=== PATIENT | male | born 1950 | race Hispanic/Latino ===

== ENCOUNTER 2018-01-14 08:03 | Outpatient (RCR) | payer MEDICARE, BC ==
[~2018-01-14 08:03] MED LIST: LIDOCAINE VISC 2% SOLN 15 ML UDC ONE
[2018-01-14] MEDS ORDERED: COLLAGENASE OINTMENT 30 GM TUBE ONE (17:17)
== END 2018-02-05 ==
LOC: WCC 08:03
PROVIDERS: ATTEND Plastic Surgery
DX: E11.621 Type 2 diabetes mellitus with foot ulcer (principal); L97.422 Non-pressure chronic ulcer of left heel and midfoot with fat layer exposed; G81.90 Hemiplegia, unspecified affecting unspecified side; I73.89 Other specified peripheral vascular diseases; I10 Essential (primary) hypertension; N18.6 End stage renal disease
CPT/HCPCS: 36415; 82948

== ENCOUNTER → 2018-01-28 | Outpatient (CLI) | payer MEDICARE, BC ==
--- NOTE | 2018-01-31 08:24 | Diagnostic Imaging Report ---
TECHNIQUE: Magnetic resonance imaging of the LEFT foot (hindfoot) was performed WITHOUT injected contrast. HISTORY: Ulcer, heel, diabetes COMPARISON: None available. DISCUSSION: Bone: No focal or infiltrative bone marrow replacing abnormality. No acute fracture or osteonecrosis. Subchondral sclerotic and cystic changes at the medial aspect of the talar dome. Joints: No dislocation. No effusion. Minimal scattered degenerative changes. Soft Tissues: A small soft tissue defect at the medial aspect of the dorsal heel. Mild regional edema without a drainable fluid collection. IMPRESSION: 1. No osteomyelitis. 2. No soft tissue abscess. Signed by: Dr. Manolo Rose D.O., M.M.M. on 01/31/2018 8:20 AM
== END ==
LOC: MRI 08:08
PROVIDERS: ATTEND Plastic Surgery
DX: E11.621 Type 2 diabetes mellitus with foot ulcer (principal); L97.422 Non-pressure chronic ulcer of left heel and midfoot with fat layer exposed; Z01.810 Encounter for preprocedural cardiovascular examination
CPT/HCPCS: 93306

== ENCOUNTER 2018-03-04 14:05 | Outpatient (RCR) | payer MEDICARE, BC ==
[2018-04-18] MEDS ORDERED: MINOXIDIL2.5 MG PO (14:24)
[2018-04-18] MEDS ORDERED: RENVELA0.8 GM PO (14:24)
[2018-04-18] MEDS ORDERED: DIOVAN160 MG PO (14:24)
[2018-04-18] MEDS ORDERED: ASPIRIN81 MG PO (14:24)
[2018-04-18] MEDS ORDERED: CARVEDILOL12.5 MG PO (14:24)
== END 2018-03-07 ==
LOC: WCC 14:05
PROVIDERS: ATTEND Plastic Surgery
DX: E11.621 Type 2 diabetes mellitus with foot ulcer (principal); L97.422 Non-pressure chronic ulcer of left heel and midfoot with fat layer exposed; N18.6 End stage renal disease; I73.89 Other specified peripheral vascular diseases; I10 Essential (primary) hypertension; G81.90 Hemiplegia, unspecified affecting unspecified side; E78.00 Pure hypercholesterolemia, unspecified; Z01.810 Encounter for preprocedural cardiovascular examination

== ENCOUNTER → 2018-03-07 | Outpatient (RCR) | payer MEDICARE, BC | LOC: WCC 02-07 11:09 | PROVIDERS: ATTEND Plastic Surgery | DX: E11.621 Type 2 diabetes mellitus with foot ulcer (principal); L97.422 Non-pressure chronic ulcer of left heel and midfoot with fat layer exposed; N18.6 End stage renal disease; I73.89 Other specified peripheral vascular diseases; I10 Essential (primary) hypertension; G81.90 Hemiplegia, unspecified affecting unspecified side; E78.00 Pure hypercholesterolemia, unspecified; Z01.810 Encounter for preprocedural cardiovascular examination | CPT/HCPCS: 36415 ×11; 82948 ×11; 99211; 99212; G0277 ×13 ==

== ENCOUNTER → 2018-04-07 | Outpatient (RCR) | payer MEDICARE, BC ==
[~2018-04-07] MED LIST changes: +COLLAGENASE OINTMENT 30 GM TUBE ONE
== END ==
LOC: WCC 03-08 14:36
PROVIDERS: ATTEND Plastic Surgery
DX: E11.621 Type 2 diabetes mellitus with foot ulcer (principal); L97.422 Non-pressure chronic ulcer of left heel and midfoot with fat layer exposed; I73.89 Other specified peripheral vascular diseases; I10 Essential (primary) hypertension; N18.6 End stage renal disease; G81.90 Hemiplegia, unspecified affecting unspecified side; E78.00 Pure hypercholesterolemia, unspecified; Z01.810 Encounter for preprocedural cardiovascular examination
CPT/HCPCS: 36415 ×14; 82948 ×17; 97602 ×4; 99212; G0277 ×18

== ENCOUNTER → 2018-04-19 | Day surgery (SDC) | payer MEDICARE, BC ==
[2018-04-18 14:25] LABS: BASOPHILS # (AUTO) 0.1 (0.0-0.1); BASOPHILS % 0.8 % (0.0-1.0); EOSINOPHILS # (AUTO) 0.1 (0.0-0.4); EOSINOPHILS % 2.2 % (0.0-6.0); HEMATOCRIT 30.6 % (38.2-49.6); HEMOGLOBIN 10.1 g/dL (14.0-18.0); LYMPHOCYTES # (AUTO) 0.9 (1.0-3.2); LYMPHOCYTES % 13.4 % (18.0-39.1); MEAN CORPUSCULAR VOLUME 90.8 fL (81-99); MONOCYTES # (AUTO) 0.7 (0.2-0.8); MONOCYTES % 10.4 % (4.4-11.3); NEUTROPHILS # (AUTO) 4.6 (2.1-6.9); NEUTROPHILS % 72.9 % (38.7-80.0); PLATELET COUNT 222 x10e3/uL (140-360); RED BLOOD COUNT 3.37 x10e6/uL (4.3-5.7); RED CELL DISTRIBUTION WIDTH 13.6 % (11.7-14.4)
[2018-04-18 14:29] LABS: INR 1.15; PROTHROMBIN TIME 13.8 seconds (11.9-14.5)
[2018-04-18 14:44] LABS: ALBUMIN 3.3 g/dL (3.5-5.0); CALCIUM 9.1 mg/dL (8.4-10.2); CHOL/HDL RATIO 4.6 (3.9-4.7); CREATININE, SERUM 4.77 mg/dL (0.72-1.25)
[~2018-04-19] VITALS: Ht 172.7 cm; Wt 92.5 kg
[~2018-04-19] MED LIST changes: +ALPRAZOLAM 0.5 MG TAB ONE; +ASPIRIN81 MG PO; +CARVEDILOL12.5 MG PO; -COLLAGENASE OINTMENT 30 GM TUBE ONE; +DIOVAN160 MG PO; +DIPHENHYDRAMINE HCL 25 MG CAP ONE; +FENTANYL CITRATE/PF 100MCG/2 ML INJ ONE; +HEPARIN SOD/SOD CHLORIDE 2,000 ML ONE; +IOPAMIDOL 300MG/ML 100 ML INFUS..BTL IV ONE; +LIDOCAINE HCL 2% LOCAL 20 ML VIAL ONE; -LIDOCAINE VISC 2% SOLN 15 ML UDC ONE; +METHYLPREDNISOLONE SOD SUCC 125 MG/2ML VIAL ONE; +MIDAZOLAM HCL 2 MG/2 ML VIAL ONE; +MINOXIDIL2.5 MG PO; +NITROGLYCERIN/D5W 200 MCG/ML 250 ML ONE; +RENVELA0.8 GM PO; +SODIUM CHLORIDE 0.9% 1000ML 0 ML ONE; +SODIUM CHLORIDE 0.9% 1000ML 1,000 ML ONE; +VERAPAMIL HCL 2.5 MG/ML 2 ML VIAL ONE
--- OUTSIDE RECORDS SUMMARY | 2018-04-19 12:26 | XMS REPORT | Continuity of Care Document ---
Author Author [facility] Organization [facility] Address 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 No 01/07/18 10:45am If yes, is advance directive [facility]? No 01/07/18 10:45am If not on file with [facility] will patient provide a copy? No 01/07/18 10:45am Do you have a Directive to Physician? No 03/07/18 3:44pm Do you have a Medical Power of Health Care Facility Administrator? No 03/07/18 3:44pm Do you have an out of hospital Do Not Resuscitate Order? No 03/07/18 3:44pm Do you have any special needs we should be aware of? No 03/07/18 3:44pm Do you have a support person here with you today? No 03/07/18 3:44pm Did patient receive Notice of Privacy Practices? Yes 03/07/18 3:44pm Did patient receive patient rights and responsibilities? Yes 03/07/18 3:44pm Problems No problem information available. Medications No medication information available. Social History No social history information available. Hospital Discharge Instructions No hospital discharge instruction information available. Plan of Care Prescriptions See Medication Section Functional Status No functional status information available. Allergies, Adverse Reactions, Alerts No allergy information available. Immunizations No immunization information available. Vital Signs No vital sign information available. Results Laboratory Results Test Name Result Units Flags Reference Collection Date/Time Result Date/ Time Comments Bedside Glucose 106 mg/dL 70-120 04/07/2018 1:03pm 04/07/2018 1:50pm Meter ID: [id number] Procedures Procedure Status Date Provider(s) MRI non-joint region of extremity lower wo contrast Active 01/28/18 LIAT MEADE MD Encounters Encounter Location Arrival/Admit Date Discharge/Depart Date Attending Provider Discharged [facility] 04/07/18 10:50am 11:59pm LIAT MEADE MD Discharged [facility] 03/04/18 2:05pm 03/07/18 11:59pm LIAT MEADE MD Discharged [facility] 02/07/18 11:09am 11:59pm LIAT MEADE MD Registered Clinic [facility] 01/28/18 8:08am LIAT MEADE MD Discharged [facility] 01/10/18 8:17am 02/05/18 11:59pm LIAT MEADE MD
--- OUTSIDE RECORDS SUMMARY | 2018-04-19 12:26 | XMS REPORT ---
Author Author [facility] Address Unknown Phone Unavailable Care Team Providers Care Radio Frequency Engineer Name Role Phone LIAT MEADE Unavailable Unavailable Problems This patient has no known problems. Allergies, Adverse Reactions, Alerts This patient has no known allergies or adverse reactions. Medications This patient has no known medications. Results Test Description Test Time Test Comments Text Results Atomic Results Result Comments MRI FOOT LEFT WO [place] [address] Patient Name: STANLEY FOREMAN MR #: [id number] : 1950 Age/Sex: 67/M Req #: [id number] Adm Physician: Ordered by: LIAT MEADE MD Report #: [id number] Location: MRI Room/Bed: Procedure: [id number] MRI/MRI FOOT LEFT WO Exam Date: Exam Time: REPORT STATUS: Signed TECHNIQUE: Magnetic resonance imaging of the LEFT foot (hindfoot) was performed WITHOUT injected contrast. HISTORY: Ulcer , heel, diabetes COMPARISON: None available. DISCUSSION: Bone: No focal or infiltrative bone marrow replacing abnormality. No acute fracture or osteonecrosis. Subchondral sclerotic and cystic changes at the medial aspect of the talar dome. Joints: No dislocation. No effusion. Minimal scattered degenerative changes. Soft Tissues: A small soft tissue defect at the medial aspect of the dorsal heel. Mild regional edema without a drainable fluid collection. IMPRESSION: 1. No osteomyelitis. 2. No soft tissue abscess. Signed by: Dr. Hayley Saeed D.O., M.M.M. on 2017 8:20 AM Dictated By: HAYLEY SAEED DO 9 Transcribed By: GURMEET on 01/31/18819 COPY TO: LIAT MEADE MD
--- OUTSIDE RECORDS SUMMARY | 2018-04-19 12:26 | XMS REPORT | Clinical Summary ---
Author Author [facility] Address Unknown Phone Unavailable Care Team Providers Care Aquatic Scientist Name Role Phone Evie Serrano MD PCP Allergies Active Allergy Reactions Severity Noted Date Comments Iodine Hives High 07/01/2017 SOB Current Medications Prescription Sig. Disp. Refills Start End Date Status Date sevelamer (RENVELA) 800 Take 1 tablet(s) 3 times Active mg tablet a day by oral route. clindamycin (CLEOCIN) 300 TK 1 C PO Q 6 H FOR 10 0 06/29/20 Active MG capsule DAYS 17 carvedilol (COREG) 12.5 TK 1 T PO BID 2 05/16/20 Active MG tablet 17 atorvastatin (LIPITOR) 10 TK 1 T PO QD 6 05/13/20 Active MG tablet 17 omeprazole (PriLOSEC) 20 TK 1 C PO D 1 06/01/20 Active MG capsule 17 AURYXIA 210 mg iron TK 2 TS PO TID WC 5 05/06/20 Active tablet 17 lidocaine-prilocaine APPLY TO INFECTED AREA 7 06/25/20 Active (EMLA) 2.5-2.5 % cream 17 gabapentin (NEURONTIN) TK 1 C PO QHS 0 05/18/20 Active 300 mg capsule 17 terbinafine HCl (LamiSIL) TK 1 T PO HS FOR TOENAIL. 0 06/15/20 Active 250 mg tablet FOR 12 WEEKS 17 valsartan (DIOVAN) 160 MG TK 1 T PO QD 5 03/30/20 Active tablet 17 FOLIC ACID ORAL folic acid Active midodrine (PROAMATINE) 10 Take 10 mg by mouth 3 Active MG tablet (three) times a day. traMADol (ULTRAM) 50 mg Take 1 tablet (50 mg 40 tablet 0 07/13/20 tablet total) by mouth every 6 17 17 (six) hours as needed for moderate pain for up to 7 days. Active Problems Problem Noted Date Complications due to renal dialysis device, implant, and graft 07/01/2017 Overview: Added automatically from request for surgery [id number] Syncope 03/27/2016 Encounters Date Type Specialty Care Team Description 07/16/2017 Telephone Cardiovascular Mary Ordoñez RN 07/13/2017 Hospital Ophthalmology Mala Chapa MD Complications due to Encounter renal dialysis device, implant, and graft, initial encounter 07/13/2017 Hospital Radiology Mala Chapa MD ESRD (end stage renal Encounter disease) 07/13/2017 Anesthesia Ophthalmology Nicki Luna Event MD 07/13/2017 Ancillary Radiology Mala Chapa MD ESRD (end stage renal Orders disease) 07/13/2017 Procedure Pass Ophthalmology 07/13/2017 Surgery Ophthalmology Mala Chapa MD Left arm fistulogram, angioplasty, and stent placement 07/01/2017 Office Visit Cardiovascular Mala Chapa MD Complications due to renal dialysis device, implant, and graft, initial encounter (Primary Dx) 06/11/2017 Telephone Cardiovascular Dionne Preston MA Complications due to renal dialysis device, implant, and graft, initial encounter (Primary Dx); End stage renal disease after 04/18/2017 Immunizations Name Dates Previously Given Next Due Influenza, Quadrivalent 11/08/2013 Social History Tobacco Use Types Packs/Day Years Used Date Never Smoker Alcohol Use Drinks/Week oz/Week Comments No Sex Assigned at Date Recorded Not on file Last Filed Vital Signs Vital Sign Reading Time Taken Blood Pressure 179/77 07/13/2017 3:08 PM CDT Pulse 59 07/13/2017 3:08 PM CDT Temperature 35.7 C (96.3 F) 07/13/2017 3:08 PM CDT Respiratory Rate 16 07/13/2017 3:08 PM CDT Oxygen Saturation 100% 07/13/2017 3:08 PM CDT Inhaled Oxygen - - Concentration Weight 98 kg (216 lb 0.8 oz) 07/13/2017 10:23 AM CDT Height 172.7 cm (5' 8") 07/13/2017 10:23 AM CDT Body Mass Index 32.85 07/13/2017 10:23 AM CDT Plan of Treatment Health Maintenance Due Date Last Done Comments SHINGRIX VACCINE (#1) 2001 ZOSTER VACCINE 2011 PNEUMOCOCCAL 2016 POLYSACCHARIDE VACCINE AGE 65 AND OVER PNEUMOCOCCAL-13 2016 INFLUENZA VACCINE 06/08/2018 11/08/2013 COLON CANCER SCREENING 01/06/2026 01/07/2016, 01/06/2016, 01/05/2016 Implants Implanted Type 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 [employer] Device Expiration Model / Identifier Date Serial / Lot Stent Bili E-Luminexx [id number] W/ Peripheral Left: Arm, BARD PERIPHERAL 10/09/2019 [id number] / Cath 80cm - [id number] or Biliary Upper VASCULAR / Implanted: 07/13/2017 (Quantity not Stents [id number] on file) Catheter Wire Repairer 4x75cm 10mm Conquest - Surgical Left: Arm BARD PERIPHERAL [id number] / [id number] Implants; VASCULAR / Implanted: Qty: 1 on 07/13/2017 by [employer]; [id number] Mala Chapa MD Extenders; Surgical Wires Procedures Procedure Name Priority Date/Time Associated Diagnosis Comments ANESTHESIA PERIPHERAL Routine 07/13/2017 BLOCK 11:42 AM CDT Procedure Note - Donita Mike MD - 07/13/2017 11:20 AM CDT Peripheral Block Performed by: DONITA MIKE Authorized by: DONITA MIKE Patient Location: Pre-op Start Time: 07/13/2017 11:25 AM End Time: 07/13/2017 11:42 AM Reason for Block: at surgeon's request Staff: Anesthesio logist: DONITA MIKE Resident/C RNA: NICKI LUNA Performed by: Resident/C RNA Preprocedu re: patient identified , IV checked, site and side verified, risks and benefits discussed, procedure verified, surgical consent complete, patient position confirmed, monitors and equipment checked, pre-op evaluation complete and site marked Time Out Performed: 07/13/2017 11:22 AM Peripheral Nerve Block: Patient Position: Sitting Prep: ChloraPrep Monitoring : Blood pressure monitoring , continuous pulse oximetry and heart rate Block Type: Supraclavi cular Laterality : Left Injection Technique: Single injection Procedures : ultrasound guided and nerve stimulator Ultrasound documentat ion: Printed/pl aced in chart Local Infiltrati on (See MAR for details): Lidocaine Loss of Twitch: 0.5 mA Needle: Needle Type: Pajunk Needle Gauge: 22 G Needle Length: 8 cm Assessment : Injection Assessment : Visualized needle/loc al anesthetic surroundin g nerve, visualized pertinent vascular structures and nerves, needle tip visualized at all times during injection of medication , intermitte nt aspiration during local anesthetic administra tion and no symptoms of intraneura l/intraven ous injection Paresthesi a Pain: None Heart Rate Change: No Block outcome: No apparent complicati ons, patient comfortabl e and patient tolerated procedure well Notes: Supervised resident who performed regional block. Left arm fistulogram, 07/13/2017 Complications due to angioplasty, and stent 10:15 AM CDT renal dialysis device, placement implant, and graft, initial encounter after 04/18/2017 Results * POC glucose (07/13/2017 2:16 PM) Component Value Ref Range POC glucose 96 65 - 99 mg/dL Comment: No Action Needed [facility] Notified RN Meter ID: [id number] Shaft Mechanic: Richard Mayberry Specimen Performing Laboratory [facility] DEPARTMENT OF PATHOLOGY AND GENOMIC MEDICINE [address] [place] [address] * OR [place] < 1 Hour (07/13/2017 2:05 PM) Specimen Performing Laboratory [facility] [address] [place] [id number] Narrative EXAMINATION:OR [place] 1 HOUR C-arm fluoroscopy was requested in OR. LOCATION: [facility] 7 OR 1 PROCEDURE: LEFT UE VENOGRAM/ANGIOPLASTY/STENT PLACEMENT START: 1310 END: 1405 FLUORO TIME: 4:27 DOSE mGy: 21.12 TECH: GABINO GREGORY C-ARM: OEC 10 IMPRESSION: Separate operative report will be issued by the physician performing the procedure. [id number] Procedure Note Interface, Radiology Results Incoming - 07/13/2017 6:42 PM CDT EXAMINATION: OR [place] 1 HOUR C-arm fluoroscopy was requested in OR. LOCATION: [facility] 7 OR 1 PROCEDURE: LEFT UE VENOGRAM/ANGIOPLASTY/STENT PLACEMENT START: 1310 END: 1405 FLUORO TIME: 4:27 DOSE mGy: 21.12 TECH: GABINO GREGORY C-ARM: OEC 10 IMPRESSION: Separate operative report will be issued by the physician performing the procedure. [id number] * ECG 12 lead (07/13/2017 11:04 AM) Component Value Ref Range Ventricular rate 53 Atrial rate 53 IL interval 178 QRSD interval 80 QT interval 492 QTC interval 461 P axis 1 12 QRS axis 1 17 T wave axis 80 EKG impression Sinus bradycardia-Otherwise normal ECG-In automated comparison with ECG of 07-JAN-2016 14:58,-Non-specific change in ST segment in Inferior leads-T wave inversion no longer evident in Inferior leads- Specimen Performing Laboratory [facility] [address] [place] [id number] * POC panel 4 (07/13/2017 10:48 AM) Component Value Ref Range POC sodium 138Comment: Testing performed on the ISTAT 135 - 148 mEq/L instrument by RN [id number]. POC potassium 5.3 (H) 3.5 - 5.0 mEq/L POC hematocrit 34 (L) 41 - 51 % POC glucose 127 (H) 65 - 99 mg/dL Specimen Performing Laboratory [facility] DEPARTMENT OF PATHOLOGY AND GENOMIC MEDICINE [address] [place] [address] * XR Chest 1 Vw Portable (07/13/2017 10:40 AM) Specimen Performing Laboratory [facility] [address] [place] [address] Narrative EXAMINATION:XR CHEST 1 VW PORTABLE CLINICAL HISTORY: preop clearance COMPARISON:01/07/2016. FINDINGS: One view of the chest demonstratesnormal cardiomediastinal silhouette. Pulmonary vasculature is within normal limits. A left subclavian stent is again noted. Both lungs are clear. No pleural disease is identified. Regional osseous structures is unremarkable. IMPRESSION: No radiographic evidence of acute cardiopulmonary process or active disease of the chest. [id number] Procedure Note Interface, Radiology Results Incoming - 07/13/2017 10:51 AM CDT EXAMINATION: XR CHEST 1 VW PORTABLE CLINICAL HISTORY: preop clearance COMPARISON: 01/07/2016. FINDINGS: One view of the chest demonstrates normal cardiomediastinal silhouette. Pulmonary vasculature is within normal limits. A left subclavian stent is again noted. Both lungs are clear. No pleural disease is identified. Regional osseous structures is unremarkable. IMPRESSION: No radiographic evidence of acute cardiopulmonary process or active disease of the chest. [id number] * PV vein mapping upper extremity (06/24/2017 3:52 PM) Specimen Performing Laboratory [facility] [address] [place] [address] Narrative [facility] Upper Extremity Vein Mapping Duplex Report [address] [place], [place] Pat.Name:HERMAN FOREMAN Pat.ID:[id number] .Date: 06/24/2017 Refer.MD:MALA CHAPA MD Exam Time: 2:05:00 PMStudy Type:UE Vein Mapping DOBAge:1950,66Y Sex: MALE Sonogrphr: Anish Harrison, RDMS, RVT CPT - 4: [id number] Echo Event ID:[id number] Order ID:[id number] Reason for Study:Pre-op vein mapping for AV fistula.History of malfunctioning left arm AVF.Patient reports that he is still using it for dialysis but it is failing due to a blockage in a stent at his shoulder. Race:C SUMMARY: DUPLEX SCAN OBSERVATIONS Right Left SubclavianPatent Patent AxillaryPatent Patent BrachialPatent Patent Diameter 0.21 cm Cephalic, arm Patent Patent, chronic thrombosis and 2 stents Cephalic, forearm Not visualized Not visualized Basilic, armPatent Patent Basilic, forearm Not visualized Patent Brachial artery Pressure 144/69 mmHg AVF PSV cm/sec 915559 Radial artery PSV cm/sec 46944 Ulnar artery PSV cm/sec 7966 RIGHT:There is normal compressibility with no evidence of echogenic material noted within the lumen of the visualized veins.Colorflow and Doppler signals demonstrate patency.The scanlon of the radial and ulnar arteries are echogenic. LEFT:There is a patent brachiocephalic AVF noted in the upper arm with chronic appearing thrombus noted near the AC fossa.Colorflow and Doppler signals demonstrate patency.The scanlon of the radial and ulnar arteries are echogenic. PHYSICIAN INTERPRETATION 1.No evidence of acute deep venous thrombosis of the bilateral upper extremities. 2.Patent left brachiocephalic AVF is noted in the upper arm. 3.See diagram for vein measurements. MEASUREMENTS: UEVEINS Right Cephalic Upper Arm Prox Cephalic Upper 0.32 cm Right Cephalic Upper Arm Mid Cephalic Upper 0.33 cm Right Cephalic Upper Arm Dist Cephalic Upper0.3 cm Right Cephalic Antecubital Fossa Cephalic Antecu0.27 cm Right Basilic Upper Arm Prox Basilic Upper A 0.4 cm Left Basilic Upper Arm Prox Basilic Upper A0.51 cm Right Basilic Upper Arm Mid Basilic Upper A0.46 cm Left Basilic Upper Arm Mid Basilic Upper A0.49 cm Right Basilic Upper Arm Dist Basilic Upper A0.41 cm Left Basilic Upper Arm Dist Basilic Upper A0.32 cm Right Basilic Antecubital Fossa Basilic Antecub 0.4 cm Left Basilic Antecubital Fossa Basilic Antecub0.34 cm Left Basilic Forearm Prox Basilic Forearm0.33 cm Left Basilic Forearm Mid Basilic Forearm0.29 cm Left Basilic Wrist Basilic Wrist A0.27 cm Right Brachial Artery Brachial Artery0.48 cm Left Brachial Artery Brachial Artery0.51 cm Right Radial Artery Radial Artery A0.23 cm Left Radial Artery Radial Artery A0.22 cm Right Ulnar Artery Ulnar Artery AP0.21 cm Left Ulnar Artery Ulnar Artery AP0.17 cm Signed 06/28/2017 12:10 AM Jose Antonio Maciel MD, RPVI Procedure Note Interface, Radiology Results In - 06/28/2017 12:10 AM CDT [facility] Upper Extremity Vein Mapping Duplex Report [address] [place] [address] Pat.Name: HERMAN FOREMAN Pat.ID: [id number] St.Date: 06/24/2017 Refer.MD: MALA CHAPA MD Exam Time: 2:05:00 PM Study Type:UE Vein Mapping Age: 10 1950,66Y Sex: MALE Sonogrphr: Anish Harrison RDMS, RVT CPT - 4: [id number] Echo Event ID:[id number] Order ID: [id number] Reason for Study:Pre-op vein mapping for AV fistula. History of malfunctioning left arm AVF. Patient reports that he is still using it for dialysis but it is failing due to a blockage in a stent at his shoulder. Race: C SUMMARY: DUPLEX SCAN OBSERVATIONS Right Left Subclavian Patent Patent Axillary Patent Patent Brachial Patent Patent Diameter 0.21 cm Cephalic, arm Patent Patent, chronic thrombosis and 2 stents Cephalic, forearm Not visualized Not visualized Basilic, arm Patent Patent Basilic, forearm Not visualized Patent Brachial artery Pressure 144/69 mmHg AVF PSV cm/sec 101 186 Radial artery PSV cm/sec 78 107 Ulnar artery PSV cm/sec 79 66 RIGHT: There is normal compressibility with no evidence of echogenic material noted within the lumen of the visualized veins. Colorflow and Doppler signals demonstrate patency. The scanlon of the radial and ulnar arteries are echogenic. LEFT: There is a patent brachiocephalic AVF noted in the upper arm with chronic appearing thrombus noted near the AC fossa. Colorflow and Doppler signals demonstrate patency. The scanlon of the radial and ulnar arteries are echogenic. PHYSICIAN INTERPRETATION 1. No evidence of acute deep venous thrombosis of the bilateral upper extremities. 2. Patent left brachiocephalic AVF is noted in the upper arm. 3. See diagram for vein measurements. MEASUREMENTS: UEVEINS Right Cephalic Upper Arm Prox Cephalic Upper 0.32 cm Right Cephalic Upper Arm Mid Cephalic Upper 0.33 cm Right Cephalic Upper Arm Dist Cephalic Upper 0.3 cm Right Cephalic Antecubital Fossa Cephalic Antecu 0.27 cm Right Basilic Upper Arm Prox Basilic Upper A 0.4 cm Left Basilic Upper Arm Prox Basilic Upper A 0.51 cm Right Basilic Upper Arm Mid Basilic Upper A 0.46 cm Left Basilic Upper Arm Mid Basilic Upper A 0.49 cm Right Basilic Upper Arm Dist Basilic Upper A 0.41 cm Left Basilic Upper Arm Dist Basilic Upper A 0.32 cm Right Basilic Antecubital Fossa Basilic Antecub 0.4 cm Left Basilic Antecubital Fossa Basilic Antecub 0.34 cm Left Basilic Forearm Prox Basilic Forearm 0.33 cm Left Basilic Forearm Mid Basilic Forearm 0.29 cm Left Basilic Wrist Basilic Wrist A 0.27 cm Right Brachial Artery Brachial Artery 0.48 cm Left Brachial Artery Brachial Artery 0.51 cm Right Radial Artery Radial Artery A 0.23 cm Left Radial Artery Radial Artery A 0.22 cm Right Ulnar Artery Ulnar Artery AP 0.21 cm Left Ulnar Artery Ulnar Artery AP 0.17 cm Signed 06/28/2017 12:10 AM Jose Antonio Maciel MD, RPVI * PV duplex hemodialysis avg avf access (06/24/2017 3:38 PM) Specimen Performing Laboratory [facility] [address] [place] [address] [facility] PERIPHERAL VASCULAR LABORATORY AV Graft - Fistula Report [address] [place], [place] [facility].Name:HERMAN FOREMAN Pat.ID:[id number] .Date: 06/24/2017 Refer.MD:MALA CHAPA MD Exam Time: 1:49:00 PMStudy Type:AV Graft - Fistula DOBAge:1950,66Y Sex: MALE Sonogrphr: Anish Harrison RDMS, RVT CPT - 4: 00030 Echo Event ID:[id number] Order ID:[id number] Reason for Study:Patient presents with malfunctioning left arm AVF. Patient reports that he is still using it for dialysis but it is failing due to a blockage in a stent at his shoulder.No previous studies are availlable for comparison. Race:C SUMMARY: DUPLEX SCAN OBSERVATIONS: LEFT:The brachiocephalic AVF is well visualized.Disturbed, pulsatile colorflow and Doppler signals are noted in the feeding brachial artery, through the AVF anastomosis and into the draining cephalic vein.Increased colorflow disturbance and elevated velocities are noted through the anastomosis with plaque noted.A patent cephalic vein stent is noted in the mid upper arm with no elevated velocities.A second patent cephalic vein stent is noted at the cephalic arch with disturbed colorflow and elevated velocities. VOLUME FLOW:Left brachial artery 335 ml/min PHYSICIAN INTERPRETATION: 1.Volume flow left brachial artery is 335 ml/min. 2.>50% juxta-anastomotic stenosis, left brachiocephalic AVF (ratio 3.2). 3.>50% stenosis of the left distal end of the left cephalic vein stent at the cephalic arch (ratio 6.6). MEASUREMENTS: UEVEINS Right Cephalic Upper Arm Prox Cephalic Upper 0.32 cm Left Basilic Upper Arm Mid Basilic Upper A0.49 cm Right Basilic Upper Arm Mid Basilic Upper A0.46 cm Right Cephalic Upper Arm Dist Cephalic Upper0.3 cm Left Ulnar Artery Ulnar Artery AP0.17 cm Right Ulnar Artery Ulnar Artery AP0.21 cm Right Cephalic Upper Arm Mid Cephalic Upper 0.33 cm Left Basilic Forearm Prox Basilic Forearm0.33 cm Right Median Antecubital Median Antecubi0.21 cm Right Cephalic Antecubital Cephalic Antecu0.27 cm Left Basilic Wrist Basilic Wrist A0.27 cm Left Basilic Antecubital Basilic Antecub0.34 cm Right Basilic Antecubital Fossa Basilic Antecub 0.4 cm Left Radial Artery Radial Artery A0.22 cm Right Radial Artery Radial Artery A0.23 cm Left Basilic Upper Arm Dist Basilic Upper A0.32 cm Right Basilic Upper Arm Dist Basilic Upper A0.41 cm Left Brachial Artery Brachial Artery0.51 cm Left Basilic Forearm Mid Basilic Forearm0.29 cm Left Basilic Upper Arm Prox Basilic Upper A0.51 cm Right Basilic Upper Arm Prox Basilic Upper A 0.4 cm GRAFT Left Brachial A Dist Brachiocephalic:AV Fistula Brachial A Dist 211 cm/s Left Anastomosis Brachiocephalic:AV Fistula Anast DIS346 cm/s Left Cephalic Dist Up Arm Brachiocephalic:AV Fistula Cephalic Dist U 207 cm/s Left Cephalic Shoulder Brachiocephalic:AV Fistula Cephalic Omcvin89 cm/s Left 3 cm Central Brachiocephalic:AV Fistula 3 cm Central PS 678 cm/s Left 1 cm Central Brachiocephalic:AV Fistula 1 cm Central PS 472 cm/s Left Cephalic Mid Up Arm Brachiocephalic:AV Fistula Cephalic Mid Up 115 cm/s Left Brachial A Prox Brachiocephalic:AV Fistula Brachial A Prox 193 cm/s Left Brachial A Mid Brachiocephalic:AV Fistula Brachial A Gaj778 cm/s Left Cephalic Prox Up Arm Brachiocephalic:AV Fistula Cephalic Prox U77 cm/s Left Subclavian V Mid Brachiocephalic:AV Fistula Subclavian V Mi 116 cm/s Left Cephalic Arch 1 Brachiocephalic:AV Fistula Cephalic Arch 1 483 cm/s Left Cephalic Arch 2 Brachiocephalic:AV Fistula Cephalic Arch 2 144 cm/s Left Ceph/Axillary Confl. Brachiocephalic:AV Fistula Ceph/Axillary C 146 cm/s DOPPLER Brach A Diam AP Right Brach A D0.48 cm Ceph V Arch 2 Left Ceph V Arc 144 cm/s Ceph V Arch 1 Left Ceph V Arc 483 cm/s Signed 06/28/2017 12:09 AM Jose Antonio Maciel MD, RPVI Procedure Note Interface, Radiology Results In - 06/28/2017 12:09 AM CDT [facility] AV Graft - Fistula Report [address] [place] [id number] Pat.Name: HERMAN FOREMAN Pat.ID: [id number] St.Date: 06/24/2017 Refer.MD: MALA CHAPA MD Exam Time: 1:49:00 PM Study Type:AV Graft - Fistula Age: 10 1950,66Y Sex: MALE Sonogrphr: Anish Harrison RDMS, RVT CPT - 4: [id number] Echo Event ID:[id number] Order ID: [id number] Reason for Study:Patient presents with malfunctioning left arm AVF. Patient reports that he is still using it for dialysis but it is failing due to a blockage in a stent at his shoulder. No previous studies are availlable for comparison. Race: C SUMMARY: DUPLEX SCAN OBSERVATIONS: LEFT: The brachiocephalic AVF is well visualized. Disturbed, pulsatile colorflow and Doppler signals are noted in the feeding brachial artery, through the AVF anastomosis and into the draining cephalic vein. Increased colorflow disturbance and elevated velocities are noted through the anastomosis with plaque noted. A patent cephalic vein stent is noted in the mid upper arm with no elevated velocities. A second patent cephalic vein stent is noted at the cephalic arch with disturbed colorflow and elevated velocities. VOLUME FLOW: Left brachial artery 335 ml/min PHYSICIAN INTERPRETATION: 1. Volume flow left brachial artery is 335 ml/min. 2. 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 3. >50% stenosis of the left distal end of the left cephalic vein stent at the cephalic arch (ratio 6.6). MEASUREMENTS: UEVEINS Right Cephalic Upper Arm Prox Cephalic Upper 0.32 cm Left Basilic Upper Arm Mid Basilic Upper A 0.49 cm Right Basilic Upper Arm Mid Basilic Upper A 0.46 cm Right Cephalic Upper Arm Dist Cephalic Upper 0.3 cm Left Ulnar Artery Ulnar Artery AP 0.17 cm Right Ulnar Artery Ulnar Artery AP 0.21 cm Right Cephalic Upper Arm Mid Cephalic Upper 0.33 cm Left Basilic Forearm Prox Basilic Forearm 0.33 cm Right Median Antecubital Median Antecubi 0.21 cm Right Cephalic Antecubital Cephalic Antecu 0.27 cm Left Basilic Wrist Basilic Wrist A 0.27 cm Left Basilic Antecubital Basilic Antecub 0.34 cm Right Basilic Antecubital Fossa Basilic Antecub 0.4 cm Left Radial Artery Radial Artery A 0.22 cm Right Radial Artery Radial Artery A 0.23 cm Left Basilic Upper Arm Dist Basilic Upper A 0.32 cm Right Basilic Upper Arm Dist Basilic Upper A 0.41 cm Left Brachial Artery Brachial Artery 0.51 cm Left Basilic Forearm Mid Basilic Forearm 0.29 cm Left Basilic Upper Arm Prox Basilic Upper A 0.51 cm Right Basilic Upper Arm Prox Basilic Upper A 0.4 cm GRAFT Left Brachial A Dist Brachiocephalic:AV Fistula Brachial A Dist 211 cm/s Left Anastomosis Brachiocephalic:AV Fistula Anast PSV 272 cm/s Left Cephalic Dist Up Arm Brachiocephalic:AV Fistula Cephalic Dist U 207 cm/s Left Cephalic Shoulder Brachiocephalic:AV Fistula Cephalic Should 73 cm/s Left 3 cm Central Brachiocephalic:AV Fistula 3 cm Central PS 678 cm/s Left 1 cm Central Brachiocephalic:AV Fistula 1 cm Central PS 472 cm/s Left Cephalic Mid Up Arm Brachiocephalic:AV Fistula Cephalic Mid Up 115 cm/s Left Brachial A Prox Brachiocephalic:AV Fistula Brachial A Prox 193 cm/s Left Brachial A Mid Brachiocephalic:AV Fistula Brachial A Mid 183 cm/s Left Cephalic Prox Up Arm Brachiocephalic:AV Fistula Cephalic Prox U 77 cm/s Left Subclavian V Mid Brachiocephalic:AV Fistula Subclavian V Mi 116 cm/s Left Cephalic Arch 1 Brachiocephalic:AV Fistula Cephalic Arch 1 483 cm/s Left Cephalic Arch 2 Brachiocephalic:AV Fistula Cephalic Arch 2 144 cm/s Left Ceph/Axillary Confl. Brachiocephalic:AV Fistula Ceph/Axillary C 146 cm/s DOPPLER Brach A Diam AP Right Brach A D 0.48 cm Ceph V Arch 2 Left Ceph V Arc 144 cm/s Ceph V Arch 1 Left Ceph V Arc 483 cm/s Signed 06/28/2017 12:09 AM Jose Antonio Maciel MD, RPVI after 04/18/2017 Insurance Payer Benefit Subscriber ID Type Phone Address Plan / Group MEDICARE MEDICARE xxxxxxxxxx Medicare [place], [place] PART A AND B BCBS BCBS xxxxxxxxxxxx PPO [place] PPO/ESTHER PEÑA Home:
[2018-04-19 15:20] VITALS: BP 187/66
[2018-04-19 17:50] VITALS: BP 134/66
[2018-04-19 18:00] VITALS: BP 160/62
[2018-04-19 18:10] VITALS: BP 153/62
[2018-04-19 18:15] VITALS: BP 152/63
--- NOTE | 2018-04-20 11:03 | Operative Report ---
DATE OF PROCEDURE: April 19, 2018 INDICATIONS: Peripheral arterial disease, ulceration of the left heel. PROCEDURES PERFORMED: 1. Abdominal aortogram. 2. Left lower extremity angiogram with third-order catheter placement. COMPLICATIONS: None. RECOMMENDATIONS: Medical therapy. No intervention indicated. Access obtained in the right femoral artery. Abdominal aortogram demonstrated tortuous but widely patent abdominal aorta and iliacs bilaterally. Catheter was advanced in the right femoral artery to the left superficial femoral artery. Multiple stents extending from the proximal femoral artery to the distal popliteal artery were noted. These had 50% in-stent re-stenosis. Posterior tibial artery is completely occluded and was very diminutive without any reconstitution. Peroneal artery was occluded in its distal portion. Anterior tibial artery with dissolved. Runoff with less than 50% stenosis. Distally the anterior tibial artery at the level of the region of the left dorsalis pedis artery is occluded. The dorsalis pedis artery itself filled via collaterals. No intervention was possible. Right groin repaired using Minx closure device. The patient discharged home the same day. Job#: [id number]
== END | disposition home or self-care (01) ==
LOC: CATH LAB 12:24
PROVIDERS: ATTEND Internal Medicine Interventional Cardiology
DX: I70.244 Atherosclerosis of native arteries of left leg with ulceration of heel and midfoot (principal); L97.429 Non-pressure chronic ulcer of left heel and midfoot with unspecified severity; I70.92 Chronic total occlusion of artery of the extremities; Z95.820 Peripheral vascular angioplasty status with implants and grafts; I11.0 Hypertensive heart disease with heart failure; I50.9 Heart failure, unspecified; Z01.812 Encounter for preprocedural laboratory examination; Z79.82 Long term (current) use of aspirin; Z68.32 Body mass index [BMI] 32.0-32.9, adult; Z82.49 Family history of ischemic heart disease and other diseases of the circulatory system
CPT/HCPCS: 36247; 36415; 75630; 80053; 80061; 85025; 85610; C1769 ×3; J2001; J2250; J2930; J7030; Q9967; 36140; 75710; 77001

== ENCOUNTER 2018-05-06 14:55 | Outpatient (RCR) | payer MEDICARE, BC ==
[~2018-05-06 14:55] MED LIST changes: -ALPRAZOLAM 0.5 MG TAB ONE; +COLLAGENASE OINTMENT 30 GM TUBE ONE; -DIPHENHYDRAMINE HCL 25 MG CAP ONE; -FENTANYL CITRATE/PF 100MCG/2 ML INJ ONE; -HEPARIN SOD/SOD CHLORIDE 2,000 ML ONE; -IOPAMIDOL 300MG/ML 100 ML INFUS..BTL IV ONE; -LIDOCAINE HCL 2% LOCAL 20 ML VIAL ONE; +LIDOCAINE/PRILOCAINE 2.5-2.5% KIT ONE; -METHYLPREDNISOLONE SOD SUCC 125 MG/2ML VIAL ONE; -MIDAZOLAM HCL 2 MG/2 ML VIAL ONE; -NITROGLYCERIN/D5W 200 MCG/ML 250 ML ONE; -SODIUM CHLORIDE 0.9% 1000ML 0 ML ONE; -SODIUM CHLORIDE 0.9% 1000ML 1,000 ML ONE; -VERAPAMIL HCL 2.5 MG/ML 2 ML VIAL ONE
== END 2018-05-07 ==
LOC: WCC 14:55
PROVIDERS: ATTEND Plastic Surgery
DX: E11.621 Type 2 diabetes mellitus with foot ulcer (principal); L97.422 Non-pressure chronic ulcer of left heel and midfoot with fat layer exposed; I73.89 Other specified peripheral vascular diseases; N18.6 End stage renal disease; I10 Essential (primary) hypertension; G81.90 Hemiplegia, unspecified affecting unspecified side; E78.00 Pure hypercholesterolemia, unspecified; Z01.810 Encounter for preprocedural cardiovascular examination
CPT/HCPCS: 36415 ×12; 82948 ×12; 97602 ×3; 97605 ×3; G0277 ×14

== ENCOUNTER 2018-06-02 14:35 | Outpatient (RCR) | payer MEDICARE, BC ==
[~2018-06-02 14:35] MED LIST changes: +LIDOCAINE VISC 2% SOLN 15 ML UDC ONE; -LIDOCAINE/PRILOCAINE 2.5-2.5% KIT ONE; +MINERAL OIL/PETROLAT/GLYCERI 6OZ BTL ONE
[2018-06-02] MEDS ORDERED: MUPIROCIN 2% OINT 22 GM TUBE ONE (17:56)
[2018-06-02] MEDS ORDERED: LIDOCAINE VISC 2% SOLN 15 ML UDC ONE (17:56)
[2018-06-07] MEDS ORDERED: COLLAGENASE OINTMENT 30 GM TUBE ONE (11:08)
[2018-06-07] MEDS ORDERED: LIDOCAINE VISC 2% SOLN 15 ML UDC ONE (11:08)
== END 2018-06-07 ==
LOC: WCC 14:35
PROVIDERS: ATTEND Plastic Surgery
DX: E11.621 Type 2 diabetes mellitus with foot ulcer (principal); L97.422 Non-pressure chronic ulcer of left heel and midfoot with fat layer exposed; I73.89 Other specified peripheral vascular diseases; N18.6 End stage renal disease; I10 Essential (primary) hypertension; G81.90 Hemiplegia, unspecified affecting unspecified side; E78.00 Pure hypercholesterolemia, unspecified; Z01.810 Encounter for preprocedural cardiovascular examination
CPT/HCPCS: 36415 ×10; 82948 ×10; 97602 ×2; 97605 ×6; G0277 ×10

== ENCOUNTER 2019-04-14 12:09 | Emergency (ER) | payer MEDICARE, BC ==
[~2019-04-14] VITALS: Ht 172.7 cm; Wt 72.6 kg
[~2019-04-14 12:09] MED LIST changes: -COLLAGENASE OINTMENT 30 GM TUBE ONE; -LIDOCAINE VISC 2% SOLN 15 ML UDC ONE; -MINERAL OIL/PETROLAT/GLYCERI 6OZ BTL ONE
[2019-04-14] MEDS ORDERED: VANCOMYCIN 1GM/NS 250 ML 250 ML IV STA (12:53)
--- OUTSIDE RECORDS SUMMARY | 2019-04-14 13:23 | XMS REPORT | Clinical Summary ---
Author Author [facility] Organization [facility] Address Unknown Phone Unavailable Care Team Providers Care Log Loader Helper Name Role Phone Evie Serrano MD PCP Allergies Comments Active Allergy Reactions Severity Noted Date SOB Iodine Hives High 07/01/2017 Medications End Date Status Medication Sig Dispensed Refills Start Date Active sevelamer (RENVELA) 800 Take 1 0 mg tablet tablet(s) 3 times a day by oral route. Active clindamycin (CLEOCIN) 300 TK 1 C PO Q 6 0 MG capsule H FOR 10 DAYS 7 Active carvedilol (COREG) 12.5 TK 1 T PO 2 MG tablet BID 7 Active atorvastatin (LIPITOR) 10 TK 1 T PO QD 6 MG tablet 7 Active omeprazole (PriLOSEC) 20 TK 1 C PO D 1 MG capsule 7 Active AURYXIA 210 mg iron TK 2 TS PO 5 tablet TID WC 7 Active lidocaine-prilocaine APPLY TO 7 (EMLA) 2.5-2.5 % cream INFECTED AREA 7 Active gabapentin (NEURONTIN) TK 1 C PO QHS 0 300 mg capsule 7 Active terbinafine HCl (LamiSIL) TK 1 T PO HS 0 250 mg tablet FOR TOENAIL. 7 FOR 12 WEEKS Active valsartan (DIOVAN) 160 MG TK 1 T PO QD 5 tablet 7 Active FOLIC ACID ORAL folic acid 0 Active midodrine (PROAMATINE) 10 Take 10 mg by 0 MG tablet mouth 3 (three) times a day. Active Problems Problem Noted Date Complications due to renal dialysis device, implant, and graft 07/01/2017 Overview: Added automatically from request for surgery [id number] Syncope 03/27/2016 Encounters Care Team Description Date Type Specialty N/A 03/27/2019 Intake Access after 04/13/2018 Immunizations Name Dates Previously Given Next Due Influenza, Quadrivalent 11/08/2013 Social History Date Tobacco Use Types Packs/Day Years Used Never Smoker Alcohol Use Drinks/Week oz/Week Comments No Sex Assigned at Date Recorded Not on file Industry Job Start Date Occupation Not on file Not on file Not on file Travel End Travel History Travel Start No recent travel history available. Last Filed Vital Signs Not on file Plan of Treatment Health Maintenance Due Date Last Done Comments SHINGLES VACCINES (#1) 2001 65+ PNEUMOCOCCAL VACCINE 2016 (1 of 2 - PCV13) INFLUENZA VACCINE 06/08/2019 11/08/2013 COLON CANCER SCREENING 01/06/2026 01/07/2016, 01/06/2016, 01/05/2016 Implants Device Identifier Shelf Expiration Date Model / Serial / Lot Implanted Type Area Manufactur er 10/09/2019 [id number] / / [id number] Stent Bili E-Luminexx [id number] W/ Peripheral Left: Arm, BARD Cath 80cm - [id number] or Biliary Upper PERIPHERAL Implanted: 07/13/2017 (Quantity not Stents VASCULAR on file) [id number] / / [id number] Catheter Information Systems Security Developer 4x75cm 10mm Conquest - Surgical Left: Arm BARD [id number] Implants; PERIPHERAL Implanted: Qty: 1 on 07/13/2017 by [employer]; VASCULAR Mala Simons MD Extenders; Surgical Wires Results Not on fileafter 04/13/2018 Insurance Type Payer Benefit Subscriber ID Effective Phone Address Plan / Dates Group Medicare MEDICARE MEDICARE xxxxxxxxxx 2012-P [place], PART A AND resent [place] B PPO BCBS BCBS xxxxxxxxxxxx 2016-P CHOICE resent PPO/ESTHER GARCIA PPO Advance Directives Patient has advance care planning documents on file. For more information, maribell dickey contact: Dennys Donaldson [address] [place] [address]
[2019-04-14] MEDS ORDERED: CLOPIDOGREL75 MG PO (13:40)
[2019-04-14] MEDS ORDERED: GABAPENTIN300 MG PO (13:40)
[2019-04-14] MEDS ORDERED: ATORVASTATIN CA20 MG PO (13:40)
[2019-04-14] MEDS ORDERED: ISOSORBIDE MONO30 MG PO (13:42)
[2019-04-14] MEDS ORDERED: HYDRALAZINE HCL25 MG PO (13:42)
[2019-04-14] MEDS ORDERED: CEFEPIME HCL 1 GM VIAL IV SCH (14:00)
[2019-04-14] MEDS ORDERED: CEFEPIME 1GM/NS 0.9% 50 ML 50 ML IV SCH (14:00)
[2019-04-14 14:38] LABS: BASOPHILS % 0.7 % (0.0-1.0); EOSINOPHILS # (AUTO) 0.2 (0.0-0.4); EOSINOPHILS % 3.6 % (0.0-6.0); HEMOGLOBIN 10.3 g/dL (14.0-18.0); LYMPHOCYTES % 15.6 % (18.0-39.1); MEAN CORPUSCULAR HEMOGLOBIN 29.2 pg (28-32); MEAN CORPUSCULAR HGB CONC 33.2 g/dL (31-35); MEAN CORPUSCULAR VOLUME 87.8 fL (81-99); MONOCYTES # (AUTO) 0.4 (0.2-0.8); MONOCYTES % 5.9 % (4.4-11.3); NEUTROPHILS # (AUTO) 4.5 (2.1-6.9); NEUTROPHILS % 73.7 % (38.7-80.0); PLATELET COUNT 181 x10e3/uL (140-360); RED BLOOD COUNT 3.53 x10e6/uL (4.3-5.7); RED CELL DISTRIBUTION WIDTH 15.7 % (11.7-14.4)
--- NOTE | 2019-04-14 14:45 | Diagnostic Imaging Report ---
Exam: Right foot 3 views History: Pain Comparison: None. Findings: Bone demineralization. No displaced fracture. Overlying bandaging limits evaluation. No visualized radiographic osteomyelitis. Vascular calcifications. Impression: No acute osseous abnormality Signed by: Dr. Alan Arrington M.D. on 04/14/2019 2:42 PM
[2019-04-14 15:07] LABS: ALANINE AMINOTRANSFERASE 15 IU/L (0-55); ALBUMIN 2.4 g/dL (3.5-5.0); ALBUMIN/GLOBULIN RATIO 0.6 (0.8-2.0); ALKALINE PHOSPHATASE 102 IU/L (40-150); BLOOD UREA NITROGEN < 5 mg/dL (7-26); CALCIUM 9.1 mg/dL (8.4-10.2); CARBON DIOXIDE 31 mmol/L (22-29); CHLORIDE 96 mmol/L (98-107); CREATININE, SERUM 1.31 mg/dL (0.72-1.25); EST GLOMERULAR FILTRATION RATE 55 ML/MIN (60-); GLUCOSE 68 mg/dL (74-118); SODIUM 135 mmol/L (136-145)
[2019-04-14 15:09] LABS: BUN/CREATININE RATIO 4 (6-25)
[2019-04-14 15:29] LABS: ERYTHROCYTE SEDIMENTATION RATE 54 mm/hr (0-13)
[2019-04-14] MEDS ORDERED: HYDRALAZINE HCL 20 MG/ML VIAL IV ONE (16:15)
[2019-04-14 16:57] VITALS: BP 185/63
== END 2019-04-14 17:14 | disposition home or self-care (01) ==
LOC: ER 12:09
DX: E11.621 Type 2 diabetes mellitus with foot ulcer (principal); E11.40 Type 2 diabetes mellitus with diabetic neuropathy, unspecified; I10 Essential (primary) hypertension
CPT/HCPCS: 36415; 73630; 80053; 82948; 85025; 85651; 86140; 99284; J0360; J0692; J3370

== ENCOUNTER 2019-04-19 12:04 | Inpatient (IN) | payer MEDICARE, BC ==
[~2019-04-19] VITALS: Ht 170.2 cm; Wt 80.3 kg
[~2019-04-19 12:04] MED LIST changes: +ATORVASTATIN CA20 MG PO; +CLOPIDOGREL75 MG PO; +GABAPENTIN300 MG PO; +HYDRALAZINE HCL25 MG PO; +ISOSORBIDE MONO30 MG PO
--- OUTSIDE RECORDS SUMMARY | 2019-04-19 12:07 | XMS REPORT | Clinical Summary ---
Author Author [facility] Address Unknown Phone Unavailable Care Team Providers Care Displayer Name Role Phone Evie Serrano MD PCP [...] Overview: Added automatically from request for surgery [id number] Syncope 03/27/2016 Encounters Care Team Description Date Type Specialty N/A 03/27/2019 Intake Access after 04/18/2018 Immunizations Name Dates Previously Given Next Due [...] Health Maintenance Due Date Last Done Comments COLONOSCOPY SCREENING 2001 SHINGLES VACCINES (#1) 2001 65+ PNEUMOCOCCAL VACCINE 2016 (1 of 2 - PCV13) INFLUENZA VACCINE 06/08/2019 11/08/2013 Implants Device Identifier Shelf Expiration Date Model / Serial / Lot Implanted Type Area Manufactur er 10/09/2019 [id number] / / [id number] Stent Bili E-Luminexx [id number] W/ Peripheral Left: Arm, BARD Cath 80cm - [id number] or Biliary Upper PERIPHERAL Implanted: 07/13/2017 (Quantity not Stents VASCULAR on file) [id number] / / [id number] Catheter Field Evidence Technician 4x75cm 10mm Conquest - Surgical Left: Arm BARD [id number] Implants; PERIPHERAL Implanted: Qty: 1 on 07/13/2017 by [employer]; VASCULAR Mala Simons MD Extenders; Surgical Wires Results Not on fileafter 04/18/2018 Insurance Type Payer Benefit Subscriber ID Effective Phone Address Plan / Dates Group Medicare MEDICARE MEDICARE xxxxxxxxxx 2012-P [place], PART A AND resent [place] B PPO BCBS BCBS xxxxxxxxxxxx 2016-P CHOICE resent PPO/ESTHER GARCIA PPO Advance Directives Patient has advance care planning documents on file. For more information, maribell dickey contact: Dennys Donaldson [address] [place] [address]
[2019-04-19 12:48] LABS: BASOPHILS % 0.6 % (0.0-1.0); EOSINOPHILS # (AUTO) 0.3 (0.0-0.4); EOSINOPHILS % 6.7 % (0.0-6.0); HEMATOCRIT 28.5 % (38.2-49.6); HEMOGLOBIN 9.4 g/dL (14.0-18.0); LYMPHOCYTES # (AUTO) 0.7 (1.0-3.2); LYMPHOCYTES % 13.6 % (18.0-39.1); MEAN CORPUSCULAR HEMOGLOBIN 29.1 pg (28-32); MEAN CORPUSCULAR VOLUME 88.2 fL (81-99); MONOCYTES # (AUTO) 0.4 (0.2-0.8); MONOCYTES % 7.7 % (4.4-11.3); NEUTROPHILS # (AUTO) 3.6 (2.1-6.9); NEUTROPHILS % 71.2 % (38.7-80.0); PLATELET COUNT 187 x10e3/uL (140-360); RED BLOOD COUNT 3.23 x10e6/uL (4.3-5.7); RED CELL DISTRIBUTION WIDTH 15.8 % (11.7-14.4)
[2019-04-19 13:09] LABS: ALANINE AMINOTRANSFERASE 7 IU/L (0-55); ALBUMIN 2.2 g/dL (3.5-5.0); ALBUMIN/GLOBULIN RATIO 0.6 (0.8-2.0); ALKALINE PHOSPHATASE 83 IU/L (40-150); ANION GAP 9.6 mmol/L (8-16); BLOOD UREA NITROGEN < 5 mg/dL (7-26); CALCIUM 9.1 mg/dL (8.4-10.2); CARBON DIOXIDE 29 mmol/L (22-29); CHLORIDE 94 mmol/L (98-107); CREATININE, SERUM 1.48 mg/dL (0.72-1.25); EST GLOMERULAR FILTRATION RATE 47 ML/MIN (60-); GLUCOSE 80 mg/dL (74-118); SODIUM 130 mmol/L (136-145)
[2019-04-19 13:30] LABS: BUN/CREATININE RATIO 3 (6-25)
[2019-04-19 13:31] LABS: POTASSIUM 2.6 mmol/L (3.5-5.1)
[2019-04-19] MEDS ORDERED: POTASSIUM CHLORIDE 20 MEQ TAB CR PO ONE (13:32)
--- NOTE | 2019-04-19 13:50 | NUR ---
KALIN RUSSELL AT BEDSIDE TO EVALUATE DOPPPLER PULSES, AUDIBLE DORSALIS PEDIS AND POSTERIOR TIBIALIS IN B/L LE. INFORMED PRIMARY NURSE DIAN TELLO.
[2019-04-19] MEDS ORDERED: DEXTROSE 50% SYRINGE 50 ML IV PRN ×2 (15:00→18:45)
[2019-04-19] MEDS ORDERED: VANCOMYCIN 1GM/NS 250 ML 250 ML IV ONE (15:15)
--- OUTSIDE RECORDS SUMMARY | 2019-04-19 15:20 | XMS REPORT | Clinical Summary ---
Author Author [facility] Organization [facility] Address Unknown Phone Unavailable Care Team Providers Care Tools Programmer Name Role Phone Evie Serrano MD PCP [...] Overview: Added automatically from request for surgery [id number] Syncope 03/27/2016 Encounters Care Team Description Date [...] Lot Implanted Type Area Manufactur er 10/09/2019 [id number] / / [id number] Stent Bili E-Luminexx [id number] W/ Peripheral Left: Arm, BARD Cath 80cm - [id number] or Biliary Upper PERIPHERAL Implanted: 07/13/2017 (Quantity not Stents VASCULAR on file) [id number] / / [id number] Catheter Supervisory Civil Engineer 4x75cm 10mm Conquest - Surgical Left: Arm BARD [id number] Implants; PERIPHERAL Implanted: Qty: 1 on 07/13/2017 [...] more information, maribell dickey contact: Dennys Donaldson [address] [place] [address]
--- NOTE | 2019-04-19 15:54 | Diagnostic Imaging Report ---
Exam: Bilateral foot series; 3 views each History: Possible osteomyelitis Comparison: Right foot series dated 04/14/2019 Findings: Bones of both feet are demineralized. There is vascular calcification bilaterally. Degenerative changes are present. Bony spurring of the calcaneus is seen. No obvious findings of osteomyelitis. There is dorsal swelling of the left forefoot. Impression: No obvious findings of osteomyelitis. Signed by: Dr. Herb Whitten DO on 04/19/2019 3:50 PM
[2019-04-19] MEDS: INSULIN REGULAR, HUMAN 100 UNIT/1 ML 3ML VIAL SQ SCH ×2 (16:30→20:58)
--- NOTE | 2019-04-19 17:11 | NUR ---
Report attempted, floor nurse not ready.
[2019-04-19] MEDS ORDERED: ACETAMINOPHEN/CODEINE 300MG - 30MG TAB PO ONE (17:30)
[2019-04-19] MEDS: CEFEPIME 1GM/NS 0.9% 50 ML 50 ML IV SCH (17:41)
--- NOTE | 2019-04-19 17:49 | NUR ---
Report to DIAN Lehman
[2019-04-19 18:16] VITALS: BP 217/90
--- NOTE | 2019-04-19 18:16 | NUR ---
Received patient from the ER at this time. Cefepime is clamped and restarted via infusion pump. Given in report that Vancomycin was not administered in the ER. Patient's family at the bedside. Patient is A&Ox3. Patient states no pain at this time. Pajamas pants removed, diaper in place, patient cleaned and changed. Patient refusing gown at this time. Left upper arm fistula intact. Bruit and thrill present. Patient's own heel protectors in place. Air pump added to bed. Necrotic tissue noted to right forefoot included the toes. Left heel wound present. DTI with slough, bleeding, malodorous. Dressing removed. Awaiting Dr. Montes arrival. Patient oriented to room and call light. Bed is low and locked. All needs met at this time.
[2019-04-19] MEDS ORDERED: ACETAMINOPHEN 325 MG TAB PO PRN (18:30)
[2019-04-19] MEDS ORDERED: ONDANSETRON HCL INJ 2MG/ML 2ML 2 MG/ML VIAL IV PRN (18:45)
--- NOTE | 2019-04-19 19:27 | NUR ---
Bedside report and walking rounds complete. Pt resting in bed and in no apparent distress. Pt daughter at bedside. All safety measures ensured and pt call sheriff near. Pt encouraged to use call sheriff for assistance.
[2019-04-19 19:30] VITALS: BP 217/90
[2019-04-19 19:50] LABS: INR 0.95; PROTHROMBIN TIME 13.2 seconds (11.9-14.5)
[2019-04-19 20:00] VITALS: BP 197/82
[2019-04-19] MEDS ORDERED: HYDRALAZINE HCL 25 MG TAB PO SCH (21:00)
[2019-04-19] MEDS ORDERED: COLLAGENASE 5 GM TUBE TOP SCH (21:00)
[2019-04-19] MEDS: HYDRALAZINE HCL 25 MG TAB PO SCH (22:20)
[2019-04-19] MEDS: ATORVASTATIN 20 MG TAB PO SCH (22:20)
[2019-04-19] MEDS: HEPARIN SOD (PORCINE) 5,000 UNIT/ML VIAL SC SCH (22:20)
[2019-04-19] MEDS: COLLAGENASE OINTMENT 30 GM TUBE TP SCH (22:22)
--- NOTE | 2019-04-19 22:30 | NUR ---
Santyl applied to heel, new gauze placed with hell protectors in place. Pt tolerated well.
[2019-04-20] VITALS (7 sets, daily range): BP systolic 140–192; BP diastolic 53–79
[2019-04-20] MEDS: HYDRALAZINE HCL 20 MG/ML VIAL IV PRN (02:12)
--- NOTE | 2019-04-20 02:13 | NUR ---
Pt BP 192/79. Hydralazine 10mg IV given. Pt asymptomatic and no complaints. Will continue to monitor.
--- NOTE | 2019-04-20 02:53 | Consultation ---
DATE OF CONSULTATION: 04/19/2019 Dr. Lal/Dr. Vidal. REASON FOR CONSULTATION: Nonhealing ulceration to the left heel, grade 4, with a gangrenous forefoot, right lower extremity. HISTORY OF PRESENT ILLNESS: This is a pleasant 68-year-old male, who is well known to me from following up in the office more than 3-4 months ago where he had a nonhealing left heel ulceration, was granulating nicely, suffered a fall back in December and hurt his spine, has been bedbound ever since. His heel ulcer to the left started becoming worse three months ago with severe foul smell and developed a forefoot gangrene 3-4 months ago. He is currently denying any history of fever, chills, nausea, or vomiting. PAST MEDICAL HISTORY: Remarkable for jgz-aoshnxa-twhibyogq diabetes for 20+ years, end-stage renal disease x8, hypertension, and hypercholesteremia. PAST SURGICAL HISTORY: Remarkable for right kidney removal and leg stents to both lower extremities. ALLERGIES: TO INJECTABLE IODINE. CURRENT MEDICATIONS: Note listed in chart including IV cefepime and vancomycin. FAMILY HISTORY: Remarkable for diabetes on both sides. SOCIAL HISTORY: No smoking, drinking, or recreational drug use. Has four kids. Multiple kids were at the bedside with him including . REVIEW OF SYSTEMS: CARDIAC: He is denying any palpitations or arrhythmias. RESPIRATORY: Denies any shortness of breath or productive cough. GASTROINTESTINAL: Denies any diarrhea, constipation. PHYSICAL EXAMINATION: VITAL SIGNS: Afebrile, pulse rate 78, respirations 20, blood pressure 154/109, and O2 saturation 100%. PODIATRIC: Reveals the following vasculature, pedal pulses of both the dorsalis pedis and posterior tibial arteries are greatly diminished. Skin temperature warm and cool to touch. NEUROLOGICAL: Reveals decreased protective sensation when utilizing [place]ai 5% monofilament wire. MUSCULOSKELETAL: Muscle mass to be symmetrical and wasted. Muscle strength to be 3 to 4/5 to all muscle groups. DERMATOLOGICAL: Grade 4 ulcer plantar aspect left heel measuring more than 4-5 cm in diameter with some foul smell present, tracking down to bone as forefoot gangrene to all digits of the right lower extremity. LABORATORY DATA: Noted as a white blood cell count of 5.06, hemoglobin 9.4, hematocrit 28.5, with a platelet count of 187. Low potassium with a glucose of 133. IMAGING DATA: X-rays were taken revealing no gas in the tissue. ASSESSMENT: 1. Grade 4 ulcer of possible ostial left heel. 2. Forefoot gangrene, right foot. 3. Peripheral arterial disease with cellulitis. PLAN: We will continue IV antibiotics. We will start Santyl collagenase followed by diluted wet-to-dry Betadine to the left heel, diluted wet-to-dry Betadine b.i.d. to the right foot. Dr. Joaquim Flower will be consulted for vascular evaluation. Sharp debridement of the ulcer will be performed tomorrow at bedside to the left heel. We will await vascular evaluation before any surgery is attempted to the forefoot aspect of the right foot. Proposed surgery would be possible TMA with possible Achilles tendon lengthening. Both family members and the patient instructed that no guarantees can be given. The patient may end up with [id number] amputations to both lower extremities if not responsive. IFEOMA Zarate/KHANH /[id number]
--- NOTE | 2019-04-20 02:54 | History and Physical ---
CHIEF COMPLAINT: Right toes gangrene and left heel gangrene. HISTORY OF PRESENT ILLNESS: This is a 68-year-old male with known ESRD dialysis patient of Dr. Altamirano, here on [facility] [place], diabetic foot ulcers with underlying type 2 diabetes, uncontrolled, who was sent in by Podiatry for likely amputation of his right toes and debridement of the left heel. The patient was seen and evaluated at bedside with the family present, I had a long discussion with them. Apparently, he has had beneath toes gangrene and black for significant period of time. He also is a dialysis patient, who has been on dialysis for several years now. Currently, denies any pain. No fever at home. No chest pain or palpitations. The patient was seen and evaluated at bedside on the medical floor. He is currently doing well with no other issues at this time. REVIEW OF SYSTEMS: Pertinent positives: Right foot, toes gangrene, left heel wound infection. Pertinent negatives: Denies any chest pain, palpitation, nausea, vomiting, diarrhea, dysuria, hematuria, frequency, urgency, lightheadedness, dizziness, abdominal pain, headaches, shortness of breath, cough, congestion, fever, or any other complaints. The rest of the 14-point review of systems are reviewed with the patient and are negative. ALLERGIES: TO IODINE. HOME MEDICATIONS: Gabapentin 300 mg p.o. t.i.d., aspirin 81 mg daily, atorvastatin 20 mg daily, Plavix 75 mg daily, hydralazine 25 mg p.o. t.i.d., isosorbide mononitrate 60 mg daily, Renvela 2400 mg p.o. t.i.d. with meals. PAST MEDICAL HISTORY: ESRD on dialysis, hypertension, type 2 diabetes, hyperlipidemia, and severe PAD. PAST SURGICAL HISTORY: He has a left AV fistula for dialysis. FAMILY HISTORY: Hypertension and diabetes. SOCIAL HISTORY: No drugs. No alcohol. Does not smoke. Good social support. He is . He has children. PHYSICAL EXAMINATION: VITAL SIGNS: Temperature is 97.4, pulse 80, respiratory rate 16, blood pressure 192/84, and pulse ox 100% on room air. GENERAL: Not in acute distress. Alert and oriented x3. Cooperative on examination. HEENT: Head is normocephalic and atraumatic. Eyes; pupils are equal, round, and reactive to light bilaterally. Extraocular movements are intact bilaterally. NECK: Supple. Good range of motion throughout. No evidence of erythema or exudate in the posterior pharynx. Has poor dentition. PULMONARY: Clear to auscultation bilaterally. No wheezing, no rales, no rhonchi, and no crackles appreciated. CARDIOVASCULAR: Positive S1, S2. No murmurs, rubs, or gallops appreciated. ABDOMEN: Soft, nontender, nondistended on palpation. Bowel sounds present. MUSCULOSKELETAL: He has five toes on the right foot, all gangrene and his left heel shows evidence of wound infection. NEUROLOGICAL: Cranial nerves II through XII grossly intact. No evidence of any neurological deficits on exam. SKIN: Intact. Warm to touch. Good cap refill. PSYCHIATRIC: Normal affect and mood. EXTREMITIES: No edema. Good range of motion throughout. MICROBIOLOGY: None. IMAGING STUDIES: Foot x-ray shows no obvious findings of osteomyelitis. IMPRESSION: 1. Right foot toes dry gangrene, left heel wound infection. 2. End-stage renal disease, on dialysis. 3. Type 2 diabetes. 4. Secondary hyperparathyroidism. 5. Severe peripheral artery disease. PLAN: At this time, we will consult with Vascular Surgery for angiogram of the lower extremities to determine demarcation of likely needing amputation of the right toes. Podiatry has been consulted and I have discussed with them already. Continue with IV antibiotics with vancomycin and cefepime. ID was consulted as well. We are going to get an MRI of the bilateral feet to look for any obvious findings of osteomyelitis. Put on heparin for DVT prophylaxis. Renal diet. Put on hydralazine p.r.n. for elevated blood pressure and continue home medications. Dr. Vidal will be available tomorrow. We will also could consult with Nephrology to manage his dialysis and he is on Wednesday, Wednesday, and Wednesday dialysis treatment otherwise. He also received dialysis today. MD CITLALY Cervantes/KHANH /[id number]
--- NOTE | 2019-04-20 03:20 | NUR ---
Pt repeat BP 140/61. Pt has no complaints.
[2019-04-20 05:46] LABS: BASOPHILS % 0.7 % (0.0-1.0); EOSINOPHILS # (AUTO) 0.3 (0.0-0.4); EOSINOPHILS % 6.2 % (0.0-6.0); HEMATOCRIT 26.4 % (38.2-49.6); HEMOGLOBIN 8.8 g/dL (14.0-18.0); LYMPHOCYTES # (AUTO) 1.2 (1.0-3.2); LYMPHOCYTES % 21.8 % (18.0-39.1); MEAN CORPUSCULAR HEMOGLOBIN 29.3 pg (28-32); MEAN CORPUSCULAR HGB CONC 33.3 g/dL (31-35); MONOCYTES # (AUTO) 0.5 (0.2-0.8); MONOCYTES % 9.3 % (4.4-11.3); NEUTROPHILS # (AUTO) 3.4 (2.1-6.9); NEUTROPHILS % 61.6 % (38.7-80.0); PLATELET COUNT 186 x10e3/uL (140-360); RED CELL DISTRIBUTION WIDTH 15.8 % (11.7-14.4)
[2019-04-20 06:16] LABS: ANION GAP 9.3 mmol/L (8-16); CREATININE, SERUM 2.02 mg/dL (0.72-1.25); POTASSIUM 3.3 mmol/L (3.5-5.1)
[2019-04-20] MEDS: INSULIN REGULAR, HUMAN 100 UNIT/1 ML 3ML VIAL SQ SCH ×4 (07:30→21:45)
[2019-04-20] MEDS ORDERED: METHYLPREDNISOLONE SOD SUCC 125 MG/2ML VIAL IV ONE (08:00)
[2019-04-20] MEDS ORDERED: DIPHENHYDRAMINE HCL INJ 50 MG/ML VIAL IV ONE (08:00)
[2019-04-20] MEDS ORDERED: LIDOCAINE HCL 2% JELLY 5 ML TUBE TOP ONE (08:00)
--- NOTE | 2019-04-20 08:17 | NUR ---
Dr. Montes here at this time to perform bedside debridement of left heel wound. Lidocaine jelly applied previously to his arrival. Assisted Dr. Montes. Patient tolerated well. Wound cultures sent to lab.
[2019-04-20] MEDS: SEVELAMER CARBONATE 800 MG TAB PO SCH ×3 (08:31→17:00)
[2019-04-20] MEDS: COLLAGENASE OINTMENT 30 GM TUBE TP SCH ×2 (08:32→23:00)
[2019-04-20] MEDS: ISOSORBIDE MONONITRATE 30 MG TAB CR PO SCH (08:32)
[2019-04-20] MEDS: HYDRALAZINE HCL 25 MG TAB PO SCH ×3 (08:32→21:45)
[2019-04-20] MEDS: CLOPIDOGREL BISULFATE 75 MG TAB PO SCH (09:00)
[2019-04-20] MEDS: ASPIRIN 81 MG CHEW TAB PO SCH (09:00)
[2019-04-20] MEDS: HEPARIN SOD (PORCINE) 5,000 UNIT/ML VIAL SC SCH ×2 (09:00→21:45)
--- NOTE | 2019-04-20 14:21 | Progress Note ---
DATE: 04/20/2019 SUBJECTIVE: The patient seen at bedside, doing okay, no distress. Denies any history of fever, chills, nausea, or vomiting. Has some discomfort to both lower extremities. OBJECTIVE: VITALS: Afebrile, pulse rate 83, respirations 18, blood pressure 140/61, O2 saturation 99%. EXTREMITIES: Ulceration to the left heel is very malodorous, down to bone, is measuring 4 x 7 cm in diameter, necrosis noted down to bone with severe foul smell. Pedal pulses are diminished to both lower extremities. Has gangrenous changes to the forefoot aspect of right foot. LABORATORY DATA: Labs noted he has a white blood cell count of 5.06, hemoglobin 9.4, platelet count of 187. Blood glucose of 133. INR 0.95, PTT of 13.2. ASSESSMENT: Peripheral arterial disease, osteomyelitis, grade 4 ulcer of the left heel with dry gangrene of right foot. PLAN: After proper consent of the patient with the aid of the nurse, sharp excisional debridement of the ulcer was carried down to bone and including bone devitalized tissue sharply excised. The bone was rasped. Deep cultures were taken for aerobic and anaerobic growth. Some bleeding tissue was achieved. Sterile dressing was applied followed by Santyl followed by diluted wet-to-dry Betadine. We will continue offloading with offloading boots. Santyl and dilute Betadine will be applied b.i.d. Dr. Flower will be evaluating for possible angiogram and angioplasty. We will continue to treat the left foot conservatively. Await vascular intervention before any surgery is performed to the right foot. Once again, the patient given no guarantees as far as outcome. We will try to salvage both lower extremities, which include the leg, the forefoot aspect of the right foot will need to be amputated sometime next week. IFEOMA Zarate/KHANH /[id number]
[2019-04-20] MEDS ORDERED: FENTANYL CITRATE/PF 100MCG/2 ML INJ ONE (14:28)
[2019-04-20] MEDS ORDERED: LIDOCAINE HCL 2% LOCAL 20 ML VIAL ONE (14:28)
[2019-04-20] MEDS ORDERED: MIDAZOLAM HCL 2 MG/2 ML VIAL ONE (14:28)
[2019-04-20] MEDS ORDERED: SODIUM CHLORIDE 0.9% 1000ML 1,000 ML ONE (14:29)
[2019-04-20] MEDS ORDERED: HEPARIN SOD/SOD CHLORIDE 2,000 ML ONE (14:29)
[2019-04-20] MEDS ORDERED: IOPAMIDOL 300MG/ML 100 ML INFUS..BTL IV ONE (14:29)
[2019-04-20] MEDS ORDERED: HYDRALAZINE HCL 20 MG/ML VIAL ONE (15:46)
[2019-04-20] MEDS ORDERED: LABETALOL HCL 20 ML ONE (16:04)
[2019-04-20] MEDS ORDERED: SODIUM CHLORIDE 0.9% 250ML 250 ML ONE (17:24)
[2019-04-20] MEDS: CEFEPIME 1GM/NS 0.9% 50 ML 50 ML IV SCH (17:43)
--- NOTE | 2019-04-20 18:18 | Consultation ---
DATE OF CONSULTATION: 04/20/2019 Cardiology Consultation CONSULTING PHYSICIAN: Jamir Ramachandran MD, Interventional Cardiology. REASON FOR CONSULTATION: Peripheral arterial disease with gangrene to right lower extremity. HISTORY OF PRESENT ILLNESS: Mr. Lee is a 68-year-old man with history of ESRD, hypertension, dyslipidemia, severe peripheral vascular disease with multiple prior revascularizations including prior stent placements to bilateral femoral arteries, anemia, dementia, presents with chronic gangrenous changes to right forefoot and toes in addition to left heel wound. He has undergone outpatient therapy with no significant improvement. He denies any chest discomfort or shortness of breath. REVIEW OF SYSTEMS: A 12 system review negative except for as noted above. PAST MEDICAL HISTORY: Significant for PAD, hypertension, dyslipidemia, ESRD. ALLERGIES: IODINE ALLERGY, RASH. SOCIAL HISTORY: Denies current smoking, alcohol, or drugs. FAMILY HISTORY: Significant for hypertension. PHYSICAL EXAMINATION: VITAL SIGNS: Temperature 95.9, heart rate 73, blood pressure 166/53, respiratory rate 18, O2 saturation 99%. GENERAL: In no acute distress, alert. NECK: No JVD or carotid bruits. CHEST: Clear to auscultation bilaterally. CARDIOVASCULAR: Regular rate and rhythm. Normal S1 and S2. No S3 or S4. No murmurs or rubs. ABDOMEN: Soft, nontender, and nondistended. EXTREMITIES: No edema. Gangrenous changes to right forefoot and heel wound to left covered with dressings. Abnormal pedal and dorsalis pedis pulses bilaterally. CARDIOVASCULAR MEDICATIONS: Reviewed. Clopidogrel 75 mg daily, aspirin 325 mg daily, isosorbide mononitrate 60 mg daily, hydralazine 10 mg as needed every 4 hours, cefepime and vancomycin antibiotics, insulin sliding scale, atorvastatin 20 mg at bedtime, subcu heparin 5000 units every 12 hours. LABORATORY DATA: Studies reviewed. Sodium 129, potassium 3.3, chloride 94, bicarbonate 29, BUN 6, creatinine 2.02, glucose 81. White blood cells 5.5, hemoglobin 8.8, platelets 186. INR 0.95. AST 40, ALT 7, alkaline phosphatase 83, total bilirubin is 0.8. ASSESSMENT: 1. Severe peripheral vascular disease with gangrenous right forefoot and left heel wound, presenting with left leg cellulitis and gangrene. 2. History of multiple vascular interventions with prior stents. 3. History of iodine allergy. 4. Diabetes mellitus, hypertension, and dyslipidemia. 5. End-stage renal disease. 6. Anemia. 7. Hyponatremia. RECOMMENDATIONS: Pretreatment with steroids and Benadryl provided. Discussed indications, alternatives, risks, and benefits extensively with the patient and family members. Probably we will be proceeding with angiography for assessment of level of amputation of right lower extremity. Continue current cardiovascular medications. Overall guarded limb and overall prognosis. Jamir Ramachandran MD AFV/MODL /[id number]
[2019-04-20] MEDS: ATORVASTATIN 20 MG TAB PO SCH (21:45)
--- NOTE | 2019-04-20 21:59 | Consultation ---
DATE OF CONSULTATION: 04/20/2019 REASON FOR CONSULTATION: Gangrenous changes of his right foot. HISTORY OF PRESENT ILLNESS: This patient is a very pleasant 68-year-old male with a history of diabetes mellitus, history of chronic kidney disease, atherosclerotic disease, peripheral vascular disease. He has been having nonhealing ulcer of his left heel grade 4 as well as gangrenous changes of his right foot for several months, getting progressively worse. The patient had this for about 3-4 months. Also, he has been seeing Wound Care, Dr. Montes and taking several courses of oral antibiotic without any improvement. The patient is being admitted for further management and IV antibiotic. The patient, who is currently lying in bed comfortably, complaining of pain of both feet, but he said he had this for several times for several months now. There is no specific history of trauma. The patient's family is at the bedside. PAST MEDICAL HISTORY: End-stage renal disease, on hemodialysis, hypertension, diabetes mellitus, hyperlipidemia, severe peripheral vascular disease. PAST SURGICAL HISTORY: Right kidney removal, peripheral arterial disease, stent placement, several debridements of his feet, left AV fistula for dialysis. MEDICATIONS: He is on gabapentin 300 mg t.i.d., atorvastatin 20 daily, Plavix, isosorbide, and Renvela. His medication list was reviewed. He is on Santyl, Imdur, Apresoline, heparin, Lipitor, cefepime 1 g q.24 hours, Plavix, amlodipine, Tylenol. He received a dose of vancomycin. REVIEW OF SYSTEMS: HEENT: Negative. PULMONARY: Negative. CARDIAC: Negative. : Negative. SKIN: There is no rash except for the pain in the bilateral lower extremities. He denies any new symptoms at the present time. A 14-point system reviewed with the patient, all within normal limits. Family is at bedside to help with translation. PHYSICAL EXAMINATION: GENERAL: He is currently alert, oriented, does not seem to be in acute distress. VITAL SIGNS: Stable, currently afebrile. HEENT: Normocephalic. Does not appear icteric. NECK: Supple. No JVD. No lymphadenopathy. No thyromegaly. CHEST: Clear bilateral. HEART: S1 and S2. No S3, S4, or murmur. ABDOMEN: Soft. Bowel sounds present. No tenderness. No hepatosplenomegaly. EXTREMITIES: No edema. On the right foot, there are ischemic changes noted involving all the toes on the right side. There is an eschar and ulcer noted on the left heel. The pulses distally are extremely weak. There is some erythema noted affecting the right foot as well as the left foot. SKIN: There are no other rashes. LABORATORY DATA: Reviewed. White count 5.06, hemoglobin 9.4. Sodium 129, potassium 3.3, creatinine 2.2. IMPRESSION: Gangrenous changes of his right foot, ulcer of the left heel. The patient with severe peripheral vascular disease. We will put him on vancomycin and cefepime. The patient underwent debridement of his left foot. He may end up with amputation, concern for both his feet. We will follow. MD KEVIN Carlson/KHANH /[id number]
[2019-04-21] VITALS (9 sets, daily range): BP systolic 132–188; BP diastolic 44–77
--- NOTE | 2019-04-21 00:14 | Operative Report ---
DATE OF PROCEDURE: 04/20/2019 SURGEON: Jamir Ramachandran MD PERIPHERAL ANGIOGRAPHY PROCEDURE INDICATION: Severe peripheral arterial disease, escalation for level of amputation and limb salvage, critical limb ischemia, gangrene right forefoot and wound left heel. PROCEDURES PERFORMED: 1. Abdominal aortogram. 2. Selective lower extremity angiography, bilateral. 3. Third-order catheter placement from left femoral artery to right femoral artery. 4. Left common femoral artery 6-Vietnamese Angio-Seal closure. PROCEDURE COMPLICATIONS: None. ESTIMATED BLOOD LOSS: Less than 50 mL. PROCEDURE SUMMARY: After consent was obtained, the patient was prepped and draped in a sterile fashion. The left femoral site was locally infiltrated with 2% lidocaine and access was obtained with micropuncture kit. A short 6-Vietnamese sheath was placed. An Omni Flush catheter was positioned in the distal descending abdominal aorta. Angiography with digital subtraction revealed patent renal arteries and luminal irregularities with less than 30% stenosis across the infrarenal aorta and iliac vessels bilaterally as well as the common femoral arteries. Catheter position was then advanced to the right femoral artery for selective angiography of the right lower extremity with cineangiography as well as digital subtraction of the jjdht-xsf-roax vessels. Additional selective angiography was then performed from the left external iliac artery to the left lower extremity with digital subtraction angiography performed to the pmrdl-ihx-oegm vessels to better visualize. The following findings were noted, common femoral arteries bilaterally have luminal irregularities so does the tip of profunda femoris. There is heavy calcifications throughout. The right SFA has 30% proximal stenosis. There is 60% in-stent restenosis of the mid SFA stent. The right popliteal artery has 50% stenosis. The right TP trunk has 50% stenosis, which is diffuse. The AT's are 100% occluded and including the right dorsalis pedis. The peroneal artery is 100% occluded. There is a single patent posterior tibial artery to right foot, giving rise to diffusely diseased and small caliber right plantar arteries. The right popliteal artery is less than 30% stenosis. Overall poor outflow noted, particularly to the forefoot. The left femoral artery has a stent throughout its full extent with diffuse 50% to 60% stenosis. The popliteal artery is patent with less than 50% stenosis. There is a patent anterior tibial artery of the left that has 60% diffuse stenosis. The TP trunk and left peroneal artery has 50% stenosis and the left posterior tibial artery is 100% occluded. The left dorsalis pedis artery has 70% diffuse disease and is overall small in caliber with poor outflow. CONCLUSION: Single right posterior tibial artery, and left AT and left peroneal two-vessel runoff with an occluded right anterior tibial and an occluded left posterior tibial, which are angiosome distributions to affected foot territories. Overall guarded prognosis. Limb friedman, would favor right BKA as more likely to heal. A right TMA would be at an elevated risk of healing however, it can be contemplated based on patient's preference. MD REGINA Villanueva/EMERITAL /[id number] MTDD
[2019-04-21 05:00] LABS: HEMATOCRIT 27.7 % (38.2-49.6); HEMOGLOBIN 9.2 g/dL (14.0-18.0); LYMPHOCYTES # (AUTO) 0.4 (1.0-3.2); LYMPHOCYTES % 10.1 % (18.0-39.1); MEAN CORPUSCULAR HEMOGLOBIN 28.8 pg (28-32); MEAN CORPUSCULAR HGB CONC 33.2 g/dL (31-35); MEAN CORPUSCULAR VOLUME 86.6 fL (81-99); MONOCYTES # (AUTO) 0.1 (0.2-0.8); NEUTROPHILS % 87.6 % (38.7-80.0); PLATELET COUNT 222 x10e3/uL (140-360); RED CELL DISTRIBUTION WIDTH 15.6 % (11.7-14.4)
[2019-04-21 05:20] LABS: ANION GAP 12.8 mmol/L (8-16); CALCIUM 9.7 mg/dL (8.4-10.2); CREATININE, SERUM 2.9 mg/dL (0.72-1.25); POTASSIUM 3.8 mmol/L (3.5-5.1)
[2019-04-21] MEDS: HYDRALAZINE HCL 20 MG/ML VIAL IV PRN (06:32)
--- NOTE | 2019-04-21 07:05 | NUR ---
RCD PT AT BED PT IS CONFUSED AND RESTING ON BED NO SIGNS PF ANY DISTRESS NOTED IV PATENT BED LOW AND LOCKED CALL LIGHT IN REACH
[2019-04-21] MEDS: HYDROCODONE/APAP 5MG-325MG TAB PO PRN ×2 (07:21→22:19)
[2019-04-21] MEDS: INSULIN REGULAR, HUMAN 100 UNIT/1 ML 3ML VIAL SQ SCH ×4 (07:30→19:55)
--- NOTE | 2019-04-21 07:41 | Progress Note ---
DATE: 04/21/2019 SUBJECTIVE: The patient at bedside. Doing somewhat better. Relates decreased pain to both lower extremities. OBJECTIVE: VITAL SIGNS: Afebrile, pulse rate 69, respirations 17, blood pressure 188/76, and O2 saturation 100%. LABORATORY DATA: Noted white blood cell at 3.4, hemoglobin 9.2, and platelet count of 222. His skin temperature to the right lower extremity is warm up to you get to the mid foot aspect. Dressing dry and intact to the left lower extremity, but decreased foul smell since the debridement was done yesterday. ASSESSMENT: Peripheral arterial disease with gangrenous changes noted to the forefoot aspect, right foot with a grade 4 ulcer and possible osteo left. PLAN: We will continue local wound care to the left lower extremity. Continue to let the right foot demarcate. We will be talking to family members for possible options to the right lower extremity. We will continue to let the foot demarcate. If it stabilizes at that level, the patient may have a chance to heal from a transmetatarsal amputation secondary to skin temperature being warm to touch up to the midfoot. Continue to follow. Continue offloading. Continue local wound care. Continue IV antibiotics. IFEOMA Zarate/KHANH /[id number]
[2019-04-21] MEDS: SEVELAMER CARBONATE 800 MG TAB PO SCH ×3 (08:00→17:00)
[2019-04-21] MEDS: ISOSORBIDE MONONITRATE 30 MG TAB CR PO SCH (09:00)
[2019-04-21] MEDS: CLOPIDOGREL BISULFATE 75 MG TAB PO SCH (09:00)
[2019-04-21] MEDS: ASPIRIN 81 MG CHEW TAB PO SCH (09:00)
[2019-04-21] MEDS: HYDRALAZINE HCL 25 MG TAB PO SCH ×3 (09:00→21:00)
[2019-04-21] MEDS: HEPARIN SOD (PORCINE) 5,000 UNIT/ML VIAL SC SCH ×2 (09:00→21:30)
[2019-04-21] MEDS: COLLAGENASE OINTMENT 30 GM TUBE TP SCH ×2 (09:00→21:03)
--- NOTE | 2019-04-21 10:57 | NUR ---
CM TO BEDSIDE TO DISCUSS IMM - PATIENT WITH CHANGE IN MENTATION. CM SPOKE WITH DR DAS TO NOTIFY OF CHANGE IN PATIENT'S MENTATION. HE STATES PATIENT WILL REMAIN INPATIENT THROUGH THE WEEKEND. NO IMM GIVEN TO PATIENT.
[2019-04-21] MEDS: PIPERACILLIN/TAZO 2.25 GM 50 ML IV SCH ×2 (11:00→21:02)
--- NOTE | 2019-04-21 11:01 | NUR ---
PT WENT TO PROCEDURE IN SAFE CONDITION
--- NOTE | 2019-04-21 13:00 | NUR ---
A/C TO DR BATISTA PAGED TO [facility] AND TALKED GILL SHE SAID SOMEONE COMING TO DO DIALYSIS TODAY
--- NOTE | 2019-04-21 13:29 | Diagnostic Imaging Report ---
TECHNIQUE: Magnetic resonance imaging of the LEFT foot was performed WITHOUT injected contrast. HISTORY: Pain COMPARISON: None available. DISCUSSION: Limited MRI due to motion. Healed ulceration with bone marrow edema involving the plantar calcaneus with mild T1 replacement. Subcutaneous edema. No visualized abscess. Atrophy and edema within the musculature. IMPRESSION: Heel ulceration with osteomyelitis of the plantar calcaneus Signed by: Dr. Alan Arrington M.D. on 04/21/2019 1:26 PM
--- NOTE | 2019-04-21 13:33 | Diagnostic Imaging Report ---
TECHNIQUE: Magnetic resonance imaging of the RIGHT forefoot was performed WITHOUT injected contrast. HISTORY: Pain COMPARISON: None available. DISCUSSION: Limited MRI due to motion and incomplete fat suppression Bone marrow edema within the phalanges of the hallux into a lesser degree the phalanges of the remainder of the forefoot. Subcutaneous edema. No visualized abscess. Atrophy and edema within the musculature. IMPRESSION: Limited MRI Diffuse bone marrow edema of the phalanges of the forefoot most prominent involving the hallux which could reflect osteomyelitis versus ischemic change. Signed by: Dr. Alan Arrington M.D. on 04/21/2019 1:30 PM
[2019-04-21] MEDS ORDERED: VANCOMYCIN HCL 750 MG in SODIUM CHLORIDE 0.9% 100 ML 150 ML IV SCH ×2 (15:00→19:30)
[2019-04-21] MEDS ORDERED: SODIUM CHLORIDE 0.9% 1000ML 2,000 ML IV PRN (15:30)
[2019-04-21] MEDS ORDERED: SODIUM CHLORIDE 0.9% 250ML 500 ML IV PRN (15:30)
[2019-04-21] MEDS ORDERED: ONDANSETRON HCL 4 MG ORAL DISINTEGRATING TAB PO PRN (17:00)
--- NOTE | 2019-04-21 17:13 | NUR ---
WOUND CARE NURSE CONSULTATION. 68 YEAR OLD MALE ADMITTED TO [facility] WITH DX OF DIABETIC FOOT ULCERS WAGNERS 4 TO RIGHT FOREFOOT AND LEFT HEEL. HX OF UNCONTROLLED HTN, DIABETES MELLITUS TYPE II, ESRD ON HEMODIALYSIS, SEVERE PAD, AND HYPERLIPIDEMIA. LEFT HEEL MEASURES APPROXIMATELY 9X7X0.7CM. 100% NECROTIC. FOUL SMELL IS PRESENT. S/P BEDSIDE DEBRIDEMENT BY DR. UMAÑA. PER DR. UMAÑA THE PLAN FOR THE RIGHT FOREFOOT IS TO ALLOW TIME TO COMPLETELY DEMARCATE THEN HAVE A TMA. NO PALPABLE PULSES. PT IS S/P 1 DAY ABDOMINAL AORTOGRAM, BILATERAL LOWER EXTREMITY ANGIOGRAPHY, THIRD ORDER CATHETER PLACEMENT FROM LEFT FEMORAL ARTERY TO RIGHT FEMORAL ARTERY, LEFT COMMON FEMORAL ARTERY 6-ICELANDIC ANGIO-SEAL CLOSURE BY DR. WAGNER. PER DR. WAGNER RIGHT BKA IS MORE LIKELY TO HEEL HOWEVER RIGHT TMA CAN BE CONTEMPLATED. MRI TO RIGHT FOREFOOT AND LEFT HEEL + OSTEOMYELITIS. WBC: 3.43 GLUCOSE: 153 ALBUMIN: 2.2 LOCAL WOUND CARE ORDERS IN CHART FROM DR. UMAÑA. PT WILL BENEFIT OF HBOT. SPOKE WITH IN REGARDS THIS POSSIBILITY, STATES "WE HAVE TRIED THAT BEFORE AND IT REALLY DID NOT WORK". WILL CONTINUE TO FOLLOW UP WITH PT. THANKS FOR THIS CONSULTATION. Addendum: 04/21/19 at 1730 by Melania Shirley RN Amended: Links added.
--- NOTE | 2019-04-21 18:44 | Progress Note ---
DATE: 04/21/2019 Nephrology Progress Note SUBJECTIVE: The patient is scheduled for hemodialysis today. According to the nurse, . OBJECTIVE: VITAL SIGNS: Temperature 95.9, pulse , respiratory rate 18, blood pressure 132/70, pulse ox 98% on room air. GENERAL: Not in acute distress. Alert and oriented x3. Cooperative on examination. HEENT: Head is normocephalic, atraumatic. Eyes; pupils are equal, round, and reactive to light bilaterally. Extraocular movements are intact bilaterally. Throat, no evidence of erythema or exudates in the posterior pharynx. Has poor dentition. NECK: Supple. Good range of motion. PULMONARY: Clear to auscultation bilaterally. No wheezing, rales, or rhonchi. No crackles appreciated. CARDIOVASCULAR: Positive S1, S2. No murmurs, rubs, or gallops appreciated. ABDOMEN: Soft, nondistended, nontender to palpation. Bowel sounds present. MUSCULOSKELETAL: Strength is 5/5 throughout. No evidence any muscle deficits on examination. NEUROLOGIC: Cranial nerves II through XII grossly intact. No evidence of any neurological deficits on exam. SKIN: Intact. Warm to touch. Good cap refill. PSYCHIATRIC: Normal affect and mood. EXTREMITIES: No edema. Good range of motion throughout. LABORATORY DATA: Lab findings show white count 3.4, hemoglobin 9.2, hematocrit 27, platelets are 222. Chemistry; sodium , potassium 3.8, chloride 92, bicarb 26, anion gap of 4, BUN is 12, creatinine of 2.9, calcium 9.7. His urine culture shows gram-negative rods and Enterococcus. IMPRESSION: 1. End-stage renal disease, on hemodialysis. 2. Anemia of end-stage renal disease. 3. Secondary hyperparathyroidism. 4. Peripheral arterial disease with cellulitis to both toes, dry gangrene with left heel wound infection. PLAN: He is scheduled for HD later today. His electrolytes are stable, but this is his normal schedule. Continue with Nephro-Melina, vitamins. Hemoglobin is 9.2, we will start on erythropoietin. Continue with phosphorus binders and renal diet. MD CITLALY Cervantes/EMERITAL /[id number]
--- NOTE | 2019-04-21 19:10 | NUR ---
PT ON DIALYSIS BED SIDE REPORT GIVEN TO ONCOMING NURSE
[2019-04-21] MEDS: ATORVASTATIN 20 MG TAB PO SCH (21:03)
--- NOTE | 2019-04-21 21:55 | Consultation ---
DATE OF CONSULTATION: 04/21/2019 HISTORY OF PRESENT ILLNESS: The patient is a 68-year-old male, with a history of end-stage renal disease, hypertension, type 2 diabetes, hyperlipidemia, peripheral vascular disease. He has been in the hospital with gangrene of the toes on the right foot with an ulcer on the left heel. He has been ambulatory. He had an arteriogram done, which reveals multilevel stenoses in the right leg, but the vessels patent all the way to the foot. Left leg also reveals stenoses, but vessels patent to the foot. The patient has some complaints of pain mostly in the left heel. PAST MEDICAL HISTORY: Significant for diabetes, end-stage renal disease, hypertension, hypercholesterolemia. PAST SURGICAL HISTORY: He has had previous right nephrectomy, stents in both lower extremities. ALLERGIES: HE HAS AN ALLERGY TO IODINE. FAMILY HISTORY: Significant for diabetes. SOCIAL HISTORY: The patient does not smoke cigarettes or drink alcohol. REVIEW OF SYSTEMS: As stated above, he has not had any fever. PHYSICAL EXAMINATION: GENERAL: The patient is awake and alert. VITAL SIGNS: Normal. HEENT: There was no scleral icterus. NECK: No masses. LUNGS: Equal breath sounds are clear bilaterally. CARDIAC: Regular rate and rhythm with no murmur. ABDOMEN: Soft with no tenderness. No mass. No organomegaly. EXTREMITIES: Femoral pulses palpable bilaterally. Distal pulses not palpable. The right foot has gangrene of the toes, but is warm up to the mid foot. The left foot has an ulcer on the heel, but is warm. LABORATORY TESTS: White blood cell count is normal, hemoglobin 9.4, hematocrit 28. Chemistries, elevated BUN and creatinine. ASSESSMENT: This is a 68-year-old male, who has gangrene of the toes in the right foot. I think with findings that the patient has a pretty good chance to heal with transmetatarsal amputation. We will defer to Podiatry on this. I would try this first and if it does not heal, then below-knee amputation could be done, but he would be more functional with a transmetatarsal amputation. This was explained to the patient. Thank you for asking me to see Mr. Lee. MD ILANA Posey/KHANH /[id number]
--- NOTE | 2019-04-21 22:00 | NUR ---
Wound care performed to R foot and L heel. Patient tolerated well.
[2019-04-21] MEDS: TRAZODONE HCL 50 MG TAB PO PRN (23:59)
[2019-04-22] VITALS (8 sets, daily range): BP systolic 124–195; BP diastolic 58–98
[2019-04-22] MEDS: PIPERACILLIN/TAZO 2.25 GM 50 ML IV SCH ×4 (00:07→17:15)
--- NOTE | 2019-04-22 01:05 | Progress Note ---
DATE: 04/21/2019 SUBJECTIVE: The patient is comfortable. No new complaints. Currently receiving hemodialysis. OBJECTIVE: VITAL SIGNS: Temperature is 96.6, heart rate is 52, blood pressure is 157/63, and respirations 18. GENERAL: No acute distress. NECK: No JVD or bruits. CHEST: Clear to auscultation. CARDIOVASCULAR: Regular rate and rhythm. Normal S1 and S2. ABDOMEN: Soft, nontender, and obese. EXTREMITIES: No edema. Necrotic toes on left foot. Bandages are clean, dry, and intact on the right foot. RADIOLOGY: MRI shows heel ulceration with osteomyelitis of plantar calcaneus. MEDICATIONS: Please see chart. ASSESSMENT: A 68-year-old man with the followin. Right foot gangrene and left heel ulcer with cellulitis and gangrene. 2. Severe peripheral vascular disease and critical limb ischemia status post angiography at the left common femoral artery. 3. Diabetes. 4. Hypertension. 5. End-stage renal disease. 6. Anemia. 7. Hyponatremia. RECOMMENDATIONS: To continue supportive care. Blood pressure is improved with Imdur and hydralazine. If blood pressure remains elevated, we will initiate low dose metoprolol and monitor. Continue wound care and antibiotics per Podiatry and Primary. Monitor H and H and transfuse as needed. We will continue to follow the patient with you. Cross cover for Dr. Jamir Ramachandran. MD SHASHANK Zamora/KHANH /[id number] MISA
[2019-04-22] MEDS: INSULIN REGULAR, HUMAN 100 UNIT/1 ML 3ML VIAL SQ SCH ×4 (07:30→20:55)
[2019-04-22] MEDS ORDERED: SODIUM CHLORIDE 0.9% 250ML 250 ML ONE (07:59)
[2019-04-22] MEDS: SEVELAMER CARBONATE 800 MG TAB PO SCH ×3 (08:00→17:00)
[2019-04-22] MEDS: HYDRALAZINE HCL 25 MG TAB PO SCH ×3 (09:00→20:43)
[2019-04-22] MEDS: LINEZOLID 600 MG/D5W 300ML 300 ML IV SCH ×2 (09:00→20:43)
[2019-04-22] MEDS: ISOSORBIDE MONONITRATE 30 MG TAB CR PO SCH (09:00)
[2019-04-22] MEDS: HEPARIN SOD (PORCINE) 5,000 UNIT/ML VIAL SC SCH ×2 (09:00→21:15)
[2019-04-22] MEDS: COLLAGENASE OINTMENT 30 GM TUBE TP SCH ×2 (09:00→20:44)
--- NOTE | 2019-04-22 09:04 | NUR ---
Spoke with TRACIE Hernandez for Dr. Adam and informed of patient having VRE. New order to DC Vanco and change to Zyvox. Order noted
[2019-04-22] MEDS: HYDROCODONE/APAP 5MG-325MG TAB PO PRN ×3 (09:10→20:55)
--- NOTE | 2019-04-22 14:08 | NUR ---
DRESSING CHANGED ON RT TOES AND LEFT HEEL
--- NOTE | 2019-04-22 18:28 | Progress Note ---
DATE: 04/22/2019 Nephrology Progress Note SUBJECTIVE: The patient is receiving dialysis initially with no issues. No overnight events. PHYSICAL EXAMINATION: VITAL SIGNS: Temperature 96.1, pulse 74, respiratory rate 18, blood pressure is 154/60, pulse ox 100% on room air. GENERAL: Not in acute distress. Alert and oriented x3. Cooperative on examination. HEENT: Head is normocephalic, atraumatic. Eyes; pupils are equal, round, and reactive to light bilaterally. Extraocular movements are intact bilaterally. Throat, no evidence of erythema or exudates in the posterior pharynx. Has poor dentition. NECK: Supple. Good range of motion. PULMONARY: Clear to auscultation bilaterally. No wheezing, rales, or rhonchi. No crackles appreciated. CARDIOVASCULAR: Positive S1, S2. No murmurs, rubs, or gallops appreciated. ABDOMEN: Soft, nondistended, nontender to palpation. Bowel sounds present. MUSCULOSKELETAL: Strength is 5/5 throughout. No evidence any muscle deficits on examination. NEUROLOGIC: Cranial nerves II through XII grossly intact. No evidence of any neurological deficits on exam. SKIN: Intact. Warm to touch. Good cap refill. PSYCHIATRIC: Normal affect and mood. EXTREMITIES: No edema. Good range of motion throughout. LABORATORY DATA: Lab findings show white count 3.4, hemoglobin 9.2, hematocrit is 27, platelets of 222. Chemistry, stable. IMPRESSION: 1. End-stage renal disease, on hemodialysis. 2. Hyde of end-stage renal disease. 3. Secondary hyperparathyroidism. 4. Peripheral arterial disease with cellulitis to both toes, dry gangrene with left heel wound infection. PLAN: He had HD yesterday. He is on Wednesday, Wednesday,and Wednesday. Monitor chemistry and hemoglobin closely. He needs to follow with his Primary and Podiatry physician. MD CITLALY Cervantes/KHANH /[id number]
--- NOTE | 2019-04-22 19:00 | NUR ---
PT RESTING ON BED BED SIDE REPORT GIVEN TO ONCOMING NURSE
--- NOTE | 2019-04-22 19:18 | Progress Note ---
DATE: 04/22/2019 SUBJECTIVE: The patient is comfortable with no new complaints. Family members at bedside. OBJECTIVE: VITAL SIGNS: Temperature is 96.4, heart rate 74, respirations 18, and blood pressure is 159/60. GENERAL: No acute distress. NECK: No JVD or bruits. CHEST: Clear to auscultation. CARDIOVASCULAR: Regular rate and rhythm. Normal S1 and S2. ABDOMEN: Soft, nontender, and obese. EXTREMITIES: No edema. Necrotic toes on the left foot. Bandages are clean, dry, and intact on the right foot. MEDICATIONS: Please see chart. LABORATORY DATA: No new labs. RADIOLOGY: No new imaging obtained. ASSESSMENT: A 68-year-old man with the followin. Right foot gangrene and left heel ulcer with cellulitis and gangrene. 2. Severe peripheral vascular disease with critical limb ischemia, status post angiography at the left common femoral artery. 3. Diabetes. 4. Hypertension. 5. End-stage renal disease. 6. Anemia. 7. Hyponatremia. RECOMMENDATIONS: Continue supportive care and began metoprolol 25 mg every 8 hours due to elevation in blood pressure. Continue wound care and antibiotics per Podiatry and Primary. Monitor H and H and transfuse as needed. We will continue to follow the patient with you. Cross cover for Dr. Jamir Ramachandran. MD SHASHANK Zamora/KHANH /[id number]
[2019-04-22] MEDS: ATORVASTATIN 20 MG TAB PO SCH (20:44)
[2019-04-22] MEDS: TRAZODONE HCL 50 MG TAB PO PRN (20:55)
[2019-04-23] VITALS (8 sets, daily range): BP systolic 121–180; BP diastolic 49–75
[2019-04-23] MEDS: PIPERACILLIN/TAZO 2.25 GM 50 ML IV SCH ×3 (00:35→20:07)
--- NOTE | 2019-04-23 07:10 | NUR ---
RCD PT AT BED PT IS ALERT AND RESTING ON BED NO SIGNS PF ANY DISTRESS NOTED IV PATENT FAMILY AT BED SIDE BED LOW AND LOCKED CALL LIGHT IN REACH
[2019-04-23] MEDS: INSULIN REGULAR, HUMAN 100 UNIT/1 ML 3ML VIAL SQ SCH ×4 (07:30→20:12)
[2019-04-23] MEDS: SEVELAMER CARBONATE 800 MG TAB PO SCH ×3 (08:00→17:00)
[2019-04-23] MEDS: HEPARIN SOD (PORCINE) 5,000 UNIT/ML VIAL SC SCH ×2 (09:00→21:19)
[2019-04-23] MEDS: LINEZOLID 600 MG/D5W 300ML 300 ML IV SCH ×2 (09:00→21:01)
[2019-04-23] MEDS: HYDRALAZINE HCL 25 MG TAB PO SCH ×3 (09:00→21:02)
[2019-04-23] MEDS: ISOSORBIDE MONONITRATE 30 MG TAB CR PO SCH (09:00)
[2019-04-23] MEDS: COLLAGENASE OINTMENT 30 GM TUBE TP SCH ×2 (09:00→21:02)
--- NOTE | 2019-04-23 13:00 | NUR ---
BED SIDE DEBRIDEMENT DONE ON THE LEFT HEEL BY DR UMAÑA AND SPECIMEN SEND TO C/S
[2019-04-23] MEDS ORDERED: PIPERACILLIN/TAZO 2.25 GM 50 ML IV SCH (14:00)
--- NOTE | 2019-04-23 18:14 | Progress Note ---
DATE: 04/23/2019 Nephrology Progress Note SUBJECTIVE: The patient is doing well today with no other complaints. He is scheduled for hemodialysis tomorrow. LABORATORY DATA: Lab findings show CBC; white count 3.4, hemoglobin 9.2, hematocrit is 27, and platelets of . PHYSICAL EXAMINATION: VITAL SIGNS: Temperature 96.2, pulse 66, respirations 16, blood pressure 133/64, . GENERAL: No acute distress, alert and oriented x3. Cooperative on examination. HEENT: Head is normocephalic and atraumatic. Eyes, pupils are equal, round, and reactive to light bilaterally. Extraocular movements are intact bilaterally. NECK: Supple. Good range of motion. THROAT: No evidence of any erythema or exudate bilaterally in posterior pharynx. Has poor dentition. PULMONARY: Clear to auscultation bilaterally. No wheezing, rales, or rhonchi appreciated. CARDIOVASCULAR: Positive S1 and S2. No murmurs, rubs, or gallops appreciated. ABDOMEN: Soft, nontender, and nontender to palpation. Bowel sounds present. MUSCULOSKELETAL: Strength is 5/5 throughout. No evidence of any muscle deficits on examination. No weakness appreciated. NEUROLOGICAL: Cranial nerves II through XII grossly intact. LABORATORY DATA: . IMPRESSION: 1. End-stage renal disease, on dialysis in the ER. 2. End-stage renal disease secondary to hyperparathyroidism. 3. Severe peripheral vascular disease with cellulitis of both toes with dry gangrene with left heel wound infection. PLAN: Schedule for HD tomorrow. Continue with phosphorous binders and renal diet. Monitor the changes very closely. Get a.m. labs. Follow with the consultants. MD CITLALY Cervantes/EMERITAL /[id number]
--- NOTE | 2019-04-23 18:42 | NUR ---
PT RESTING ON BED BED SIDE REPORT GIVEN TO ONCOMING NURSE
[2019-04-23] MEDS: ATORVASTATIN 20 MG TAB PO SCH (21:02)
--- NOTE | 2019-04-23 22:14 | Progress Note ---
DATE: 04/23/2019 SUBJECTIVE: No acute events. is at bedside. OBJECTIVE: VITAL SIGNS: Temperature 97.3, heart rate 71, blood pressure 133/64, and respirations 16. GENERAL: No acute distress. The patient is weeping. NECK: No JVD or bruits. CHEST: Clear to auscultation. CARDIOVASCULAR: Regular rate and rhythm. Normal S1 and S2. ABDOMEN: Soft, nontender, and obese. EXTREMITIES: No edema. Necrotic toes on the left foot. Bandages are clean, dry, and intact on the right foot. MEDICATIONS: Please see chart. LABORATORY DATA: No new labs. RADIOLOGY: No new imaging obtained. ASSESSMENT: A 68-year-old man with the followin. Right foot gangrene and left heel ulcer with cellulitis and gangrene. 2. Severe peripheral vascular disease with critical limb ischemia, status post angiography at the left common femoral artery. 3. Diabetes. 4. Hypertension. 5. End-stage renal disease. 6. Anemia. 7. Hyponatremia. RECOMMENDATIONS: 1. Continue supportive care. Blood pressure stable with metoprolol. Continue remaining medications. 2. Continue wound care and antibiotics per Podiatry. Family is contemplating right lower extremity BKA and will further discuss with Podiatry tomorrow. 3. Monitor lytes and replete as needed. We will continue to follow the patient with you. Cross cover for Dr. Jamir Ramachandran. MD SHASHANK Zamora/KHANH /[id number]
[2019-04-23] MEDS: HYDRALAZINE HCL 20 MG/ML VIAL IV PRN (23:15)
[2019-04-24] VITALS (8 sets, daily range): BP systolic 132–210; BP diastolic 49–84
--- NOTE | 2019-04-24 03:06 | Progress Note ---
DATE: 04/22/2019 SUBJECTIVE: The patient at bedside, doing better. Still having some pain to both lower extremities with the left heel being a little bit more symptomatic. He is denying any history of fever, chills, nausea, or vomiting. OBJECTIVE: VITAL SIGNS: Afebrile, pulse rate 74, respirations 18, blood pressure 154/68, and O2 saturation 100%. LABORATORY DATA: Noted. White blood cell count of 3.4, hemoglobin 9.2, hematocrit 27.7, with a platelet count of 222. Blood glucose of 135. Ulceration to the left heel, improving slowly. There is decreased foul smell noted, some necrosis noted down the bone. Decreased cellulitis surrounding the ulceration site is approximately 7 x 4 cm in diameter. Has dry gangrenous changes to the forefoot aspect, right foot with skin temperature warm up to the midfoot aspect. ASSESSMENT: Peripheral arterial disease, bilateral with a grade 4 ulcer, left and dry gangrene, right. PLAN: We will continue to let the foot demarcate. The patient will be scheduled for surgical intervention on Wednesday. If the foot continues to look about the same, a transmetatarsal amputation. Achilles tendon lengthening will be tried to salvage leg. The patient understands that no warrantees or guarantees have been given. We will continue Santyl, followed by diluted wet-to-dry to the left heel and ulceration with possibly redebridement tomorrow. IFEOMA Zarate/KHANH /[id number]
--- NOTE | 2019-04-24 03:11 | Progress Note ---
DATE: 04/23/2019 SUBJECTIVE: The patient at bedside accompanied by [id number] and granddaughter, having some discomfort to both lower extremities with the left heel being a little bit more symptomatic. OBJECTIVE: VITAL SIGNS: Afebrile, pulse rate 66, respirations 16, blood pressure 133/64 and O2 saturation 94%. LABORATORY DATA: Labs showa white blood cell count of 3.4, hemoglobin 9.2, hematocrit 27.7 with a platelet count of 222, and blood glucose of 157. Ulceration to the left heel is down to bone, some bone exposed, but the smell is resolving with almost none. Pedal pulses are diminished to both lower extremities. Skin temperature is warm to the touch up to the toes on the left foot and up to the mid foot of the right lower extremity. Dry gangrenous changes noted from the metatarsophalangeal joints distally, has dry gangrenous changes noted to the right foot with a grade 4 ulcer to the left with peripheral arterial disease and diabetic neuropathy and possible osteomyelitis of left foot. ASSESSMENT: Peripheral arterial disease, diabetic neuropathy, dry gangrene of right foot with left grade 4 ulcer and osteomyelitis. PLAN: Sharp excisional debridement of the ulcer was carried down to bone, devitalized tissue was sharply excised and bone was scraped until good viable bleeding tissue was achieved. Deep cultures were taken for aerobic and anaerobic growth. The patient grew VRE and currently on IV Zosyn and will continue IV Zosyn, local wound care. Sterile dressing was applied following the sharp excisional debridement with Santyl collagenase followed by diluted wet-to-dry Betadine. We will continue IV Zosyn. The patient and patient's family members instructed that there is a chance of possibly saving the leg, but no guarantees can be given secondary to skin temperature, warm to touch and the gangrenous changes not crossing proximal to the metatarsophalangeal joint for several days now. The patient and the patient's family members will need to make a decision. We will decide if they would want to go through a BKA or possible transmetatarsal amputation to try to salvage the leg, which will be possibly done on Wednesday. IFEOMA Zarate/MODL /[id number]
[2019-04-24] MEDS: PIPERACILLIN/TAZO 2.25 GM 50 ML IV SCH ×3 (04:45→20:02)
[2019-04-24 05:49] LABS: BASOPHILS # (AUTO) 0.1 (0.0-0.1); BASOPHILS % 0.8 % (0.0-1.0); EOSINOPHILS # (AUTO) 0.3 (0.0-0.4); EOSINOPHILS % 4.8 % (0.0-6.0); HEMATOCRIT 25.5 % (38.2-49.6); LYMPHOCYTES # (AUTO) 1.1 (1.0-3.2); LYMPHOCYTES % 18.3 % (18.0-39.1); MEAN CORPUSCULAR HEMOGLOBIN 28.7 pg (28-32); MEAN CORPUSCULAR HGB CONC 31.4 g/dL (31-35); MEAN CORPUSCULAR VOLUME 91.4 fL (81-99); MONOCYTES # (AUTO) 0.4 (0.2-0.8); MONOCYTES % 6.6 % (4.4-11.3); NEUTROPHILS # (AUTO) 4.2 (2.1-6.9); NEUTROPHILS % 69.3 % (38.7-80.0); PLATELET COUNT 260 x10e3/uL (140-360); RED BLOOD COUNT 2.79 x10e6/uL (4.3-5.7); RED CELL DISTRIBUTION WIDTH 16.3 % (11.7-14.4)
[2019-04-24 05:53] LABS: INR 0.88; PROTHROMBIN TIME 12.4 seconds (11.9-14.5)
[2019-04-24 05:54] LABS: PARTIAL THROMBOPLASTIN TIME 29.8 seconds (23.8-35.5)
[2019-04-24 06:04] LABS: ANION GAP 12.5 mmol/L (8-16); CALCIUM 9.4 mg/dL (8.4-10.2); CREATININE, SERUM 4.28 mg/dL (0.72-1.25); POTASSIUM 3.5 mmol/L (3.5-5.1)
[2019-04-24] MEDS: INSULIN REGULAR, HUMAN 100 UNIT/1 ML 3ML VIAL SQ SCH ×4 (07:30→21:00)
[2019-04-24] MEDS: SEVELAMER CARBONATE 800 MG TAB PO SCH ×3 (08:00→17:33)
[2019-04-24] MEDS: LINEZOLID 600 MG/D5W 300ML 300 ML IV SCH ×3 (09:00→21:19)
[2019-04-24] MEDS: ISOSORBIDE MONONITRATE 30 MG TAB CR PO SCH (09:00)
[2019-04-24] MEDS: HYDRALAZINE HCL 25 MG TAB PO SCH ×3 (09:00→21:00)
[2019-04-24] MEDS: HEPARIN SOD (PORCINE) 5,000 UNIT/ML VIAL SC SCH ×2 (09:42→22:03)
[2019-04-24] MEDS: COLLAGENASE OINTMENT 30 GM TUBE TP SCH ×2 (09:43→21:21)
--- NOTE | 2019-04-24 12:00 | Progress Note ---
DATE: 04/24/2019 SUBJECTIVE: The patient seen at bedside, getting dialyzed, doing better. There is decreased pain to both lower extremities. OBJECTIVE: VITALS: Afebrile, pulse rate 73, respirations 16, blood pressure 152/56, O2 saturation 99%. EXTREMITIES: Skin temperature warm to touch to the forefoot aspect of right lower extremity, has gangrenous changes. Decreased foul smell noted to the ulceration of left foot, dressing dry and intact. Pedal pulses diminished to both lower extremities. LABORATORY DATA: Labs show white blood cell count of 6.05, hemoglobin 8.0, hematocrit 25.5 with a platelet count of 260 and a blood glucose of 87. INR 0.8. ASSESSMENT: Grade 4 ulcer with osteomyelitis of left heel, responding slowly to serial debridements and local wound care and offloading with dry gangrene stabilizing to the forefoot aspect of right foot. PLAN: We will continue to let foot demarcate. Surgical intervention will be attempted on Wednesday to try to salvage his leg. The patient is instructed no guarantees can be given. Surgery will consist of a TMA flap closure and Achilles tendon lengthening secondary to the equinus deformity noted with the knee extended knee flexed. Allow for weightbearing and possible avoid ulcerations. IFEOMA Zarate/KHANH /[id number]
[2019-04-24] MEDS: METOPROLOL TARTRATE 25 MG TAB PO SCH ×2 (14:12→23:02)
--- NOTE | 2019-04-24 14:31 | Progress Note ---
DATE: 04/24/2019 SUBJECTIVE: No new complaints. OBJECTIVE: VITAL SIGNS: Temperature 96.9, pulse 70, blood pressure 210/84, and respirations 16. GENERAL: No acute distress. NECK: No JVD or bruits. CHEST: Clear to auscultation. CARDIOVASCULAR: Regular rate and rhythm. Normal S1 and S2. ABDOMEN: Soft, nontender, and obese. EXTREMITIES: No edema. Necrotic toes on the left foot. Bandages are clean, dry, and intact on the right foot. MEDICATIONS: Please refer to chart. LABORATORY DATA: Hemoglobin is 8. Potassium is 3.3. Creatinine is 4.28. RADIOLOGY: No new imaging obtained. ASSESSMENT: A 68-year-old man with the followin. Right foot with necrotic toes and left foot with a heel ulcer and cellulitis. 2. Severe peripheral vascular disease with critical limb ischemia, status post angiography of the left common femoral artery. 3. Diabetes. 4. Hypertension. 5. End-stage renal disease. 6. Anemia. 7. Hyponatremia. RECOMMENDATIONS: 1. Blood pressure significantly elevated. We will up titrate metoprolol and began hydralazine 25 mg p.o. t.i.d. 2. Continue wound care and antibiotics per Podiatry. Family is contemplating lower extremity BKA versus TMA. 3. Monitor lytes and replete as needed. 4. We will continue to follow the patient with you. Cross cover for Dr. Jamir Ramachandran. MD SHASHANK Zamora/KHANH /[id number]
[2019-04-24] MEDS: EPOETIN ALFA 10000 UNIT/ML VIAL SC SCH (15:15)
--- NOTE | 2019-04-24 18:13 | Progress Note ---
DATE: 04/24/2019 Nephrology Progress Note SUBJECTIVE: The patient received hemodialysis today with no complaints. He had no overnight events. PHYSICAL EXAMINATION: VITAL SIGNS: Temperature is 95.8, pulse 91, respiratory rate is 18, blood pressure 169/53, pulse ox 96% on room air. GENERAL: Not in acute distress. Alert and oriented x3. Cooperative on examination. HEENT: Head is normocephalic, atraumatic. Eyes; pupils are equal, round, and reactive to light bilaterally. Extraocular movements are intact bilaterally. Throat, no evidence of erythema or exudates in the posterior pharynx. Has poor dentition. NECK: Supple. Good range of motion. PULMONARY: Clear to auscultation bilaterally. No wheezing, rales, or rhonchi. No crackles appreciated. CARDIOVASCULAR: Positive S1, S2. No murmurs, rubs, or gallops appreciated. ABDOMEN: Soft, nondistended, nontender to palpation. Bowel sounds present. MUSCULOSKELETAL: Strength is 5/5 throughout. No evidence any muscle deficits on examination. NEUROLOGIC: Cranial nerves II through XII grossly intact. No evidence of any neurological deficits on exam. SKIN: Intact. Warm to touch. Good cap refill. PSYCHIATRIC: Normal affect and mood. EXTREMITIES: No edema. Good range of motion throughout. LABORATORY DATA: Lab findings show white count of . Sodium 135, potassium 3.5, chloride 99, bicarb 27, anion gap of 10, BUN 17, creatinine 4.2, glucose 87, calcium 9.4. MICROBIOLOGY: Wound culture shows gram-negative rods and also VRE Enterococcus. IMPRESSION: 1. End-stage renal disease on hemodialysis . 2. Secondary hyperparathyroidism. 3. Anemia of end-stage renal disease. 4. Severe peripheral arterial disease with cellulitis to both lower extremities with dry gangrene of the left heel and toes. PLAN: HD performed today as per schedule. Phosphorous binders and renal diet may need blood transfusion on the next dialysis treatment. Hemoglobin is 8. We will go ahead and add units subcu three times per week. MD CITLALY Cervantes/EMERITAL /[id number]
[2019-04-24] MEDS ORDERED: GUAIFENESIN/CODEINE 10 ML CUP PO PRN (20:15)
[2019-04-24] MEDS ORDERED: BENZONATATE 100 MG CAP PO PRN (20:15)
--- NOTE | 2019-04-24 20:15 | NUR ---
patient in bed resting eye during walking rounds. patient complained of pain at this time. informed the patient and family member at bedside that I would check to see what he had and come to let them know what was available. patient repositioned at this time from the right side to back per request.
[2019-04-24] MEDS: ATORVASTATIN 20 MG TAB PO SCH (21:20)
--- NOTE | 2019-04-24 21:30 | NUR ---
dressing change to the wound on the left foot. removed the old dressing, cleaned with NS, santyl applied, Betadine diluted gauze placed over and wrapped with kerlix, Foam heel protector reapplied to the left foot. Patient tolerated
[2019-04-25] VITALS (9 sets, daily range): BP systolic 123–165; BP diastolic 46–66
--- NOTE | 2019-04-25 00:52 | NUR ---
patient asleep on back, lights out, family member on couch sleeping, bed in low and locked position. door closed
[2019-04-25] MEDS: PIPERACILLIN/TAZO 2.25 GM 50 ML IV SCH ×3 (03:46→20:43)
--- NOTE | 2019-04-25 03:57 | NUR ---
patient in semi-fowlers, IV antibiotics started at this time, pain medications declined, son sleeping on couch, patient aroused and went right back to sleep.
[2019-04-25 05:56] LABS: ANION GAP 12.6 mmol/L (8-16); CALCIUM 9.5 mg/dL (8.4-10.2); CREATININE, SERUM 3.14 mg/dL (0.72-1.25); POTASSIUM 3.6 mmol/L (3.5-5.1)
[2019-04-25] MEDS: METOPROLOL TARTRATE 25 MG TAB PO SCH ×3 (06:06→22:43)
--- NOTE | 2019-04-25 07:29 | Progress Note ---
DATE: 04/25/2019 SUBJECTIVE: The patient at bedside, in good spirits. Decreased pain to both lower extremities. Denies any history of fever, chills, nausea, or vomiting. OBJECTIVE: VITAL SIGNS: Afebrile, pulse rate 60, respirations 17, blood pressure 158/63, O2 saturation 100%. EXTREMITIES: Skin temperature warm to the touch to both lower extremities up to the mid foot on the right foot. Ulceration to the left heel looks a little bit better. There is a lot less foul smell. Some granulation tissue starting to appear. Ulcers down to bone. Still some necrosis noted, measuring more than 4 to 5 cm in diameter. LABORATORY DATA: Labs showing a white blood cell count 6.05, hemoglobin 8.0, hematocrit 25.5 with a platelet count of 260. Has a blood glucose of 99. ASSESSMENT: Peripheral arterial disease, grade 4 ulcer, osteomyelitis left heel with dry gangrene, and equinus deformity right lower extremity. PLAN: We will continue local wound care. Continue offloading. We will continue IV antibiotics such as Zosyn. We will continue to follow. The patient is scheduled for surgical intervention on Wednesday. IFEOMA Zarate/KHANH /[id number]
[2019-04-25] MEDS: INSULIN REGULAR, HUMAN 100 UNIT/1 ML 3ML VIAL SQ SCH ×4 (07:30→21:00)
[2019-04-25] MEDS: COLLAGENASE OINTMENT 30 GM TUBE TP SCH ×2 (07:30→21:02)
[2019-04-25] MEDS ORDERED: SODIUM CHLORIDE 0.9% 250ML 250 ML IV ONE (09:15)
[2019-04-25] MEDS: SEVELAMER CARBONATE 800 MG TAB PO SCH ×3 (09:59→16:40)
[2019-04-25] MEDS: HEPARIN SOD (PORCINE) 5,000 UNIT/ML VIAL SC SCH ×2 (09:59→21:04)
[2019-04-25] MEDS: ISOSORBIDE MONONITRATE 30 MG TAB CR PO SCH (09:59)
[2019-04-25] MEDS: HYDRALAZINE HCL 25 MG TAB PO SCH ×3 (09:59→20:57)
[2019-04-25] MEDS: LINEZOLID 600 MG/D5W 300ML 300 ML IV SCH (13:15)
--- NOTE | 2019-04-25 17:16 | NUR ---
Nutrition LOS Note RD Recommendation(s) for Physician / Nutrition Prescription: continue with diet as prescribed Plan of Care: Patient has been screened and assessed for nutrition risk. At this time, the patient does not pose any nutrition risk. No further nutrition intervention is warranted at this time. Will re-evaluate if consulted by medical staff. Nutrition reason for involvement: LOS Primary Dx: R foot gangrene PMH: ESRD on dialysis, hypertension, type 2 diabetes, hyperlipidemia, and severe PAD. RD Assessment: (04/25) 68yo M, who was admitted for R foot gangrene. Currently on IV abx. Last HD was on 04/24. Planned for TMA tomorrow. Visited pt in the room. Per RN, pt was eating well. Family was feeding pt during my visit. No complains of nausea or vomiting. LBM 04/25. Pt denied any chewing or swallowing difficulty. Weight has been stable. Current diet is appropriate and adequate. Malnutrition Evaluation (04/25/2019) The patient does not meet criteria for a specified degree of malnutrition at this time. Will re-evaluate at follow-up as appropriate. Nutrition Care Level: Low Signed by Jackeline Tian, MS, RD, LD
--- NOTE | 2019-04-25 18:13 | Progress Note ---
DATE: 04/25/2019 Cardiology Progress Note SUBJECTIVE: No new complaints. Denies chest pain or shortness of breath. Discussed at length with the patient and family members. Updated on plan of care and address all questions. OBJECTIVE: VITAL SIGNS: Temperature 97.1, heart rate 51, blood pressure 123/59, respiratory rate 18, O2 saturation 100%, BMI 27.7. GENERAL: In no acute distress, alert. NECK: No JVD. CHEST: Clear to auscultation. CARDIOVASCULAR: Regular rate and rhythm. Normal S1 and S2. No S3 or S4. ABDOMEN: Soft, nontender. EXTREMITIES: Trace edema. Right forefoot gangrene. Left heel wound. CARDIOVASCULAR MEDICATIONS: Reviewed. Atorvastatin 20 mg at bedtime, metoprolol tartrate 25 mg every 8 hours, isosorbide mononitrate 60 mg daily, heparin 5000 subcu q.12 hours. LABORATORY DATA: Studies reviewed. Sodium 136, potassium 3.6, chloride 99, bicarbonate 28, BUN 13, creatinine 3.1, glucose 99. White blood cell 6.05, hemoglobin 8, platelets 260. INR 0.8. AST 14, ALT 7, alkaline phosphatase 83, total bilirubin 0.8. ASSESSMENT: 1. A 68-year-old man with end-stage renal disease, hypertension, dyslipidemia, who presents with right forefoot gangrene in the setting of severe peripheral vascular disease with occluded right AT, occluded left PT aneurysm distributions for affected areas with no associated outflow for revascularization. 2. Anemia, stable. RECOMMENDATIONS: 1. Continue current cardiovascular medications including beta craig. 2. Plan for amputation to right lower extremity level which we deferred to patient and other treating providers likely this week. Has moderate risk for adverse cardiovascular outcomes. No unstable cardiac conditions currently identified. Perioperative beta blockers are advised. Jamir Ramachandran MD AFTanmay/MODL /[id number]
--- NOTE | 2019-04-25 19:48 | Progress Note ---
DATE: 04/25/2019 Nephrology Progress Note SUBJECTIVE: The patient is doing well today with no complaints. He is scheduled for dialysis on tomorrow. PHYSICAL EXAMINATION: VITAL SIGNS: Temperature 97.1, pulse 51, respiratory rate 18, blood pressure 133/59, and pulse ox 100% on room air. GENERAL: In no acute distress, alert and oriented x3, cooperative on examination. HEENT: Head is normocephalic and atraumatic. Eyes; pupils are equal, round, and reactive to light bilaterally. Extraocular movements are intact bilaterally. Throat, no evidence of any erythema or exudates in the posterior pharynx. Has poor dentition. NECK: Supple, good range of motion. PULMONARY: Clear to auscultation bilaterally. No wheezing, rales, or rhonchi. No crackles appreciated. CARDIOVASCULAR: Positive S1, S2. No murmurs, rubs, or gallops appreciated. ABDOMEN: Soft, nondistended, and nontender to palpation. Bowel sounds present. MUSCULOSKELETAL: Strength is 5/5 throughout. No evidence of any muscle deficits on examination. No weakness appreciated. NEUROLOGIC: Cranial nerves II through XII grossly intact. No evidence of any neurological deficits on exam. SKIN: Intact. Warm to touch. Good cap refill. PSYCHIATRIC: Normal affect and mood. EXTREMITIES: No edema. Good range of motion throughout. LAB FINDINGS: Show white count 6, hemoglobin 8, hematocrit 25, and platelets of 260. Coagulation normal. Chemistry, reviewed and stable. IMPRESSION: 1. End-stage renal disease, on dialysis. 2. Secondary hyperparathyroidism. 3. Anemia of end-stage renal disease. 4. Severe peripheral arterial disease with cellulitis to both bilateral lower extremities with dry gangrene and left heel wound. PLAN: At this time, schedule HD is for tomorrow on Wednesday. Continue with phosphorus binders, renal diet. We will give blood transfusion on the next HD treatment. Continue with erythropoietin to stimulate blood counts. MD CITLALY Cervantes/MODL /[id number]
[2019-04-25] MEDS: ATORVASTATIN 20 MG TAB PO SCH (20:57)
[2019-04-26] VITALS (9 sets, daily range): BP systolic 125–175; BP diastolic 44–67
[2019-04-26] MEDS: LINEZOLID 600 MG/D5W 300ML 300 ML IV SCH ×2 (00:37→13:00)
[2019-04-26] MEDS: HYDROCODONE/APAP 5MG-325MG TAB PO PRN ×3 (00:44→19:53)
[2019-04-26] MEDS: PIPERACILLIN/TAZO 2.25 GM 50 ML IV SCH ×4 (04:09→19:36)
--- NOTE | 2019-04-26 04:37 | NUR ---
patient in the semi fowlers position with the TV on. Eye closed, bed in low and locked position. IV intact
[2019-04-26] MEDS: METOPROLOL TARTRATE 25 MG TAB PO SCH ×3 (05:45→21:37)
[2019-04-26 05:51] LABS: BASOPHILS % 0.6 % (0.0-1.0); EOSINOPHILS # (AUTO) 0.4 (0.0-0.4); EOSINOPHILS % 5.8 % (0.0-6.0); HEMATOCRIT 25.3 % (38.2-49.6); HEMOGLOBIN 8.1 g/dL (14.0-18.0); LYMPHOCYTES # (AUTO) 1.6 (1.0-3.2); LYMPHOCYTES % 24.8 % (18.0-39.1); MEAN CORPUSCULAR HEMOGLOBIN 28.6 pg (28-32); MEAN CORPUSCULAR VOLUME 89.4 fL (81-99); MONOCYTES # (AUTO) 0.5 (0.2-0.8); MONOCYTES % 7.2 % (4.4-11.3); NEUTROPHILS # (AUTO) 3.9 (2.1-6.9); NEUTROPHILS % 61.3 % (38.7-80.0); PLATELET COUNT 229 x10e3/uL (140-360); RED BLOOD COUNT 2.83 x10e6/uL (4.3-5.7); RED CELL DISTRIBUTION WIDTH 15.9 % (11.7-14.4)
[2019-04-26 06:07] LABS: INR 0.9; PROTHROMBIN TIME 12.6 seconds (11.9-14.5)
--- NOTE | 2019-04-26 07:05 | NUR ---
RCD PT AT BED PT IS ALERT AND CONFUSED PT RESTING ON BED NO SIGNS OF ANY DISTRESS NOTED ONE TIME BM HE HAD IV PATENT AROUND THE AREA IS SWOLLEN BUT IV IS GOOD BY SALINE FLUSH VERIFIED WITH CHARGE NURSE BED LOW AND LOCKED CALL LIGHT IN REACH
[2019-04-26] MEDS: INSULIN REGULAR, HUMAN 100 UNIT/1 ML 3ML VIAL SQ SCH ×4 (07:30→21:32)
[2019-04-26] MEDS: SEVELAMER CARBONATE 800 MG TAB PO SCH ×3 (08:00→17:00)
--- NOTE | 2019-04-26 08:20 | NUR ---
NOTIFIED DR CARDENAS THE CRITICAL LAB VRE IN WOUND HE SAID HE WILL TAKE CARE THAT
[2019-04-26] MEDS: HYDRALAZINE HCL 25 MG TAB PO SCH ×3 (09:00→21:44)
[2019-04-26] MEDS: ISOSORBIDE MONONITRATE 30 MG TAB CR PO SCH (09:00)
[2019-04-26] MEDS: HEPARIN SOD (PORCINE) 5,000 UNIT/ML VIAL SC SCH (09:00)
[2019-04-26] MEDS: COLLAGENASE OINTMENT 30 GM TUBE TP SCH ×2 (09:00→21:36)
--- NOTE | 2019-04-26 11:21 | Progress Note ---
DATE: 04/26/2019 SUBJECTIVE: The patient seen at bedside, accompanied by spouse, doing somewhat better, in lot better of spirits. He is denying any history of fever, chills, nausea, or vomiting. OBJECTIVE: VITALS: Afebrile, pulse rate 54, respirations 18, blood pressure 146/60, and O2 saturation 100%. EXTREMITIES: Ulceration to the left heel still shows some necrosis and foul smell and some granulation tissue noted more than 4-5 cm diameter with bone exposed and has forefoot gangrene to the right lower extremity. Skin temperature warm to touch to the midfoot. LABORATORY DATA: Labs noted. He has an INR of 0.9, PT of 12.6. Hemoglobin of 8.1, hematocrit 25.3 with a platelet count of 229. White blood cell count of 6.3. ASSESSMENT: Peripheral arterial disease with dry gangrene, equinus deformity of right foot with a grade 4 ulcer. PLAN: Ulceration will be debrided tomorrow at bedside. We will continue local wound care, continue offloading. The patient will be scheduled for surgical intervention Wednesday morning for an I and D, transmetatarsal amputation with flap closure with Achilles tendon lengthening and spouse instructed that no guarantees can be given, it will be a salvage procedure to try to salvage his leg. IFEOMA Zarate/KHANH /[id number]
[2019-04-26] MEDS ORDERED: LORAZEPAM 0.5 MG TAB PO ONE (13:00)
--- NOTE | 2019-04-26 13:00 | NUR ---
DURING DIALYSIS PT STARTED TO CRY AND AGITATED NOTIFIED DR BATISTA HE SAID DC DIALYSIS TODAY TRANSFUSED ONE UNIT BLOOD
--- NOTE | 2019-04-26 14:00 | NUR ---
DRESSING CHANGED ON BOTH FOOT
[2019-04-26] MEDS: EPOETIN ALFA 10000 UNIT/ML VIAL SC SCH (15:00)
--- NOTE | 2019-04-26 15:06 | Progress Note ---
DATE: 04/26/2019 Nephrology Progress Note SUBJECTIVE: The patient seems to be very confused today on examination. Hemodialysis was for an hour and 20 minutes, now aborted due to his confusion and severe pain. PHYSICAL EXAMINATION: VITAL SIGNS: Temperature 97.5, pulse 96, respiratory rate is 22, blood pressure 160/54, pulse ox 98% on room air. GENERAL: In no acute distress, alert and oriented x2, cooperative on examination. HEENT: Head is normocephalic and atraumatic. Eyes; pupils are equal, round, and reactive to light bilaterally. Extraocular movements are intact bilaterally. Throat, no evidence of any erythema or exudates in the posterior pharynx. Has poor dentition. NECK: Supple, good range of motion. PULMONARY: Clear to auscultation bilaterally. No wheezing, rales, or rhonchi. No crackles appreciated. CARDIOVASCULAR: Positive S1, S2. No murmurs, rubs, or gallops appreciated. ABDOMEN: Soft, nondistended, and nontender to palpation. Bowel sounds present. MUSCULOSKELETAL: Strength is 5/5 throughout. No evidence any muscle deficits on examination. SKIN: Intact. Warm to touch. Good cap refill. PSYCHIATRIC: He is currently confused. EXTREMITIES: No edema. Good range of motion throughout. LABORATORY DATA: Lab findings show white count of 6.3, hemoglobin 8.1, hematocrit 25, platelets of 229. Chemistry reviewed and stable. IMPRESSION: 1. End-stage renal disease, on hemodialysis, Wednesday, Wednesday and Wednesday. 2. Secondary hyperparathyroidism. 3. Wright of end-stage renal disease. 4. Severe peripheral arterial disease with cellulitis in bilateral lower extremity with dry gangrene and left heel wound. PLAN: HD was scheduled today, but he only received half treatment as the patient refused to continue. We are going to revisit the labs tomorrow to determine if he needs HD again tomorrow. If not, we will try on Wednesday as per schedule. Continue with phosphorus binders, renal diet. Otherwise, monitor his hemoglobin closely. May need blood transfusion on next HD. MD CITLALY Cervantes/KHANH /[id number]
--- NOTE | 2019-04-26 19:14 | NUR ---
PT RESTING ON BED BED SIDE REPORT GIVEN TO ONCOMING NURSE
[2019-04-26] MEDS: ATORVASTATIN 20 MG TAB PO SCH (21:36)
[2019-04-26] MEDS: TRAZODONE HCL 50 MG TAB PO PRN (21:41)
--- NOTE | 2019-04-26 23:39 | Progress Note ---
DATE: 04/26/2019 Cardiology Progress Note SUBJECTIVE: No new complaints today. Denies chest pain or shortness of breath. OBJECTIVE: VITAL SIGNS: Temperature 96.3, heart rate 54, blood pressure 146/60, respiratory rate 18, O2 saturation 100%, BMI 27.7. GENERAL: In no acute distress. Alert. NECK: No JVD. CHEST: Clear to auscultation. CARDIOVASCULAR: Regular rate and rhythm. Normal S1, S2. No S3 or S4. ABDOMEN: Soft and nontender. EXTREMITIES: Abnormal pedal pulses. Right forefoot with gangrenous changes, particularly in its level, midfoot warm. Left heel wound covered with dressings. CARDIOVASCULAR MEDICATIONS: Reviewed. Atorvastatin 20 mg at bedtime, hydralazine 10 mg every 4 hours, metoprolol tartrate 25 mg every 8 hours, subcu heparin 5000 units every 12 hoursSQ. LABORATORY DATA: Sodium 136, potassium 3.6, chloride 99, bicarbonate 26, BUN 13, creatinine 3.1, and glucose 99. White blood cell 6.3, hemoglobin 8.1, and platelets 229. INR 0.9. AST 14, ALT 7, alkaline phosphatase 83. ASSESSMENT: 1. A 68-year-old man with peripheral vascular disease, occluded right AT - angiosome distribution affected by gangrenous forefoot changes with patent single vessel right posterior tibial artery, left heel wound with occluded left PT- angiosome distribution artery. 2. Anemia. 3. End-stage renal disease, on scheduled dialysis. 4. Hypertension. 5. Diabetes mellitus. 6. Dyslipidemia. RECOMMENDATIONS: 1. Continue perioperative beta-blockers. 2. Given clinical evaluation to lower extremity with warm midfoot, pending coordination with Podiatry. The patient and family seem agreeable to proceed with right TMA at this point. The patient will be closely monitored postoperatively for wound healing. Continue rest of cardiovascular medications. Please feel free to call with any questions or concerns. Jamir Ramachandran MD AFTanmay/MODL /[id number] MTDD
--- NOTE | 2019-04-26 23:41 | NUR ---
patient up in room watching TV, assisted with adjusting the bed to a comfortable position. bed in low and locked position
--- NOTE | 2019-04-26 23:47 | NUR ---
patient in semi fowlers position at this time. foam wedges and pillows for extremity elevation. Patient is watching TV, bed in low and locked position. Family member on couch sleeping at this time. Pain 3 out of 10
[2019-04-27] VITALS (8 sets, daily range): BP systolic 127–177; BP diastolic 56–65
[2019-04-27] MEDS: LINEZOLID 600 MG/D5W 300ML 300 ML IV SCH ×2 (01:03→13:00)
[2019-04-27] MEDS: PIPERACILLIN/TAZO 2.25 GM 50 ML IV SCH ×3 (04:00→20:00)
--- NOTE | 2019-04-27 04:13 | NUR ---
patient refused his IV antibiotic at this time. He is wanting to go home. He was informed that the physician will be here in the morning and he can discuss is concerns and let him know that he wants to go home. The patient's son left around 0230 to go to work. The patient has been up since this time and most of the night restless unable to sleep. He was given pain medications and a sleep aid. Patient is currently refusing the need for any pain medications at this time. I have informed the patient of his plan of care and need for further treatment.
--- NOTE | 2019-04-27 07:11 | NUR ---
PT SITTING AT BED SIDE RESP EVEN AND UNLABORED AT THIS TIME, NO DISTRESS NOTED, NO C/O PAIN WHEN ASKED, CALL LIGHT IN REACH.
--- NOTE | 2019-04-27 07:18 | NUR ---
report and walking rounds with Love BIGGS
[2019-04-27] MEDS: INSULIN REGULAR, HUMAN 100 UNIT/1 ML 3ML VIAL SQ SCH ×4 (07:30→20:38)
[2019-04-27] MEDS: SEVELAMER CARBONATE 800 MG TAB PO SCH ×3 (08:48→17:56)
[2019-04-27] MEDS: METOPROLOL TARTRATE 25 MG TAB PO SCH ×3 (08:48→22:00)
[2019-04-27] MEDS: HYDRALAZINE HCL 25 MG TAB PO SCH ×3 (09:00→21:00)
[2019-04-27] MEDS: ISOSORBIDE MONONITRATE 30 MG TAB CR PO SCH (10:20)
[2019-04-27] MEDS: COLLAGENASE OINTMENT 30 GM TUBE TP SCH ×2 (11:00→21:00)
--- NOTE | 2019-04-27 13:38 | Progress Note ---
DATE: 04/27/2019 SUBJECTIVE: The patient seen at bedside relating he is not having fever, chills, nausea, or vomiting. Has some discomfort to both lower extremities; left heel and forefoot aspect of the right foot. OBJECTIVE: VITAL SIGNS: Afebrile, pulse rate 50, respirations 17, blood pressure 177/63, O2 saturation 100%. LABORATORY DATA: Labs noted. CBC is not back yet. Has a grade 4 ulceration plantar posterior aspect left heel measuring 4 x 67 cm, now with some necrosis noted on the bone. The amount of foul smell is almost completely resolved. Necrotic tissue noted with some bone exposed, but the surrounding tissue is getting better with decreased cellulitis . Has dry gangrenous changes to the right foot. Skin temperature warm to touch up to the mid foot. Decreased dorsiflexion with the knee extended opposed to knee flexed. ASSESSMENT: Grade 4 ulcer, osteomyelitis, left foot with dry gangrene, equinus deformity, right. PLAN: The patient will be taken for surgical intervention tomorrow. We will wait and see how his hemoglobin and hematocrit are doing. The proposed surgery with its risks and complications were reviewed with the patient in great detail. Also family members aware that the patient will be taken for a transmetatarsal amputation, I and D, rotational flap closure with Achilles tendon lengthening, but no guarantees can be given. If not responsive, will end up needing [id number] amputation. At bedside, sharp excisional debridement of the ulcer was carried down to muscle and bone. Devitalized tissue sharply excised until good viable bleeding tissue was achieved. Sterile dressing was applied with Santyl followed by diluted wet-to-dry. We will continue local wound care and IV antibiotics. The patient will be kept n.p.o. after midnight tonight. IFEOMA Zarate/KHANH /[id number]
[2019-04-27] MEDS ORDERED: SODIUM CHLORIDE 0.9% 250ML 250 ML IV NR (14:30)
--- NOTE | 2019-04-27 17:00 | NUR ---
pt blood started , no SOB, no pain, pt tolerating well.
--- NOTE | 2019-04-27 19:19 | Progress Note ---
DATE: 04/27/2019 Cardiology Progress Note SUBJECTIVE: No new complaints. Denies chest pain or shortness of breath. Does have right upper extremity edema, now per nursing report since yesterday with right upper extremity IV seemed to be discontinued after recent right IJ IV obtained. OBJECTIVE: VITAL SIGNS: Temperature 97.5, heart rate 56, respiratory rate 20, blood pressure 128/57, and O2 saturation 100%. GENERAL: In no acute distress, alert. NECK: No JVD. CHEST: Clear to auscultation. CARDIOVASCULAR: Regular rate and rhythm. Normal S1, S2. No S3 or S4. ABDOMEN: Soft. EXTREMITIES: 1+ edema to right upper extremity. Has right toes with gangrene and left heel wound. CARDIOVASCULAR MEDICATIONS: Reviewed. Isosorbide mononitrate 60 mg daily, hydralazine 25 mg t.i.d., Zosyn, linezolid, antibiotics, atorvastatin 20 mg at bedtime, metoprolol tartrate 25 mg every 8 hours, and aspirin on hold. LABORATORY DATA: Studies reviewed. Sodium 136, potassium 3.6, chloride 99, bicarbonate 28, BUN 13, creatinine 3.1, glucose 99. White blood cell 6.3, hemoglobin 8.1, platelets 229. AST 14, ALT 7, alkaline phosphatase 83. ASSESSMENT: 1. A 68-year-old man with gangrene of right forefoot and wound to left heel in the setting of severe peripheral vascular disease with occluded right AT and left PT. 2. Diabetes mellitus. 3. Hypertension. 4. Right upper extremity edema. 5. Anemia. 6. End-stage renal disease with left upper extremity fistula. 7. Hypertension. 8. Preserved left ventricular systolic function on recent echocardiogram. RECOMMENDATIONS: Moderate risk for adverse cardiovascular outcomes with noncardiac surgery. Perioperative beta-blockers have been advised. No unstable cardiac conditions identified at this point. Ultrasound right upper extremity, venous to rule out DVT. DC right upper extremity IV, elevate upper extremity, and use warm compresses. Continue rest of cardiovascular medications. Jamir Ramachandran MD AFV/MODL /[id number]
--- NOTE | 2019-04-27 19:24 | Progress Note ---
DATE: 04/27/2019 Nephrology Progress Note SUBJECTIVE: The patient is scheduled for surgery tomorrow for TMA. He received dialysis yesterday, but did not receive full treatment due to being very combative and confused. He is given blood transfusion now. OBJECTIVE: VITAL SIGNS: Temperature is 97.7, pulse 82, respiratory rate is 20, blood pressure 127/52, pulse ox 90% on room air. GENERAL: Not in acute distress. Alert and oriented x3. Cooperative on examination. HEENT: Head is normocephalic and atraumatic. Eyes, pupils are equal, round, and reactive to light bilaterally. Extraocular movements are intact bilaterally. Throat, no evidence of erythema or exudates in the posterior pharynx. Has poor dentition. NECK: Supple. Good range of motion. PULMONARY: Clear to auscultation bilaterally. No wheezing, no rales, no rhonchi, no crackles appreciated. CARDIOVASCULAR: Positive S1 and S2. No murmurs, rubs, or gallops appreciated. ABDOMEN: Soft and nontender to palpation. Bowel sounds present. MUSCULOSKELETAL: Strength is 5/5 throughout. No evidence of any muscle deficits on examination. No weakness appreciated. NEUROLOGICAL: Cranial nerves II through XII are grossly intact. No evidence of any neurological deficits on exam. SKIN: Intact. Warm to touch. Good cap refill. PSYCHIATRIC: Normal affect and mood. EXTREMITIES: No edema. Good range of motion throughout. LABORATORY FINDINGS: Show white count 6.3, hemoglobin 8.1, hematocrit is 25, and platelets of 229. Coagulation; PT 12 and INR 1.9. Chemistry; sodium 136, potassium 3.6, chloride 99, bicarb 29, BUN 13, and creatinine 6.1. MICROBIOLOGY: Wound cultures noted Citrobacter and Enterococcus. IMPRESSION: 1. End-stage renal disease, on hemodialysis, Wednesday, Wednesday, and Wednesday. 2. Secondary hyperparathyroidism. 3. Anemia of end-stage renal disease. 4. Severe peripheral arterial disease with cellulitis in the bilateral lower extremity with dry gangrene of the left heel wound. He is scheduled for hemodialysis possibly tomorrow after surgery electrolytes are stable. He is receiving blood prior to surgery. He is going to have a TMA tomorrow scheduled by Podiatry. 5. Binders, renal diet, n.p.o. after midnight. MD CITLALY Cervantes/KHANH /[id number]
--- NOTE | 2019-04-27 19:32 | NUR ---
report given to oncoming nurse, pt stable at this time.
--- NOTE | 2019-04-27 19:45 | NUR ---
TRANSFUSION OF BLOOD HAS ENDED. PATIENT'S VITALS IN STABLE CONDITION, NO SIGNS OF DISTRESS NOTED. BED IS LOW AND LOCKED, CALL LIGHT WITHIN EASY REACH, FAMILY MEMBER AT THE BEDSIDE, WILL CONTINUE TO MONITOR.
[2019-04-27] MEDS: ATORVASTATIN 20 MG TAB PO SCH (21:00)
[2019-04-27] MEDS: TRAZODONE HCL 50 MG TAB PO PRN (22:40)
[2019-04-27 23:30] LABS: BASOPHILS % 0.5 % (0.0-1.0); EOSINOPHILS # (AUTO) 0.3 (0.0-0.4); HEMATOCRIT 33.9 % (38.2-49.6); HEMOGLOBIN 11.5 g/dL (14.0-18.0); LYMPHOCYTES # (AUTO) 1.3 (1.0-3.2); MEAN CORPUSCULAR HEMOGLOBIN 29.5 pg (28-32); MEAN CORPUSCULAR HGB CONC 33.9 g/dL (31-35); MEAN CORPUSCULAR VOLUME 86.9 fL (81-99); MONOCYTES # (AUTO) 0.5 (0.2-0.8); MONOCYTES % 6.7 % (4.4-11.3); NEUTROPHILS # (AUTO) 5.5 (2.1-6.9); NEUTROPHILS % 71.5 % (38.7-80.0); PLATELET COUNT 221 x10e3/uL (140-360); RED CELL DISTRIBUTION WIDTH 15.2 % (11.7-14.4)
[2019-04-28] VITALS (9 sets, daily range): BP systolic 102–179; BP diastolic 38–74
[2019-04-28] MEDS: LINEZOLID 600 MG/D5W 300ML 300 ML IV SCH ×2 (01:30→13:03)
[2019-04-28] MEDS: PIPERACILLIN/TAZO 2.25 GM 50 ML IV SCH ×3 (03:02→21:00)
--- NOTE | 2019-04-28 04:55 | NUR ---
HAVE NOT HEARD FROM DIALYSIS, SPOKE WITH OR REGARDING PATIENTS PROCEDURE, UNSURE IF IT CAN BE DONE UNTIL DIALYSIS FOR THE PATIENT IS DONE. CONTINUING TO MONITOR THE SITUATION.
--- NOTE | 2019-04-28 05:00 | NUR ---
SPOKE WITH CHARGE NURSE REGARDING THE PATIENT'S PROCEDURE AND DIALYSIS, CONTINUING TO MONITOR.
--- NOTE | 2019-04-28 05:15 | NUR ---
DIALYSIS HAS NOT ARRIVED FOR PATIENT YET, CALLED DR. UMAÑA REGARDING THE PATIENT'S PROCEDURE ON FOOT. WAITING FOR CALL BACK.
[2019-04-28 05:31] LABS: BASOPHILS % 0.6 % (0.0-1.0); EOSINOPHILS # (AUTO) 0.2 (0.0-0.4); EOSINOPHILS % 2.4 % (0.0-6.0); HEMATOCRIT 34.7 % (38.2-49.6); HEMOGLOBIN 11.8 g/dL (14.0-18.0); LYMPHOCYTES % 14.4 % (18.0-39.1); MEAN CORPUSCULAR HEMOGLOBIN 29.5 pg (28-32); MEAN CORPUSCULAR VOLUME 86.8 fL (81-99); MONOCYTES # (AUTO) 0.4 (0.2-0.8); MONOCYTES % 5.3 % (4.4-11.3); NEUTROPHILS # (AUTO) 5.1 (2.1-6.9); RED CELL DISTRIBUTION WIDTH 14.9 % (11.7-14.4)
[2019-04-28 05:32] LABS: PLATELET COUNT 172 x10e3/uL (140-360)
[2019-04-28] MEDS: METOPROLOL TARTRATE 25 MG TAB PO SCH ×3 (05:39→22:00)
[2019-04-28 05:45] LABS: ANION GAP 15.3 mmol/L (8-16); CALCIUM 9.4 mg/dL (8.4-10.2); CREATININE, SERUM 4.61 mg/dL (0.72-1.25); POTASSIUM 3.3 mmol/L (3.5-5.1)
--- NOTE | 2019-04-28 05:50 | NUR ---
SPOKE WITH [employer] OPERATOR REGARDING PATIENT'S PROCEDURE AND DIALYSIS.
--- NOTE | 2019-04-28 06:15 | NUR ---
SPOKE WITH DIALYSIS TO RESCHEDULE THE PATIENT.
[2019-04-28] MEDS ORDERED: LIDOCAINE HCL 1% LOCAL INJ 20 ML VIAL ONE ×2 (06:17→18:48)
[2019-04-28] MEDS ORDERED: BETAMETHASONE DISODIUM PHOS 6 MG/ML VIAL ONE ×2 (06:17→18:48)
[2019-04-28] MEDS ORDERED: BUPIVACAINE HCL 0.5% INJ 30 ML VIAL INJ ONE ×2 (06:17→18:48)
[2019-04-28] MEDS ORDERED: BACITRACIN 50,000 UNIT VIAL ONE ×2 (06:17→18:48)
--- NOTE | 2019-04-28 06:25 | NUR ---
SPOKE WITH DR. UMAÑA REGARDING THE PATIENT. INFORMED PATIENT AND FAMILY THAT THEY WILL BE HAVING DIALYSIS AT 07:30 AND THE PROCEDURE LATER THAT AFTERNOON.
[2019-04-28] MEDS: INSULIN REGULAR, HUMAN 100 UNIT/1 ML 3ML VIAL SQ SCH ×4 (07:30→20:56)
[2019-04-28] MEDS: SEVELAMER CARBONATE 800 MG TAB PO SCH ×3 (08:00→17:00)
[2019-04-28] MEDS: ISOSORBIDE MONONITRATE 30 MG TAB CR PO SCH (08:52)
[2019-04-28] MEDS: HYDRALAZINE HCL 25 MG TAB PO SCH ×3 (08:52→21:00)
[2019-04-28] MEDS: COLLAGENASE OINTMENT 30 GM TUBE TP SCH ×2 (12:17→21:00)
[2019-04-28] MEDS ORDERED: SODIUM CHLORIDE 0.9% 250ML 250 ML ONE (12:18)
[2019-04-28] MEDS: EPOETIN ALFA 10000 UNIT/ML VIAL SC SCH (15:00)
--- NOTE | 2019-04-28 15:59 | Progress Note ---
DATE: 04/28/2019 Nephrology Progress Note SUBJECTIVE: He is scheduled for amputation of his toes later today. He is receiving dialysis as per the schedule and also preoperatively. PHYSICAL EXAMINATION: VITAL SIGNS: He is afebrile. Normotensive. Respiratory rate is good. GENERAL: Not in acute distress. Alert and oriented x3. Cooperative on examination. HEENT: Head is normocephalic and atraumatic. Eyes; pupils are equal, round, and reactive to light bilaterally. Extraocular movements intact bilaterally. Throat; no evidence of erythema or exudates in the posterior pharynx. Has poor dentition. NECK: Supple. Good range of motion. PULMONARY: Clear to auscultation bilaterally. No wheezing, no rales, no rhonchi, no crackles appreciated. CARDIOVASCULAR: Positive S1 and S2. No murmurs, rubs, or gallops appreciated. ABDOMEN: Soft, nondistended, and nontender to palpation. Bowel sounds present. MUSCULOSKELETAL: Strength is 5/5 throughout. No evidence of any muscle deficits on examination. No weakness appreciated. NEUROLOGIC: Cranial nerves II through XII were grossly intact. No evidence of any neurological deficits on exam. SKIN: Intact. Warm to touch. Good cap refill. PSYCHIATRIC: Normal affect and mood. EXTREMITIES: No edema. Good range of motion throughout. LABORATORY FINDINGS: White count 6.6, hemoglobin 11.8, hematocrit is 35, platelets of 172. Chemistry shows sodium 129, potassium 3.3, chloride is 94, bicarb is 23, anion gap of 13, BUN 25, creatinine 4.6. IMPRESSION: 1. End-stage renal disease, on hemodialysis. 2. Secondary hyperparathyroidism. 3. Anemia of end-stage renal disease. 4. Severe peripheral arterial disease with cellulitis in bilateral lower extremity with dry gangrene of the right heel wound. PLAN: At this time, HD scheduled for today as per schedule. Electrolytes reviewed. Orders were given to the nursing staff. The patient was evaluated during HD today. He is scheduled for a TMA later today by Podiatry. Continue with phosphate binders and renal diet after surgery. Monitor hemoglobin closely. MD CITLALY Cervantes/MODRico /[id number]
[2019-04-28] MEDS ORDERED: DESFLURANE 240 ML BTL INH ONE (18:10)
[2019-04-28] MEDS ORDERED: LIDOCAINE HCL 2% LOCAL INJ 5 ML SDV VIAL INJ ONE (18:10)
[2019-04-28] MEDS ORDERED: ONDANSETRON HCL INJ 2MG/ML 2ML 2 MG/ML VIAL ONE (18:10)
[2019-04-28] MEDS ORDERED: ETOMIDATE 2 MG/ML 10 ML INJ IV ONE (18:10)
[2019-04-28] MEDS ORDERED: EPHEDRINE SULFATE INJ 50 MG/10 ML SYR ONE (18:10)
[2019-04-28] MEDS ORDERED: DEXAMETHASONE SOD PHOS INJ 4 MG/ML VIAL ONE (18:10)
[2019-04-28] MEDS ORDERED: FENTANYL CITRATE/PF 100MCG/2 ML INJ ONE (18:33)
[2019-04-28] MEDS ORDERED: MUPIROCIN 2% OINT 22 GM TUBE ONE (18:48)
[2019-04-28] MEDS ORDERED: MEPERIDINE HCL INJ 25 MG/ML VIAL ONE (20:16)
[2019-04-28] MEDS ORDERED: HYDROMORPHONE 2MG/ML 2 MG/ML ML ONE (20:24)
--- NOTE | 2019-04-28 20:30 | NUR ---
Received phone call report from PACU nurse (February, RN). I was informed pt is in stable condition and v/s stable. Awaiting on patient arrival to the unit.
--- NOTE | 2019-04-28 20:38 | NUR ---
Patient arrived to the unit in stable condition. Pt alert and oriented x3 but appear quite lethargic and easily fall asleep due to anesthesia. Dressing on left heel clean and dry with heel support. Surgical dressing (post transmetatarsal amputation and flap closure of right foot) clean and dry and being supported by soft cast and wrapped with bipin bandage. Left arm AV fistula intact. Pt appear comfortable at this time. Call sheriff within reach. Bed alarm active.
[2019-04-28] MEDS: ATORVASTATIN 20 MG TAB PO SCH (21:00)
--- NOTE | 2019-04-28 21:00 | NUR ---
Attempted to give night PO meds but patient too lethargic to take it. Pt appear to take pills but spits them out. PO meds not given were Metoprolol, Apresoline and Lipitor. Patient also refused dressing change (with Santyl application) on left heel wound. Pt just wants to rest at this time. Will pass on to dayshift RN.
--- NOTE | 2019-04-28 21:30 | Progress Note ---
DATE: 04/28/2019 Cardiology Progress Note. SUBJECTIVE: Denies any chest pain or shortness of breath. The right upper extremity edema slightly improved today. Blood pressure cuff being used to the upper extremity. Venous ultrasound right upper extremity negative for DVT. IV to the right upper extremity has been discontinued. Right IV in place. OBJECTIVE: VITAL SIGNS: Reviewed and stable. Temperature 97, heart rate 58, respiratory rate 20, blood pressure 130/50, O2 saturation 100%. GENERAL: In no acute distress. Alert. NECK: No JVD. CHEST: Clear to auscultation. CARDIOVASCULAR: Regular rate and rhythm. Normal S1, S2. No S3 or S4. Systolic ejection murmur 11/13. ABDOMEN: Soft, nontender. EXTREMITIES: 1+ edema right upper extremity. Right gangrenous toes, left heel wound. CARDIOVASCULAR MEDICATIONS: Reviewed. Isosorbide mononitrate 60 mg daily, hydralazine 25 mg t.i.d., atorvastatin 20 mg at bedtime, metoprolol tartrate 25 mg every 8 hours, aspirin on hold, Zosyn and linezolid antibiotics. STUDIES REVIEWED: White blood cells 6.6, hemoglobin 11.8, platelets 172. Sodium 129, potassium 3.3, chloride 94, bicarbonate 23, BUN 25, creatinine 4.6, glucose 119. ASSESSMENT: A 68-year-old man, who presents with right forefoot gangrene and left heel wound with underlying PAD. 1. Diabetes mellitus. 2. Hypertension. 3. Right upper extremity edema. 4. Anemia. 5. ESRD with left upper extremity fistula. 6. Preserved left ventricular systolic function. RECOMMENDATIONS: 1. Moderate risk for adverse cardiovascular outcomes with noncardiac surgery. 2. Perioperative beta-blockers advised. 3. No unstable cardiac conditions identified. 4. Right upper extremity ultrasound negative for DVT. Suspect edema related to blood pressure cuff being used predominantly to this extremity particularly given fistula to the left upper extremity. Limit use of blood pressure cuff to doing vitals signs per routine and avoid leaving it in place and elevate upper extremity. 5. Continue rest of cardiovascular medications. Once surgical procedure is completed, please consider resuming antiplatelets. Jamir Ramachandran MD AFV/MODL /[id number]
[2019-04-28] MEDS: HYDRALAZINE HCL 20 MG/ML VIAL IV PRN (21:51)
[2019-04-29] VITALS (8 sets, daily range): BP systolic 109–160; BP diastolic 46–67
[2019-04-29] MEDS: LINEZOLID 600 MG/D5W 300ML 300 ML IV SCH ×2 (01:27→14:16)
[2019-04-29] MEDS: METOPROLOL TARTRATE 25 MG TAB PO SCH ×3 (06:27→22:00)
[2019-04-29] MEDS: PIPERACILLIN/TAZO 2.25 GM 50 ML IV SCH ×3 (06:30→21:58)
[2019-04-29] MEDS: INSULIN REGULAR, HUMAN 100 UNIT/1 ML 3ML VIAL SQ SCH ×4 (07:30→21:00)
[2019-04-29] MEDS: COLLAGENASE OINTMENT 30 GM TUBE TP SCH ×2 (09:00→21:00)
[2019-04-29] MEDS: ISOSORBIDE MONONITRATE 30 MG TAB CR PO SCH (09:58)
[2019-04-29] MEDS: HYDRALAZINE HCL 25 MG TAB PO SCH ×3 (09:58→21:58)
[2019-04-29] MEDS: SEVELAMER CARBONATE 800 MG TAB PO SCH ×3 (09:58→17:00)
[2019-04-29] MEDS: HYDROCODONE/APAP 5MG-325MG TAB PO PRN (11:52)
--- NOTE | 2019-04-29 14:58 | Progress Note ---
DATE: 04/29/2019 Nephrology Progress Note SUBJECTIVE: The patient is doing well, complaining of pain in the right foot performed yesterday, 04/28/2019. Dialysis performed yesterday with no issues. OBJECTIVE: VITAL SIGNS: Temperature is 97.1, pulse , respiratory rate is 18, blood pressure 133/55. He is 100% on room air. GENERAL: Not in acute distress. Alert and oriented x3. Cooperative on examination. HEENT: Head is normocephalic and atraumatic. Eyes; pupils are equal, round, and reactive to light bilaterally. Extraocular movements intact bilaterally. NECK: Supple. Good range of motion throughout. No evidence of erythema or exudates in the posterior pharynx. Has poor dentition. PULMONARY: Clear to auscultation bilaterally. No wheezing, rales, or rhonchi. No crackles appreciated. CARDIOVASCULAR: Positive S1, S2. No murmurs, rubs, or gallops appreciated. ABDOMEN: Soft, nondistended, nontender to palpation. Bowel sounds present. MUSCULOSKELETAL: Strength is 5/5 throughout. No evidence of any muscle deficits on examination. No weakness appreciated. NEUROLOGIC: Cranial nerves II through XII were grossly intact. No evidence of any neurological deficits on exam. SKIN: Intact. Warm to touch. Good cap refill. PSYCHIATRIC: Normal affect and mood. EXTREMITIES: No edema. Good range of motion throughout. LABORATORY FINDINGS: Show white count 6.6, hemoglobin , hematocrit 24.7, platelets of 172. Chemistry reviewed and stable. IMPRESSION: 1. End-stage renal disease, . 2. Secondary hyperparathyroidism. 3. Anemia of end-stage renal disease. 4. with cellulitis with bilateral lower extremity dry gangrene with right foot heel wound, status post right TMA. PLAN: At this time, continue with postop care. He is currently in pain. I discussed with nurse to provide of some pain medication. His electrolytes are stable. His next dialysis on Wednesday. Continue with renal diet, phosphorus binders. Monitor his hemoglobin postoperatively. MD CITLALY Cervantes/KHANH /[id number]
--- NOTE | 2019-04-29 16:13 | Progress Note ---
DATE: 04/29/2019 SUBJECTIVE: Status post right TMA. Pain adequately controlled. Denies any chest pain or shortness of breath. Has no complaints. OBJECTIVE: VITAL SIGNS: Temperature 96.8, heart rate 58, blood pressure 114/48, respiratory rate 18, and O2 saturation 99%. GENERAL: In no acute distress. Alert. NECK: No JVD. CHEST: Clear to auscultation. CARDIOVASCULAR: Regular rate and rhythm. Normal S1, S2. No S3 or S4 systolic ejection murmur. ABDOMEN: Soft, nontender. EXTREMITIES: Trace edema, right TMA, left heel wound covered with dressings. CARDIOVASCULAR MEDICATIONS: Reviewed. Hydralazine 25 mg t.i.d., atorvastatin 20 mg at bedtime, metoprolol tartrate 25 mg every 8 hours, Zosyn, and linezolid. STUDIES REVIEWED: Sodium 129, potassium 3.1, chloride 94, bicarbonate 23, BUN 25, creatinine 4.6, glucose 106. White blood cell 6.6, hemoglobin 11.8, and platelets 172. INR 0.9. AST 14, ALT 7, alkaline phosphatase 83. ASSESSMENT: A 68-year-old man with diabetes mellitus, hypertension, dyslipidemia, end-stage renal disease, PD; anemia, status post right TMA, and with left heel wound, undergoing wound care on antibiotics. RECOMMENDATIONS: 1. Once hemostatic bandages discontinued, resume aspirin. 2. Continue rest of current cardiovascular medications. MD REGINA Villanueva/KHANH /[id number]
--- NOTE | 2019-04-29 19:32 | NUR ---
Patient received lying in bed. Family at bedside. AAO x 3. Patient had no complaints of pain. Respirations even and non-labored. Dressing to right foot and left heel clean, dry and intact. Bed locked and in lowest position. Call light within reach.
[2019-04-29] MEDS: ATORVASTATIN 20 MG TAB PO SCH (21:58)
[2019-04-30] VITALS (8 sets, daily range): BP systolic 114–216; BP diastolic 52–85
[2019-04-30] MEDS: LINEZOLID 600 MG/D5W 300ML 300 ML IV SCH ×2 (01:09→12:54)
[2019-04-30] MEDS: HYDROCODONE/APAP 5MG-325MG TAB PO PRN (01:14)
--- NOTE | 2019-04-30 02:00 | NUR ---
Wound dressing performed on left heel per MD's orders. Patient was repositioned. Patient tolerated well.
[2019-04-30] MEDS: PIPERACILLIN/TAZO 2.25 GM 50 ML IV SCH ×2 (04:15→21:00)
[2019-04-30] MEDS: METOPROLOL TARTRATE 25 MG TAB PO SCH ×2 (05:02→21:00)
--- NOTE | 2019-04-30 07:10 | NUR ---
Walking rounds done. Shift report given to oncoming nurse for continuity of care.
[2019-04-30] MEDS: INSULIN REGULAR, HUMAN 100 UNIT/1 ML 3ML VIAL SQ SCH ×4 (07:30→21:00)
[2019-04-30] MEDS: SEVELAMER CARBONATE 800 MG TAB PO SCH ×3 (09:20→17:56)
[2019-04-30] MEDS: HYDRALAZINE HCL 25 MG TAB PO SCH ×3 (09:21→21:00)
[2019-04-30] MEDS: ISOSORBIDE MONONITRATE 30 MG TAB CR PO SCH (09:22)
[2019-04-30] MEDS ORDERED: NIFEDIPINE CR 30 MG TAB PO ONE (11:00)
[2019-04-30] MEDS: COLLAGENASE OINTMENT 30 GM TUBE TP SCH ×2 (11:55→21:00)
[2019-04-30] MEDS: HYDRALAZINE HCL 20 MG/ML VIAL IV PRN (11:56)
[2019-04-30] MEDS: HYDROCODONE/APAP 10MG-325MG TAB PO PRN (11:56)
[2019-04-30] MEDS: LACTOBACILLUS ACIDOPHILUS CAPSULE PO SCH ×3 (11:58→21:00)
--- NOTE | 2019-04-30 15:02 | Progress Note ---
DATE: 04/30/2019 Nephrology Progress Note SUBJECTIVE: The patient is doing well today. His blood pressure is elevated, medication being adjusted by primary team and Cardiology. No overnight events. PHYSICAL EXAMINATION: VITAL SIGNS: Temperature is 96.5, pulse 62, respiratory rate is 18. His last blood pressure reading was 216/85, saturating 99% on room air. GENERAL: Not in acute distress. Alert and oriented x3. Cooperative on examination. HEENT: Head is normocephalic and atraumatic. Eyes; pupils are equal, round, and reactive to light bilaterally. Extraocular movements are intact bilaterally. Throat, no evidence of erythema or exudates in the posterior pharynx. Has poor dentition. NECK: Supple. Good range of motion. PULMONARY: Clear to auscultation bilaterally. No wheezing, no rales, no rhonchi, no crackles appreciated. CARDIOVASCULAR: Positive S1, S2. No murmurs, rubs, or gallops appreciated. ABDOMEN: Soft, nondistended, and nontender to palpation. Bowel sounds present. MUSCULOSKELETAL: Strength is 5/5 throughout. No evidence of any muscle deficits on examination. No weakness appreciated. NEUROLOGICAL: Cranial nerves 2 through 12 grossly intact. No evidence of any neurological deficits on exam. SKIN: Intact. Warm to touch. Good cap refill. PSYCHIATRIC: Normal affect and mood. EXTREMITIES: No edema. Good range of motion throughout. LABORATORY DATA: White count 6.6, hemoglobin 11.8, hematocrit is 35, platelets of 152. Chemistry, none. IMPRESSION: 1. End-stage renal disease, on hemodialysis. 2. Secondary hyperparathyroidism. 3. Anemia of end-stage renal disease. 4. Right foot cellulitis with dry gangrene status post right TMA. 5. Hypertension urgency. PLAN: His blood pressure medications are being adjusted by the primary attending. I have discussed this with the nursing staff already. He is scheduled for dialysis tomorrow. Continue with phosphorus binders, renal diet. Get repeat labs in the morning as well. His hemoglobin is stable. MD CITLALY Cervantes/KHANH /[id number]
--- NOTE | 2019-04-30 15:31 | Progress Note ---
DATE: 04/30/2019 SUBJECTIVE: The patient at this point in time currently denies any nausea, vomiting, fevers, chills, thigh pain, chest pain, calf pain, shortness of breath. He does complain of pain due to his movements with dressing changes to his right lower extremity. OBJECTIVE: The patient is alert, awake, and oriented x2, currently not in acute distress. Dermatologic exam on the right foot reveals skin margin well coapted at the transmetatarsal amputation site. There is no erythema, minimal edema is noted, appears to be in excellent condition. Skin sutures are well coapted. There is no active drainage, however, there is dry drainage within the dressing. In regard to the left heel, there is an ulceration along the posterior aspect of the left heel. I did speak with the nurse today. She states it is improving after Dr. Montes's debridement. ASSESSMENT: 1. Grade 2 ulceration, left heel. 2. Status post transmetatarsal amputation of right lower extremity. 3. Diabetes mellitus with peripheral neuropathy. RECOMMENDATIONS: At this point in time, the dressing was changed by myself as well as the nursing staff today. In regard to the right lower extremity, dry sterile dressing will be left intact. In regard to the left lower extremity, we will continue with the dressing changes as ordered per Dr. Montes on 04/28/2019, which he has ordered to the left heel, offloading as well as Betadine wet-to-day with Santyl. Further recommendations will be pending the patient's clinical progression. Fausto Rhoades DPM MM/KHANH /[id number]
--- NOTE | 2019-04-30 19:22 | NUR ---
Patient received lying in bed. AAO x 2. No acute distress noted. Right and left foot dressing intact. Call light within reach.
[2019-04-30] MEDS: ATORVASTATIN 20 MG TAB PO SCH (21:00)
--- NOTE | 2019-04-30 23:13 | Progress Note ---
DATE: 04/30/2019 Cardiology Progress Note SUBJECTIVE: No new complaints. OBJECTIVE: VITAL SIGNS: Temperature 96.6, heart rate 57, respiratory rate 16, blood pressure 166/67, and O2 saturation 99%. GENERAL: In no acute distress. Alert. NECK: No JVD. CHEST: Clear to auscultation. CARDIOVASCULAR: Regular rate and rhythm. Normal S1 and S2. ABDOMEN: Soft. EXTREMITIES: No edema with TMA wound covered with dressings. CARDIOVASCULAR MEDICATION: Reviewed. Linezolid, hydralazine 50 mg t.i.d., atorvastatin 20 mg at bedtime, nifedipine 30 mg daily extended release, metoprolol tartrate 25 mg every 12 hours, and Zosyn. STUDIES: White blood cells 6.6, hemoglobin 11.8, and platelets 172. Glucose 131. ASSESSMENT: 1. He is already on dialysis. 2. Secondary hyperparathyroidism. 3. Anemia. 4. End-stage renal disease. 5. Right foot cellulitis with dry gangrene, status post right TMA. 6. Hypertension. 7. Dyslipidemia. 8. Diabetes mellitus. RECOMMENDATIONS: Resume aspirin and continue rest of the cardiovascular medications. MD REGINA Villanueva/KHANH /[id number]
[2019-05-01] VITALS: BP 121/57
[2019-05-01] MEDS: LINEZOLID 600 MG/D5W 300ML 300 ML IV SCH ×2 (00:58→13:00)
[2019-05-01] MEDS: HYDROCODONE/APAP 10MG-325MG TAB PO PRN ×2 (01:18→05:19)
[2019-05-01 04:00] VITALS: BP 109/50
[2019-05-01] MEDS: NIFEDIPINE CR 30 MG TAB PO SCH ×2 (05:33→09:00)
--- NOTE | 2019-05-01 07:00 | NUR ---
Patient resting comfortably. Shift report given to oncoming nurse.
--- NOTE | 2019-05-01 07:00 | NUR ---
RCD PT AT BED PT IS ALERT AND ORIENTED PT RESTING ON BED NO SIGNS OF ANY DISTRESS NOTED IV PATENT FAMILY AT BED SIDE BED LOW AND LOCKED CALL LIGHT IN REACH
[2019-05-01] MEDS: INSULIN REGULAR, HUMAN 100 UNIT/1 ML 3ML VIAL SQ SCH ×3 (07:30→16:26)
[2019-05-01] MEDS: SEVELAMER CARBONATE 800 MG TAB PO SCH ×3 (08:00→16:26)
[2019-05-01 08:32] VITALS: BP 133/60
[2019-05-01 09:00] VITALS: BP 107/53
[2019-05-01] MEDS: METOPROLOL TARTRATE 25 MG TAB PO SCH (09:00)
[2019-05-01] MEDS: ISOSORBIDE MONONITRATE 30 MG TAB CR PO SCH (09:00)
[2019-05-01] MEDS: PIPERACILLIN/TAZO 2.25 GM 50 ML IV SCH (09:00)
[2019-05-01] MEDS: COLLAGENASE OINTMENT 30 GM TUBE TP SCH (09:00)
[2019-05-01] MEDS: LACTOBACILLUS ACIDOPHILUS CAPSULE PO SCH ×2 (09:00→15:00)
[2019-05-01] MEDS: HYDRALAZINE HCL 25 MG TAB PO SCH ×2 (09:00→15:00)
[2019-05-01] MEDS ORDERED: ASPIRIN 81 MG CHEW TAB PO SCH (09:00)
--- NOTE | 2019-05-01 10:07 | NUR ---
Received LTAC eval order. Spoke to pt's son Herman Lee at bedside. He states to send referral to facility that is in this area. Informed him of closest facility [facility]. He signed choice letter for [facility]. Signed letter placed in chart. Copy to pt's son. Notified Mercedes Fagan with [facility] of referral. She will be by shortly to pick and shovel worker clinicals.
[2019-05-01 12:15] VITALS: BP 170/70
--- NOTE | 2019-05-01 13:51 | Progress Note ---
DATE: 05/01/2019 Cardiology Progress Note SUBJECTIVE: No new complaints. OBJECTIVE: VITAL SIGNS: Temperature 97.2, heart rate 64, respiratory rate 20, blood pressure 107/53, O2 saturation 99% on room air. GENERAL: In no acute distress. Alert. NECK: No JVD. CHEST: Clear to auscultation. CARDIOVASCULAR: Regular rate and rhythm. Normal S1 and S2. ABDOMEN: Soft. EXTREMITIES: Trace edema in the right upper extremity, however, 1+ edema in the left upper extremity with fistula in place. Right lower extremity with TMA, covered with dressings and left heel wound. CARDIOVASCULAR MEDICATIONS: Reviewed. Aspirin 81 mg daily, metoprolol tartrate 25 mg every 12 hours, isosorbide mononitrate 60 mg daily, Zosyn and linezolid antibiotics, hydralazine 10 mg q.4 hours p.r.n., nifedipine 30 mg daily, hydralazine 50 mg t.i.d. STUDIES REVIEWED: For today, glucose 124. ASSESSMENT: 1. Peripheral arterial disease, status post right TMA and with left heel wound. 2. End-stage renal disease, on dialysis. 3. Secondary hyperparathyroidism. 4. Anemia, hypertension, diabetes mellitus, and dyslipidemia. RECOMMENDATIONS: 1. Continue current cardiovascular medications including aspirin and beta-craig. 2. Continue antibiotics. 3. Monitor wound healing. MD MarinelliV/EMERITAL /[id number]
--- NOTE | 2019-05-01 14:10 | NUR ---
DIALYSIS DONE AND REMOVED 2 LTRS DRESSING CHANGED ON THE LEFT HEEL
--- NOTE | 2019-05-01 14:11 | NUR ---
MOT initiated and placed with pt's packet at nurse's station. Pending authorization. [place] [id number] [facility] [place] [address]
--- NOTE | 2019-05-01 14:56 | Progress Note ---
DATE: 05/01/2019 Nephrology Progress Note SUBJECTIVE: The patient is doing well today with no complaints. I saw and evaluated him during hemodialysis. A 3 L ultrafiltration has been ordered. PHYSICAL EXAMINATION: VITAL SIGNS: Temperature is 97.3, pulse 64, respiratory rate is 18, blood pressure 107/52, and pulse ox 99% on room air. GENERAL: Not in acute distress. Alert and oriented x3. Cooperative on examination. HEENT: Head is normocephalic, atraumatic. Eyes, pupils are equal, round, and reactive to light bilaterally. Extraocular movements are intact bilaterally. Throat, no evidence of erythema or exudates in the posterior pharynx. Has poor dentition. NECK: Supple. Good range of motion. PULMONARY: Clear to auscultation bilaterally. No wheezing, no rales, no rhonchi, no crackles appreciated. CARDIOVASCULAR: Positive S1, S2. No murmurs, rubs, or gallops appreciated. ABDOMEN: Soft, nondistended, and nontender to palpation. Bowel sounds present. MUSCULOSKELETAL: Strength is 5/5 throughout. No evidence of any muscle deficits on examination. No weakness appreciated. NEUROLOGIC: Cranial nerves II through XII grossly intact. No evidence of any neurological deficits on exam. SKIN: Intact. Warm to touch. Good cap refill. PSYCHIATRIC: Normal affect and mood. EXTREMITIES: No edema. Good range of motion throughout. LABORATORY DATA: Lab findings showed white count 6.6, hemoglobin 11.8, hematocrit is 35, and platelets of 172. Chemistry, none today. IMPRESSION: 1. End-stage renal disease, on hemodialysis . 2. Secondary hyperparathyroidism. 3. Anemia of end-stage renal disease. 4. Right foot cellulitis with dry gangrene, status post right TMA. 5. Hypertensive urgency. PLAN: At this time, HD being performed today. A 3 L ultrafiltration has been ordered. He is doing well during hemodialysis. The patient was seen and evaluated and examined thoroughly on the day of HD. No issues at this time. He is on a renal diet, phosphorus binders. Monitor hemoglobin very closely. Apparently, the patient on the LTAC. MD CITLALY Cervantes/KHANH Benítez: 05/01/2019 12:54:14 /[id number]
--- NOTE | 2019-05-01 16:06 | NUR ---
Received MOT from Mercedes Gracia [place] [address] [place] [address] Vidal to attend Admin: Soham Cabral, [employer] MOT was completed and placed with pt's packet at nurse's station. DIAN Moran was notified.
[2019-05-01 16:26] VITALS: BP 117/51
--- NOTE | 2019-05-01 16:34 | NUR ---
PAGED AND TALKED DR NARVAEZ REGARDING DISCHARGE AND GOT THE DISCHARGE APPROVAL
--- NOTE | 2019-05-01 16:55 | NUR ---
PAGED DR DAS AND NOTIFY THE PT APPROVED BY [facility] GOT THE DISCHARGE ORDER AND CONTINUE THE PRESENT MEDICATIONS
--- NOTE | 2019-05-01 17:24 | NUR ---
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
--- NOTE | 2019-05-01 19:00 | NUR ---
PT DISCHARGED TO [facility] IN SAFE CONDITION
--- NOTE | 2019-05-02 05:30 | Operative Report ---
DATE OF PROCEDURE: 04/28/2019 SURGEON: Lalit Montes DPM PREOPERATIVE DIAGNOSES: 1. Abscess, right foot. 2. Gangrene, right foot. 3. Equinus deformity, right foot. POSTOPERATIVE DIAGNOSES: Confirmed. OPERATIVE PROCEDURE: 1. I and D of abscess down to bone. 2. Transmetatarsal amputation, right foot. 3. Achilles tendon lengthening, right foot. 4. Rotational flap closure, right foot. ANESTHESIA: General. HEMOSTASIS: None. PROCEDURE IN DETAIL: The patient was taken to the operative room, placed on the operative table in supine position. Following induction of general anesthesia by the anesthesiologist. The right lower extremity was then prepped and draped in the usual aseptic manner and the following procedures were then performed. Procedure #1: Achilles tendon lengthening, right foot. Attention was directed to the posterior aspect of the right foot were three stab incisions were performed to the posterior aspect of the ankle, 2 cm from the insertion of the Achilles tendon and 2 cm apart midline through the tendon. The most proximal and most distal stab incision were performed midline through the Achilles tendon and exited medially. The middle stab incision was entered midline to the tendon and exited laterally. At this point, the foot was then dorsiflexed a little bit past 90 degrees and the Achilles tendon was felt to lengthen in a V fashion type. Procedure #2: I and D of abscess to the forefoot aspect, right foot. Attention was then directed to the forefoot aspect of the right foot where an incision was performed down to bone to the dorsal aspect proximal to the metatarsophalangeal joint. Abscess was encountered and cultured for aerobic, anaerobic growth. Secondary to moderate to severe infection, a curvilinear incision was then performed proximal to that performed. Procedure #3: Transmetatarsal amputation. Transmetatarsal amputation was then performed utilizing a racquet shaped incision proximal to the incision where the abscess was I and D. Incision was deepened down to the metatarsal shaft utilizing a periosteal elevator. The periosteum was elevated from the metatarsals 1 through 5 and preserving the metatarsal parabola via use of an oscillating saw. The forefoot was then disarticulated and sent for pathological analysis. At this point, all necrotic tissue was excised via sharp dissection until good viable bleeding tissue was achieved. The incision was then irrigated copiously with sterile antibiotic solution with bacitracin 50,000 units. Procedure #4: The incision was then lengthened, both dorsal medially and plantar laterally to allow for a plantar flap to allow for proper closure with minimal skin tension. The plantar flap was then dorsally displaced and utilizing 2-0 Vicryl and 3-0 nylon, the flap was then reapproximated with minimal skin tension to give it a better chance to heal. Approximately 10 mL of 0.5% plain Marcaine was then used plus 10 mL of 1% xylocaine plain to achieve local anesthesia of the above-mentioned surgical areas. A properly placed posterior splint was then applied keeping the foot at 90 degrees with respect to the leg. The patient remained in the hospital getting IV antibiotics and local wound care for grade 4 ulceration. The patient and patient's family understand that if not responsive, will end up needing a more proximal amputation, which may even include a kihuz-[id number] amputation. The patient tolerated both the anesthesia and procedure well, left the OR to recovery with vital signs stable, neurovascular status intact. No intraoperative complications were encountered. Blood loss from the surgery was less than 20 mL. IFEOMA Zarate/KHANH /[id number]
[2019-05-12] MEDS ORDERED: LACTULOSE20 GM/30 M PO (12:49)
[2019-05-12] MEDS ORDERED: PHOSPHATE ORAL45 ML (12:49)
[2019-05-12] MEDS ORDERED: METOPROLOL TART25 MG PO (12:49)
[2019-05-12] MEDS ORDERED: HUMALOG100 UNIT/3 (12:49)
[2019-05-12] MEDS ORDERED: ACIDOPHILUS1 EAC1 (12:49)
[2019-05-12] MEDS ORDERED: COLLAGENASE1 EACH (12:49)
[2019-05-12] MEDS ORDERED: TRAZODONE HCL50 MG PO (12:49)
[2019-05-12] MEDS ORDERED: ARANESP40 MCG/0.4 (12:49)
[2019-05-12] MEDS ORDERED: NORCO 10-325 T1 EACH (12:49)
[2019-05-12] MEDS ORDERED: ONDANSETRON2 MG/1 ML IV (12:49)
[2019-05-12] MEDS ORDERED: MORPHINE SULFAT30 M2 PO (12:49)
[2019-05-12] MEDS ORDERED: NIFEDIPINE10 MG PO (12:49)
[2019-05-12] MEDS ORDERED: DOCUSATE SODIU100 MG PO (12:49)
[2019-05-12] MEDS ORDERED: MUPIROCIN22 GM TOP (12:49)
[2019-05-12] MEDS ORDERED: ACETAMINOPHEN650 MG PO (12:49)
[2019-05-12] MEDS ORDERED: BISACODYL5 MG PO (12:49)
[2019-05-12] MEDS ORDERED: MEROPENEM500 MG (12:49)
[2019-05-12] MEDS ORDERED: VANCOMYCIN HCL1 GM IV (12:49)
== END 2019-05-01 19:00 | DRG 239 ==
LOC: ER 12:04 → ERHOLD 14:56 → MED/SURG2 17:52
PROVIDERS: ADMIT Internal Medicine; ATTEND Internal Medicine
PROC: 30243N1 Transfusion of Nonautologous Red Blood Cells into Central Vein, Percutaneous Approach (ICD-10-PCS; 2019-04-19)
PROC: B41D1ZZ Fluoroscopy of Aorta and Bilateral Lower Extremity Arteries using Low Osmolar Contrast (ICD-10-PCS; 2019-04-21)
PROC: 5A1D70Z Performance of Urinary Filtration, Intermittent, Less than 6 Hours Per Day (ICD-10-PCS; 2019-04-21)
PROC: 5A1D70Z Performance of Urinary Filtration, Intermittent, Less than 6 Hours Per Day (ICD-10-PCS; 2019-04-24)
PROC: 5A1D70Z Performance of Urinary Filtration, Intermittent, Less than 6 Hours Per Day (ICD-10-PCS; 2019-04-26)
PROC: 0L8N0ZZ Division of Right Lower Leg Tendon, Open Approach (ICD-10-PCS; 2019-04-28)
PROC: 0JXQ0ZZ Transfer Right Foot Subcutaneous Tissue and Fascia, Open Approach (ICD-10-PCS; 2019-04-28)
PROC: 5A1D70Z Performance of Urinary Filtration, Intermittent, Less than 6 Hours Per Day (ICD-10-PCS; 2019-04-28)
PROC: 0Y6M0Z0 Detachment at Right Foot, Complete, Open Approach (ICD-10-PCS; principal; 2019-04-28 19:05)
DX: E11.52 Type 2 diabetes mellitus with diabetic peripheral angiopathy with gangrene (principal); N18.6 End stage renal disease; I96 Gangrene, not elsewhere classified; E87.1 Hypo-osmolality and hyponatremia; N25.81 Secondary hyperparathyroidism of renal origin; I12.0 Hypertensive chronic kidney disease with stage 5 chronic kidney disease or end stage renal disease; M86.8X7 Other osteomyelitis, ankle and foot; L97.513 Non-pressure chronic ulcer of other part of right foot with necrosis of muscle; L03.031 Cellulitis of right toe; E11.22 Type 2 diabetes mellitus with diabetic chronic kidney disease; Z99.2 Dependence on renal dialysis; E11.69 Type 2 diabetes mellitus with other specified complication; D63.1 Anemia in chronic kidney disease; I16.0 Hypertensive urgency; E11.65 Type 2 diabetes mellitus with hyperglycemia
CPT/HCPCS: 36415; 75625; 75716; 80048; 80053; 82948; 83605; 83735; 84132; 85014; 85018; 85025; 85610; 85730; 86704; 86706; 86850; 86900; 86920; 87071; 87075; 87186; 87205; 87340; 88304; 88307; 88311; 90962; 93005; 93306; 93925; 93971; 97139; 99284; C1760; C1769; J0360; J0692; J0720; J1100; J1200; J1644; J1817; J2001; J2020; J2175; J2250; J2405; J2543; J2930; J3010; J7030; J7050; P9016; Q4081; Q9967

== ENCOUNTER → 2019-05-15 | Day surgery (SDC) | payer OTHER, BC, MEDICARE ==
[~2019-05-15] MED LIST changes: +ACETAMINOPHEN650 MG PO; +ACIDOPHILUS1 EAC1; +ARANESP40 MCG/0.4; +BISACODYL5 MG PO; +CEFAZOLIN SOD 1 GM/NS 50ML 100 ML IV ONE; +COLLAGENASE1 EACH; +DOCUSATE SODIU100 MG PO; +FENTANYL CITRATE/PF 100MCG/2 ML INJ ONE; +HUMALOG100 UNIT/3; +HYDRALAZINE HCL 20 MG/ML VIAL ONE; +HYDROMORPHONE HC2 MG PO; +LACTULOSE20 GM/30 M PO; +MEROPENEM500 MG; +METOPROLOL TART25 MG PO; +MORPHINE SULFAT30 M2 PO; +MORPHINE SULFATE INJ 4 MG/ML INJ 1ML ONE; +MUPIROCIN22 GM TOP; +NIFEDIPINE10 MG PO; +NORCO 10-325 T1 EACH; +ONDANSETRON2 MG/1 ML IV; +PHOSPHATE ORAL45 ML; +QUETIAPINE FUMA25 MG PO; +SODIUM CHLORIDE 0.9% 500ML 500 ML ONE; +TRAZODONE HCL50 MG PO; +VANCOMYCIN HCL1 GM IV
--- NOTE | 2019-05-15 14:01 | Operative Report ---
DATE OF PROCEDURE: 05/15/2019 SURGEON: Faraz Saravia MD PREOPERATIVE DIAGNOSES: Gangrene of left foot, peripheral vascular disease. POSTOPERATIVE DIAGNOSES: Gangrene of left foot, peripheral vascular disease. PROCEDURE: Left below-knee amputation. COMMUNITY EDUCATION SPECIALIST: None. ANESTHESIA: General. INDICATIONS AND FINDINGS: The patient is a 68-year-old male with multiple medical problems of peripheral vascular disease, who developed a large gangrenous ulcer on his heel, such that the foot could not be salvaged. At surgery, the patient had viable tissues at the level of the amputation. TECHNIQUE: After adequate general anesthesia with the patient in supine position, left leg was prepped and draped in sterile fashion with ChloraPrep solution. Measuring 10 cm distal to the tibial tuberosity, incision was made on the anterior aspect of the leg and carried out posterior to create a posterior myocutaneous flap. Anterior compartment muscles were divided with electrocautery and anterior tibial neurovascular bundle was divided between clamps. Medially, muscles were divided with electrocautery. Tibia was stripped to its periosteum and then divided with a Gigli saw being beveled anteriorly. The fibula was exposed, stripped to its periosteum and divided as proximal as possible using Gigli saw. Posterior muscles were divided with electrocautery and the posterior tibial and peroneal neurovascular bundles were divided between clamps. Saphenous vein also had been divided between clamps, and the larger vessels divided between clamps. Remaining muscle was divided and the leg removed. Clamped vessels were suture ligated with 2-0 silk. Hemostasis was seen to be adequate. The wound was irrigated with saline, inspected for hemostasis which was seen to be adequate. The flap was then brought anteriorly and the wound closed suturing the flap over the exposed bone using interrupted sutures of 2-0 Vicryl. Skin was then closed with kwesi. Sterile dressing was applied. The leg was placed into a knee immobilizer. The patient tolerated the procedure well. Estimated blood loss was 100 mL. There were no complications. All counts were correct and the patient was taken to the recovery room in satisfactory condition. MD ILANA Posey/MODL /[id number] cc: MD Laci Parker MD
[2019-05-15 19:45] VITALS: BP 176/58
--- OUTSIDE RECORDS SUMMARY | 2019-05-16 13:33 | XMS REPORT | Clinical Summary ---
Author Author [facility] Organization [facility] Address Unknown Phone Unavailable Care Team Providers Care [employer] Name Role Phone Evie Serrano MD PCP [...] Overview: Added automatically from request for surgery [id number] Syncope 03/27/2016 Encounters Care Team Description Date Type Specialty N/A 03/27/2019 Intake Access after 05/15/2018 Immunizations Name Dates Previously Given Next Due [...] Lot Implanted Type Area Manufactur er 10/09/2019 [id number] / / [id number] Stent Bili E-Luminexx [id number] W/ Peripheral Left: Arm, BARD Cath 80cm - [id number] or Biliary Upper PERIPHERAL Implanted: 07/13/2017 (Quantity not Stents VASCULAR on file) [id number] / / [id number] Catheter Sheet Taker 4x75cm 10mm Conquest - Surgical Left: Arm BARD [id number] Implants; PERIPHERAL Implanted: Qty: 1 on 07/13/2017 by [employer]; VASCULAR Mala Simons MD Extenders; Surgical Wires Results Not on fileafter 05/15/2018 Insurance Type Payer Benefit Subscriber ID Effective Phone Address Plan / Dates Group Medicare MEDICARE MEDICARE xxxxxxxxxx 2012-P [place], PART A AND resent [place] B PPO BCBS BCBS xxxxxxxxxxxx 2016-P CHOICE resent PPO/ESTHER GARCIA PPO Advance Directives Patient has advance care planning documents on file. For more information, mariebll dickey contact: Dennys Donaldson [address] [place] [address]
== END | disposition home or self-care (01) ==
LOC: OR 09:25
PROVIDERS: ATTEND Surgery
DX: I96 Gangrene, not elsewhere classified (principal); E11.40 Type 2 diabetes mellitus with diabetic neuropathy, unspecified; E11.22 Type 2 diabetes mellitus with diabetic chronic kidney disease; I12.0 Hypertensive chronic kidney disease with stage 5 chronic kidney disease or end stage renal disease; N18.6 End stage renal disease; E78.5 Hyperlipidemia, unspecified; Z99.2 Dependence on renal dialysis; Z91.041 Radiographic dye allergy status; Z79.4 Long term (current) use of insulin; Z79.02 Long term (current) use of antithrombotics/antiplatelets; Z79.82 Long term (current) use of aspirin
CPT/HCPCS: 27880; 36415; 82948; 84132; 86850; 86900; 86920; 88307; J0360; J0690; J2270; J7040; P9016; 88311; J3010

== ENCOUNTER 2019-06-09 16:35 | Inpatient (IN) | payer MEDICARE, BC ==
[~2019-06-09] VITALS: Ht 170.2 cm; Wt 71.9 kg
[~2019-06-09 16:35] MED LIST changes: -CEFAZOLIN SOD 1 GM/NS 50ML 100 ML IV ONE; -FENTANYL CITRATE/PF 100MCG/2 ML INJ ONE; -HYDRALAZINE HCL 20 MG/ML VIAL ONE; -HYDROMORPHONE HC2 MG PO; -MORPHINE SULFATE INJ 4 MG/ML INJ 1ML ONE; -QUETIAPINE FUMA25 MG PO; -SODIUM CHLORIDE 0.9% 500ML 500 ML ONE
--- OUTSIDE RECORDS SUMMARY | 2019-06-09 16:38 | XMS REPORT | Clinical Summary ---
Author Author [facility] Organization [facility] Address Unknown Phone Unavailable Care Team Providers Care Marketing Outreach Coordinator Name Role Phone Evie Serrano MD PCP [...] Overview: Added automatically from request for surgery [id number] Syncope 03/27/2016 Encounters Care Team Description Date Type Specialty N/A 03/27/2019 Intake Access after 06/08/2018 Immunizations Name Dates Previously Given Next Due [...] Lot Implanted Type Area Manufactur er 10/09/2019 [id number] / / [id number] Stent Bili E-Luminexx [id number] W/ Peripheral Left: Arm, BARD Cath 80cm - [id number] or Biliary Upper PERIPHERAL Implanted: 07/13/2017 (Quantity not Stents VASCULAR on file) [id number] / / [id number] Catheter Channel Installer 4x75cm 10mm Conquest - Surgical Left: Arm BARD [id number] Implants; PERIPHERAL Implanted: Qty: 1 on 07/13/2017 by [employer]; VASCULAR Mala Simons MD Extenders; Surgical Wires Results Not on fileafter 06/08/2018 Insurance Type Payer Benefit Subscriber ID Effective Phone Address Plan / Dates Group Medicare MEDICARE MEDICARE xxxxxxxxxx 2012-P [place], PART [place] AND resent [place] B PPO BCBS BCBS xxxxxxxxxxxx 2016-P CHOICE resent PPO/ESTHER GARCIA PPO Advance Directives Patient has advance care planning documents on file. For more information, maribell dickey contact: Dennys Donaldson [address] [place] [address]
--- OUTSIDE RECORDS SUMMARY | 2019-06-09 16:38 | XMS REPORT | Clinical Summary ---
Author Author [facility] Organization [facility] Address Unknown Phone Unavailable Care Team Providers Care Waste Collector Name Role Phone PCP Unavailable Allergies Comments Active Allergy Reactions Severity Noted Date Iodine Breathing 01/02/2019 problems Medications End Date Status Medication Sig Dispensed Refills Start Date Active clopidogrel (PLAVIX) 75 Take 75 mg by 0 mg tablet mouth daily. Active atorvastatin (LIPITOR) 20 Take 20 mg by 0 mg tablet mouth at bedtime nightly. Active sevelamer carbonate Take 1 tablet 390 tablet 1 (RENVELA) 800 mg by mouth 3 9 tabletIndications: ESRD times daily needing dialysis with meals. Active aspirin (ASPIRIN) 81 mg Chew and 90 tablet 1 chewable swallow 1 9 tabletIndications: PAD tablet by (peripheral artery mouth daily. disease) Active ferrous sulfate 325 mg Take 1 tablet 90 tablet 1 (65 mg iron) by mouth 9 tabletIndications: ESRD daily (with needing dialysis breakfast). Active hydrALAZINE (APRESOLINE) Take 1 tablet 270 tablet 1 25 mg tabletIndications: by mouth 3 9 Hypertensive emergency times daily. Active NIFEdipine (PROCARDIA XL) Take 1 tablet 90 tablet 1 90 mg extended release by mouth 9 tabletIndications: daily. Hypertensive emergency Active omeprazole (PRILOSEC) 20 Take 1 90 capsule 1 mg delayed release capsule by 9 capsuleIndications: PAD mouth daily. (peripheral artery disease) 01/17/2019 Discontinued sevelamer carbonate Take 4,800 mg 0 (RENVELA) 800 mg tablet by mouth 3 times daily with meals. 01/17/2019 Discontinued minoxidil (LONITEN) 2.5 Take 2.5 mg 0 mg tablet by mouth 2 times daily. 01/17/2019 Discontinued ciprofloxacin HCl (CIPRO) Take 500 mg 0 500 mg tablet by mouth daily. 01/17/2019 Discontinued doxycycline (VIBRA-TABS) Take 100 mg 0 100 mg tablet by mouth daily. 01/17/2019 Discontinued carvedilol (COREG) 25 mg Take 25 mg by 0 tablet mouth 2 times daily (with meals). 01/17/2019 Discontinued naproxen sodium (ALEVE) Take 2 0 220 mg cap capsules by mouth as needed. 01/18/2019 levoFLOXacin (LEVAQUIN) Take 1 tablet 1 tablet 0 750 mg tabletIndications: by mouth 9 Pneumonia of both lungs daily for 1 due to infectious day For one organism, unspecified dose ONLY, part of lung 01/18/2019, then stop.. 02/18/2019 vancomycin (VANCOCIN HCL) Take 1 40 capsule 0 125 mg capsule by 9 capsuleIndications: mouth 4 times Diarrhea of presumed daily for 10 infectious origin days. Active Problems Problem Noted Date Weakness Cervical stenosis of spine ESRD needing dialysis Anemia due to chronic kidney disease, on chronic dialysis Impaired mobility and activities of daily living Central cord syndrome Dry gangrene Pneumonia of both lungs due to infectious organism Resolved Problems Problem Noted Date Resolved Date Altered mental status, unspecified 01/07/2019 01/17/2019 Hypertensive emergency 01/17/2019 Preop exam for internal medicine 01/17/2019 Leukocytosis 01/17/2019 Encounters Care Team Description Date Type Specialty Nash Buckley MD Encephalopathy acute (Primary Dx); Ulcer of foot with necrosis of muscle, unspecified laterality; Sepsis, due to unspecified organism; Osteomyelitis of right foot, unspecified type 03/27/2019 Emergency Emergency Medicine 03/27/2019 Travel Bernardino Starr MD Pandya, Michael, MD Dry gangrene (Primary Dx); Diarrhea of presumed infectious origin 02/07/2019 Emergency Emergency Medicine - 02/08/2019 02/07/2019 Travel Nash Buckley MD Bernstam, Elmer V, MD Miller, William R, Jg Malcolm, Cheryl Cedeño MD Gopinath, Shankar P, MD Scally, Katie I, MD Rao, Sishir, MD Hadley, Caroline, Triston Weakness (Primary Dx); Altered mental status, unspecified altered mental status type; Leukocytosis, unspecified type; PAD (peripheral artery disease); Pneumonia of both lungs due to infectious organism, unspecified part of lung; Cervical stenosis of spine; Hypertensive emergency; ESRD needing dialysis 01/02/2019 Hospital - Encounter 01/17/2019 01/02/2019 Travel after 06/08/2018 Immunizations Name Administration Dates Next Due Influenza, Live, 11/08/2013 Intranasal, Quadrivalent Social History Date Tobacco Use Types Packs/Day Years Used Former Smoker Smokeless Tobacco: Never Used Comments: quit 1983 Drinks/Week oz/Week Comments Alcohol Use quit 1982 Not Currently Alcohol Habits Answer Date Recorded How often do you have a drink containing alcohol? Never 01/02/2019 How many drinks containing alcohol do you have on Not asked a typical day when you are drinking? How often do you have six or more drinks on one Not asked occasion? Sex Assigned at Date Recorded Not on file Industry Job Start Date Occupation Not on file Not on file Not on file Travel End Travel History Travel Start No recent travel history available. Last Filed Vital Signs Reading Time Taken Comments Vital Sign 242/86 03/27/2019 9:00 PM CDT Blood Pressure 59 03/27/2019 9:00 PM CDT Pulse 36.1 C (97 F) 03/27/2019 3:21 PM CDT Temperature 11 03/27/2019 9:00 PM CDT Respiratory Rate 100% 03/27/2019 9:00 PM CDT Oxygen Saturation - - Inhaled Oxygen Concentration 90.3 kg (199 lb) 01/07/2019 5:00 AM [employer] Weight 170.2 cm (5' 7") 01/07/2019 2:15 AM [employer] Height 31.17 01/07/2019 2:15 AM [employer] Body Mass Index Plan of Treatment Health Maintenance Due Date Last Done Comments Colorectal Cancer Scrn 2001 Annual (FIT/FOBT) Age 50 to 75 IMM Pneumococcal Age 65 2016 and Up IMM Influenza Seasonal 08/08/2019 11/08/2013 Oct to January (>/=19 yrs) Procedures Comments Procedure Name Priority Date/Time Associated Diagnosis XRAY FOOT 3 VIEWS MIN STAT 03/27/2019 Ulcer of foot with 7:19 PM CDT necrosis of muscle, unspecified laterality XRAY FOOT 3 VIEWS MIN STAT 03/27/2019 Ulcer of foot with 7:19 PM CDT necrosis of muscle, unspecified laterality C-REACTIVE PROTEIN HIGH Routine 03/27/2019 SENSITIVITY (CRP-HS) 5:30 PM CDT SALICYLATE STAT 03/27/2019 5:30 PM CDT ACETAMINOPHEN STAT 03/27/2019 5:30 PM CDT ALCOHOL, MEDICAL USE ONLY STAT 03/27/2019 5:30 PM CDT AMMONIA STAT 03/27/2019 5:30 PM CDT THYROID STIMULATING STAT 03/27/2019 HORMONE (TSH) 5:30 PM CDT BEDSIDE ULTRASOUND Routine 03/27/2019 Encephalopathy acute 5:[address] HEAD W/O CONTRAST STAT 03/27/2019 Encephalopathy acute 4:53 PM CDT 12 LEAD EKG Routine 03/27/2019 4:31 PM CDT XRAY CHEST 1 VIEW STAT 03/27/2019 Encephalopathy acute 4:24 PM CDT 12 LEAD EKG Routine 03/27/2019 3:52 PM CDT VBG POC Routine 03/27/2019 3:43 PM CDT BMP POC Routine 03/27/2019 3:43 PM CDT TROPONIN I POC Routine 03/27/2019 3:42 PM CDT SED RATE Routine 03/27/2019 3:30 PM CDT BLOOD CULTURE STAT 03/27/2019 3:30 PM CDT CBC/DIFF STAT 03/27/2019 3:30 PM CDT CONSULT CLINICAL CASE STAT 02/08/2019 MANAGEMENT (RN/SW) 5:55 AM CDT BLOOD CULTURE STAT 02/07/2019 9:10 PM CDT BLOOD CULTURE STAT 02/07/2019 9:10 PM CDT XRAY FOOT 3 VIEWS MIN STAT 02/07/2019 Dry gangrene 8:52 PM CDT XRAY FOOT 3 VIEWS MIN STAT 02/07/2019 Dry gangrene 8:52 PM CDT VBG POC Routine 02/07/2019 8:00 PM CDT BMP POC Routine 02/07/2019 8:00 PM CDT PT/INR/PTT STAT 02/07/2019 7:48 PM CDT CBC/DIFF STAT 02/07/2019 7:48 PM CDT TYPE AND SCREEN STAT 02/07/2019 7:46 PM CDT POC GLUCOSE - IN LAB Routine 01/17/2019 (STAT) 11:54 AM CDT ENTERIC PATHOGENS NUCLEIC Routine 01/17/2019 ACID TEST 10:17 AM CDT POC GLUCOSE - IN LAB Routine 01/17/2019 (STAT) 7:52 AM CDT COMPREHENSIVE METABOLIC Routine 01/17/2019 PANEL 4:22 AM CDT VANCOMYCIN, RANDOM Routine 01/17/2019 4:22 AM CDT CBC (WITHOUT Routine 01/17/2019 DIFFERENTIAL) 4:22 AM CDT POC GLUCOSE - IN LAB Routine 01/16/2019 (STAT) 8:23 PM CDT POC GLUCOSE - IN LAB Routine 01/16/2019 (STAT) 5:13 PM CDT BLOOD CULTURE Routine 01/16/2019 4:10 PM CDT BLOOD CULTURE Routine 01/16/2019 4:00 PM CDT POC GLUCOSE - IN LAB Routine 01/16/2019 (STAT) 7:51 AM CDT VANCOMYCIN, RANDOM Routine 01/16/2019 3:10 AM CDT COMPREHENSIVE METABOLIC Routine 01/16/2019 PANEL 3:10 AM CDT CBC (WITHOUT Routine 01/16/2019 DIFFERENTIAL) 3:10 AM CDT POC GLUCOSE - IN LAB Routine 01/15/2019 (STAT) 8:38 PM CDT POC GLUCOSE - IN LAB Routine 01/15/2019 (STAT) 5:23 PM CDT POC GLUCOSE - IN LAB Routine 01/15/2019 (STAT) 12:12 PM CDT POC GLUCOSE - IN LAB Routine 01/15/2019 (STAT) 6:49 AM CDT VANCOMYCIN, RANDOM Routine 01/15/2019 5:41 AM CDT COMPREHENSIVE METABOLIC Routine 01/15/2019 PANEL 5:41 AM CDT CBC (WITHOUT Routine 01/15/2019 DIFFERENTIAL) 5:41 AM CDT POC GLUCOSE - IN LAB Routine 01/14/2019 (STAT) 8:54 PM [employer]ED [employer]WORKER POC GLUCOSE - IN LAB Routine 01/14/2019 (STAT) 4:53 PM [employer]ED [employer]WORKER POC GLUCOSE - IN LAB Routine 01/14/2019 (STAT) 1:23 PM [employer]ED IR[employer]WORKER POC GLUCOSE - IN LAB Routine 01/14/2019 (STAT) 8:02 AM [employer]IN[employer]CED IRONWORKER VANCOMYCIN, RANDOM Routine 01/14/2019 3:30 AM [employer]IN[employer]ED IRONWORKER COMPREHENSIVE METABOLIC Routine 01/14/2019 PANEL 3:30 AM REINFORCED IRONWORKER CBC (WITHOUT Routine 01/14/2019 DIFFERENTIAL) 3:30 AM REINFORCED IRONWORKER POC GLUCOSE - IN LAB Routine 01/13/2019 (STAT) 8:33 PM REINFORCED IRONWORKER POC GLUCOSE - IN LAB Routine 01/13/2019 (STAT) 5:28 PM [employer]IN[employer]CED IRONWORKER ENTERIC PATHOGENS NUCLEIC Routine 01/13/2019 ACID TEST 4:30 PM [employer]ED IRONWORKER POC GLUCOSE - IN LAB Routine 01/13/2019 (STAT) 2:19 PM REIN[employer]CED IRONWORKER POC GLUCOSE - IN LAB Routine 01/13/2019 (STAT) 8:07 AM REINFORCED IRONWORKER VANCOMYCIN, RANDOM Routine 01/13/2019 2:00 AM [employer]IN[employer]CED IRONWORKER COMPREHENSIVE METABOLIC Routine 01/13/2019 PANEL 2:00 AM REINFORCED IRONWORKER CBC (WITHOUT Routine 01/13/2019 DIFFERENTIAL) 2:00 AM REINFORCED IRONWORKER POC GLUCOSE - IN LAB Routine 01/12/2019 (STAT) 8:28 PM [employer]IN[employer]CED IRONWORKER MODERATE SEDATION, ADDL Routine 01/12/2019 4:33 PM [employer]IN[employer]CED IRONWORKER MODERATE SEDATION, ADDL Routine 01/12/2019 4:33 PM [employer]ED IRONWORKER MODERATE SEDATION, ADDL Routine 01/12/2019 4:[address] [employer]ONWORKER [address] CATH SUBSUBSELECT Routine 01/12/2019 ART,ABD/PEL 4:33 PM [employer]ED IRONWORKER MODERATE SEDATION, Routine 01/12/2019 INITIAL 4:33 PM REIN[employer]ED IRONWORKER IR ANGIOGRAM EXT. Routine 01/12/2019 UNILATERAL 4:33 PM [employer]ED IRONWORKER IR ABDOMINAL AORTOGRAM Routine 01/12/2019 4:33 PM [employer]ED IRONWORKER OCCLUSIVE DEVICE IN VEIN Routine 01/12/2019 ART 4:33 PM [employer]IN[employer]ED IRONWORKER IR U/S GUIDANCE FOR Routine 01/12/2019 VASCULAR ACCESS 4:33 PM [employer]IN[employer]ED IRONWORKER POC GLUCOSE - IN LAB Routine 01/12/2019 (STAT) 11:52 AM [employer]IN[employer]ED IRONWORKER POC GLUCOSE - IN LAB Routine 01/12/2019 (STAT) 7:51 AM [employer]ED IR[employer]WORKER VANCOMYCIN, RANDOM Routine 01/12/2019 2:00 AM REIN[employer]CED IRONWORKER COMPREHENSIVE METABOLIC Routine 01/12/2019 PANEL 2:00 AM REIN[employer]CED IRONWORKER CBC (WITHOUT Routine 01/12/2019 DIFFERENTIAL) 2:00 AM [employer]IN[employer]CED IRONWORKER POC GLUCOSE - IN LAB Routine 01/11/2019 (STAT) 8:51 PM [employer]ED IRONWORKER POC GLUCOSE - IN LAB Routine 01/11/2019 (STAT) 4:54 PM [employer]ED [employer]ONWORKER WOUND CARE - PT Routine 01/11/2019 2:57 PM [employer]IN[employer]ED IRONWORKER POC GLUCOSE - IN LAB Routine 01/11/2019 (STAT) 12:07 PM [employer]ED [employer]WORKER VANCOMYCIN, RANDOM Routine 01/11/2019 2:15 AM REINFORCED IRONWORKER COMPREHENSIVE METABOLIC Routine 01/11/2019 PANEL 2:15 AM REIN[employer]CED IRONWORKER CBC (WITHOUT Routine 01/11/2019 DIFFERENTIAL) 2:15 AM REINFORCED IRONWORKER POC GLUCOSE - IN LAB Routine 01/10/2019 (STAT) 8:31 PM REIN[employer]CED IRONWORKER POC GLUCOSE - IN LAB Routine 01/10/2019 (STAT) 5:34 PM [employer]ED IR[employer]WORKER POC GLUCOSE - IN LAB Routine 01/10/2019 (STAT) 12:39 PM [employer]IN[employer]ED IRONWORKER COMPUTED TOMOGRAPHY Routine 01/10/2019 Altered mental status, ABDOMEN AND PELVIS 10:09 AM [employer]ED [employer]WORKER unspecified altered WITHOUT CONTRAST mental status type Leukocytosis, unspecified type CT CHEST W/O CONTRAST Routine 01/10/2019 Altered mental status, 10:09 AM [employer] unspecified altered mental status type Leukocytosis, unspecified type POC GLUCOSE - IN LAB Routine 01/10/2019 (STAT) 8:24 AM [employer]ED IR[employer]WORKER POC GLUCOSE - IN LAB Routine 01/10/2019 (STAT) 2:37 AM [employer]CED IRONWORKER VANCOMYCIN, RANDOM Routine 01/10/2019 2:10 AM [employer]IN[employer]CED IRONWORKER COMPREHENSIVE METABOLIC Routine 01/10/2019 PANEL 2:10 AM REINFORCED IRONWORKER CBC (WITHOUT Routine 01/10/2019 DIFFERENTIAL) 2:10 AM REINFORCED IRONWORKER POC GLUCOSE - IN LAB Routine 01/09/2019 (STAT) 9:22 PM [employer]IN[employer]CED IRONWORKER VANCOMYCIN, RANDOM STAT 01/09/2019 3:44 PM REINFORCED IRONWORKER POC GLUCOSE - IN LAB Routine 01/09/2019 (STAT) 12:13 PM [employer]INFORCED IRONWORKER POC GLUCOSE - IN LAB Routine 01/09/2019 (STAT) 7:53 AM [employer]CED IRONWORKER BASIC METABOLIC PANEL Routine 01/09/2019 5:27 AM [employer]IN[employer]CED IRONWORKER PHOSPHORUS Routine 01/09/2019 5:27 AM REINFORCED IRONWORKER CBC (WITHOUT Routine 01/09/2019 DIFFERENTIAL) 5:27 AM [employer]ED [employer]WORKER JULIO Routine 01/09/2019 5:27 AM REINFORCED IRONWORKER CREATINE KINASE (CK) Routine 01/09/2019 5:27 AM [employer]INFORCED IRONWORKER ALDOLASE Routine 01/09/2019 5:27 AM REINFORCED IRONWORKER LACTATE DEHYDROGENASE Routine 01/09/2019 (LDH) 5:27 AM REINFORCED IRONWORKER POC GLUCOSE - IN LAB Routine 01/08/2019 (STAT) 9:04 PM REINFORCED IRONWORKER POC GLUCOSE - IN LAB Routine 01/08/2019 (STAT) 5:09 PM [employer]INFORCED IRONWORKER POC GLUCOSE - IN LAB Routine 01/08/2019 (STAT) 12:20 PM REIN[employer]CED IRONWORKER VERSACARE P500 NSC AIR Routine 01/08/2019 RENTAL FRAMES 11:37 AM REINFORCED IRONWORKER POC GLUCOSE - IN LAB Routine 01/08/2019 (STAT) 8:34 AM REINFORCED IRONWORKER TROPONIN I STAT 01/08/2019 4:00 AM REINFORCED IRONWORKER CBC (WITHOUT Routine 01/08/2019 DIFFERENTIAL) 4:00 AM REINFORCED IRONWORKER PHOSPHORUS Routine 01/08/2019 4:00 AM REINFORCED IRONWORKER MAGNESIUM Routine 01/08/2019 4:00 AM REIN[employer]CED IRONWORKER BASIC METABOLIC PANEL Routine 01/08/2019 4:00 AM [employer]IN[employer]CED IRONWORKER VITAMIN B12 Routine 01/08/2019 4:00 AM [employer]IN[employer]CED IRONWORKER VIT D, 25-HYDROXY Routine 01/08/2019 4:00 AM [employer]IN[employer]CED IRONWORKER FERRITIN Routine 01/08/2019 4:00 AM REIN[employer]CED IRONWORKER IRON PROFILE Routine 01/08/2019 4:00 AM [employer]CED IRONWORKER CALCIUM, IONIZED Routine 01/08/2019 4:00 AM [employer]ED IRONWORKER POC GLUCOSE - IN LAB Routine 01/07/2019 (STAT) 8:42 PM [employer]IN[employer]CED IRONWORKER POC GLUCOSE - IN LAB Routine 01/07/2019 (STAT) 4:45 PM [employer]IN[employer]CED IRONWORKER TROPONIN I STAT 01/07/2019 4:00 PM [employer]CED IRONWORKER POC GLUCOSE - IN LAB Routine 01/07/2019 (STAT) 12:15 PM [employer]ED IRONWORKER CKMB, REFLEX Routine 01/07/2019 9:00 AM [employer]IN[employer]CED IRONWORKER MYOGLOBIN, SER STAT 01/07/2019 9:00 AM [employer]IN[employer]CED IRONWORKER TROPONIN I STAT 01/07/2019 9:00 AM [employer]IN[employer]CED IRONWORKER CK, TOTAL STAT 01/07/2019 9:00 AM [employer]IN[employer]CED IRONWORKER POC GLUCOSE - IN LAB Routine 01/07/2019 (STAT) 7:37 AM [employer]ED [employer]WORKER INFUSION PUMP Routine 01/07/2019 4:25 AM REIN[employer]CED IRONWORKER SEQUENTIAL COMPRESSION Routine 01/07/2019 PUMP 4:25 AM [employer]IN[employer]CED IRONWORKER BLOOD CULTURE STAT 01/07/2019 3:35 AM RE[employer]CED IR[employer]WORKER BLOOD CULTURE STAT 01/07/2019 3:00 AM [employer]IN[employer]ED IRONWORKER XRAY CHEST 1 VIEW STAT 01/07/2019 Altered mental status, 2:32 AM [employer]ED [employer]WORKER unspecified altered mental status type LACTIC ACID Life 01/07/2019 Threatenin 2:18 AM [employer]IN[employer]CED IRONWORKER g AMMONIA Life 01/07/2019 Threatenin 2:16 AM REIN[employer]CED IRONWORKER g TROPONIN I Life 01/07/2019 Threatenin 2:14 AM REIN[employer]CED IRONWORKER g PT/INR/PTT Life 01/07/2019 Threatenin 2:14 AM [employer]IN[employer]CED IRONWORKER g COMPREHENSIVE METABOLIC Life 01/07/2019 PANEL Threatenin 2:14 AM REIN[employer]CED IRONWORKER g CBC/DIFF Life 01/07/2019 Threatenin 2:14 AM [employer]CED IRONWORKER g ABG POC Routine 01/07/2019 2:08 AM REIN[employer]CED IRONWORKER POC GLUCOSE - IN LAB Routine 01/07/2019 (STAT) 2:05 AM [employer]IN[employer]ED IRONWORKER 12 LEAD EKG Routine 01/07/2019 1:[address] [address] HEAD W/O CONTRAST STAT 01/07/2019 Altered mental status, 1:33 AM [employer]ED [employer]WORKER unspecified altered mental status type SYPHILIS SCREEN FOR STAT 01/07/2019 INFECTION 1:13 AM [employer]ED IRONWORKER PT/INR/PTT STAT 01/07/2019 1:13 AM [employer]ED IRONWORKER COMPREHENSIVE METABOLIC STAT 01/07/2019 PANEL 1:13 AM [employer]ED IRONWORKER CBC/DIFF STAT 01/07/2019 1:13 AM [employer]IN[employer]CED IRONWORKER POC GLUCOSE - IN LAB Routine 01/07/2019 (STAT) 12:50 AM [employer]ED IRONWORKER CONSULT CLINICAL CASE Routine 01/06/2019 MANAGEMENT (RN/SW) 11:08 PM [employer]ED IRONWORKER POC GLUCOSE - IN LAB Routine 01/06/2019 (STAT) 8:44 PM REINFORCED IRONWORKER POC GLUCOSE - IN LAB Routine 01/06/2019 (STAT) 5:33 PM REINFORCED IRONWORKER POC GLUCOSE - IN LAB Routine 01/06/2019 (STAT) 3:41 PM REIN[employer]CED IRONWORKER HEPATITIS PANEL Routine 01/06/2019 2:35 PM REINFORCED IRONWORKER POC GLUCOSE - IN LAB Routine 01/06/2019 (STAT) 12:25 PM REIN[employer]CED IRONWORKER POC GLUCOSE - IN LAB Routine 01/06/2019 (STAT) 8:26 AM [employer]IN[employer]CED IRONWORKER PHOSPHORUS Routine 01/06/2019 5:20 AM REINFORCED IRONWORKER MAGNESIUM Routine 01/06/2019 5:20 AM REINFORCED IRONWORKER CBC/DIFF Routine 01/06/2019 5:20 AM REINFORCED IRONWORKER BASIC METABOLIC PANEL Routine 01/06/2019 5:20 AM REINFORCED IRONWORKER CALCIUM, IONIZED Routine 01/06/2019 4:00 AM REINFORCED IRONWORKER POC GLUCOSE - IN LAB Routine 01/05/2019 (STAT) 8:54 PM REIN[employer]CED IRONWORKER POC GLUCOSE - IN LAB Routine 01/05/2019 (STAT) 5:42 PM REIN[employer]CED IRONWORKER COMPREHENSIVE METABOLIC Routine 01/05/2019 PANEL 1:26 PM REINFORCED IRONWORKER CBC/DIFF Routine 01/05/2019 1:26 PM REINFORCED IRONWORKER POC GLUCOSE - IN LAB Routine 01/05/2019 (STAT) 12:21 PM REINFORCED IRONWORKER POC GLUCOSE - IN LAB Routine 01/05/2019 (STAT) 8:50 AM REINFORCED IRONWORKER POC GLUCOSE - IN LAB Routine 01/04/2019 (STAT) 5:31 PM [employer]IN[employer]CED IRONWORKER DUPLEX DOPPLER LOWER STAT 01/04/2019 EXTREMITY ART BILATERAL 3:08 PM REINFORCED IRONWORKER DUPLEX DOPPLER LOWER STAT 01/04/2019 EXTREMITY VENOUS, 2:05 PM RE[employer]FORCED IRONWORKER BILATERAL POC GLUCOSE - IN LAB Routine 01/04/2019 (STAT) 12:07 PM [employer]IN[employer]CED IRONWORKER TRANSESOPHAGEAL ECHO 01/04/2019 (SARAH) 8:58 AM REINFORCED IRONWORKER CALCIUM, IONIZED Routine 01/04/2019 6:45 AM REINFORCED IRONWORKER PHOSPHORUS Routine 01/04/2019 6:45 AM REINFORCED IRONWORKER MAGNESIUM Routine 01/04/2019 6:45 AM REINFORCED IRONWORKER BASIC METABOLIC PANEL Routine 01/04/2019 6:45 AM REINFORCED IRONWORKER CBC/DIFF Routine 01/04/2019 6:45 AM REINFORCED IRONWORKER POC GLUCOSE - IN LAB Routine 01/04/2019 (STAT) 3:10 AM REINFORCED IRONWORKER POC GLUCOSE - IN LAB Routine 01/03/2019 (STAT) 10:35 PM RE[employer]CED IRONWORKER POC GLUCOSE - IN LAB Routine 01/03/2019 (STAT) 9:50 PM REIN[employer]CED IRONWORKER MRI THORACIC SPINE W/O STAT 01/03/2019 Weakness CONTRAST 9:23 PM [employer]CED IRONWORKER MRI LUMBAR SPINE W/O STAT 01/03/2019 Weakness CONTRAST 9:23 PM REINFORCED IRONWORKER MRI CERVICAL SPINE W/O STAT 01/03/2019 Weakness CONTRAST 9:23 PM REINFORCED IRONWORKER POC GLUCOSE - IN LAB Routine 01/03/2019 (STAT) 4:17 PM REINFORCED IRONWORKER POC GLUCOSE - IN LAB Routine 01/03/2019 (STAT) 12:40 PM REINFORCED IRONWORKER WOUND CARE - PT Routine 01/03/2019 7:40 AM REINFORCED IRONWORKER POC GLUCOSE - IN LAB Routine 01/03/2019 (STAT) 7:10 AM REINFORCED IRONWORKER TRANSTHORACIC ECHO (TTE) 01/03/2019 6:54 AM REINFORCED IRONWORKER THYROID STIMULATING Routine 01/03/2019 HORMONE (TSH) 4:00 AM REINFORCED IRONWORKER CALCIUM, IONIZED Routine 01/03/2019 4:00 AM REINFORCED IRONWORKER PHOSPHORUS Routine 01/03/2019 4:00 AM REINFORCED IRONWORKER MAGNESIUM Routine 01/03/2019 4:00 AM REINFORCED IRONWORKER BASIC METABOLIC PANEL Routine 01/03/2019 4:00 AM REINFORCED IRONWORKER CBC/DIFF Routine 01/03/2019 4:00 AM REINFORCED IRONWORKER HIV-1/HIV-2 ROUTINE Routine 01/02/2019 SCREENING 6:00 PM REINFORCED IRONWORKER FREE T4 Routine 01/02/2019 6:00 PM REIN[employer]CED IRONWORKER FREE T3 Routine 01/02/2019 6:00 PM REINFORCED IRONWORKER HEPATITS B CORE AB, TOTAL Routine 01/02/2019 6:00 PM REINFORCED IRONWORKER HEPATITIS PANEL Routine 01/02/2019 6:00 PM REINFORCED IRONWORKER HEPATITIS B SURFACE AB Routine 01/02/2019 6:00 PM REINFORCED IRONWORKER LIPID PROFILE Routine 01/02/2019 6:00 PM REINFORCED IRONWORKER HEMOGLOBIN A1C Routine 01/02/2019 6:00 PM REINFORCED IRONWORKER BASIC METABOLIC PANEL STAT 01/02/2019 9:11 AM REINFORCED IRONWORKER MRI BRAIN W/O CONTRAST STAT 01/02/2019 Weakness 8:48 AM REINFORCED IRONWORKER 12 LEAD EKG Routine 01/02/2019 5:42 AM REINFORCED IRONWORKER CTA HEAD W CONTRAST STAT 01/02/2019 Weakness 5:31 AM REINFORCED IRONWORKER CTA NECK W CONTRAST STAT 01/02/2019 Weakness 5:31 [address]ED [address] HEAD W/O CONTRAST STAT 01/02/2019 Weakness 5:14 AM REINFORCED IRONWORKER VBG POC Routine 01/02/2019 4:44 AM REINFORCED IRONWORKER BMP POC Routine 01/02/2019 4:44 AM REINFORCED IRONWORKER TROPONIN I POC Routine 01/02/2019 4:42 AM REINFORCED IRONWORKER PT/INR/PTT STAT 01/02/2019 4:42 AM REINFORCED IRONWORKER PHOSPHORUS STAT 01/02/2019 4:42 AM REINFORCED IRONWORKER MAGNESIUM STAT 01/02/2019 4:42 AM REINFORCED IRONWORKER CBC/DIFF STAT 01/02/2019 4:42 AM REINFORCED IRONWORKER after 06/08/2018 Results * XRAY FOOT 3 VIEWS MIN (03/27/2019 7:19 PM CDT) Only the most recent of 4 results within the time period is included. Specimen Impressions Performed At IMPRESSION:No evidence of acute osteomyelitis. SMS This [facility] radiology report is a preliminary resident dictation until finalized by an attending.Changes to this preliminary report may occur in an additional preliminary or finalized version. I have reviewed the study and agree with the findings in this report. Signed By: Charity Werner MD, 03/27/2019 8:26 PM Narrative Performed At EXAM: XR RIGHT FOOT 3 VIEWS [facility] DATE:03/27/2019 7:44 PM INDICATION: Concern for osteo, increased drainage. Ulcer of foot with necrosis of muscle, unspecified laterality COMPARISON: Right foot radiograph 02/07/2019 TECHNIQUE:AP, lateral and oblique foot radiographs DISCUSSION: No acute fracture or malalignment is identified. Generalized osteopenia again noted. Diffuse vascular calcifications. There is no periosteal reaction, focal erosion or cortical destruction to indicate the presence of acute osteomyelitis. No soft tissue abnormality is identified. Procedure Note Interface, Rad/Mammog In - 03/27/2019 8:31 PM CDT EXAM: XR RIGHT FOOT 3 VIEWS DATE: 03/27/2019 7:44 PM INDICATION: Concern for osteo, increased drainage. Ulcer of foot with necrosis of muscle, unspecified laterality COMPARISON: Right foot radiograph 02/07/2019 TECHNIQUE: AP, lateral and oblique foot radiographs DISCUSSION: No acute fracture or malalignment is identified. Generalized osteopenia again noted. Diffuse vascular calcifications. There is no periosteal reaction, focal erosion or cortical destruction to indicate the presence of acute osteomyelitis. No soft tissue abnormality is identified. IMPRESSION IMPRESSION: No evidence of acute osteomyelitis. This [facility] radiology report is a preliminary resident dictation until finalized by an attending. Changes to this preliminary report may occur in an additional preliminary or finalized version. I have reviewed the study and agree with the findings in this report. Signed By: Charity Werner MD, 03/27/2019 8:26 PM Performing Organization Address [facility] [place] Phone Number SMS * CRP, HIGH SENS (03/27/2019 5:30 PM CDT) CRP, high sens 16.199 (H) <1.0 mg/dL [facility] MAIN-STATION 1 Specimen Performing Organization Address [facility] [place] Phone Number [facility]IN-ST[facility] 1 * TSH (03/27/2019 5:30 PM CDT) Only the most recent of 2 results within the time period is included. TSH 1.92 0.57 - 3.74 uIU/mL [facility] 1 Specimen Blood Performing Organization Address [facility] [place] Phone Number [facility] 1 * SALICYLATE (03/27/2019 5:30 PM CDT) Salicylate <2.5 (L)Comment: Test 2.8 - 30 mg/dL [facility] performed on [id number] using EMIT MAIN-STATION 1 Immunoassay Specimen Blood Performing Organization Address [facility] [place] Phone Number [facility] MAIN-STATION 1 * AMMONIA (03/27/2019 5:30 PM CDT) Only the most recent of 2 results within the time period is included. Ammonia 29 16 - 53 umol/L [facility] MAIN-STATION 1 Specimen Blood Performing Organization Address [facility] [place] Phone Number MISYS [facility] MAIN-STATION 1 * ALCOHOL, MEDICAL USE ONLY (03/27/2019 5:30 PM CDT) Alcohol <0.010 <0.1 g/dL [facility] MAIN-STATION 1 Specimen Blood Performing Organization Address [facility] [place] Phone Number MISYS [facility] MAIN-STATION 1 * ACETAMINOPHEN (03/27/2019 5:30 PM CDT) Acetaminophen 1.36 (L)Comment: Test 10 - 30 ug/mL [facility] performed on [id number] using EMIT MAIN-STATION 1 Immunoassay Specimen Blood Performing Organization Address City/State/Zipcode Phone Number MISYS [facility] MAIN-STATION 1 * Bedside Ultrasound (03/27/2019 5:11 PM CDT) Narrative Performed At Khagn Adan ResidentMD 03/27/20199:30 PM Bedside Ultrasound Date/Time: 03/27/2019 9:29 PM Performed by: Khang Adan ResidentMD Authorized by: Nash Buckley MD Consent: Consent obtained:Verbal Consent given by:Guardian Alternatives discussed:No treatment Indications: Indications:Sepsis Comments: IVC visualized, slightly collapsible.SuX view obtained, no pericardial effusion, EF appears preserved. No RV enlargement * CT HEAD W/O CONTRAST (03/27/2019 4:53 PM CDT) Only the most recent of 3 results within the time period is included. Specimen Impressions Performed At IMPRESSION: SMS Minimal increase in the ventricular volume since last exam, otherwise unchanged study. No acute intracranial abnormality. Signed By: Charity Werner MD, 03/27/2019 5:14 PM Narrative Performed At EXAM:CT HEAD W/O CONTRAST SMS DATE:03/27/2019 4:53 PM INDICATION:Altered level of consciousness (LOC), unexplained COMPARISON :CT brain 01/07/2019 , MRI 01/02/2019 TECHNIQUE: Routine axial images of the head were obtained without contrast administration. Discussion: No acute intracranial hemorrhage, hydrocephalus or midline shift. Hypodensities in the supratentorial white matter consistent with small vessel disease. Mild interval increase in the ventricular volume without hydrocephalus. No acute bony lesions. Procedure Note Interface, Rad/Mammog In - 03/27/2019 5:19 PM CDT EXAM:CT HEAD W/O CONTRAST DATE:03/27/2019 4:53 PM INDICATION:Altered level of consciousness (LOC), unexplained COMPARISON : CT brain 01/07/2019 , MRI 01/02/2019 TECHNIQUE: Routine axial images of the head were obtained without contrast administration. Discussion: No acute intracranial hemorrhage, hydrocephalus or midline shift. Hypodensities in the supratentorial white matter consistent with small vessel disease. Mild interval increase in the ventricular volume without hydrocephalus. No acute bony lesions. IMPRESSION IMPRESSION: Minimal increase in the ventricular volume since last exam, otherwise unchanged study. No acute intracranial abnormality. 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: [id number] :1950-0 07-23 Requested By: NASH Minor Order Number: [id number] Reading MD: Linwood Ocampo Measurements Intervals Corrigan Rate: 52 P:55 FL: 190 QRS: 31 QRSD: 94 T:103 QT: 454 QTc:426 Interpretive Statements SINUS BRADYCARDIA ST DEVIATION AND MODERATE T-WAVE ABNORMALITY, CONSIDER INFERIOR AND LATERAL ISCHEMIA Anteroseptal Infarct Age Indeterminate Electronically Signed On 03-28-2019 17:02:48 CDT by Linwood Ocampo Specimen Performing Organization Address City/[facility] Phone Number SMS * XRAY CHEST 1 VIEW (03/27/2019 4:24 PM CDT) Only the most recent of 2 results within the time period is included. Specimen Impressions Performed At IMPRESSION: [facility] Low lung volumes without acute cardiopulmonary findings. This [facility] radiology report is a preliminary resident dictation until finalized by an attending.Changes to this preliminary report may occur in an additional preliminary or finalized version. Signed By: Timothy Vines MD, 03/27/2019 4:50 PM Narrative Performed At EXAM: XR CHEST 1 VIEW SMS DATE: 03/27/2019 4:25 PM INDICATION: AMS. Encephalopathy acute. COMPARISON: Chest radiograph 01/07/2019 TECHNIQUE: AP chest (semierect) FINDINGS: Lines, tubes and hardware: EKG leads overlie the chest. Vascular stents again noted over the left axillary region and left medial upper arm. Right upper quadrant surgical clips present. Lungs and pleura: Low lung volumes are present with bibasilar vascular crowding, without focal opacity. The costophrenic sulci are sharp, without pleural effusion. No pneumothorax is identified on this semiupright view. Heart and mediastinum: The heart size is normal for technique. The thoracic aorta is calcified and tortuous. Pulmonary vascularity is normal. Bones: No acute bony abnormality. Procedure Note Interface, Rad/Mammog In - 03/27/2019 4:55 PM CDT EXAM: XR CHEST 1 VIEW DATE: 03/27/2019 4:25 PM INDICATION: AMS. Encephalopathy acute. COMPARISON: Chest radiograph 01/07/2019 TECHNIQUE: AP chest (semierect) FINDINGS: Lines, tubes and hardware: EKG leads overlie the chest. Vascular stents again noted over the left axillary region and left medial upper arm. Right upper quadrant surgical clips present. Lungs and pleura: Low lung volumes are present with bibasilar vascular crowding, without focal opacity. The costophrenic sulci are sharp, without pleural effusion. No pneumothorax is identified on this semiupright view. Heart and mediastinum: The heart size is normal for technique. The thoracic aorta is calcified and tortuous. Pulmonary vascularity is normal. Bones: No acute bony abnormality. IMPRESSION IMPRESSION: Low lung volumes without acute cardiopulmonary findings. This [facility] radiology report is a preliminary resident dictation until finalized by an attending. Changes to this preliminary report may occur in an additional preliminary or finalized version. 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: [id number] :1950-0 9-15 Requested By: NASH Minor Order Number: [id number] Reading MD: Linwood Ocampo Measurements Intervals Corrigan Rate: 56 P:44 FL: 189 QRS: 38 QRSD: 97 T:1 QT: 444 QTc:429 Interpretive Statements SINUS BRADYCARDIA vs junctional rhythm ST DEVIATION AND MODERATE T-WAVE ABNORMALITY, CONSIDER LATERAL ISCHEMIA [-0.1+ mV T WAVE IN I/aVL/V5/V6] Anteroseptal Infarct Age Indeterminate Electronically Signed On 03-28-2019 17:02:43 CDT by Linwood Ocampo Specimen Performing Organization Address City/[facility] Phone Number SMS * VBG POC (03/27/2019 3:43 PM CDT) Only the most recent of 3 results within the time period is included. pH, Juan POC 7.41Comment: Physician 7.33 - 7.43 [facility] Notified MAIN-STATION 1 pCO2, Juan POC 47.6 38.0 - 50.0 mm Hg [facility] MAIN-STATION 1 pO2, Juan POC 30 (L) 50 - 75 mm Hg [facility] MAIN-STATION 1 Base Excess, 4 mmol/L [facility] POC MAIN-STATION 1 HCO3, Juan POC 29.9 (H) 22.0 - 26.0 mmol/L [facility] MAIN-STATION 1 % Sat, Juan POC 57 (L) 60 - 85 % [facility] MAIN-STATION 1 Lactic Acid, 0.67 0.4 - 2.0 mmol/L [facility] POC MAIN-STATION 1 Sample Type Juan [facility] MAIN-STATION 1 TCO2, JUAN POC 31 21 - 32 mmol/L [facility] MAIN-STATION 1 Specimen Performing Organization Address [facility] [place] Phone Number MISYS [facility] MAIN-STATION 1 * BMP POC (03/27/2019 3:43 PM CDT) Only the most recent of 3 results within the time period is included. CO2 POC 31Comment: Physician Notified 21 - 32 mmol/L [facility] MAIN-STATION 1 Chloride POC 92 (L) 98 - 107 mmol/L [facility] MAIN-STATION 1 Potassium POC 2.6 (L) 3.50 - 5.10 mmol/L [facility] MAIN-STATION 1 Sodium POC 134 (L) 136 - 145 mmol/L [facility] MAIN-STATION 1 Glucose POC 86 74 - 106 mg/dL [facility] MAIN-STATION 1 Urea Nitrogen 5 (L) 7 - 18 mg/dL [facility] POC MAIN-STATION 1 Creatinine POC 2.3 (H) 0.6 - 1.3 mg/dL [facility] MAIN-STATION 1 Calcium Ionized 1.36 (H) 1.15 - 1.29 mmol/L [facility] POC MAIN-STATION 1 Hemoglobin POC 12.9 (L) 14.0 - 18.0 g/dL [facility] MAIN-STATION 1 Hematocrit POC 38.0 (L) 40.0 - 54.0 % [facility] MAIN-STATION 1 GFR, Estimated 29 mL/min/1.73 m2 [facility] MAIN-STATION 1 GFR, Estim, 34 mL/min/1.73 m2 [facility] Afr-Am MAIN-STATION 1 Specimen Performing Organization Address [facility]/Zipcode Phone Number [facility] MAIN-STATION 1 * TROPONIN I POC (03/27/2019 3:42 PM CDT) Only the most recent of 2 results within the time period is included. Troponin POC 0.04Comment: Physician 0.00 - 0.08 ng/mL [facility] Notified MAIN-STATION 1 Specimen Performing Organization Address City/[facility] Phone Number [facility] MAIN-STATION 1 * SED RATE (03/27/2019 3:30 PM CDT) Sed Rate 49 (H) <20 mm/Hr [facility] BLOOD BANK Specimen Performing Organization Address City/[facility] Phone Number [facility] BLOOD BANK [address] [place] [phone] * CBC/DIFF (03/27/2019 3:30 PM CDT) Only the most recent of 9 results within the time period is included. WBC 6.8 4.5 - 12.0 K/uL LB MAIN-STATION 2 RBC 4.12 (L) 4.60 - 6.20 M/uL LB MAIN-STATION 2 Hemoglobin 12.1 (L) 14.0 - 18.0 g/dL LB MAIN-STATION 2 Hematocrit 36.9 (L) 40.0 - 54.0 % [facility] MAIN-STATION 2 MCV 90 82 - 92 fL [facility] MAIN-STATION 2 MCH 29.4 27.0 - 31.0 pg [facility] MAIN-STATION 2 MCHC 32.8 32.0 - 36.0 g/dL [facility] MAIN-STATION 2 RDW 50.1 (H) 35.1 - 43.9 fL [facility] MAIN-STATION 2 Platelets 227 150 - 400 K/uL LB MAIN-STATION 2 Mean Platelet 11.1 9.4 - 12.4 fL [facility] Volume MAIN-STATION 2 Percent NRBC 0.0 LB MAIN-STATION 2 Absolute NRBC 0.00 [facility] MAIN-STATION 2 Neutrophils 70.3 (H) 34.0 - 67.9 % [facility] MAIN-STATION 2 Lymphs 16.0 (L) 21.8 - 50.0 % [facility] MAIN-STATION 2 Monocytes 6.6 5.3 - 12.0 % [facility] MAIN-STATION 2 Eos 5.9 (H) 0.8 - 5.0 % [facility] MAIN-STATION 2 Basos 0.6 0.2 - 1.2 % [facility] MAIN-STATION 2 Immature 0.6 (H) 0.0 - 0.5 [facility] Granulocytes MAIN-STATION 2 Neutrophils 4.78 1.78 - 5.36 K/uL [facility] (Absolute) MAIN-STATION 2 Lymphs 1.09 (L) 1.32 - 3.57 K/uL [facility] (Absolute) MAIN-STATION 2 Monocytes(Absol 0.45 0.30 - 0.82 K/uL [facility] [place]) MAIN-STATION 2 Eos (Absolute) 0.40 0.04 - 0.54 K/uL [facility] MAIN-STATION 2 Baso (Absolute) 0.04 0.01 - 0.08 K/uL [facility] MAIN-STATION 2 Immature Grans 0.04 (H) 0.00 - 0.03 K/uL [facility] (Abs) MAIN-STATION 2 Specimen Blood Performing Organization Address [facility] [place] Phone Number [facility] MAIN-STATION 2 * BLOOD CULTURE (03/27/2019 3:30 PM CDT) Only the most recent of 7 results within the time period is included. [facility] Spec Blood LB OUTPATIENT Description DRAW 3 Order Comments None [facility] OUTPATIENT DRAW 3 Culture No growth 5 days [facility] MICROBIOLOGY Report Status Final 04/01/2019 [facility] MICROBIOLOGY Specimen Blood Products (Lab Use Only) - BLOOD Performing Organization Address [facility] [place] Phone Number [facility] OUTPATIENT DRAW 3 [facility] MICROBIOLOGY * PT/INR/PTT (02/07/2019 7:48 PM CDT) Only the most recent of 4 results within the time period is included. Pathologist [facility] PT 13.1 11.8 - 15.0 Seconds [facility] MAIN-STATION 2 INR 1.0 [facility] SUGGESTED THERAPEUTIC RANGES: MAIN-STATION 2 INR 2.0-3.0 for MODERATE INTENSITY ANTICOAGULATION INR 2.5-3.5 for HIGH INTENSITY ANTICOAGULATION PTT 41.7 (H) 23.6 - 36.4 Seconds [facility] MAIN-STATION 2 Specimen Blood Performing Organization Address [facility] [place] Phone Number [facility] MAIN-STATION 2 * GLUCOSE POC (01/17/2019 11:54 AM CDT) Only the most recent of 58 results within the time period is included. Glucose POC 143 (H) 74 - 106 mg/dL BT MAIN-STATION 1 Specimen Performing Organization Address City/State/Zipcode Phone Number MISYS BT MAIN-STATION 1 * ENTERIC PATHOGENS NUCLEIC ACID TEST (01/17/2019 10:17 AM CDT) Only the most recent of 2 results within the time period is included. Campylogbacter Not detected [facility] MOLECULAR PATHOLOGY Salmonella Not detected BT MOLECULAR PATHOLOGY Shigella Not detected BT MOLECULAR PATHOLOGY Vibrio Not detected BT MOLECULAR PATHOLOGY Yersinia entero Not detected BT MOLECULAR PATHOLOGY Shiga Toxin 1 Not detected BT MOLECULAR PATHOLOGY Shiga Toxin 2 Not detected BT MOLECULAR PATHOLOGY Norovirus Not detected BT MOLECULAR GI-GII PATHOLOGY Rotavirus A Not detected BT MOLECULAR This test utilizes FDA cleared PATHOLOGY Quick[employer]olar[employer] Enteric Pathogens Nucleic Acid Test(EP) from [employer] for qualitative nucleic acids multiplex detection and identification of common pathogenic enteric bacteria, viruses, and genetic virulence marker from stool of individuals with signs and symptoms of gastrointestinal infection. Specimen Performing Organization Address City/[facility] Phone Number MISYS BT MOLECULAR PATHOLOGY * COMPREHENSIVE METABOLIC PANEL(DBIL NOT INCLUDED) (01/17/2019 4:22 AM CDT) Only the most recent of 11 results within the time period is included. Albumin 2.8 (L) 4.2 - 5.5 g/dL BT MAIN-STATION 1 Calcium 8.6 8.6 - 10.3 mg/dL [facility] MAIN-STATION 1 CO2 24 21 - 31 mmol/L BT MAIN-STATION 1 Chloride 98 98 - 107 mmol/L BT MAIN-STATION 1 Creatinine 5.10 (H) 0.7 - 1.3 mg/dL [facility] MAIN-STATION 1 Glucose 95 70 - 110 mg/dL [facility] MAIN-STATION 1 Alkaline 97 34 - 104 U/L BT MAIN-STATION Phosphatase, S 1 Potassium 4.0 3.5 - 5.1 mmol/L BT MAIN-STATION 1 Sodium 135 (L) 136 - 145 mmol/L BT MAIN-STATION 1 ALT 24 7 - 52 U/L BT MAIN-STATION 1 AST (SGOT) 24 13 - 39 U/L BT MAIN-STATION 1 BUN 30 (H) 7 - 25 mg/dL [facility] MAIN-STATION 1 Bilirubin, 0.5 0.2 - 1.2 mg/dL BT MAIN-STATION Total 1 Protein, Total, 4.8 (L) 6.0 - 8.3 g/dL [facility] MAIN-STATION Serum 1 GFR, Estimated 11 mL/min/1.73 m2 BT MAIN-STATION 1 eGFR If Africn 14 mL/min/1.73 m2 BT MAIN-STATION Am 1 Anion Gap 13 BT MAIN-STATION 1 Specimen Blood Performing Organization Address [facility] Phone Number MISYS BT MAIN-STATION 1 * VANCOMYCIN, RANDOM (01/17/2019 4:22 AM CDT) Only the most recent of 9 results within the time period is included. Pathologist [facility] Vancomycin, 19.7Comment: Test performed on ug/mL [facility] MAIN-STATION Random [id number] using EMIT Immunoassay 1 Specimen Blood Performing Organization Address [facility] [place] Phone Number MISYS BT MAIN-STATION 1 * CBC (01/17/2019 4:22 AM CDT) Only the most recent of 10 results within the time period is included. Pathologist [facility] WBC 7.4 4.5 - 12.0 K/uL BT MAIN-STATION 2 RBC 3.04 (L) 4.60 - 6.20 M/uL BT MAIN-STATION 2 Hemoglobin 8.5 (L) 14.0 - 18.0 g/dL BT MAIN-STATION 2 Hematocrit 28.2 (L) 40.0 - 54.0 % BT MAIN-STATION 2 MCV 93 (H) 82 - 92 fL BT MAIN-STATION 2 MCH 28.0 27.0 - 31.0 pg BT MAIN-STATION 2 MCHC 30.1 (L) 32.0 - 36.0 g/dL BT MAIN-STATION 2 RDW 49.5 (H) 35.1 - 43.9 fL BT MAIN-STATION 2 Platelets 182 150 - 400 K/uL BT MAIN-STATION 2 Mean Platelet 11.7 9.4 - 12.4 fL BT MAIN-STATION Volume 2 Percent NRBC 0.0 BT MAIN-STATION 2 Absolute NRBC 0.00 BT MAIN-STATION 2 Specimen Blood Performing Organization Address [facility] Phone Number MISYS BT MAIN-STATION 2 * MODERATE SEDATION, ADDL (01/12/2019 4:33 PM REINFORCED IRONWORKER) Specimen Impressions Performed At IMPRESSION: SMS 1.Widely patent distal abdominal aorta and bilateral common iliac, internal, and external arteries. 2.Widely patent right common femoral artery. 3.Right superficial femoral artery stent with multifocal mild to moderate stenoses. 4.The popliteal artery is patent. 5.Single vessel runoff with a patent posterior tibial artery. 6.Occluded right anterior tibial artery in the mid and distal portions. Diminutive peroneal artery with multifocal moderate to severe stenoses and occlusion beyond the mid portion. Dictated By: Lidia Dash MD, 01/24/2019 12:06 PM I have reviewed the study and agree with the findings in this report. Signed By: Iraj Sanabria MD, 01/24/2019 12:15 PM Narrative Performed At Procedure: Right lower extremity angiogram SMS Date and Time: 01/12/2019 4:33 PM webfed offset press operator: Iraj Sanabria MD Assistants: Dr. Lidia Dash MD Staff: Iraj Sanabria MD Preoperative diagnosis: Peripheral arterial disease with right popliteal stenosis Post operative diagnosis: Peripheral arterial disease with right popliteal stenosis Conscious Sedation: 25 mcg Fentanyl and 0.5 mg Versed. Patient was continuously monitored by the dedicated IR nurse. Sedation time: 50 min Fluoro time: 5.6 min Dose-area Product: 63 mGycm^2 Frontal Air Kerma: 48334 mGy Contrast used: 100 mL Omnipaque-300 Estimated blood loss: less than 5 mL Specimens: N/A Implants/Grafts: None Blood Products Administered: None Complications: No Immediate. Condition at procedure completion: Stable Disposition: Floor CPT procedure code: 40970, 56972, 70772, 48402, 01294, G0269, 68918, 37992, 95793 DISCUSSION: Informed consent was obtained and the patient placed supine on the fluoroscopy table. A timeout was performed. The left groin was prepped and draped in standard sterile fashion. 1% lidocaine was infiltrated into the subcutaneous soft tissues for local anesthesia. Under ultrasound guidance, a 21-gauge micropuncture needle was advanced into the left common femoral artery. A specialty sales representative image was stored in the electronic medical record. A 0.018 inch guidewire was advanced into the left common femoral artery under fluoroscopic guidance. The microwire was removed and a 5 Romanian access sheath was advanced over the guidewire. The guidewire and inner stiffener were removed and a 0.035" J-wire was advanced to the infrarenal aorta. The access sheath was exchanged for a 5 Romanian procedural sheath, and a 5 Romanian Omni Flush catheter was advanced to the infrarenal aorta. The J-wire was removed, and digital subtraction angiography was performed (see findings below). The J-wire was replaced and the flush catheter was seated at the aortic bifurcation. The wire and catheter were advanced into the right common femoral artery. The wire was removed and digital subtraction angiography of the right lower extremity was performed at multiple stations. Sheath angiography of the left common femoral artery was performed demonstrating satisfactory access location. All hardware was removed. Hemostasis was then achieved by deployment of a Perclose vascular closure device in the standard fashion. Patient tolerated the procedure well. There were no immediate complications. Iraj Sanabria MD was present throughout the procedure. FINDINGS: 1.Widely patent bilateral common iliac arteries, external iliac arteries, and major branches. Mild multifocal bilateral internal iliac artery stenoses. 2.Widely patent right common femoral artery. 3.Mild diffuse multifocal stenosis of the mid and distal superficial femoral artery, most prominent within the stent. Multifocal mild stenosis of the profunda femoris. 4.Widely patent popliteal artery and trifurcation. 5.Widely patent posterior tibial artery. 6.The proximal anterior tibial artery is patent and is occluded beyond the proximal portion without reconstitution. 7.Multifocal moderate to severe stenoses of the proximal and mid peroneal artery which is occluded beyond the mid portion. 8.The lateral and medial plantar arteries are patent. Procedure Note Interface, Rad/Mammog In - 01/24/2019 12:20 PM CDT Procedure: Right lower extremity angiogram Date and Time: 01/12/2019 4:33 PM webfed offset press operator: Iraj Sanabria MD Assistants: Dr. Lidia Dash MD Staff: Iraj Sanabria MD Preoperative diagnosis: Peripheral arterial disease with right popliteal stenosis Post operative diagnosis: Peripheral arterial disease with right popliteal stenosis Conscious Sedation: 25 mcg Fentanyl and 0.5 mg Versed. Patient was continuously monitored by the dedicated IR nurse. Sedation time: 50 min Fluoro time: 5.6 min Dose-area Product: 63 mGycm^2 Frontal Air Kerma: 67467 mGy Contrast used: 100 mL Omnipaque-300 Estimated blood loss: less than 5 mL Specimens: N/A Implants/Grafts: None Blood Products Administered: None Complications: No Immediate. Condition at procedure completion: Stable Disposition: Floor CPT procedure code: 99302, 84864, 54666, 49710, 69016, G0269, 20127, 55335, 76942 DISCUSSION: Informed consent was obtained and the patient placed supine on the fluoroscopy table. A timeout was performed. The left groin was prepped and draped in standard sterile fashion. 1% lidocaine was infiltrated into the subcutaneous soft tissues for local anesthesia. Under ultrasound guidance, a 21-gauge micropuncture needle was advanced into the left common femoral artery. A specialty sales representative image was stored in the electronic medical record. A 0.018 inch guidewire was advanced into the left common femoral artery under fluoroscopic guidance. The microwire was removed and a 5 Romanian access sheath was advanced over the guidewire. The guidewire and inner stiffener were removed and a 0.035" J-wire was advanced to the infrarenal aorta. The access sheath was exchanged for a 5 Romanian procedural sheath, and a 5 Romanian Omni Flush catheter was advanced to the infrarenal aorta. The J-wire was removed, and digital subtraction angiography was performed (see findings below). The J-wire was replaced and the flush catheter was seated at the aortic bifurcation. The wire and catheter were advanced into the right common femoral artery. The wire was removed and digital subtraction angiography of the right lower extremity was performed at multiple stations. Sheath angiography of the left common femoral artery was performed demonstrating satisfactory access location. All hardware was removed. Hemostasis was then achieved by deployment of a Perclose vascular closure device in the standard fashion. Patient tolerated the procedure well. There were no immediate complications. Iraj Sanabria MD was present throughout the procedure. FINDINGS: 1. Widely patent bilateral common iliac arteries, external iliac arteries, and major branches. Mild multifocal bilateral internal iliac artery stenoses. 2. Widely patent right common femoral artery. 3. Mild diffuse multifocal stenosis of the mid and distal superficial femoral artery, most prominent within the stent. Multifocal mild stenosis of the profunda femoris. 4. Widely patent popliteal artery and trifurcation. 5. Widely patent posterior tibial artery. 6. The proximal anterior tibial artery is patent and is occluded beyond the proximal portion without reconstitution. 7. Multifocal moderate to severe stenoses of the proximal and mid peroneal artery which is occluded beyond the mid portion. 8. The lateral and medial plantar arteries are patent. IMPRESSION IMPRESSION: 1. Widely patent distal abdominal aorta and bilateral common iliac, internal, and external arteries. 2. Widely patent right common femoral artery. 3. Right superficial femoral artery stent with multifocal mild to moderate stenoses. 4. The popliteal artery is patent. 5. Single vessel runoff with a patent posterior tibial artery. 6. Occluded right anterior tibial artery in the mid and distal portions. Diminutive peroneal artery with multifocal moderate to severe stenoses and occlusion beyond the mid portion. Dictated By: Lidia Dash MD, 01/24/2019 12:06 PM I have reviewed the study and agree with the findings in this report. Signed By: Iraj Sanabria MD, 01/24/2019 12:15 PM Performing Organization Address City/State/Zipcode Phone Number SMS * MODERATE SEDATION, ADDL (01/12/2019 4:33 PM [employer]WORK[employer]) Specimen Impressions Performed At IMPRESSION: SMS 1.Widely patent distal abdominal aorta and bilateral common iliac, internal, and external arteries. 2.Widely patent right common femoral artery. 3.Right superficial femoral artery stent with multifocal mild to moderate stenoses. 4.The popliteal artery is patent. 5.Single vessel runoff with a patent posterior tibial artery. 6.Occluded right anterior tibial artery in the mid and distal portions. Diminutive peroneal artery with multifocal moderate to severe stenoses and occlusion beyond the mid portion. Dictated By: Lidia Dash MD, 01/24/2019 12:06 PM I have reviewed the study and agree with the findings in this report. Signed By: Iraj Sanabria MD, 01/24/2019 12:15 PM Narrative Performed At Procedure: Right lower extremity angiogram SMS Date and Time: 01/12/2019 4:33 PM webfed offset press operator: Iraj Sanabria MD Assistants: Dr. Lidia Dash MD Staff: Iraj Sanabria MD Preoperative diagnosis: Peripheral arterial disease with right popliteal stenosis Post operative diagnosis: Peripheral arterial disease with right popliteal stenosis Conscious Sedation: 25 mcg Fentanyl and 0.5 mg Versed. Patient was continuously monitored by the dedicated IR nurse. Sedation time: 50 min Fluoro time: 5.6 min Dose-area Product: 63 mGycm^2 Frontal Air Kerma: 60816 mGy Contrast used: 100 mL Omnipaque-300 Estimated blood loss: less than 5 mL Specimens: N/A Implants/Grafts: None Blood Products Administered: None Complications: No Immediate. Condition at procedure completion: Stable Disposition: Floor CPT procedure code: 24074, 71522, 38779, 87889, 62908, G0269, 54526, 31976, 52005 DISCUSSION: Informed consent was obtained and the patient placed supine on the fluoroscopy table. A timeout was performed. The left groin was prepped and draped in standard sterile fashion. 1% lidocaine was infiltrated into the subcutaneous soft tissues for local anesthesia. Under ultrasound guidance, a 21-gauge micropuncture needle was advanced into the left common femoral artery. A specialty sales representative image was stored in the electronic medical record. A 0.018 inch guidewire was advanced into the left common femoral artery under fluoroscopic guidance. The microwire was removed and a 5 Romanian access sheath was advanced over the guidewire. The guidewire and inner stiffener were removed and a 0.035" J-wire was advanced to the infrarenal aorta. The access sheath was exchanged for a 5 Romanian procedural sheath, and a 5 Romanian Omni Flush catheter was advanced to the infrarenal aorta. The J-wire was removed, and digital subtraction angiography was performed (see findings below). The J-wire was replaced and the flush catheter was seated at the aortic bifurcation. The wire and catheter were advanced into the right common femoral artery. The wire was removed and digital subtraction angiography of the right lower extremity was performed at multiple stations. Sheath angiography of the left common femoral artery was performed demonstrating satisfactory access location. All hardware was removed. Hemostasis was then achieved by deployment of a Perclose vascular closure device in the standard fashion. Patient tolerated the procedure well. There were no immediate complications. Iraj Sanabria MD was present throughout the procedure. FINDINGS: 1.Widely patent bilateral common iliac arteries, external iliac arteries, and major branches. Mild multifocal bilateral internal iliac artery stenoses. 2.Widely patent right common femoral artery. 3.Mild diffuse multifocal stenosis of the mid and distal superficial femoral artery, most prominent within the stent. Multifocal mild stenosis of the profunda femoris. 4.Widely patent popliteal artery and trifurcation. 5.Widely patent posterior tibial artery. 6.The proximal anterior tibial artery is patent and is occluded beyond the proximal portion without reconstitution. 7.Multifocal moderate to severe stenoses of the proximal and mid peroneal artery which is occluded beyond the mid portion. 8.The lateral and medial plantar arteries are patent. Procedure Note Interface, Rad/Mammog In - 01/24/2019 12:20 PM CDT Procedure: Right lower extremity angiogram Date and Time: 01/12/2019 4:33 PM webfed offset press operator: Iraj Sanabria MD Assistants: Dr. Lidia aDsh MD Staff: Iraj Sanabria MD Preoperative diagnosis: Peripheral arterial disease with right popliteal stenosis Post operative diagnosis: Peripheral arterial disease with right popliteal stenosis Conscious Sedation: 25 mcg Fentanyl and 0.5 mg Versed. Patient was continuously monitored by the dedicated IR nurse. Sedation time: 50 min Fluoro time: 5.6 min Dose-area Product: 63 mGycm^2 Frontal Air Kerma: 32806 mGy Contrast used: 100 mL Omnipaque-300 Estimated blood loss: less than 5 mL Specimens: N/A Implants/Grafts: None Blood Products Administered: None Complications: No Immediate. Condition at procedure completion: Stable Disposition: Floor CPT procedure code: 34554, 18744, 14492, 15872, 57759, G0269, 61804, 29391, 12989 DISCUSSION: Informed consent was obtained and the patient placed supine on the fluoroscopy table. A timeout was performed. The left groin was prepped and draped in standard sterile fashion. 1% lidocaine was infiltrated into the subcutaneous soft tissues for local anesthesia. Under ultrasound guidance, a 21-gauge micropuncture needle was advanced into the left common femoral artery. A specialty sales representative image was stored in the electronic medical record. A 0.018 inch guidewire was advanced into the left common femoral artery under fluoroscopic guidance. The microwire was removed and a 5 Romanian access sheath was advanced over the guidewire. The guidewire and inner stiffener were removed and a 0.035" J-wire was advanced to the infrarenal aorta. The access sheath was exchanged for a 5 Romanian procedural sheath, and a 5 Romanian Omni Flush catheter was advanced to the infrarenal aorta. The J-wire was removed, and digital subtraction angiography was performed (see findings below). The J-wire was replaced and the flush catheter was seated at the aortic bifurcation. The wire and catheter were advanced into the right common femoral artery. The wire was removed and digital subtraction angiography of the right lower extremity was performed at multiple stations. Sheath angiography of the left common femoral artery was performed demonstrating satisfactory access location. All hardware was removed. Hemostasis was then achieved by deployment of a Perclose vascular closure device in the standard fashion. Patient tolerated the procedure well. There were no immediate complications. Iraj Sanabria MD was present throughout the procedure. FINDINGS: 1. Widely patent bilateral common iliac arteries, external iliac arteries, and major branches. Mild multifocal bilateral internal iliac artery stenoses. 2. Widely patent right common femoral artery. 3. Mild diffuse multifocal stenosis of the mid and distal superficial femoral artery, most prominent within the stent. Multifocal mild stenosis of the profunda femoris. 4. Widely patent popliteal artery and trifurcation. 5. Widely patent posterior tibial artery. 6. The proximal anterior tibial artery is patent and is occluded beyond the proximal portion without reconstitution. 7. Multifocal moderate to severe stenoses of the proximal and mid peroneal artery which is occluded beyond the mid portion. 8. The lateral and medial plantar arteries are patent. IMPRESSION IMPRESSION: 1. Widely patent distal abdominal aorta and bilateral common iliac, internal, and external arteries. 2. Widely patent right common femoral artery. 3. Right superficial femoral artery stent with multifocal mild to moderate stenoses. 4. The popliteal artery is patent. 5. Single vessel runoff with a patent posterior tibial artery. 6. Occluded right anterior tibial artery in the mid and distal portions. Diminutive peroneal artery with multifocal moderate to severe stenoses and occlusion beyond the mid portion. Dictated By: Lidia Dash MD, 01/24/2019 12:06 PM I have reviewed the study and agree with the findings in this report. Signed By: Iraj Sanabria MD, 01/24/2019 12:15 PM Performing Organization Address City/State/Zipcode Phone Number SMS * MODERATE SEDATION, ADDL (01/12/2019 4:33 PM [employer]WORK[employer]) Specimen Impressions Performed At IMPRESSION: SMS 1.Widely patent distal abdominal aorta and bilateral common iliac, internal, and external arteries. 2.Widely patent right common femoral artery. 3.Right superficial femoral artery stent with multifocal mild to moderate stenoses. 4.The popliteal artery is patent. 5.Single vessel runoff with a patent posterior tibial artery. 6.Occluded right anterior tibial artery in the mid and distal portions. Diminutive peroneal artery with multifocal moderate to severe stenoses and occlusion beyond the mid portion. Dictated By: Lidia Dash MD, 01/24/2019 12:06 PM I have reviewed the study and agree with the findings in this report. Signed By: Iraj Sanabria MD, 01/24/2019 12:15 PM Narrative Performed At Procedure: Right lower extremity angiogram SMS Date and Time: 01/12/2019 4:33 PM webfed offset press operator: Iraj Sanabria MD Assistants: Dr. Lidia Dash MD Staff: Iraj Sanabria MD Preoperative diagnosis: Peripheral arterial disease with right popliteal stenosis Post operative diagnosis: Peripheral arterial disease with right popliteal stenosis Conscious Sedation: 25 mcg Fentanyl and 0.5 mg Versed. Patient was continuously monitored by the dedicated IR nurse. Sedation time: 50 min Fluoro time: 5.6 min Dose-area Product: 63 mGycm^2 Frontal Air Kerma: 03537 mGy Contrast used: 100 mL Omnipaque-300 Estimated blood loss: less than 5 mL Specimens: N/A Implants/Grafts: None Blood Products Administered: None Complications: No Immediate. Condition at procedure completion: Stable Disposition: Floor CPT procedure code: 53902, 66713, 56980, 17131, 47339, G0269, 72600, 82865, 86616 DISCUSSION: Informed consent was obtained and the patient placed supine on the fluoroscopy table. A timeout was performed. The left groin was prepped and draped in standard sterile fashion. 1% lidocaine was infiltrated into the subcutaneous soft tissues for local anesthesia. Under ultrasound guidance, a 21-gauge micropuncture needle was advanced into the left common femoral artery. A specialty sales representative image was stored in the electronic medical record. A 0.018 inch guidewire was advanced into the left common femoral artery under fluoroscopic guidance. The microwire was removed and a 5 Romanian access sheath was advanced over the guidewire. The guidewire and inner stiffener were removed and a 0.035" J-wire was advanced to the infrarenal aorta. The access sheath was exchanged for a 5 Romanian procedural sheath, and a 5 Romanian Omni Flush catheter was advanced to the infrarenal aorta. The J-wire was removed, and digital subtraction angiography was performed (see findings below). The J-wire was replaced and the flush catheter was seated at the aortic bifurcation. The wire and catheter were advanced into the right common femoral artery. The wire was removed and digital subtraction angiography of the right lower extremity was performed at multiple stations. Sheath angiography of the left common femoral artery was performed demonstrating satisfactory access location. All hardware was removed. Hemostasis was then achieved by deployment of a Perclose vascular closure device in the standard fashion. Patient tolerated the procedure well. There were no immediate complications. Iraj Sanabria MD was present throughout the procedure. FINDINGS: 1.Widely patent bilateral common iliac arteries, external iliac arteries, and major branches. Mild multifocal bilateral internal iliac artery stenoses. 2.Widely patent right common femoral artery. 3.Mild diffuse multifocal stenosis of the mid and distal superficial femoral artery, most prominent within the stent. Multifocal mild stenosis of the profunda femoris. 4.Widely patent popliteal artery and trifurcation. 5.Widely patent posterior tibial artery. 6.The proximal anterior tibial artery is patent and is occluded beyond the proximal portion without reconstitution. 7.Multifocal moderate to severe stenoses of the proximal and mid peroneal artery which is occluded beyond the mid portion. 8.The lateral and medial plantar arteries are patent. Procedure Note Interface, Rad/Mammog In - 01/24/2019 12:20 PM CDT Procedure: Right lower extremity angiogram Date and Time: 01/12/2019 4:33 PM webfed offset press operator: Iraj Sanabria MD Assistants: Dr. Lidia Dash MD Staff: Iraj Sanabria MD Preoperative diagnosis: Peripheral arterial disease with right popliteal stenosis Post operative diagnosis: Peripheral arterial disease with right popliteal stenosis Conscious Sedation: 25 mcg Fentanyl and 0.5 mg Versed. Patient was continuously monitored by the dedicated IR nurse. Sedation time: 50 min Fluoro time: 5.6 min Dose-area Product: 63 mGycm^2 Frontal Air Kerma: 13277 mGy Contrast used: 100 mL Omnipaque-300 Estimated blood loss: less than 5 mL Specimens: N/A Implants/Grafts: None Blood Products Administered: None Complications: No Immediate. Condition at procedure completion: Stable Disposition: Floor CPT procedure code: 00363, 67819, 35960, 83166, 53043, G0269, 79765, 20940, 12134 DISCUSSION: Informed consent was obtained and the patient placed supine on the fluoroscopy table. A timeout was performed. The left groin was prepped and draped in standard sterile fashion. 1% lidocaine was infiltrated into the subcutaneous soft tissues for local anesthesia. Under ultrasound guidance, a 21-gauge micropuncture needle was advanced into the left common femoral artery. A specialty sales representative image was stored in the electronic medical record. A 0.018 inch guidewire was advanced into the left common femoral artery under fluoroscopic guidance. The microwire was removed and a 5 Romanian access sheath was advanced over the guidewire. The guidewire and inner stiffener were removed and a 0.035" J-wire was advanced to the infrarenal aorta. The access sheath was exchanged for a 5 Romanian procedural sheath, and a 5 Romanian Omni Flush catheter was advanced to the infrarenal aorta. The J-wire was removed, and digital subtraction angiography was performed (see findings below). The J-wire was replaced and the flush catheter was seated at the aortic bifurcation. The wire and catheter were advanced into the right common femoral artery. The wire was removed and digital subtraction angiography of the right lower extremity was performed at multiple stations. Sheath angiography of the left common femoral artery was performed demonstrating satisfactory access location. All hardware was removed. Hemostasis was then achieved by deployment of a Perclose vascular closure device in the standard fashion. Patient tolerated the procedure well. There were no immediate complications. Iraj Sanabria MD was present throughout the procedure. FINDINGS: 1. Widely patent bilateral common iliac arteries, external iliac arteries, and major branches. Mild multifocal bilateral internal iliac artery stenoses. 2. Widely patent right common femoral artery. 3. Mild diffuse multifocal stenosis of the mid and distal superficial femoral artery, most prominent within the stent. Multifocal mild stenosis of the profunda femoris. 4. Widely patent popliteal artery and trifurcation. 5. Widely patent posterior tibial artery. 6. The proximal anterior tibial artery is patent and is occluded beyond the proximal portion without reconstitution. 7. Multifocal moderate to severe stenoses of the proximal and mid peroneal artery which is occluded beyond the mid portion. 8. The lateral and medial plantar arteries are patent. IMPRESSION IMPRESSION: 1. Widely patent distal abdominal aorta and bilateral common iliac, internal, and external arteries. 2. Widely patent right common femoral artery. 3. Right superficial femoral artery stent with multifocal mild to moderate stenoses. 4. The popliteal artery is patent. 5. Single vessel runoff with a patent posterior tibial artery. 6. Occluded right anterior tibial artery in the mid and distal portions. Diminutive peroneal artery with multifocal moderate to severe stenoses and occlusion beyond the mid portion. Dictated By: Lidia Dash MD, 01/24/2019 12:06 PM I have reviewed the study and agree with the findings in this report. Signed By: Iraj Sanabria MD, 01/24/2019 12:15 PM Performing Organization Address City/State/Zipcode Phone Number SMS * MODERATE SEDATION, INITIAL (01/12/2019 4:33 PM REINFOR[employer]ED IRONWORKER) Specimen Impressions Performed At IMPRESSION: SMS 1.Widely patent distal abdominal aorta and bilateral common iliac, internal, and external arteries. 2.Widely patent right common femoral artery. 3.Right superficial femoral artery stent with multifocal mild to moderate stenoses. 4.The popliteal artery is patent. 5.Single vessel runoff with a patent posterior tibial artery. 6.Occluded right anterior tibial artery in the mid and distal portions. Diminutive peroneal artery with multifocal moderate to severe stenoses and occlusion beyond the mid portion. Dictated By: Lidia Dash MD, 01/24/2019 12:06 PM I have reviewed the study and agree with the findings in this report. Signed By: Iraj Sanabria MD, 01/24/2019 12:15 PM Narrative Performed At Procedure: Right lower extremity angiogram SMS Date and Time: 01/12/2019 4:33 PM webfed offset press operator: Iraj Sanabria MD Assistants: Dr. Lidia Dash MD Staff: Iraj Sanabria MD Preoperative diagnosis: Peripheral arterial disease with right popliteal stenosis Post operative diagnosis: Peripheral arterial disease with right popliteal stenosis Conscious Sedation: 25 mcg Fentanyl and 0.5 mg Versed. Patient was continuously monitored by the dedicated IR nurse. Sedation time: 50 min Fluoro time: 5.6 min Dose-area Product: 63 mGycm^2 Frontal Air Kerma: 93497 mGy Contrast used: 100 mL Omnipaque-300 Estimated blood loss: less than 5 mL Specimens: N/A Implants/Grafts: None Blood Products Administered: None Complications: No Immediate. Condition at procedure completion: Stable Disposition: Floor CPT procedure code: 74373, 16168, 79976, 82386, 90404, G0269, 41645, 49179, 52658 DISCUSSION: Informed consent was obtained and the patient placed supine on the fluoroscopy table. A timeout was performed. The left groin was prepped and draped in standard sterile fashion. 1% lidocaine was infiltrated into the subcutaneous soft tissues for local anesthesia. Under ultrasound guidance, a 21-gauge micropuncture needle was advanced into the left common femoral artery. A specialty sales representative image was stored in the electronic medical record. A 0.018 inch guidewire was advanced into the left common femoral artery under fluoroscopic guidance. The microwire was removed and a 5 Romanian access sheath was advanced over the guidewire. The guidewire and inner stiffener were removed and a 0.035" J-wire was advanced to the infrarenal aorta. The access sheath was exchanged for a 5 Romanian procedural sheath, and a 5 Romanian Omni Flush catheter was advanced to the infrarenal aorta. The J-wire was removed, and digital subtraction angiography was performed (see findings below). The J-wire was replaced and the flush catheter was seated at the aortic bifurcation. The wire and catheter were advanced into the right common femoral artery. The wire was removed and digital subtraction angiography of the right lower extremity was performed at multiple stations. Sheath angiography of the left common femoral artery was performed demonstrating satisfactory access location. All hardware was removed. Hemostasis was then achieved by deployment of a Perclose vascular closure device in the standard fashion. Patient tolerated the procedure well. There were no immediate complications. Iraj Sanabria MD was present throughout the procedure. FINDINGS: 1.Widely patent bilateral common iliac arteries, external iliac arteries, and major branches. Mild multifocal bilateral internal iliac artery stenoses. 2.Widely patent right common femoral artery. 3.Mild diffuse multifocal stenosis of the mid and distal superficial femoral artery, most prominent within the stent. Multifocal mild stenosis of the profunda femoris. 4.Widely patent popliteal artery and trifurcation. 5.Widely patent posterior tibial artery. 6.The proximal anterior tibial artery is patent and is occluded beyond the proximal portion without reconstitution. 7.Multifocal moderate to severe stenoses of the proximal and mid peroneal artery which is occluded beyond the mid portion. 8.The lateral and medial plantar arteries are patent. Procedure Note Interface, Rad/Mammog In - 01/24/2019 12:20 PM CDT Procedure: Right lower extremity angiogram Date and Time: 01/12/2019 4:33 PM webfed offset press operator: Iraj Sanabria MD Assistants: Dr. Lidia Dash MD Staff: Iraj Sanabria MD Preoperative diagnosis: Peripheral arterial disease with right popliteal stenosis Post operative diagnosis: Peripheral arterial disease with right popliteal stenosis Conscious Sedation: 25 mcg Fentanyl and 0.5 mg Versed. Patient was continuously monitored by the dedicated IR nurse. Sedation time: 50 min Fluoro time: 5.6 min Dose-area Product: 63 mGycm^2 Frontal Air Kerma: 11963 mGy Contrast used: 100 mL Omnipaque-300 Estimated blood loss: less than 5 mL Specimens: N/A Implants/Grafts: None Blood Products Administered: None Complications: No Immediate. Condition at procedure completion: Stable Disposition: Floor [facility] procedure code: 16722, 05661, 69464, 11341, 60113, G0269, 57276, 09691, 01987 DISCUSSION: Informed consent was obtained and the patient placed supine on the fluoroscopy table. A timeout was performed. The left groin was prepped and draped in standard sterile fashion. 1% lidocaine was infiltrated into the subcutaneous soft tissues for local anesthesia. Under ultrasound guidance, a 21-gauge micropuncture needle was advanced into the left common femoral artery. A specialty sales representative image was stored in the electronic medical record. A 0.018 inch guidewire was advanced into the left common femoral artery under fluoroscopic guidance. The microwire was removed and a 5 Romanian access sheath was advanced over the guidewire. The guidewire and inner stiffener were removed and a 0.035" J-wire was advanced to the infrarenal aorta. The access sheath was exchanged for a 5 Romanian procedural sheath, and a 5 Romanian Omni Flush catheter was advanced to the infrarenal aorta. The J-wire was removed, and digital subtraction angiography was performed (see findings below). The J-wire was replaced and the flush catheter was seated at the aortic bifurcation. The wire and catheter were advanced into the right common femoral artery. The wire was removed and digital subtraction angiography of the right lower extremity was performed at multiple stations. Sheath angiography of the left common femoral artery was performed demonstrating satisfactory access location. All hardware was removed. Hemostasis was then achieved by deployment of a Perclose vascular closure device in the standard fashion. Patient tolerated the procedure well. There were no immediate complications. Iraj Sanabria MD was present throughout the procedure. FINDINGS: 1. Widely patent bilateral common iliac arteries, external iliac arteries, and major branches. Mild multifocal bilateral internal iliac artery stenoses. 2. Widely patent right common femoral artery. 3. Mild diffuse multifocal stenosis of the mid and distal superficial femoral artery, most prominent within the stent. Multifocal mild stenosis of the profunda femoris. 4. Widely patent popliteal artery and trifurcation. 5. Widely patent posterior tibial artery. 6. The proximal anterior tibial artery is patent and is occluded beyond the proximal portion without reconstitution. 7. Multifocal moderate to severe stenoses of the proximal and mid peroneal artery which is occluded beyond the mid portion. 8. The lateral and medial plantar arteries are patent. IMPRESSION IMPRESSION: 1. Widely patent distal abdominal aorta and bilateral common iliac, internal, and external arteries. 2. Widely patent right common femoral artery. 3. Right superficial femoral artery stent with multifocal mild to moderate stenoses. 4. The popliteal artery is patent. 5. Single vessel runoff with a patent posterior tibial artery. 6. Occluded right anterior tibial artery in the mid and distal portions. Diminutive peroneal artery with multifocal moderate to severe stenoses and occlusion beyond the mid portion. Dictated By: Lidia Dash MD, 01/24/2019 12:06 PM I have reviewed the study and agree with the findings in this report. Signed By: Iraj Sanabria MD, 01/24/2019 12:15 PM Performing Organization Address City/State/Zipcode Phone Number SMS * OCCLUSIVE DEVICE IN VEIN ART (01/12/2019 4:33 PM REINFORCED IRONWORKER) Specimen Impressions Performed At IMPRESSION: SMS 1.Widely patent distal abdominal aorta and bilateral common iliac, internal, and external arteries. 2.Widely patent right common femoral artery. 3.Right superficial femoral artery stent with multifocal mild to moderate stenoses. 4.The popliteal artery is patent. 5.Single vessel runoff with a patent posterior tibial artery. 6.Occluded right anterior tibial artery in the mid and distal portions. Diminutive peroneal artery with multifocal moderate to severe stenoses and occlusion beyond the mid portion. Dictated By: Lidia Dash MD, 01/24/2019 12:06 PM I have reviewed the study and agree with the findings in this report. Signed By: Iraj Sanabria MD, 01/24/2019 12:15 PM Narrative Performed At Procedure: Right lower extremity angiogram SMS Date and Time: 01/12/2019 4:33 PM webfed offset press operator: Iraj Sanabria MD Assistants: Dr. Lidia Dash MD Staff: Iraj Sanabria MD Preoperative diagnosis: Peripheral arterial disease with right popliteal stenosis Post operative diagnosis: Peripheral arterial disease with right popliteal stenosis Conscious Sedation: 25 mcg Fentanyl and 0.5 mg Versed. Patient was continuously monitored by the dedicated IR nurse. Sedation time: 50 min Fluoro time: 5.6 min Dose-area Product: 63 mGycm^2 Frontal Air Kerma: 70631 mGy Contrast used: 100 mL Omnipaque-300 Estimated blood loss: less than 5 mL Specimens: N/A Implants/Grafts: None Blood Products Administered: None Complications: No Immediate. Condition at procedure completion: Stable Disposition: Floor CPT procedure code: 33946, 05155, 99478, 68378, 18034, G0269, 74944, 66718, 85079 DISCUSSION: Informed consent was obtained and the patient placed supine on the fluoroscopy table. A timeout was performed. The left groin was prepped and draped in standard sterile fashion. 1% lidocaine was infiltrated into the subcutaneous soft tissues for local anesthesia. Under ultrasound guidance, a 21-gauge micropuncture needle was advanced into the left common femoral artery. A specialty sales representative image was stored in the electronic medical record. A 0.018 inch guidewire was advanced into the left common femoral artery under fluoroscopic guidance. The microwire was removed and a 5 Romanian access sheath was advanced over the guidewire. The guidewire and inner stiffener were removed and a 0.035" J-wire was advanced to the infrarenal aorta. The access sheath was exchanged for a 5 Romanian procedural sheath, and a 5 Romanian Omni Flush catheter was advanced to the infrarenal aorta. The J-wire was removed, and digital subtraction angiography was performed (see findings below). The J-wire was replaced and the flush catheter was seated at the aortic bifurcation. The wire and catheter were advanced into the right common femoral artery. The wire was removed and digital subtraction angiography of the right lower extremity was performed at multiple stations. Sheath angiography of the left common femoral artery was performed demonstrating satisfactory access location. All hardware was removed. Hemostasis was then achieved by deployment of a Perclose vascular closure device in the standard fashion. Patient tolerated the procedure well. There were no immediate complications. Iraj Sanabria MD was present throughout the procedure. FINDINGS: 1.Widely patent bilateral common iliac arteries, external iliac arteries, and major branches. Mild multifocal bilateral internal iliac artery stenoses. 2.Widely patent right common femoral artery. 3.Mild diffuse multifocal stenosis of the mid and distal superficial femoral artery, most prominent within the stent. Multifocal mild stenosis of the profunda femoris. 4.Widely patent popliteal artery and trifurcation. 5.Widely patent posterior tibial artery. 6.The proximal anterior tibial artery is patent and is occluded beyond the proximal portion without reconstitution. 7.Multifocal moderate to severe stenoses of the proximal and mid peroneal artery which is occluded beyond the mid portion. 8.The lateral and medial plantar arteries are patent. Procedure Note Interface, Rad/Mammog In - 01/24/2019 12:20 PM CDT Procedure: Right lower extremity angiogram Date and Time: 01/12/2019 4:33 PM webfed offset press operator: Iraj Sanabria MD Assistants: Dr. Lidia Dash MD Staff: Iraj Sanabria MD Preoperative diagnosis: Peripheral arterial disease with right popliteal stenosis Post operative diagnosis: Peripheral arterial disease with right popliteal stenosis Conscious Sedation: 25 mcg Fentanyl and 0.5 mg Versed. Patient was continuously monitored by the dedicated IR nurse. Sedation time: 50 min Fluoro time: 5.6 min Dose-area Product: 63 mGycm^2 Frontal Air Kerma: 32582 mGy Contrast used: 100 mL Omnipaque-300 Estimated blood loss: less than 5 mL Specimens: N/A Implants/Grafts: None Blood Products Administered: None Complications: No Immediate. Condition at procedure completion: Stable Disposition: Floor CPT procedure code: 48642, 96791, 75315, 51358, 17299, G0269, 62919, 61981, 59865 DISCUSSION: Informed consent was obtained and the patient placed supine on the fluoroscopy table. A timeout was performed. The left groin was prepped and draped in standard sterile fashion. 1% lidocaine was infiltrated into the subcutaneous soft tissues for local anesthesia. Under ultrasound guidance, a 21-gauge micropuncture needle was advanced into the left common femoral artery. A specialty sales representative image was stored in the electronic medical record. A 0.018 inch guidewire was advanced into the left common femoral artery under fluoroscopic guidance. The microwire was removed and a 5 Romanian access sheath was advanced over the guidewire. The guidewire and inner stiffener were removed and a 0.035" J-wire was advanced to the infrarenal aorta. The access sheath was exchanged for a 5 Romanian procedural sheath, and a 5 Romanian Omni Flush catheter was advanced to the infrarenal aorta. The J-wire was removed, and digital subtraction angiography was performed (see findings below). The J-wire was replaced and the flush catheter was seated at the aortic bifurcation. The wire and catheter were advanced into the right common femoral artery. The wire was removed and digital subtraction angiography of the right lower extremity was performed at multiple stations. Sheath angiography of the left common femoral artery was performed demonstrating satisfactory access location. All hardware was removed. Hemostasis was then achieved by deployment of a Perclose vascular closure device in the standard fashion. Patient tolerated the procedure well. There were no immediate complications. Iraj Sanabria MD was present throughout the procedure. FINDINGS: 1. Widely patent bilateral common iliac arteries, external iliac arteries, and major branches. Mild multifocal bilateral internal iliac artery stenoses. 2. Widely patent right common femoral artery. 3. Mild diffuse multifocal stenosis of the mid and distal superficial femoral artery, most prominent within the stent. Multifocal mild stenosis of the profunda femoris. 4. Widely patent popliteal artery and trifurcation. 5. Widely patent posterior tibial artery. 6. The proximal anterior tibial artery is patent and is occluded beyond the proximal portion without reconstitution. 7. Multifocal moderate to severe stenoses of the proximal and mid peroneal artery which is occluded beyond the mid portion. 8. The lateral and medial plantar arteries are patent. IMPRESSION IMPRESSION: 1. Widely patent distal abdominal aorta and bilateral common iliac, internal, and external arteries. 2. Widely patent right common femoral artery. 3. Right superficial femoral artery stent with multifocal mild to moderate stenoses. 4. The popliteal artery is patent. 5. Single vessel runoff with a patent posterior tibial artery. 6. Occluded right anterior tibial artery in the mid and distal portions. Diminutive peroneal artery with multifocal moderate to severe stenoses and occlusion beyond the mid portion. Dictated By: Lidia Dash MD, 01/24/2019 12:06 PM I have reviewed the study and agree with the findings in this report. Signed By: Iraj Sanabria MD, 01/24/2019 12:15 PM Performing Organization Address City/State/Zipcode Phone Number SMS * IR U/S GUIDANCE FOR VASCULAR ACCESS (01/12/2019 4:33 PM REINFORCED IRONWORKER) Specimen Impressions Performed At IMPRESSION: SMS 1.Widely patent distal abdominal aorta and bilateral common iliac, internal, and external arteries. 2.Widely patent right common femoral artery. 3.Right superficial femoral artery stent with multifocal mild to moderate stenoses. 4.The popliteal artery is patent. 5.Single vessel runoff with a patent posterior tibial artery. 6.Occluded right anterior tibial artery in the mid and distal portions. Diminutive peroneal artery with multifocal moderate to severe stenoses and occlusion beyond the mid portion. Dictated By: Lidia Dash MD, 01/24/2019 12:06 PM I have reviewed the study and agree with the findings in this report. Signed By: Iraj Sanabria MD, 01/24/2019 12:15 PM Narrative Performed At Procedure: Right lower extremity angiogram SMS Date and Time: 01/12/2019 4:33 PM webfed offset press operator: Iraj Sanabria MD Assistants: Dr. Lidia Dash MD Staff: Iraj Sanabria MD Preoperative diagnosis: Peripheral arterial disease with right popliteal stenosis Post operative diagnosis: Peripheral arterial disease with right popliteal stenosis Conscious Sedation: 25 mcg Fentanyl and 0.5 mg Versed. Patient was continuously monitored by the dedicated IR nurse. Sedation time: 50 min Fluoro time: 5.6 min Dose-area Product: 63 mGycm^2 Frontal Air Kerma: 88702 mGy Contrast used: 100 mL Omnipaque-300 Estimated blood loss: less than 5 mL Specimens: N/A Implants/Grafts: None Blood Products Administered: None Complications: No Immediate. Condition at procedure completion: Stable Disposition: Floor CPT procedure code: 10082, 54607, 65957, 66932, 04804, G0269, 59498, 38872, 64158 DISCUSSION: Informed consent was obtained and the patient placed supine on the fluoroscopy table. A timeout was performed. The left groin was prepped and draped in standard sterile fashion. 1% lidocaine was infiltrated into the subcutaneous soft tissues for local anesthesia. Under ultrasound guidance, a 21-gauge micropuncture needle was advanced into the left common femoral artery. A specialty sales representative image was stored in the electronic medical record. A 0.018 inch guidewire was advanced into the left common femoral artery under fluoroscopic guidance. The microwire was removed and a 5 Romanian access sheath was advanced over the guidewire. The guidewire and inner stiffener were removed and a 0.035" J-wire was advanced to the infrarenal aorta. The access sheath was exchanged for a 5 Romanian procedural sheath, and a 5 Romanian Omni Flush catheter was advanced to the infrarenal aorta. The J-wire was removed, and digital subtraction angiography was performed (see findings below). The J-wire was replaced and the flush catheter was seated at the aortic bifurcation. The wire and catheter were advanced into the right common femoral artery. The wire was removed and digital subtraction angiography of the right lower extremity was performed at multiple stations. Sheath angiography of the left common femoral artery was performed demonstrating satisfactory access location. All hardware was removed. Hemostasis was then achieved by deployment of a Perclose vascular closure device in the standard fashion. Patient tolerated the procedure well. There were no immediate complications. Iraj Sanabria MD was present throughout the procedure. FINDINGS: 1.Widely patent bilateral common iliac arteries, external iliac arteries, and major branches. Mild multifocal bilateral internal iliac artery stenoses. 2.Widely patent right common femoral artery. 3.Mild diffuse multifocal stenosis of the mid and distal superficial femoral artery, most prominent within the stent. Multifocal mild stenosis of the profunda femoris. 4.Widely patent popliteal artery and trifurcation. 5.Widely patent posterior tibial artery. 6.The proximal anterior tibial artery is patent and is occluded beyond the proximal portion without reconstitution. 7.Multifocal moderate to severe stenoses of the proximal and mid peroneal artery which is occluded beyond the mid portion. 8.The lateral and medial plantar arteries are patent. Procedure Note Interface, Rad/Mammog In - 01/24/2019 12:20 PM CDT Procedure: Right lower extremity angiogram Date and Time: 01/12/2019 4:33 PM webfed offset press operator: Iraj Sanabria MD Assistants: Dr. Lidai Dash MD Staff: Iraj Sanabria MD Preoperative diagnosis: Peripheral arterial disease with right popliteal stenosis Post operative diagnosis: Peripheral arterial disease with right popliteal stenosis Conscious Sedation: 25 mcg Fentanyl and 0.5 mg Versed. Patient was continuously monitored by the dedicated IR nurse. Sedation time: 50 min Fluoro time: 5.6 min Dose-area Product: 63 mGycm^2 Frontal Air Kerma: 83357 mGy Contrast used: 100 mL Omnipaque-300 Estimated blood loss: less than 5 mL Specimens: N/A Implants/Grafts: None Blood Products Administered: None Complications: No Immediate. Condition at procedure completion: Stable Disposition: Floor CPT procedure code: 99764, 84799, 25034, 26291, 72132, G0269, 69334, 22737, 64704 DISCUSSION: Informed consent was obtained and the patient placed supine on the fluoroscopy table. A timeout was performed. The left groin was prepped and draped in standard sterile fashion. 1% lidocaine was infiltrated into the subcutaneous soft tissues for local anesthesia. Under ultrasound guidance, a 21-gauge micropuncture needle was advanced into the left common femoral artery. A specialty sales representative image was stored in the electronic medical record. A 0.018 inch guidewire was advanced into the left common femoral artery under fluoroscopic guidance. The microwire was removed and a 5 Romanian access sheath was advanced over the guidewire. The guidewire and inner stiffener were removed and a 0.035" J-wire was advanced to the infrarenal aorta. The access sheath was exchanged for a 5 Romanian procedural sheath, and a 5 Romanian Omni Flush catheter was advanced to the infrarenal aorta. The J-wire was removed, and digital subtraction angiography was performed (see findings below). The J-wire was replaced and the flush catheter was seated at the aortic bifurcation. The wire and catheter were advanced into the right common femoral artery. The wire was removed and digital subtraction angiography of the right lower extremity was performed at multiple stations. Sheath angiography of the left common femoral artery was performed demonstrating satisfactory access location. All hardware was removed. Hemostasis was then achieved by deployment of a Perclose vascular closure device in the standard fashion. Patient tolerated the procedure well. There were no immediate complications. Iraj Sanabria MD was present throughout the procedure. FINDINGS: 1. Widely patent bilateral common iliac arteries, external iliac arteries, and major branches. Mild multifocal bilateral internal iliac artery stenoses. 2. Widely patent right common femoral artery. 3. Mild diffuse multifocal stenosis of the mid and distal superficial femoral artery, most prominent within the stent. Multifocal mild stenosis of the profunda femoris. 4. Widely patent popliteal artery and trifurcation. 5. Widely patent posterior tibial artery. 6. The proximal anterior tibial artery is patent and is occluded beyond the proximal portion without reconstitution. 7. Multifocal moderate to severe stenoses of the proximal and mid peroneal artery which is occluded beyond the mid portion. 8. The lateral and medial plantar arteries are patent. IMPRESSION IMPRESSION: 1. Widely patent distal abdominal aorta and bilateral common iliac, internal, and external arteries. 2. Widely patent right common femoral artery. 3. Right superficial femoral artery stent with multifocal mild to moderate stenoses. 4. The popliteal artery is patent. 5. Single vessel runoff with a patent posterior tibial artery. 6. Occluded right anterior tibial artery in the mid and distal portions. Diminutive peroneal artery with multifocal moderate to severe stenoses and occlusion beyond the mid portion. Dictated By: Lidia Dash MD, 01/24/2019 12:06 PM I have reviewed the study and agree with the findings in this report. Signed By: Iraj Sanabria MD, 01/24/2019 12:15 PM Performing Organization Address City/State/Zipcode Phone Number SMS * IR ANGIOGRAM EXT. UNILATERAL (01/12/2019 4:33 PM REINFORCED IRONWORKER) Specimen Impressions Performed At IMPRESSION: SMS 1.Widely patent distal abdominal aorta and bilateral common iliac, internal, and external arteries. 2.Widely patent right common femoral artery. 3.Right superficial femoral artery stent with multifocal mild to moderate stenoses. 4.The popliteal artery is patent. 5.Single vessel runoff with a patent posterior tibial artery. 6.Occluded right anterior tibial artery in the mid and distal portions. Diminutive peroneal artery with multifocal moderate to severe stenoses and occlusion beyond the mid portion. Dictated By: Lidia Dash MD, 01/24/2019 12:06 PM I have reviewed the study and agree with the findings in this report. Signed By: Iraj Sanabria MD, 01/24/2019 12:15 PM Narrative Performed At Procedure: Right lower extremity angiogram SMS Date and Time: 01/12/2019 4:33 PM webfed offset press operator: Iraj Sanabria MD Assistants: Dr. Lidia Dash MD Staff: Iraj Sanabria MD Preoperative diagnosis: Peripheral arterial disease with right popliteal stenosis Post operative diagnosis: Peripheral arterial disease with right popliteal stenosis Conscious Sedation: 25 mcg Fentanyl and 0.5 mg Versed. Patient was continuously monitored by the dedicated IR nurse. Sedation time: 50 min Fluoro time: 5.6 min Dose-area Product: 63 mGycm^2 Frontal Air Kerma: 17806 mGy Contrast used: 100 mL Omnipaque-300 Estimated blood loss: less than 5 mL Specimens: N/A Implants/Grafts: None Blood Products Administered: None Complications: No Immediate. Condition at procedure completion: Stable Disposition: Floor CPT procedure code: 24031, 52200, 26709, 37246, 61193, G0269, 64991, 88871, 15457 DISCUSSION: Informed consent was obtained and the patient placed supine on the fluoroscopy table. A timeout was performed. The left groin was prepped and draped in standard sterile fashion. 1% lidocaine was infiltrated into the subcutaneous soft tissues for local anesthesia. Under ultrasound guidance, a 21-gauge micropuncture needle was advanced into the left common femoral artery. A specialty sales representative image was stored in the electronic medical record. A 0.018 inch guidewire was advanced into the left common femoral artery under fluoroscopic guidance. The microwire was removed and a 5 Romanian access sheath was advanced over the guidewire. The guidewire and inner stiffener were removed and a 0.035" J-wire was advanced to the infrarenal aorta. The access sheath was exchanged for a 5 Romanian procedural sheath, and a 5 Romanian Omni Flush catheter was advanced to the infrarenal aorta. The J-wire was removed, and digital subtraction angiography was performed (see findings below). The J-wire was replaced and the flush catheter was seated at the aortic bifurcation. The wire and catheter were advanced into the right common femoral artery. The wire was removed and digital subtraction angiography of the right lower extremity was performed at multiple stations. Sheath angiography of the left common femoral artery was performed demonstrating satisfactory access location. All hardware was removed. Hemostasis was then achieved by deployment of a Perclose vascular closure device in the standard fashion. Patient tolerated the procedure well. There were no immediate complications. Iraj Sanabria MD was present throughout the procedure. FINDINGS: 1.Widely patent bilateral common iliac arteries, external iliac arteries, and major branches. Mild multifocal bilateral internal iliac artery stenoses. 2.Widely patent right common femoral artery. 3.Mild diffuse multifocal stenosis of the mid and distal superficial femoral artery, most prominent within the stent. Multifocal mild stenosis of the profunda femoris. 4.Widely patent popliteal artery and trifurcation. 5.Widely patent posterior tibial artery. 6.The proximal anterior tibial artery is patent and is occluded beyond the proximal portion without reconstitution. 7.Multifocal moderate to severe stenoses of the proximal and mid peroneal artery which is occluded beyond the mid portion. 8.The lateral and medial plantar arteries are patent. Procedure Note Interface, Rad/Mammog In - 01/24/2019 12:20 PM CDT Procedure: Right lower extremity angiogram Date and Time: 01/12/2019 4:33 PM webfed offset press operator: Iraj Sanabria MD Assistants: Dr. Lidia Dash MD Staff: Iraj Sanabria MD Preoperative diagnosis: Peripheral arterial disease with right popliteal stenosis Post operative diagnosis: Peripheral arterial disease with right popliteal stenosis Conscious Sedation: 25 mcg Fentanyl and 0.5 mg Versed. Patient was continuously monitored by the dedicated IR nurse. Sedation time: 50 min Fluoro time: 5.6 min Dose-area Product: 63 mGycm^2 Frontal Air Kerma: 28848 mGy Contrast used: 100 mL Omnipaque-300 Estimated blood loss: less than 5 mL Specimens: N/A Implants/Grafts: None Blood Products Administered: None Complications: No Immediate. Condition at procedure completion: Stable Disposition: Floor CPT procedure code: 45450, 95306, 38010, 84950, 13095, G0269, 75513, 52520, 16919 DISCUSSION: Informed consent was obtained and the patient placed supine on the fluoroscopy table. A timeout was performed. The left groin was prepped and draped in standard sterile fashion. 1% lidocaine was infiltrated into the subcutaneous soft tissues for local anesthesia. Under ultrasound guidance, a 21-gauge micropuncture needle was advanced into the left common femoral artery. A specialty sales representative image was stored in the electronic medical record. A 0.018 inch guidewire was advanced into the left common femoral artery under fluoroscopic guidance. The microwire was removed and a 5 Romanian access sheath was advanced over the guidewire. The guidewire and inner stiffener were removed and a 0.035" J-wire was advanced to the infrarenal aorta. The access sheath was exchanged for a 5 Romanian procedural sheath, and a 5 Romanian Omni Flush catheter was advanced to the infrarenal aorta. The J-wire was removed, and digital subtraction angiography was performed (see findings below). The J-wire was replaced and the flush catheter was seated at the aortic bifurcation. The wire and catheter were advanced into the right common femoral artery. The wire was removed and digital subtraction angiography of the right lower extremity was performed at multiple stations. Sheath angiography of the left common femoral artery was performed demonstrating satisfactory access location. All hardware was removed. Hemostasis was then achieved by deployment of a Perclose vascular closure device in the standard fashion. Patient tolerated the procedure well. There were no immediate complications. Iraj Sanabria MD was present throughout the procedure. FINDINGS: 1. Widely patent bilateral common iliac arteries, external iliac arteries, and major branches. Mild multifocal bilateral internal iliac artery stenoses. 2. Widely patent right common femoral artery. 3. Mild diffuse multifocal stenosis of the mid and distal superficial femoral artery, most prominent within the stent. Multifocal mild stenosis of the profunda femoris. 4. Widely patent popliteal artery and trifurcation. 5. Widely patent posterior tibial artery. 6. The proximal anterior tibial artery is patent and is occluded beyond the proximal portion without reconstitution. 7. Multifocal moderate to severe stenoses of the proximal and mid peroneal artery which is occluded beyond the mid portion. 8. The lateral and medial plantar arteries are patent. IMPRESSION IMPRESSION: 1. Widely patent distal abdominal aorta and bilateral common iliac, internal, and external arteries. 2. Widely patent right common femoral artery. 3. Right superficial femoral artery stent with multifocal mild to moderate stenoses. 4. The popliteal artery is patent. 5. Single vessel runoff with a patent posterior tibial artery. 6. Occluded right anterior tibial artery in the mid and distal portions. Diminutive peroneal artery with multifocal moderate to severe stenoses and occlusion beyond the mid portion. Dictated By: Lidia Dash MD, 01/24/2019 12:06 PM I have reviewed the study and agree with the findings in this report. Signed By: Iraj Sanabria MD, 01/24/2019 12:15 PM Performing Organization Address City/State/Zipcode Phone Number SMS * IR ABDOMINAL AORTOGRAM (01/12/2019 4:33 PM REINFORCED IRONWORKER) Specimen Impressions Performed At IMPRESSION: SMS 1.Widely patent distal abdominal aorta and bilateral common iliac, internal, and external arteries. 2.Widely patent right common femoral artery. 3.Right superficial femoral artery stent with multifocal mild to moderate stenoses. 4.The popliteal artery is patent. 5.Single vessel runoff with a patent posterior tibial artery. 6.Occluded right anterior tibial artery in the mid and distal portions. Diminutive peroneal artery with multifocal moderate to severe stenoses and occlusion beyond the mid portion. Dictated By: Lidia Dash MD, 01/24/2019 12:06 PM I have reviewed the study and agree with the findings in this report. Signed By: Iraj Sanabria MD, 01/24/2019 12:15 PM Narrative Performed At Procedure: Right lower extremity angiogram SMS Date and Time: 01/12/2019 4:33 PM webfed offset press operator: Iraj Sanabria MD Assistants: Dr. Lidia Dash MD Staff: Iraj Sanabria MD Preoperative diagnosis: Peripheral arterial disease with right popliteal stenosis Post operative diagnosis: Peripheral arterial disease with right popliteal stenosis Conscious Sedation: 25 mcg Fentanyl and 0.5 mg Versed. Patient was continuously monitored by the dedicated IR nurse. Sedation time: 50 min Fluoro time: 5.6 min Dose-area Product: 63 mGycm^2 Frontal Air Kerma: 77705 mGy Contrast used: 100 mL Omnipaque-300 Estimated blood loss: less than 5 mL Specimens: N/A Implants/Grafts: None Blood Products Administered: None Complications: No Immediate. Condition at procedure completion: Stable Disposition: Floor CPT procedure code: 60902, 99826, 97532, 38512, 86127, G0269, 79307, 31792, 14951 DISCUSSION: Informed consent was obtained and the patient placed supine on the fluoroscopy table. A timeout was performed. The left groin was prepped and draped in standard sterile fashion. 1% lidocaine was infiltrated into the subcutaneous soft tissues for local anesthesia. Under ultrasound guidance, a 21-gauge micropuncture needle was advanced into the left common femoral artery. A specialty sales representative image was stored in the electronic medical record. A 0.018 inch guidewire was advanced into the left common femoral artery under fluoroscopic guidance. The microwire was removed and a 5 Romanian access sheath was advanced over the guidewire. The guidewire and inner stiffener were removed and a 0.035" J-wire was advanced to the infrarenal aorta. The access sheath was exchanged for a 5 Romanian procedural sheath, and a 5 Romanian Omni Flush catheter was advanced to the infrarenal aorta. The J-wire was removed, and digital subtraction angiography was performed (see findings below). The J-wire was replaced and the flush catheter was seated at the aortic bifurcation. The wire and catheter were advanced into the right common femoral artery. The wire was removed and digital subtraction angiography of the right lower extremity was performed at multiple stations. Sheath angiography of the left common femoral artery was performed demonstrating satisfactory access location. All hardware was removed. Hemostasis was then achieved by deployment of a Perclose vascular closure device in the standard fashion. Patient tolerated the procedure well. There were no immediate complications. Iraj Sanabria MD was present throughout the procedure. FINDINGS: 1.Widely patent bilateral common iliac arteries, external iliac arteries, and major branches. Mild multifocal bilateral internal iliac artery stenoses. 2.Widely patent right common femoral artery. 3.Mild diffuse multifocal stenosis of the mid and distal superficial femoral artery, most prominent within the stent. Multifocal mild stenosis of the profunda femoris. 4.Widely patent popliteal artery and trifurcation. 5.Widely patent posterior tibial artery. 6.The proximal anterior tibial artery is patent and is occluded beyond the proximal portion without reconstitution. 7.Multifocal moderate to severe stenoses of the proximal and mid peroneal artery which is occluded beyond the mid portion. 8.The lateral and medial plantar arteries are patent. Procedure Note Interface, Rad/Mammog In - 01/24/2019 12:20 PM CDT Procedure: Right lower extremity angiogram Date and Time: 01/12/2019 4:33 PM webfed offset press operator: Iraj Sanabria MD Assistants: Dr. Lidia Dash MD Staff: Iraj Sanabria MD Preoperative diagnosis: Peripheral arterial disease with right popliteal stenosis Post operative diagnosis: Peripheral arterial disease with right popliteal stenosis Conscious Sedation: 25 mcg Fentanyl and 0.5 mg Versed. Patient was continuously monitored by the dedicated IR nurse. Sedation time: 50 min Fluoro time: 5.6 min Dose-area Product: 63 mGycm^2 Frontal Air Kerma: 49402 mGy Contrast used: 100 mL Omnipaque-300 Estimated blood loss: less than 5 mL Specimens: N/A Implants/Grafts: None Blood Products Administered: None Complications: No Immediate. Condition at procedure completion: Stable Disposition: Floor CPT procedure code: 18879, 92351, 57146, 07120, 17523, G0269, 83942, 25682, 49980 DISCUSSION: Informed consent was obtained and the patient placed supine on the fluoroscopy table. A timeout was performed. The left groin was prepped and draped in standard sterile fashion. 1% lidocaine was infiltrated into the subcutaneous soft tissues for local anesthesia. Under ultrasound guidance, a 21-gauge micropuncture needle was advanced into the left common femoral artery. A specialty sales representative image was stored in the electronic medical record. A 0.018 inch guidewire was advanced into the left common femoral artery under fluoroscopic guidance. The microwire was removed and a 5 Romanian access sheath was advanced over the guidewire. The guidewire and inner stiffener were removed and a 0.035" J-wire was advanced to the infrarenal aorta. The access sheath was exchanged for a 5 Romanian procedural sheath, and a 5 Romanian Omni Flush catheter was advanced to the infrarenal aorta. The J-wire was removed, and digital subtraction angiography was performed (see findings below). The J-wire was replaced and the flush catheter was seated at the aortic bifurcation. The wire and catheter were advanced into the right common femoral artery. The wire was removed and digital subtraction angiography of the right lower extremity was performed at multiple stations. Sheath angiography of the left common femoral artery was performed demonstrating satisfactory access location. All hardware was removed. Hemostasis was then achieved by deployment of a Perclose vascular closure device in the standard fashion. Patient tolerated the procedure well. There were no immediate complications. Iraj Sanabria MD was present throughout the procedure. FINDINGS: 1. Widely patent bilateral common iliac arteries, external iliac arteries, and major branches. Mild multifocal bilateral internal iliac artery stenoses. 2. Widely patent right common femoral artery. 3. Mild diffuse multifocal stenosis of the mid and distal superficial femoral artery, most prominent within the stent. Multifocal mild stenosis of the profunda femoris. 4. Widely patent popliteal artery and trifurcation. 5. Widely patent posterior tibial artery. 6. The proximal anterior tibial artery is patent and is occluded beyond the proximal portion without reconstitution. 7. Multifocal moderate to severe stenoses of the proximal and mid peroneal artery which is occluded beyond the mid portion. 8. The lateral and medial plantar arteries are patent. IMPRESSION IMPRESSION: 1. Widely patent distal abdominal aorta and bilateral common iliac, internal, and external arteries. 2. Widely patent right common femoral artery. 3. Right superficial femoral artery stent with multifocal mild to moderate stenoses. 4. The popliteal artery is patent. 5. Single vessel runoff with a patent posterior tibial artery. 6. Occluded right anterior tibial artery in the mid and distal portions. Diminutive peroneal artery with multifocal moderate to severe stenoses and occlusion beyond the mid portion. Dictated By: Lidia Dash MD, 01/24/2019 12:06 PM I have reviewed the study and agree with the findings in this report. Signed By: Iraj Sanabria MD, 01/24/2019 12:15 PM Performing Organization Address City/State/Zipcode Phone Number SMS * PLACE CATH SUBSUBSELECT ART,ABD/PEL (01/12/2019 4:33 PM [employer]INFORCED IRONWORKER) Specimen Impressions Performed At IMPRESSION: SMS 1.Widely patent distal abdominal aorta and bilateral common iliac, internal, and external arteries. 2.Widely patent right common femoral artery. 3.Right superficial femoral artery stent with multifocal mild to moderate stenoses. 4.The popliteal artery is patent. 5.Single vessel runoff with a patent posterior tibial artery. 6.Occluded right anterior tibial artery in the mid and distal portions. Diminutive peroneal artery with multifocal moderate to severe stenoses and occlusion beyond the mid portion. Dictated By: Lidia Dash MD, 01/24/2019 12:06 PM I have reviewed the study and agree with the findings in this report. Signed By: Iraj Sanabria MD, 01/24/2019 12:15 PM Narrative Performed At Procedure: Right lower extremity angiogram SMS Date and Time: 01/12/2019 4:33 PM webfed offset press operator: Iraj Sanabria MD Assistants: Dr. Lidia Dash MD Staff: Iraj Sanabria MD Preoperative diagnosis: Peripheral arterial disease with right popliteal stenosis Post operative diagnosis: Peripheral arterial disease with right popliteal stenosis Conscious Sedation: 25 mcg Fentanyl and 0.5 mg Versed. Patient was continuously monitored by the dedicated IR nurse. Sedation time: 50 min Fluoro time: 5.6 min Dose-area Product: 63 mGycm^2 Frontal Air Kerma: 46658 mGy Contrast used: 100 mL Omnipaque-300 Estimated blood loss: less than 5 mL Specimens: N/A Implants/Grafts: None Blood Products Administered: None Complications: No Immediate. Condition at procedure completion: Stable Disposition: Floor CPT procedure code: 26934, 44273, 64289, 90551, 02020, G0269, 91291, 11996, 15085 DISCUSSION: Informed consent was obtained and the patient placed supine on the fluoroscopy table. A timeout was performed. The left groin was prepped and draped in standard sterile fashion. 1% lidocaine was infiltrated into the subcutaneous soft tissues for local anesthesia. Under ultrasound guidance, a 21-gauge micropuncture needle was advanced into the left common femoral artery. A specialty sales representative image was stored in the electronic medical record. A 0.018 inch guidewire was advanced into the left common femoral artery under fluoroscopic guidance. The microwire was removed and a 5 Romanian access sheath was advanced over the guidewire. The guidewire and inner stiffener were removed and a 0.035" J-wire was advanced to the infrarenal aorta. The access sheath was exchanged for a 5 Romanian procedural sheath, and a 5 Romanian Omni Flush catheter was advanced to the infrarenal aorta. The J-wire was removed, and digital subtraction angiography was performed (see findings below). The J-wire was replaced and the flush catheter was seated at the aortic bifurcation. The wire and catheter were advanced into the right common femoral artery. The wire was removed and digital subtraction angiography of the right lower extremity was performed at multiple stations. Sheath angiography of the left common femoral artery was performed demonstrating satisfactory access location. All hardware was removed. Hemostasis was then achieved by deployment of a Perclose vascular closure device in the standard fashion. Patient tolerated the procedure well. There were no immediate complications. Iraj Sanabria MD was present throughout the procedure. FINDINGS: 1.Widely patent bilateral common iliac arteries, external iliac arteries, and major branches. Mild multifocal bilateral internal iliac artery stenoses. 2.Widely patent right common femoral artery. 3.Mild diffuse multifocal stenosis of the mid and distal superficial femoral artery, most prominent within the stent. Multifocal mild stenosis of the profunda femoris. 4.Widely patent popliteal artery and trifurcation. 5.Widely patent posterior tibial artery. 6.The proximal anterior tibial artery is patent and is occluded beyond the proximal portion without reconstitution. 7.Multifocal moderate to severe stenoses of the proximal and mid peroneal artery which is occluded beyond the mid portion. 8.The lateral and medial plantar arteries are patent. Procedure Note Interface, Rad/Mammog In - 01/24/2019 12:20 PM CDT Procedure: Right lower extremity angiogram Date and Time: 01/12/2019 4:33 PM webfed offset press operator: Iraj Sanabria MD Assistants: Dr. Lidia Dash MD Staff: Iraj Sanabria MD Preoperative diagnosis: Peripheral arterial disease with right popliteal stenosis Post operative diagnosis: Peripheral arterial disease with right popliteal stenosis Conscious Sedation: 25 mcg Fentanyl and 0.5 mg Versed. Patient was continuously monitored by the dedicated IR nurse. Sedation time: 50 min Fluoro time: 5.6 min Dose-area Product: 63 mGycm^2 Frontal Air Kerma: 01303 mGy Contrast used: 100 mL Omnipaque-300 Estimated blood loss: less than 5 mL Specimens: N/A Implants/Grafts: None Blood Products Administered: None Complications: No Immediate. Condition at procedure completion: Stable Disposition: Floor CPT procedure code: 87238, 01096, 98081, 81145, 16471, G0269, 29563, 70184, 61677 DISCUSSION: Informed consent was obtained and the patient placed supine on the fluoroscopy table. A timeout was performed. The left groin was prepped and draped in standard sterile fashion. 1% lidocaine was infiltrated into the subcutaneous soft tissues for local anesthesia. Under ultrasound guidance, a 21-gauge micropuncture needle was advanced into the left common femoral artery. A specialty sales representative image was stored in the electronic medical record. A 0.018 inch guidewire was advanced into the left common femoral artery under fluoroscopic guidance. The microwire was removed and a 5 Romanian access sheath was advanced over the guidewire. The guidewire and inner stiffener were removed and a 0.035" J-wire was advanced to the infrarenal aorta. The access sheath was exchanged for a 5 Romanian procedural sheath, and a 5 Romanian Omni Flush catheter was advanced to the infrarenal aorta. The J-wire was removed, and digital subtraction angiography was performed (see findings below). The J-wire was replaced and the flush catheter was seated at the aortic bifurcation. The wire and catheter were advanced into the right common femoral artery. The wire was removed and digital subtraction angiography of the right lower extremity was performed at multiple stations. Sheath angiography of the left common femoral artery was performed demonstrating satisfactory access location. All hardware was removed. Hemostasis was then achieved by deployment of a Perclose vascular closure device in the standard fashion. Patient tolerated the procedure well. There were no immediate complications. Iraj Sanabria MD was present throughout the procedure. FINDINGS: 1. Widely patent bilateral common iliac arteries, external iliac arteries, and major branches. Mild multifocal bilateral internal iliac artery stenoses. 2. Widely patent right common femoral artery. 3. Mild diffuse multifocal stenosis of the mid and distal superficial femoral artery, most prominent within the stent. Multifocal mild stenosis of the profunda femoris. 4. Widely patent popliteal artery and trifurcation. 5. Widely patent posterior tibial artery. 6. The proximal anterior tibial artery is patent and is occluded beyond the proximal portion without reconstitution. 7. Multifocal moderate to severe stenoses of the proximal and mid peroneal artery which is occluded beyond the mid portion. 8. The lateral and medial plantar arteries are patent. IMPRESSION IMPRESSION: 1. Widely patent distal abdominal aorta and bilateral common iliac, internal, and external arteries. 2. Widely patent right common femoral artery. 3. Right superficial femoral artery stent with multifocal mild to moderate stenoses. 4. The popliteal artery is patent. 5. Single vessel runoff with a patent posterior tibial artery. 6. Occluded right anterior tibial artery in the mid and distal portions. Diminutive peroneal artery with multifocal moderate to severe stenoses and occlusion beyond the mid portion. Dictated By: Lidia Dash MD, 01/24/2019 12:06 PM I have reviewed the study and agree with the findings in this report. Signed By: Iraj Sanabria MD, 01/24/2019 12:15 PM Performing Organization Address City/State/Zipcode Phone Number SMS * COMPUTED TOMOGRAPHY ABDOMEN AND PELVIS WITHOUT CONTRAST (01/10/2019 10:09 AM REINFORCED IRONWORKER) Specimen Impressions Performed At IMPRESSION: SMS 1.Bilateral lower lobe consolidations compatible with bronchopneumonia. Associated trace bilateral effusions. 2.Diffuse wall thickening of the ascending colon and cecum with surrounding mild fat stranding may represent colitis. 3.Given both above findings, this may represent sepsis. 4.A 1 cm in soft tissue nodule in the left upper chest is indeterminate and may represent an injection granuloma. 5.A 1.8 cm left adrenal nodule is indeterminate. Recommend nonemergent CT of the abdomen without and with contrast (adrenal protocol) for further evaluation. If the report is "FINALIZED" it indicates that the attending/staff radiologist has reviewed the images and agrees with the resident's interpretation. Dictated By: Dell Christianson MD, 01/10/2019 11:28 AM I have reviewed the study and agree with the findings in this report. 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 Absence of intravenous contrast decreases sensitivity for detection of focal lesions and vascular pathology. Coronal and sagittal reformations were obtained. Routine protocol was performed. IV CONTRAST: None ORAL CONTRAST: None COMPLICATIONS: None RADIATION DOSE: Total DLP: 1139 mGy*cm Estimated effective dose: (DLP x 0.015 x size factor) mSv CTDIvol has been reviewed. It is below the limits set by the Radiation Protocol Committee (RPC). FINDINGS: LINES and TUBES: None. LUNGS AND AIRWAYS:Bilateral lower lobe ground glass consolidations in peribronchial distribution.Airways are normal. PLEURA: Trace bilateral pleural effusions. HEART AND MEDIASTINUM: The thyroid gland is normal.No mediastinal, hilar or axillary lymphadenopathy within the limits of the study.The heart is normal in size.. There is no pericardial effusion.Scattered aortic arch calcifications and severe coronary artery calcifications. HEPATOBILIARY: No focal hepatic lesions. No biliary ductal dilation. GALLBLADDER: Surgically absent. SPLEEN: No splenomegaly. PANCREAS: No focal masses or ductal dilatation. ADRENALS: A 1.6 cm right adrenal nodule attenuates -1 Hounsfield units, compatible with benign adenoma (series 2 image 146). A 1.8 cm left adrenal nodule is indeterminate (series 2 image 145). KIDNEYS/URETERS: Post surgical changes of total right nephrectomy. Left kidney is small with lobulated contour secondary to multiple cysts and cortical thinning.No stones. GI TRACT: Diffuse wall thickening of the ascending colon and cecum with surrounding mild fat stranding. No bowel dilatation or obstruction. Large volume hyperdense stool predominantly in the rectum. Mild diffuse mesenteric stranding likely represents edema. Appendix is normal. PELVIC ORGANS/BLADDER: Hyperdense material within the bladder lumen may be related to prior contrast administration at outside facility. LYMPH NODES: No lymphadenopathy. VESSELS: There is severe atherosclerotic disease in the aorta and major arterial branches. PERITONEUM / RETROPERITONEUM: Trace free fluid. BONES: Mild multilevel degenerative disc changes. Partially visualized cartilaginous calcifications in the proximal right humerus may represent bone infarct or enchondroma. SOFT TISSUES: Bilateral gynecomastia. A 1 cm nodule in the left upper chest (series 2 image 71). Fat stranding in the right groin likely related to recent arterial catheterization. 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 Absence of intravenous contrast decreases sensitivity for detection of focal lesions and vascular pathology. Coronal and sagittal reformations were obtained. Routine protocol was performed. IV CONTRAST: None ORAL CONTRAST: None COMPLICATIONS: None RADIATION DOSE: Total DLP: 1139 mGy*cm Estimated effective dose: (DLP x 0.015 x size factor) mSv CTDIvol has been reviewed. It is below the limits set by the Radiation Protocol Committee (RPC). FINDINGS: LINES and TUBES: None. LUNGS AND AIRWAYS: Bilateral lower lobe ground glass consolidations in peribronchial distribution. Airways are normal. PLEURA: Trace bilateral pleural effusions. HEART AND MEDIASTINUM: The thyroid gland is normal. No mediastinal, hilar or axillary lymphadenopathy within the limits of the study. The heart is normal in size.. There is no pericardial effusion. Scattered aortic arch calcifications and severe coronary artery calcifications. HEPATOBILIARY: No focal hepatic lesions. No biliary ductal dilation. GALLBLADDER: Surgically absent. SPLEEN: No splenomegaly. PANCREAS: No focal masses or ductal dilatation. ADRENALS: A 1.6 cm right adrenal nodule attenuates -1 Hounsfield units, compatible with benign adenoma (series 2 image 146). A 1.8 cm left adrenal nodule is indeterminate (series 2 image 145). KIDNEYS/URETERS: Post surgical changes of total right nephrectomy. Left kidney is small with lobulated contour secondary to multiple cysts and cortical thinning. No stones. GI TRACT: Diffuse wall thickening of the ascending colon and cecum with surrounding mild fat stranding. No bowel dilatation or obstruction. Large volume hyperdense stool predominantly in the rectum. Mild diffuse mesenteric stranding likely represents edema. Appendix is normal. PELVIC ORGANS/BLADDER: Hyperdense material within the bladder lumen may be related to prior contrast administration at outside facility. LYMPH NODES: No lymphadenopathy. VESSELS: There is severe atherosclerotic disease in the aorta and major arterial branches. PERITONEUM / RETROPERITONEUM: Trace free fluid. BONES: Mild multilevel degenerative disc changes. Partially visualized cartilaginous calcifications in the proximal right humerus may represent bone infarct or enchondroma. SOFT TISSUES: Bilateral gynecomastia. A 1 cm nodule in the left upper chest (series 2 image 71). Fat stranding in the right groin likely related to recent arterial catheterization. IMPRESSION IMPRESSION: 1. Bilateral lower lobe consolidations compatible with bronchopneumonia. Associated trace bilateral effusions. 2. Diffuse wall thickening of the ascending colon and cecum with surrounding mild fat stranding may represent colitis. 3. Given both above findings, this may represent sepsis. 4. A 1 cm in soft tissue nodule in the left upper chest is indeterminate and may represent an injection granuloma. 5. A 1.8 cm left adrenal nodule is indeterminate. Recommend nonemergent CT of the abdomen without and with contrast (adrenal protocol) for further evaluation. If the report is "FINALIZED" it indicates that the attending/staff radiologist has reviewed the images and agrees with the resident's interpretation. Dictated By: Dell Christianson MD, 01/10/2019 11:28 AM I have reviewed the study and agree with the findings in this report. Signed By: Erin Crane MD, 01/10/2019 2:52 PM Performing Organization Address City/State/Zipcode Phone Number SMS * CT CHEST W/O CONTRAST (01/10/2019 10:09 AM REINFORCED IRONWORKER) Specimen Impressions Performed At IMPRESSION: SMS 1.Bilateral lower lobe consolidations compatible with bronchopneumonia. Associated trace bilateral effusions. 2.Diffuse wall thickening of the ascending colon and cecum with surrounding mild fat stranding may represent colitis. 3.Given both above findings, this may represent sepsis. 4.A 1 cm in soft tissue nodule in the left upper chest is indeterminate and may represent an injection granuloma. 5.A 1.8 cm left adrenal nodule is indeterminate. Recommend nonemergent CT of the abdomen without and with contrast (adrenal protocol) for further evaluation. If the report is "FINALIZED" it indicates that the attending/staff radiologist has reviewed the images and agrees with the resident's interpretation. Dictated By: Dell Christianson MD, 01/10/2019 11:28 AM I have reviewed the study and agree with the findings in this report. 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 Absence of intravenous contrast decreases sensitivity for detection of focal lesions and vascular pathology. Coronal and sagittal reformations were obtained. Routine protocol was performed. IV CONTRAST: None ORAL CONTRAST: None COMPLICATIONS: None RADIATION DOSE: Total DLP: 1139 mGy*cm Estimated effective dose: (DLP x 0.015 x size factor) mSv CTDIvol has been reviewed. It is below the limits set by the Radiation Protocol Committee (RPC). FINDINGS: LINES and TUBES: None. LUNGS AND AIRWAYS:Bilateral lower lobe ground glass consolidations in peribronchial distribution.Airways are normal. PLEURA: Trace bilateral pleural effusions. HEART AND MEDIASTINUM: The thyroid gland is normal.No mediastinal, hilar or axillary lymphadenopathy within the limits of the study.The heart is normal in size.. There is no pericardial effusion.Scattered aortic arch calcifications and severe coronary artery calcifications. HEPATOBILIARY: No focal hepatic lesions. No biliary ductal dilation. GALLBLADDER: Surgically absent. SPLEEN: No splenomegaly. PANCREAS: No focal masses or ductal dilatation. ADRENALS: A 1.6 cm right adrenal nodule attenuates -1 Hounsfield units, compatible with benign adenoma (series 2 image 146). A 1.8 cm left adrenal nodule is indeterminate (series 2 image 145). KIDNEYS/URETERS: Post surgical changes of total right nephrectomy. Left kidney is small with lobulated contour secondary to multiple cysts and cortical thinning.No stones. GI TRACT: Diffuse wall thickening of the ascending colon and cecum with surrounding mild fat stranding. No bowel dilatation or obstruction. Large volume hyperdense stool predominantly in the rectum. Mild diffuse mesenteric stranding likely represents edema. Appendix is normal. PELVIC ORGANS/BLADDER: Hyperdense material within the bladder lumen may be related to prior contrast administration at outside facility. LYMPH NODES: No lymphadenopathy. VESSELS: There is severe atherosclerotic disease in the aorta and major arterial branches. PERITONEUM / RETROPERITONEUM: Trace free fluid. BONES: Mild multilevel degenerative disc changes. Partially visualized cartilaginous calcifications in the proximal right humerus may represent bone infarct or enchondroma. SOFT TISSUES: Bilateral gynecomastia. A 1 cm nodule in the left upper chest (series 2 image 71). Fat stranding in the right groin likely related to recent arterial catheterization. 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 Absence of intravenous contrast decreases sensitivity for detection of focal lesions and vascular pathology. Coronal and sagittal reformations were obtained. Routine protocol was performed. IV CONTRAST: None ORAL CONTRAST: None COMPLICATIONS: None RADIATION DOSE: Total DLP: 1139 mGy*cm Estimated effective dose: (DLP x 0.015 x size factor) mSv CTDIvol has been reviewed. It is below the limits set by the Radiation Protocol Committee (RPC). FINDINGS: LINES and TUBES: None. LUNGS AND AIRWAYS: Bilateral lower lobe ground glass consolidations in peribronchial distribution. Airways are normal. PLEURA: Trace bilateral pleural effusions. HEART AND MEDIASTINUM: The thyroid gland is normal. No mediastinal, hilar or axillary lymphadenopathy within the limits of the study. The heart is normal in size.. There is no pericardial effusion. Scattered aortic arch calcifications and severe coronary artery calcifications. HEPATOBILIARY: No focal hepatic lesions. No biliary ductal dilation. GALLBLADDER: Surgically absent. SPLEEN: No splenomegaly. PANCREAS: No focal masses or ductal dilatation. ADRENALS: A 1.6 cm right adrenal nodule attenuates -1 Hounsfield units, compatible with benign adenoma (series 2 image 146). A 1.8 cm left adrenal nodule is indeterminate (series 2 image 145). KIDNEYS/URETERS: Post surgical changes of total right nephrectomy. Left kidney is small with lobulated contour secondary to multiple cysts and cortical thinning. No stones. GI TRACT: Diffuse wall thickening of the ascending colon and cecum with surrounding mild fat stranding. No bowel dilatation or obstruction. Large volume hyperdense stool predominantly in the rectum. Mild diffuse mesenteric stranding likely represents edema. Appendix is normal. PELVIC ORGANS/BLADDER: Hyperdense material within the bladder lumen may be related to prior contrast administration at outside facility. LYMPH NODES: No lymphadenopathy. VESSELS: There is severe atherosclerotic disease in the aorta and major arterial branches. PERITONEUM / RETROPERITONEUM: Trace free fluid. BONES: Mild multilevel degenerative disc changes. Partially visualized cartilaginous calcifications in the proximal right humerus may represent bone infarct or enchondroma. SOFT TISSUES: Bilateral gynecomastia. A 1 cm nodule in the left upper chest (series 2 image 71). Fat stranding in the right groin likely related to recent arterial catheterization. IMPRESSION IMPRESSION: 1. Bilateral lower lobe consolidations compatible with bronchopneumonia. Associated trace bilateral effusions. 2. Diffuse wall thickening of the ascending colon and cecum with surrounding mild fat stranding may represent colitis. 3. Given both above findings, this may represent sepsis. 4. A 1 cm in soft tissue nodule in the left upper chest is indeterminate and may represent an injection granuloma. 5. A 1.8 cm left adrenal nodule is indeterminate. Recommend nonemergent CT of the abdomen without and with contrast (adrenal protocol) for further evaluation. If the report is "FINALIZED" it indicates that the attending/staff radiologist has reviewed the images and agrees with the resident's interpretation. Dictated By: Dell Christianson MD, 01/10/2019 11:28 AM I have reviewed the study and agree with the findings in this report. Signed By: Erin Crane MD, 01/10/2019 2:52 PM Performing Organization Address City/State/Zipcode Phone Number SMS * ALDOLASE (01/09/2019 5:27 AM REINFORCED IRONWORKER) [facility]ol[facility] 7.3 LABORATORY Reference range: 3.3 to 10.3 CORPORATION OF Unit: U/L [place] Specimen Blood Performing Organization Address City/State/Zipcode Phone Number [facility] OF [address] [place] [address] [place] 145 * PHOSPHORUS (01/09/2019 5:27 AM REINFORCED IRONWORKER) Only the most recent of 6 results within the time period is included. Phosphorus 6.4 (H) 2.5 - 5.0 mg/dL BT MAIN-STATION 1 Specimen Blood Performing Organization Address [facility] Phone Number MISYS BT MAIN-STATION 1 * LDH (01/09/2019 5:27 AM REINFORCED IRONWORKER) LDH 195 140 - 271 U/L BT MAIN-STATION 1 Specimen Blood Performing Organization Address [facility] Phone Number MISYS BT MAIN-STATION 1 * CK (01/09/2019 5:27 AM REINFORCED IRONWORKER) CK 149 30 - 223 U/L BT MAIN-STATION 1 Specimen Blood Performing Organization Address [facility] Phone Number MISYS BT MAIN-STATION 1 * BASIC METABOLIC PANEL (01/09/2019 5:27 AM REINFORCED IRONWORKER) Only the most recent of 6 results within the time period is included. CO2 23 21 - 31 mmol/L BT MAIN-STATION 1 Chloride 95 (L) 98 - 107 mmol/L BT MAIN-STATION 1 Potassium 4.7 3.5 - 5.1 mmol/L BT MAIN-STATION 1 Sodium 132 (L) 136 - 145 mmol/L BT MAIN-STATION 1 Glucose 70 70 - 110 mg/dL BT MAIN-STATION 1 BUN 52 (H) 7 - 25 mg/dL BT MAIN-STATION 1 Creatinine 8.20 (H) 0.7 - 1.3 mg/dL BT MAIN-STATION 1 Anion Gap 14 BT MAIN-STATION 1 Calcium 8.5 (L) 8.6 - 10.3 mg/dL BT MAIN-STATION 1 GFR, Estimated 7 mL/min/1.73 m2 BT MAIN-STATION 1 eGFR If Africn 8 mL/min/1.73 m2 BT MAIN-STATION Am 1 Specimen Blood Performing Organization Address [facility] [place] Phone Number MISYS BT MAIN-STATION 1 * JULIO (01/09/2019 5:27 AM REINFORCED IRONWORKER) JULIO Screen Negative NEG BT DIAGNOSTIC IMMUNOLOGY Specimen Blood Performing Organization Address [facility] Phone Number MISYS BT DIAGNOSTIC IMMUNOLOGY * VIT D, 25-HYDROXY (01/08/2019 4:00 AM REINFORCED IRONWORKER) Vit D, 7.9 (L) 30 - 100 ng/mL BT DIAGNOSTIC 25-Hydroxy Comment: IMMUNOLOGY Vitamin D deficiency has been defined by the [place] of Medicine and Endocrine Society guideline as a level of serum 25-OH Vitamin D less than 20 ng/mL. The Endocrine Society further defines Vitamin D insufficiency as a level between 21 and 29 ng/mL and sufficiency as a level between 30 and 100 ng/mL. Specimen Performing Organization Address [facility] Phone Number MISYS BT DIAGNOSTIC IMMUNOLOGY * FERRITIN (01/08/2019 4:00 AM REINFORCED IRONWORKER) Ferritin 607.60 (H) 23.9 - 336.2 ng/mL BT MAIN-STATION 1 Specimen Blood Performing Organization Address [facility] Phone Number MISYS BT MAIN-STATION 1 * VITAMIN B12 (01/08/2019 4:00 AM REINFORCED IRONWORKER) Vitamin B12 861 211 - 911 pg/mL BT MAIN-STATION 1 Specimen Blood Performing Organization Address [facility] Phone Number MISYS BT MAIN-STATION 1 * TROPONIN I (01/08/2019 4:00 AM REINFORCED IRONWORKER) Only the most recent of 4 results within the time period is included. Troponin I 0.10 (H) <0.04 ng/mL BT MAIN-STATION 1 Specimen Performing Organization Address [facility] [place] Phone Number MISYS BT MAIN-STATION 1 * MAGNESIUM (01/08/2019 4:00 AM REINFORCED IRONWORKER) Only the most recent of 5 results within the time period is included. Magnesium 2.2 1.9 - 2.7 mg/dL BT MAIN-STATION 1 Specimen Blood Performing Organization Address [facility] [place] Phone Number MISYS BT MAIN-STATION 1 * IRON PROFILE (01/08/2019 4:00 AM REINFORCED IRONWORKER) Iron 46 (L) 50 - 212 ug/dL BT MAIN-STATION 1 TIBC 187 (L) 250 - 450 ug/dL BT MAIN-STATION 1 % Iron Sat 25 % BT MAIN-STATION 1 Specimen Blood Performing Organization Address [facility] Phone Number MISYS BT MAIN-STATION 1 * CALCIUM, IONIZED (01/08/2019 4:00 AM REINFORCED IRONWORKER) Only the most recent of 4 results within the time period is included. Calcium, 1.18 1.15 - 1.29 mmol/L BT 4TH FLOOR Ionized Specimen Blood Performing Organization Address [facility] Phone Number MISYS 4TH FLOOR * MYOGLOBIN, SER (01/07/2019 9:00 AM REINFORCED IRONWORKER) Myoglobin, Ser 1,566 (H) 17.4 - 105.7 ng/mL BT MAIN-STATION 1 Specimen Blood Performing Organization Address [facility] [place] Phone Number [facility] * CKMB, REFLEX (01/07/2019 9:00 AM REINFORCED IRONWORKER) CK-MB 3.1 0.6 - 6.3 ng/mL BT MAIN-STATION 1 CKMB Index 1.3 0 - 2.5 BT MAIN-STATION 1 Specimen Performing Organization Address [facility] [place] Phone Number [facility] * CK, TOTAL (01/07/2019 9:00 AM REINFORCED IRONWORKER) CK, Total 245 (H) 30 - 223 U/L BT MAIN-STATION 1 Specimen Blood Performing Organization Address [facility] [place] Phone Number [facility] 1 * LACTIC ACID (01/07/2019 2:18 AM REINFORCED IRONWORKER) Lactic Acid 1.1 0.5 - 2.2 mmol/L BT MAIN-STATION 1 Specimen Performing Organization Address [facility] [place] Phone Number MISYS BT MAIN-STATION 1 * ABG POC (01/07/2019 2:08 AM REINFORCED IRONWORKER) pH, Art POC 7.39 7.35 - 7.45 BT MAIN-STATION 1 pCO2,Art POC 46.7 (H) 32.0 - 45.0 mm Hg BT MAIN-STATION 1 pO2, Art POC 66 (L) 72 - 104 mm Hg BT MAIN-STATION 1 Base Excess, 3 mmol/L BT MAIN-STATION ART POC 1 HCO3, Art POC 28.3 (H) 22.0 - 26.0 mmol/L BT MAIN-STATION 1 % Sat, Art POC 92 (L) 95 - 99 % BT MAIN-STATION 1 Lactic Acid POC 1.04 0.4 - 2.0 mmol/L BT MAIN-STATION 1 [employer] Test N/A BT MAIN-STATION 1 Sample Type Art BT MAIN-STATION 1 Site L Radial BT MAIN-STATION 1 O2 Delivery Nasal [place] BT MAIN-STATION Device 1 TCO2, ART POC 30 21 - 32 mmol/L BT MAIN-STATION 1 Specimen Performing Organization Address [facility] [place] Phone Number MISYS BT MAIN-STATION 1 * 12 LEAD EKG (01/07/2019 1:57 AM REINFORCED IRONWORKER) 12 LEAD EKG FOR [facility] Test Date:2019-01-07 Pat Name: HERMAN FOREMAN Department: [facility] Room: 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 Measurements Intervals [place] Rate: 58 P:7 FL: 193 QRS: 5 QRSD: 94 T:115 QT: 441 QTc:434 Interpretive Statements SINUS BRADYCARDIA ST DEVIATION AND MODERATE T-WAVE ABNORMALITY, CONSIDER LATERAL ISCHEMIA [-0.1+ mV T WAVE IN I/aVL/V5/V6] Electronically Signed On 01-07-2019 4:40:21 REINFORCED IRONWORKER by Huong Macias M.D. Specimen Performing Organization Address [facility] [place] Phone Number [facility] * SYPHILIS SCREEN FOR INFECTION (01/07/2019 1:13 AM REINFORCED IRONWORKER) Treponemal Ab Negative BT DIAGNOSTIC IMMUNOLOGY Final Report Negative BT DIAGNOSTIC IMMUNOLOGY Specimen Performing Organization Address [facility] Phone Number MISYS BT DIAGNOSTIC IMMUNOLOGY * HEPATITIS PANEL (01/06/2019 2:35 PM REINFORCED IRONWORKER) Only the most recent of 2 results within the time period is included. HCV IgG Negative NEG BT MAIN-STATION 3 HBsAg Negative NEG BT MAIN-STATION 3 HAV, IgM Negative NEG BT MAIN-STATION 3 HBcAb, IgM Negative NEG BT MAIN-STATION 3 Specimen Blood Performing Organization Address [facility] Phone Number MISYS BT MAIN-STATION 3 * DUPLEX DOPPLER LOWER EXTREMITY ART BILATERAL (01/04/2019 3:08 PM REINFORCED IRONWORKER) Specimen Impressions Performed At IMPRESSION: [facility] 1.Extensive peripheral arterial disease involving bilateral lower extremities throughout. 2.Hemodynamically significant narrowing at the right distal popliteal artery, with findings suggestive of 50% decrease in caliber. 3.Minimal flow in the left posterior tibialis artery. Dictated By: Michele Tidwell MD, 01/04/2019 4:24 PM I have reviewed the study and agree with the findings in this report. Signed By: Heidi Brush MD, 01/04/2019 4:33 PM Narrative Performed At EXAM: US BILATERAL LOWER EXTREMITY ARTERIAL DOPPLER SMS DATE: 01/04/2019 3:09 PM INDICATION: eval PVD. ADDITIONAL INFORMATION: 68-year-old male with diabetic foot ulcers, with necrotic chronic ulcer of the right foot. Below knee amputation of the right leg is under consideration. COMPARISON: None. TECHNIQUE: Multiplanar grayscale, color Doppler and spectral Doppler ultrasound images of the bilateral lower extremity arteries. FINDINGS: Atherosclerotic plaque is seen throughout with focal areas of narrowing as described below. Right Extremity Waveforms: Common Femoral Artery: Peak systolic velocity of 183 cm/s. Monophasic, with parvus at tardus waveform. Profunda Femoral Artery: Peak systolic velocity of 125 cm/s. Biphasic, with parvus at tardus waveform. Superficial Femoral Artery: Peak systolic velocity of 97.5 cm/s proximally, 179 cm/s in the midportion, 99.3 cm/s distally. Biphasic, with parvus at tardus waveform. Popliteal Artery: Peak systolic velocity of 175 cm/s. Significant focal narrowing due to scattered plaque is seen in the distal portion of the popliteal artery, with peak systolic velocity as high as 278 cm/s just proximal to this narrowing. There is turbulent flow immediately distal to the narrowing with peak systolic velocity of 330 cm/s. Biphasic, with parvus at tardus waveform. Posterior Tibialis Artery: Peak systolic velocity of 105 cm/s. Monophasic, with parvus at tardus waveform. Anterior Tibialis Artery: Peak systolic velocity of 83.3 cm/s. Monophasic, low amplitude, with parvus at tardus waveform. Dorsalis Pedis Artery: Peak systolic velocity of 27.2 cm/s Monophasic, low amplitude, with parvus at tardus waveform. Left Extremity Waveforms: Common Femoral Artery: Peak systolic velocity of 201 cm/s Monophasic, with parvus at tardus waveform. Profunda Femoral Artery: Peak systolic velocity of 108 cm/s. Monophasic, with parvus at tardus waveform. Superficial Femoral Artery:Focal narrowing due to atherosclerotic plaque is seen at the proximal aspect. Peak systolic velocity immediately proximal to the narrowing is 115 cm/s. Monophasic, with parvus at tardus waveform. Popliteal Artery: Peak systolic velocity of 181 cm/s. Monophasic, with parvus at tardus waveform. Posterior Tibialis Artery: Minimal flow, with peak systolic views of 47 cm/s. Triphasic. Anterior Tibialis Artery: Peak systolic velocity is of 96 cm/s. Monophasic, low amplitude, with parvus at tardus waveform. Dorsalis Pedis Artery: Peak systolic velocity of 149 cm/s. Monophasic, with parvus at tardus waveform. Procedure Note Interface, Rad/Mammog In - 01/04/2019 4:38 PM REINFORCED IRONWORKER EXAM: US BILATERAL LOWER EXTREMITY ARTERIAL DOPPLER DATE: 01/04/2019 3:09 PM INDICATION: eval PVD. ADDITIONAL INFORMATION: 68-year-old male with diabetic foot ulcers, with necrotic chronic ulcer of the right foot. Below knee amputation of the right leg is under consideration. COMPARISON: None. TECHNIQUE: Multiplanar grayscale, color Doppler and spectral Doppler ultrasound images of the bilateral lower extremity arteries. FINDINGS: Atherosclerotic plaque is seen throughout with focal areas of narrowing as described below. Right Extremity Waveforms: Common Femoral Artery: Peak systolic velocity of 183 cm/s. Monophasic, with parvus at tardus waveform. Profunda Femoral Artery: Peak systolic velocity of 125 cm/s. Biphasic, with parvus at tardus waveform. Superficial Femoral Artery: Peak systolic velocity of 97.5 cm/s proximally, 179 cm/s in the midportion, 99.3 cm/s distally. Biphasic, with parvus at tardus waveform. Popliteal Artery: Peak systolic velocity of 175 cm/s. Significant focal narrowing due to scattered plaque is seen in the distal portion of the popliteal artery, with peak systolic velocity as high as 278 cm/s just proximal to this narrowing. There is turbulent flow immediately distal to the narrowing with peak systolic velocity of 330 cm/s. Biphasic, with parvus at tardus waveform. Posterior Tibialis Artery: Peak systolic velocity of 105 cm/s. Monophasic, with parvus at tardus waveform. Anterior Tibialis Artery: Peak systolic velocity of 83.3 cm/s. Monophasic, low amplitude, with parvus at tardus waveform. Dorsalis Pedis Artery: Peak systolic velocity of 27.2 cm/s Monophasic, low amplitude, with parvus at tardus waveform. Left Extremity Waveforms: Common Femoral Artery: Peak systolic velocity of 201 cm/s Monophasic, with parvus at tardus waveform. Profunda Femoral Artery: Peak systolic velocity of 108 cm/s. Monophasic, with parvus at tardus waveform. Superficial Femoral Artery: Focal narrowing due to atherosclerotic plaque is seen at the proximal aspect. Peak systolic velocity immediately proximal to the narrowing is 115 cm/s. Monophasic, with parvus at tardus waveform. Popliteal Artery: Peak systolic velocity of 181 cm/s. Monophasic, with parvus at tardus waveform. Posterior Tibialis Artery: Minimal flow, with peak systolic views of 47 cm/s. Triphasic. Anterior Tibialis Artery: Peak systolic velocity is of 96 cm/s. Monophasic, low amplitude, with parvus at tardus waveform. Dorsalis Pedis Artery: Peak systolic velocity of 149 cm/s. Monophasic, with parvus at tardus waveform. IMPRESSION IMPRESSION: 1. Extensive peripheral arterial disease involving bilateral lower extremities throughout. 2. Hemodynamically significant narrowing at the right distal popliteal artery, with findings suggestive of 50% decrease in caliber. 3. Minimal flow in the left posterior tibialis artery. Dictated By: Michele Tidwell MD, 01/04/2019 4:24 PM I have reviewed the study and agree with the findings in this report. Signed By: Heidi Brush MD, 01/04/2019 4:33 PM Performing Organization Address City/State/Zipcode Phone Number SMS * DUPLEX DOPPLER LOWER EXTREMITY VENOUS, BILATERAL (01/04/2019 2:05 PM REINFORCED IRONWORKER) Specimen Impressions Performed At IMPRESSION: [facility] NEGATIVE STUDY FOR ACUTE LOWER EXTREMITY DVT BILATERALLY. Signed By: Heidi Brush MD, 01/04/2019 2:10 PM Narrative Performed At BILATERAL LOWER EXTREMITY DEEP VENOUS DUPLEX DOPPLER ULTRASOUND [facility] DATE: 01/04/2019 7:18 AM . INDICATION: Eval DVT. COMPARISON: None. TECHNIQUE:Mcguire scale with compression maneuvers, Color Doppler and Spectral Doppler of the femoral, popliteal veins; augmentation in the femoral veins. RESULT: RIGHT LOWER EXTREMITY: Deep veins- Femoral vein: Patent and compressible, normal respiratory phasicity and response to augmentation. Popliteal vein: Patent and compressible, normal respiratory phasicity and response to augmentation. Superficial veins- Greater saphenous: Patent at insertion into common femoral vein; not otherwise assessed. LEFT LOWER EXTREMITY: Deep veins- Femoral vein: Patent and compressible, normal respiratory phasicity and response to augmentation. Popliteal vein: Patent and compressible, normal respiratory phasicity and response to augmentation. Superficial veins- Greater saphenous: Patent at insertion into common femoral vein; not otherwise assessed. Procedure Note Interface, Rad/Mammog In - 01/04/2019 3:08 PM REINFORCED IRONWORKER BILATERAL LOWER EXTREMITY DEEP VENOUS DUPLEX DOPPLER ULTRASOUND DATE: 01/04/2019 7:18 AM . INDICATION: Eval DVT. COMPARISON: None. TECHNIQUE: Mcguire scale with compression maneuvers, Color Doppler and Spectral Doppler of the femoral, popliteal veins; augmentation in the femoral veins. RESULT: RIGHT LOWER EXTREMITY: Deep veins- Femoral vein: Patent and compressible, normal respiratory phasicity and response to augmentation. Popliteal vein: Patent and compressible, normal respiratory phasicity and response to augmentation. Superficial veins- Greater saphenous: Patent at insertion into common femoral vein; not otherwise assessed. LEFT LOWER EXTREMITY: Deep veins- Femoral vein: Patent and compressible, normal respiratory phasicity and response to augmentation. Popliteal vein: Patent and compressible, normal respiratory phasicity and response to augmentation. Superficial veins- Greater saphenous: Patent at insertion into common femoral vein; not otherwise assessed. IMPRESSION IMPRESSION: NEGATIVE STUDY FOR ACUTE LOWER EXTREMITY DVT BILATERALLY. 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 Fellow Phys: Reason For Exam: Imaging Nurse:Radha Martínez Indications:, Abnormal findings on diagnostic imaging of heart and coronary circulation ICD-9 Codes: R93.1 Exam Type: Transesophageal Echo Procedure CPT:89230 Additional CPT: Ht (in): 71 BSA: 2.14 HR: 59 Wt (lb): 198BP: 125/ 50 Rhythm: Sinus rhythm Technical Quality:excellent History: left atrial mass MEASUREMENTS Normal ranges based on 95% confidence intervals for adults, some normal patients may fall outside of this range especially when indexing for BSA Medications Used fentanyl 25 mcg, midazolam 1 mg, lidocaine viscous Complications none Estimated Blood Loss: 0ml Specimen Removed: No Blood Transfusion: No Device Implanted: No Anesthesia/Sedation: Yes Post ASA Classification: 3 Probe Number: Proc. Components The procedure and risks were explained to the patient who consented to the study. After the procedure was explained and signed informed consent was obtained, topical and intravenous anesthesia was administered. The esophagus was intubated without difficulty and the probe was advanced to the mid- esophageal position, where standard 2D views and Doppler evaluation was performed. The probe was then advanced to the gastric fundus and all additional standard views were obtained. The patient tolerated the procedure well with no apparent complications. FINDINGS Left Ventricle The left ventricle is normal in size. LV systolic function is normal with an estimated LVEF 65-69%. Right Ventricle The right ventricle is normal in size and systolic function. Right Atrium The right atrium is normal in size.No right atrial thrombus or mass seen. Prominent Eustachian valve noted (normal finding). Left Atrium The left atrium is normal in size.No left atrial thrombus or mass seen. No spontaneous echo contrast. LA Appendage No left atrial appendage thrombus or mass seen. No spontaneous echo contrast. Normal left atrial appendage emptying velocity. 3 out of 4 pulmonic veins visualized. IA Septum The interatrial septum is normal.No evidence of interatrial shunt by Doppler evaluation or after agitated saline contrast administration. Mitral Valve Moderate mitral annular calcification. Structurally normal mitral valve without significant stenosis. There is minimal prolapse of secondary chordae of the anterior mitral leaflet into the left atrium. There is trace mitral regurgitation. No evidence of mitral valve vegetation. Aortic Valve The aortic valve is trileaflet and structurally normal. Calcification of the leaflet tips noted. There is no aortic stenosis. There is trace aortic regurgitation. No evidence of aortic valve vegetation. Tricuspid Valve Structurally normal tricuspid valve. There is trace tricuspid regurgitation. No evidence of tricuspid valve vegetation. Pulmonic Valve Structurally normal pulmonic valve. There is trace pulmonic regurgitation.No evidence of pulmonic valve vegetation. Pericardium No pericardial effusion. Aorta Normal aortic root for body surface area.Grade 3 atheroma in the visualized segments of the aorta. CONCLUSIONS 1. Normal LV size and systolic function with an estimated LVEF 64-69%. 2. Normal RV size and systolic function. 3. Normal biatrial size.No evidence of thrombus or mass in the atria or atrial appendages. 4. No evidence of interatrial shunt by color Doppler or after agitated saline contrast. 5. Moderate mitral annular calcification. Structurally normal mitral valve without significant stenosis. There is minimal prolapse of secondary chordae of the anterior mitral leaflet into the left atrium. There is trace mitral regurgitation. 6.Trace aortic , tricuspid and pulmonic regurgitation. 7. No evidence of valvular vegetation. 8. No pericardial effusion. 9. Grade 3 atheroma in the visualized segments of the aorta. Compared to prior TTE study from 01/03/19 there is now better visualization of the left atrium and mitral valve. The mobile structure noted in the left atrium on TTE is likely the minimal chord prolapse. No other mass lesion identified. No obvious vegetation visualized. Suggest clinical correlation. No prior study for comparison. Ana Rosa Galloway (Electronically Signed) Final Date:04 January 2019 12:26 Specimen Performing Organization Address City/State/Zipcode Phone Number SMS * MRI LUMBAR SPINE W/O CONTRAST (01/03/2019 9:23 PM REINFORCED IRONWORKER) Specimen Impressions Performed At IMPRESSION: [facility] 1.No acute fracture or epidural hematoma. No signs of cord contusion, given the limitation of the study 2.Cervical spinal stenosis, most pronounced at C3-C4 and C4-C5. As far as can be ascertained, there are no signs of compressive myelopathy. 3.Lumbar spondylosis most prominent at L2-L3 and L3-L4, with minimal crowding of the cauda equina this level This [facility] radiology report is a preliminary resident dictation until finalized by an attending.Changes to this preliminary report may occur in an additional preliminary or finalized version. Dictated By: Trayc Douglas MD, 01/04/2019 2:58 PM I have reviewed the study and agree with the findings in this report. Signed By: Trace Toure MD, 01/04/2019 3:33 PM Narrative Performed At EXAM: MRI CERVICAL SPINE WITHOUT CONTRAST [facility] EXAM: MRI THORACIC SPINE WITHOUT CONTRAST EXAM: MRI LUMBAR SPINE WITHOUT CONTRAST DATE: 01/03/2019 9:23 PM INDICATION: Weakness, fell. Weakness COMPARISON: None TECHNIQUE: Sagittal T1 and T2, axial T1 and [id number] are obtained through the entire spine. IV contrast: None. FINDINGS: There is normal bone marrow signal intensity. No cord compression or abnormal cord signal is identified. CERVICAL SPINE The craniovertebral junction has a normal appearance. The cerebellar tonsils are in normal position. The cervical vertebral alignment is normal. The cervical vertebral body heights are maintained. C2-C3: *Degenerative endplate sclerosis. *Mild circumferentialdisc bulge with minimal flattening of the ventral thecal sac. *No significant canal stenosis. *No definite myelopathic change is identified. *Moderate neuroforaminal narrowing on the left due to facet arthropathy. C3-C4: *Circumferential disc bulge with minimal flattening of the ventral thecal sac *Redundancy of the posterior longitudinal ligament. *Moderate canal stenosis. *No definite myelopathic change is identified *Moderate to severe bilateral neuroforaminal stenosis. C4-C5: *Posterior disc osteophyte complex is identified with flattening of the ventral thecal sac. *Redundancy of the posterior longitudinal ligament. *Severe canal stenosis is identified. *No definite myelopathic change is identified. *Severe bilateral neuroforaminal stenosis due to facet arthropathy. C5-C6: *Mild posterior disc bulge with flattening of the ventral thecal sac *No significant spinal canal stenosis. *Moderate to severe neuroforaminal stenosis on the right and severe neuroforaminal stenosis on the left. C6-C7: *Mild circumferential disc bulge *No significant spinal canal stenosis. *Moderate to severe neuroforaminal stenosis on the right and severe neuroforaminal stenosis on the left. C7-T1: *Small posterior central disc protrusion *No significant spinal canal or neural foraminal stenosis. ? THORACIC SPINE The vertebral alignment is normal. The vertebral heights are maintained. There is no significant spinal canal or neural foraminal stenosis. Multilevel degenerative Schmorl's nodes are noted, most prominent at T9-T12. 3 mm central disc protrusion at T4-T5 with minimal flattening of the ventral thecal sac. No spinal canal stenosis or myelopathic changes are identified. Benign hemangiomas at T6, T7 and T9. Otherwise the thoracic intervertebral discs demonstrate normal appearance. LUMBAR SPINE Mild crowding of the cauda equina at L2-L3 and L3-L4. Mild degenerative facet changes at L2-L3 and L3-L4. Mild to moderate neuroforaminal stenosis on the right at L4-L5 without impingement of the exiting nerves. Benign L3 hemangioma. Otherwise: The vertebral alignment is normal. The vertebral heights are maintained. Intervertebral disc heights and signal intensity are preserved. There is no significant spinal canal or neural foraminal stenosis. The?conus?terminates at?L1. It demonstrates normal signal intensity.?There is no abnormal thickening of the filum. OTHER: The visible paraspinous soft tissues appear unremarkable. There is no hydronephrosis bilaterally. Procedure Note Interface, Rad/Mammog In - 01/04/2019 3:39 PM REINFORCED IRONWORKER EXAM: MRI CERVICAL SPINE WITHOUT CONTRAST EXAM: MRI THORACIC SPINE WITHOUT CONTRAST EXAM: MRI LUMBAR SPINE WITHOUT CONTRAST DATE: 01/03/2019 9:23 PM INDICATION: Weakness, fell. Weakness COMPARISON: None TECHNIQUE: Sagittal T1 and T2, axial T1 and T2 images are obtained through the entire spine. IV contrast: None. FINDINGS: There is normal bone marrow signal intensity. No cord compression or abnormal cord signal is identified. CERVICAL SPINE The craniovertebral junction has a normal appearance. The cerebellar tonsils are in normal position. The cervical vertebral alignment is normal. The cervical vertebral body heights are maintained. C2-C3: * Degenerative endplate sclerosis. * Mild circumferential disc bulge with minimal flattening of the ventral thecal sac. * No significant canal stenosis. * No definite myelopathic change is identified. * Moderate neuroforaminal narrowing on the left due to facet arthropathy. C3-C4: * Circumferential disc bulge with minimal flattening of the ventral thecal sac * Redundancy of the posterior longitudinal ligament. * Moderate canal stenosis. * No definite myelopathic change is identified * Moderate to severe bilateral neuroforaminal stenosis. C4-C5: * Posterior disc osteophyte complex is identified with flattening of the ventral thecal sac. * Redundancy of the posterior longitudinal ligament. * Severe canal stenosis is identified. * No definite myelopathic change is identified. * Severe bilateral neuroforaminal stenosis due to facet arthropathy. C5-C6: * Mild posterior disc bulge with flattening of the ventral thecal sac * No significant spinal canal stenosis. * Moderate to severe neuroforaminal stenosis on the right and severe neuroforaminal stenosis on the left. C6-C7: * Mild circumferential disc bulge * No significant spinal canal stenosis. * Moderate to severe neuroforaminal stenosis on the right and severe neuroforaminal stenosis on the left. C7-T1: * Small posterior central disc protrusion * No significant spinal canal or neural foraminal stenosis. ? THORACIC SPINE The vertebral alignment is normal. The vertebral heights are maintained. There is no significant spinal canal or neural foraminal stenosis. Multilevel degenerative Schmorl's nodes are noted, most prominent at T9-T12. 3 mm central disc protrusion at T4-T5 with minimal flattening of the ventral thecal sac. No spinal canal stenosis or myelopathic changes are identified. Benign hemangiomas at T6, T7 and T9. Otherwise the thoracic intervertebral discs demonstrate normal appearance. LUMBAR SPINE Mild crowding of the cauda equina at L2-L3 and L3-L4. Mild degenerative facet changes at L2-L3 and L3-L4. Mild to moderate neuroforaminal stenosis on the right at L4-L5 without impingement of the exiting nerves. Benign L3 hemangioma. Otherwise: The vertebral alignment is normal. The vertebral heights are maintained. Intervertebral disc heights and signal intensity are preserved. There is no significant spinal canal or neural foraminal stenosis. The?conus?terminates at?L1. It demonstrates normal signal intensity.?There is no abnormal thickening of the filum. OTHER: The visible paraspinous soft tissues appear unremarkable. There is no hydronephrosis bilaterally. IMPRESSION IMPRESSION: 1. No acute fracture or epidural hematoma. No signs of cord contusion, given the limitation of the study 2. Cervical spinal stenosis, most pronounced at C3-C4 and C4-C5. As far as can be ascertained, there are no signs of compressive myelopathy. 3. Lumbar spondylosis most prominent at L2-L3 and L3-L4, with minimal crowding of the cauda equina this level This [facility] radiology report is a preliminary resident dictation until finalized by an attending. Changes to this preliminary report may occur in an additional preliminary or finalized version. Dictated By: Tracy Douglas MD, 01/04/2019 2:58 PM I have reviewed the study and agree with the findings in this report. Signed By: Trace Toure MD, 01/04/2019 3:33 PM Performing Organization Address City/State/Zipcode Phone Number SMS * MRI THORACIC SPINE W/O CONTRAST (01/03/2019 9:23 PM REINFORCED IRONWORKER) Specimen Impressions Performed At IMPRESSION: [facility] 1.No acute fracture or epidural hematoma. No signs of cord contusion, given the limitation of the study 2.Cervical spinal stenosis, most pronounced at C3-C4 and C4-C5. As far as can be ascertained, there are no signs of compressive myelopathy. 3.Lumbar spondylosis most prominent at L2-L3 and L3-L4, with minimal crowding of the cauda equina this level This [facility] radiology report is a preliminary resident dictation until finalized by an attending.Changes to this preliminary report may occur in an additional preliminary or finalized version. Dictated By: Tracy Douglas MD, 01/04/2019 2:58 PM I have reviewed the study and agree with the findings in this report. Signed By: Trace Toure MD, 01/04/2019 3:33 PM Narrative Performed At EXAM: MRI CERVICAL SPINE WITHOUT CONTRAST [facility] EXAM: MRI THORACIC SPINE WITHOUT CONTRAST EXAM: MRI LUMBAR SPINE WITHOUT CONTRAST DATE: 01/03/2019 9:23 PM INDICATION: Weakness, fell. Weakness COMPARISON: None TECHNIQUE: Sagittal T1 and T2, axial T1 and [id number] are obtained through the entire spine. IV contrast: None. FINDINGS: There is normal bone marrow signal intensity. No cord compression or abnormal cord signal is identified. CERVICAL SPINE The craniovertebral junction has a normal appearance. The cerebellar tonsils are in normal position. The cervical vertebral alignment is normal. The cervical vertebral body heights are maintained. C2-C3: *Degenerative endplate sclerosis. *Mild circumferentialdisc bulge with minimal flattening of the ventral thecal sac. *No significant canal stenosis. *No definite myelopathic change is identified. *Moderate neuroforaminal narrowing on the left due to facet arthropathy. C3-C4: *Circumferential disc bulge with minimal flattening of the ventral thecal sac *Redundancy of the posterior longitudinal ligament. *Moderate canal stenosis. *No definite myelopathic change is identified *Moderate to severe bilateral neuroforaminal stenosis. C4-C5: *Posterior disc osteophyte complex is identified with flattening of the ventral thecal sac. *Redundancy of the posterior longitudinal ligament. *Severe canal stenosis is identified. *No definite myelopathic change is identified. *Severe bilateral neuroforaminal stenosis due to facet arthropathy. C5-C6: *Mild posterior disc bulge with flattening of the ventral thecal sac *No significant spinal canal stenosis. *Moderate to severe neuroforaminal stenosis on the right and severe neuroforaminal stenosis on the left. C6-C7: *Mild circumferential disc bulge *No significant spinal canal stenosis. *Moderate to severe neuroforaminal stenosis on the right and severe neuroforaminal stenosis on the left. C7-T1: *Small posterior central disc protrusion *No significant spinal canal or neural foraminal stenosis. ? THORACIC SPINE The vertebral alignment is normal. The vertebral heights are maintained. There is no significant spinal canal or neural foraminal stenosis. Multilevel degenerative Schmorl's nodes are noted, most prominent at T9-T12. 3 mm central disc protrusion at T4-T5 with minimal flattening of the ventral thecal sac. No spinal canal stenosis or myelopathic changes are identified. Benign hemangiomas at T6, T7 and T9. Otherwise the thoracic intervertebral discs demonstrate normal appearance. LUMBAR SPINE Mild crowding of the cauda equina at L2-L3 and L3-L4. Mild degenerative facet changes at L2-L3 and L3-L4. Mild to moderate neuroforaminal stenosis on the right at L4-L5 without impingement of the exiting nerves. Benign L3 hemangioma. Otherwise: The vertebral alignment is normal. The vertebral heights are maintained. Intervertebral disc heights and signal intensity are preserved. There is no significant spinal canal or neural foraminal stenosis. The?conus?terminates at?L1. It demonstrates normal signal intensity.?There is no abnormal thickening of the filum. OTHER: The visible paraspinous soft tissues appear unremarkable. There is no hydronephrosis bilaterally. Procedure Note Interface, Rad/Mammog In - 01/04/2019 3:39 PM REINFORCED IRONWORKER EXAM: MRI CERVICAL SPINE WITHOUT CONTRAST EXAM: MRI THORACIC SPINE WITHOUT CONTRAST EXAM: MRI LUMBAR SPINE WITHOUT CONTRAST DATE: 01/03/2019 9:23 PM INDICATION: Weakness, fell. Weakness COMPARISON: None TECHNIQUE: Sagittal T1 and T2, axial T1 and T2 images are obtained through the entire spine. IV contrast: None. FINDINGS: There is normal bone marrow signal intensity. No cord compression or abnormal cord signal is identified. CERVICAL SPINE The craniovertebral junction has a normal appearance. The cerebellar tonsils are in normal position. The cervical vertebral alignment is normal. The cervical vertebral body heights are maintained. C2-C3: * Degenerative endplate sclerosis. * Mild circumferential disc bulge with minimal flattening of the ventral thecal sac. * No significant canal stenosis. * No definite myelopathic change is identified. * Moderate neuroforaminal narrowing on the left due to facet arthropathy. C3-C4: * Circumferential disc bulge with minimal flattening of the ventral thecal sac * Redundancy of the posterior longitudinal ligament. * Moderate canal stenosis. * No definite myelopathic change is identified * Moderate to severe bilateral neuroforaminal stenosis. C4-C5: * Posterior disc osteophyte complex is identified with flattening of the ventral thecal sac. * Redundancy of the posterior longitudinal ligament. * Severe canal stenosis is identified. * No definite myelopathic change is identified. * Severe bilateral neuroforaminal stenosis due to facet arthropathy. C5-C6: * Mild posterior disc bulge with flattening of the ventral thecal sac * No significant spinal canal stenosis. * Moderate to severe neuroforaminal stenosis on the right and severe neuroforaminal stenosis on the left. C6-C7: * Mild circumferential disc bulge * No significant spinal canal stenosis. * Moderate to severe neuroforaminal stenosis on the right and severe neuroforaminal stenosis on the left. C7-T1: * Small posterior central disc protrusion * No significant spinal canal or neural foraminal stenosis. ? THORACIC SPINE The vertebral alignment is normal. The vertebral heights are maintained. There is no significant spinal canal or neural foraminal stenosis. Multilevel degenerative Schmorl's nodes are noted, most prominent at T9-T12. 3 mm central disc protrusion at T4-T5 with minimal flattening of the ventral thecal sac. No spinal canal stenosis or myelopathic changes are identified. Benign hemangiomas at T6, T7 and T9. Otherwise the thoracic intervertebral discs demonstrate normal appearance. LUMBAR SPINE Mild crowding of the cauda equina at L2-L3 and L3-L4. Mild degenerative facet changes at L2-L3 and L3-L4. Mild to moderate neuroforaminal stenosis on the right at L4-L5 without impingement of the exiting nerves. Benign L3 hemangioma. Otherwise: The vertebral alignment is normal. The vertebral heights are maintained. Intervertebral disc heights and signal intensity are preserved. There is no significant spinal canal or neural foraminal stenosis. The?conus?terminates at?L1. It demonstrates normal signal intensity.?There is no abnormal thickening of the filum. OTHER: The visible paraspinous soft tissues appear unremarkable. There is no hydronephrosis bilaterally. IMPRESSION IMPRESSION: 1. No acute fracture or epidural hematoma. No signs of cord contusion, given the limitation of the study 2. Cervical spinal stenosis, most pronounced at C3-C4 and C4-C5. As far as can be ascertained, there are no signs of compressive myelopathy. 3. Lumbar spondylosis most prominent at L2-L3 and L3-L4, with minimal crowding of the cauda equina this level This [facility] radiology report is a preliminary resident dictation until finalized by an attending. Changes to this preliminary report may occur in an additional preliminary or finalized version. Dictated By: Tracy Douglas MD, 01/04/2019 2:58 PM I have reviewed the study and agree with the findings in this report. Signed By: Trace Toure MD, 01/04/2019 3:33 PM Performing Organization Address City/State/Zipcode Phone Number SMS * MRI CERVICAL SPINE W/O CONTRAST (01/03/2019 9:23 PM REINFORCED IRONWORKER) Specimen Impressions Performed At IMPRESSION: [facility] 1.No acute fracture or epidural hematoma. No signs of cord contusion, given the limitation of the study 2.Cervical spinal stenosis, most pronounced at C3-C4 and C4-C5. As far as can be ascertained, there are no signs of compressive myelopathy. 3.Lumbar spondylosis most prominent at L2-L3 and L3-L4, with minimal crowding of the cauda equina this level This [facility] radiology report is a preliminary resident dictation until finalized by an attending.Changes to this preliminary report may occur in an additional preliminary or finalized version. Dictated By: Tracy Douglas MD, 01/04/2019 2:58 PM I have reviewed the study and agree with the findings in this report. Signed By: Trace Toure MD, 01/04/2019 3:33 PM Narrative Performed At EXAM: MRI CERVICAL SPINE WITHOUT CONTRAST SMS EXAM: MRI THORACIC SPINE WITHOUT CONTRAST EXAM: MRI LUMBAR SPINE WITHOUT CONTRAST DATE: 01/03/2019 9:23 PM INDICATION: Weakness, fell. Weakness COMPARISON: None TECHNIQUE: Sagittal T1 and T2, axial T1 and [id number] are obtained through the entire spine. IV contrast: None. FINDINGS: There is normal bone marrow signal intensity. No cord compression or abnormal cord signal is identified. CERVICAL SPINE The craniovertebral junction has a normal appearance. The cerebellar tonsils are in normal position. The cervical vertebral alignment is normal. The cervical vertebral body heights are maintained. C2-C3: *Degenerative endplate sclerosis. *Mild circumferentialdisc bulge with minimal flattening of the ventral thecal sac. *No significant canal stenosis. *No definite myelopathic change is identified. *Moderate neuroforaminal narrowing on the left due to facet arthropathy. C3-C4: *Circumferential disc bulge with minimal flattening of the ventral thecal sac *Redundancy of the posterior longitudinal ligament. *Moderate canal stenosis. *No definite myelopathic change is identified *Moderate to severe bilateral neuroforaminal stenosis. C4-C5: *Posterior disc osteophyte complex is identified with flattening of the ventral thecal sac. *Redundancy of the posterior longitudinal ligament. *Severe canal stenosis is identified. *No definite myelopathic change is identified. *Severe bilateral neuroforaminal stenosis due to facet arthropathy. C5-C6: *Mild posterior disc bulge with flattening of the ventral thecal sac *No significant spinal canal stenosis. *Moderate to severe neuroforaminal stenosis on the right and severe neuroforaminal stenosis on the left. C6-C7: *Mild circumferential disc bulge *No significant spinal canal stenosis. *Moderate to severe neuroforaminal stenosis on the right and severe neuroforaminal stenosis on the left. C7-T1: *Small posterior central disc protrusion *No significant spinal canal or neural foraminal stenosis. ? THORACIC SPINE The vertebral alignment is normal. The vertebral heights are maintained. There is no significant spinal canal or neural foraminal stenosis. Multilevel degenerative Schmorl's nodes are noted, most prominent at T9-T12. 3 mm central disc protrusion at T4-T5 with minimal flattening of the ventral thecal sac. No spinal canal stenosis or myelopathic changes are identified. Benign hemangiomas at T6, T7 and T9. Otherwise the thoracic intervertebral discs demonstrate normal appearance. LUMBAR SPINE Mild crowding of the cauda equina at L2-L3 and L3-L4. Mild degenerative facet changes at L2-L3 and L3-L4. Mild to moderate neuroforaminal stenosis on the right at L4-L5 without impingement of the exiting nerves. Benign L3 hemangioma. Otherwise: The vertebral alignment is normal. The vertebral heights are maintained. Intervertebral disc heights and signal intensity are preserved. There is no significant spinal canal or neural foraminal stenosis. The?conus?terminates at?L1. It demonstrates normal signal intensity.?There is no abnormal thickening of the filum. OTHER: The visible paraspinous soft tissues appear unremarkable. There is no hydronephrosis bilaterally. Procedure Note Interface, Rad/Mammog In - 01/04/2019 3:39 PM REINFORCED IRONWORKER EXAM: MRI CERVICAL SPINE WITHOUT CONTRAST EXAM: MRI THORACIC SPINE WITHOUT CONTRAST EXAM: MRI LUMBAR SPINE WITHOUT CONTRAST DATE: 01/03/2019 9:23 PM INDICATION: Weakness, fell. Weakness COMPARISON: None TECHNIQUE: Sagittal T1 and T2, axial T1 and T2 images are obtained through the entire spine. IV contrast: None. FINDINGS: There is normal bone marrow signal intensity. No cord compression or abnormal cord signal is identified. CERVICAL SPINE The craniovertebral junction has a normal appearance. The cerebellar tonsils are in normal position. The cervical vertebral alignment is normal. The cervical vertebral body heights are maintained. C2-C3: * Degenerative endplate sclerosis. * Mild circumferential disc bulge with minimal flattening of the ventral thecal sac. * No significant canal stenosis. * No definite myelopathic change is identified. * Moderate neuroforaminal narrowing on the left due to facet arthropathy. C3-C4: * Circumferential disc bulge with minimal flattening of the ventral thecal sac * Redundancy of the posterior longitudinal ligament. * Moderate canal stenosis. * No definite myelopathic change is identified * Moderate to severe bilateral neuroforaminal stenosis. C4-C5: * Posterior disc osteophyte complex is identified with flattening of the ventral thecal sac. * Redundancy of the posterior longitudinal ligament. * Severe canal stenosis is identified. * No definite myelopathic change is identified. * Severe bilateral neuroforaminal stenosis due to facet arthropathy. C5-C6: * Mild posterior disc bulge with flattening of the ventral thecal sac * No significant spinal canal stenosis. * Moderate to severe neuroforaminal stenosis on the right and severe neuroforaminal stenosis on the left. C6-C7: * Mild circumferential disc bulge * No significant spinal canal stenosis. * Moderate to severe neuroforaminal stenosis on the right and severe neuroforaminal stenosis on the left. C7-T1: * Small posterior central disc protrusion * No significant spinal canal or neural foraminal stenosis. ? THORACIC SPINE The vertebral alignment is normal. The vertebral heights are maintained. There is no significant spinal canal or neural foraminal stenosis. Multilevel degenerative Schmorl's nodes are noted, most prominent at T9-T12. 3 mm central disc protrusion at T4-T5 with minimal flattening of the ventral thecal sac. No spinal canal stenosis or myelopathic changes are identified. Benign hemangiomas at T6, T7 and T9. Otherwise the thoracic intervertebral discs demonstrate normal appearance. LUMBAR SPINE Mild crowding of the cauda equina at L2-L3 and L3-L4. Mild degenerative facet changes at L2-L3 and L3-L4. Mild to moderate neuroforaminal stenosis on the right at L4-L5 without impingement of the exiting nerves. Benign L3 hemangioma. Otherwise: The vertebral alignment is normal. The vertebral heights are maintained. Intervertebral disc heights and signal intensity are preserved. There is no significant spinal canal or neural foraminal stenosis. The?conus?terminates at?L1. It demonstrates normal signal intensity.?There is no abnormal thickening of the filum. OTHER: The visible paraspinous soft tissues appear unremarkable. There is no hydronephrosis bilaterally. IMPRESSION IMPRESSION: 1. No acute fracture or epidural hematoma. No signs of cord contusion, given the limitation of the study 2. Cervical spinal stenosis, most pronounced at C3-C4 and C4-C5. As far as can be ascertained, there are no signs of compressive myelopathy. 3. Lumbar spondylosis most prominent at L2-L3 and L3-L4, with minimal crowding of the cauda equina this level This [facility] radiology report is a preliminary resident dictation until finalized by an attending. Changes to this preliminary report may occur in an additional preliminary or finalized version. Dictated By: Tracy Douglas MD, 01/04/2019 2:58 PM I have reviewed the study and agree with the findings in this report. Signed By: Trace Toure MD, 01/04/2019 3:33 PM Performing Organization Address City/State/Zipcode Phone Number SMS * TRANSTHORACIC ECHO (TTE) (01/03/2019 6:54 AM REINFORCED IRONWORKER) TRANSTHORACIC Transthoracic SMS ECHO (TTE) Echo Report HERMAN FOREMAN Age:68 Gender: M :1950 Exam Date: 01/03/2019 06:54 Exam Location: [facility] Echo Ordering Phys: ANDREY BUCHANAN V Referring Phys:[id number] Reading Phys:Ana Rosa Galloway Fellow Phys: Ashia Ruano M.D. Fellow Phys: Imaging Nurse: Donita Ruvalcaba Reason For Exam: Indications: Suspected CV Disease ICD-9 Codes: Z03.89 Exam Type: Transthoracic Echo Procedure CPT:24948 Addtional CPT: Ht (in): 67 BSA: 2.12HR: 76 Rhythm: Sinus rhythm Wt (lb): 203BP: 171/ 59 Technical Quality: Technically difficult study History: eval heart function MEASUREMENTS Normal ranges based on 95% confidence intervals for adults, some normal patients may fall outside of this range especially when indexing for BSA 2D ECHO LV Diastolic Diameter PLAX5 cm 4.2-5.8 (M) / 3.8-5.2 (F) LV Systolic Diameter PLAX 3.4 cm 2.5-4.0 (M) / 2.2-3.5 (F) LV Fractional Shortening PLAX 31.6 % IVS Diastolic Thickness 1.4 cm 0.6-1.0 (M) / 0.6-0.9 (F) IVS Systolic Thickness 1.8 cm LVPW Diastolic Thickness1 .4 cm 0.6-1.0 (M) / 0.6-0.9 (F) LVPW Systolic Thickness 1.8 cm LV Relative Wall Thickness0.55 <=0.42 LVOT Diameter 2.3 cm Aortic Root Diameter 3.5 cm LA Systolic Diameter LX 4.7 cm LA Ao Ratio 1.3 LV Diastolic Volume MOD BP118 cm 62-150 cm (M) / 46-106 cm (F) LV Systolic Volume MOD BP 37 cm 21-61 cm (M) / 14-42 cm (F) LV Ejection Fraction MOD BP 68.6 % 52-72 (M) / 54-74 (F) LV Stroke Volume MOD BP 80.6 cm LV Cardiac Output MOD [id number] cm/min LV Cardiac Index MOD BP 2895 cm/minm LA Volume 124 cm LA Volume Index 58.6 cm/m 16 - 34 cm/m LV Mass by linear [id number] g LV Mass by linear method [id number] g/m RA Volume 54.4 cm RA Volume Index 25.7 cm/m DOPPLER AV Peak Velocity 189 cm/s AV Peak Gradient 14.3 mmHg AV Mean Velocity 119 cm/s AV Mean Gradient 7 mmHg AV Velocity Time Integral 41.8 cm LVOT Peak Velocity 158 cm/s LVOT Peak Gradient 10 mmHg LVOT Mean Velocity 112 cm/s LVOT Mean Gradient 6 mmHg LVOT Velocity Time Integral 36.4 cm LVOT Stroke Volume 151 cm AV Area Cont Eq vti 3.6 cm AV Area Cont Eq pk 3.5 cm MV Peak Velocity 168 cm/s MV Peak Gradient 11.3 mmHg MV Mean Velocity 97.7 cm/s MV Mean Gradient 5 mmHg MV Velocity Time Integral 49 cm MV Area Cont Eq vti 3.1 cm Mitral E Point Velocity 155 cm/s Mitral A Point Velocity 134 cm/s Mitral E to A Ratio 1.2 MV Deceleration [place] 772 cm/s MV Pressure Half Time 59 ms MV Area PHT 3.7 cm MV Deceleration Time 201 ms PV Peak Velocity 151 cm/s PV Peak Gradient 9.1 mmHg RVOT Peak Velocity 116 cm/s RVOT Peak Gradient 5.4 mmHg LV E' Lateral Velocity 8.3 cm/s Mitral E to LV E' Lateral Ratio 18.7 LV E' Septal Velocity 5.3 cm/s Mitral E to LV E' Septal Ratio29.1 RV S' Velocity 12.4 cm/s >9.5 cm/s FINDINGS Left Ventricle Ultrasound contrast was used for LV opacification. The left ventricle is normal in size. Increased LV wall thickness with moderate concentric hypertrophy. LV systolic function is normal with an estimated LVEF 65 - 69%.Basal inferoseptum and basal inferolateral scanlon are hypokinetic.Unable to assess LV diastology in the setting of significant mitral annular calcification. Right Ventricle The right ventricle is at the upper limit of normal in size and its systolic function is normal. Right Atrium The right atrium is normal in size. Left Atrium The left atrium is severely dilated in size. There is a linear, mobile, echodense lesion( measuring 1.9x0.2 cm) noted in the left atrium, appears to be attached to theinter-atrial septum. vaguely prolapsing up to the mitral valve. This is only visible in the subcostal views ( View 66# 80). The full extension and origin of the lesion is notoptimally visualized. Differential diagnosis could include mass lesion ( more likely) , vs thrombus, vs calcification vs vegetation ( less likely). IAS Mitral Valve Mitral valve annular calcification. Posterior mitral leaflet is calcified, tethered and has restricted mobility. There is mild mitral stenosis with a mean gradient of 5 mmHg at a HR 75 bpm. There is no evidence of prolapse. There is trace mitral regurgitation. Aortic Valve The aortic valve is trileaflet. There is focal calcification in the non- coronary and right coronary cusps. There is no significant aortic stenosis. There is no aortic regurgitation. Tricuspid Valve Structurally normal tricuspid valve without significant stenosis. There is trace tricuspid regurgitation. Insufficient TR jet to estimate pulmonary artery systolic pressure. Pulmonic Valve Structurally normal pulmonic valve without significant stenosis. There is trace pulmonic regurgitation. Pericardium No pericardial effusion. Aorta Normal aortic root for body surface area. IVC The inferior vena cava is normal in size with less than than 50% respiratory change in dimension, consistent with RA pressure 5-10 mmHg. CONCLUSIONS Ultrasound-enhancing agent was used for LV opacification. 1. The left ventricle is normal in size. Increased LV wall thickness with moderate concentric hypertrophy. LV systolic function is normal with an estimated LVEF 65 - 69%.Basal inferoseptum and basal inferolateral scanlon are hypokinetic.Unable to assess LV diastology in the setting of significant mitral annular calcification. 2. The right ventricle is at the upper limit of normal in size and its systolic function is normal. 3. Severely dilated left atrial size. Normal right atrial size. 4. There is a linear, mobile, echodense lesion( measuring 1.9x0.2 cm) noted in the left atrium, appears to be attached to theinter-atrial septum. vaguely prolapsing up to the mitral valve. This is only visible in the subcostal views ( View 66# 80). The full extension and origin of the lesion is notoptimally visualized. Differential diagnosis could include mass lesion ( more likely) , vs thrombus, vs calcification vs vegetation ( less likely). 5.Mitral valve annular calcification. There is mild mitral stenosis with a mean gradient of 5 mmHg at a HR 75 bpm. Trace mitral regurgitation. 6. Focal aortic calcifications without significant stenosis so regurgitation. 7.Unable to estimate RVSP due to incomplete TR jet. 8.No pericardial effusion. No prior study for comparison. Suggestclinical correlation and trans esophageal echocardiography ( EE) for further evaluation of the left atrial lesion noted above. Ana Rosa Galloway (Electronically Signed) Final Date:03 January 2019 09:28 Amended: 04 January 2019 09:04 2D ECHO LV Diastolic Diameter PLAX5 cm 4.2-5.8 (M) / 3.8-5.2 (F) LV Systolic Diameter PLAX 3.4 cm 2.5-4.0 (M) / 2.2-3.5 (F) LV Fractional Shortening PLAX 31.6 % IVS Diastolic Thickness 1.4 cm 0.6-1.0 (M) / 0.6-0.9 (F) IVS Systolic Thickness 1.8 cm LVPW Diastolic Thickness1 .4 cm 0.6-1.0 (M) / 0.6-0.9 (F) LVPW Systolic Thickness 1.8 cm LV Relative Wall Thickness0.55 <=0.42 LVOT Diameter 2.3 cm Aortic Root Diameter 3.5 cm LA Systolic Diameter LX 4.7 cm LA Ao Ratio 1.3 LV Diastolic Volume MOD BP118 cm 62-150 cm (M) / 46-106 cm (F) LV Systolic Volume MOD BP 37 cm 21-61 cm (M) / 14-42 cm (F) LV Ejection Fraction MOD BP 68.6 % 52-72 (M) / 54-74 (F) LV Stroke Volume MOD BP 80.6 cm LV Cardiac Output MOD [id number] cm/min LV Cardiac Index MOD BP 2895 cm/minm LA Volume 124 cm LA Volume Index 58.6 cm/m 16 - 34 cm/m LV Mass by linear [id number] g LV Mass by linear method Frhrp249 g/m RA Volume 54.4 cm RA Volume Index 25.7 cm/m DOPPLER AV Peak Velocity 189 cm/s AV Peak Gradient 14.3 mmHg AV Mean Velocity 119 cm/s AV Mean Gradient 7 mmHg AV Velocity Time Integral 41.8 cm LVOT Peak Velocity 158 cm/s LVOT Peak Gradient 10 mmHg LVOT Mean Velocity 112 cm/s LVOT Mean Gradient 6 mmHg LVOT Velocity Time Integral 36.4 cm LVOT Stroke Volume 151 cm AV Area Cont Eq vti 3.6 cm AV Area Cont Eq pk 3.5 cm MV Peak Velocity 168 cm/s MV Peak Gradient 11.3 mmHg MV Mean Velocity 97.7 cm/s MV Mean Gradient 5 mmHg MV Velocity Time Integral 49 cm MV Area Cont Eq vti 3.1 cm Mitral E Point Velocity 155 cm/s Mitral A Point Velocity 134 cm/s Mitral E to A Ratio 1.2 MV Deceleration [place] 772 cm/s MV Pressure Half Time 59 ms MV Area PHT 3.7 cm MV Deceleration Time 201 ms PV Peak Velocity 151 cm/s PV Peak Gradient 9.1 mmHg RVOT Peak Velocity 116 cm/s RVOT Peak Gradient 5.4 mmHg LV E' Lateral Velocity 8.3 cm/s Mitral E to LV E' Lateral Ratio 18.7 LV E' Septal Velocity 5.3 cm/s Mitral E to LV E' Septal Ratio29.1 RV S' Velocity 12.4 cm/s >9.5 cm/s Specimen Performing Organization Address City/[facility] Phone Number SMS * HEPATITIS B SURFACE AB (01/02/2019 6:00 PM REINFORCED IRONWORKER) HBsAb Positive (A) NEG BT MAIN-STATION 4 HBsAb 125.53 BT MAIN-STATION Concentration Negative: <8.00 mIU/mL 4 Grayzone: > or=8.00 mIU/mL to <12.00 mIU/mL Positive: > or=12.00 mIU/mL Specimen Blood Performing Organization Address [facility] Phone Number NADIYAYS MAIN-STATION 4 * HIV-1/HIV-2 ROUTINE SCREENING (01/02/2019 6:00 PM REINFORCED IRONWORKER) Pathologist [facility] HIV-1/HIV-2 Negative NEG [facility] BLOOD BANK Specimen Performing Organization Address [facility] Phone Number [facility] B[facility]OD BANK [address] [place] [phone] * HEMOGLOBIN A1C (01/02/2019 6:00 PM REINFORCED IRONWORKER) Pathologist [facility] Hemoglobin A1c 5.5 4.3 - 6.1 % [facility] MAIN-STATION 1 Est Average 111.2 mg/dL [facility] MAIN-STATION 1 Specimen Blood Performing Organization Address [facility] Phone Number NADIYAYS [facility] MAIN-STATION 1 * HEP B COR AB TOT (01/02/2019 6:00 PM REINFORCED IRONWORKER) Hep B Cor Ab Negative NEG BT MAIN-STATION Tot 4 Specimen Blood Performing Organization Address [facility] Phone Number NADIYAYS MAIN-STATION 4 * FREE T4 (01/02/2019 6:00 PM REINFORCED IRONWORKER) Free T4 1.04 0.61 - 1.18 ng/dl [facility] MAIN-STATION 1 Specimen Performing Organization Address [facility] Phone Number NADIYAYS [facility] MAIN-STATION 1 * FREE T3 (01/02/2019 6:00 PM REINFORCED IRONWORKER) Free T3 1.54 (L) 2.5 - 3.9 pg/mL MAIN-STATION 1 Specimen Performing Organization Address [facility] Phone Number MISYS BT MAIN-STATION 1 * LIPID PROFILE (01/02/2019 6:00 PM REINFORCED IRONWORKER) Cholesterol 110 mg/dL [facility] Comment: MAIN-STATION 1 REFERENCE RANGE: Desirable: <200 mg/dL Borderline: 200-240 mg/dL High Risk: >240 mg/dL Triglyceride 101 <150 mg/dL [facility] Comment: MAIN-STATION 1 REFERENCE RANGE: Normal: <150 mg/dL Borderline High: 150-199 mg/dL High: 200-499 mg/dL Very High: >bj=162 mg/dL HDL 30 mg/dL [facility] Comment: MAIN-STATION 1 Increased CHD risk: <40 mg/dL Decreased CHD risk: >60 mg/dL LDL 60 mg/dL [facility] Comment: MAIN-STATION 1 REFERENCE RANGE: Optimal: <100 mg/dL Near Optimal: 100-129 mg/dL Borderline High: 130-159 mg/dL High: 160-189 mg/dL Very High: >br=511 mg/dL Specimen Blood Performing Organization Address [facility] Phone Number MISYS LB MAIN-STATION 1 * MRI BRAIN W/O CONTRAST (01/02/2019 8:48 AM REINFORCED IRONWORKER) Specimen Impressions Performed At IMPRESSION: SMS 1.No evidence of acute ischemic change. 2.Scattered chronic microangiopathic ischemic changes. This [facility] radiology report is a preliminary resident dictation until finalized by an attending.Changes to this preliminary report may occur in an additional preliminary or finalized version. Dictated By: Tracy Douglas MD, 01/02/2019 8:59 AM I have reviewed the study and agree with the findings in this report. Signed By: Mir Chatterjee MD, 01/02/2019 9:38 AM Narrative Performed At EXAM: MRI BRAIN WITHOUT CONTRAST SMS DATE: 01/02/2019 8:48 AM INDICATION: numbness/decreased motor diffusely resolving. Weakness COMPARISON: CT head without contrast and CTA head and neck with contrast 01/02/2019. TECHNIQUE: Multiplanar, multisequence MRI of the brain without contrast. IV contrast: None. FINDINGS: Diffusion-weighted images fail to demonstrate any recent ischemic change. No hemorrhage. Scattered chronic microangiopathic changes. No mass effect, midline shift, or extra-axial collection. Mild prominence of ventricles due to volume loss. No hydrocephalus. The larger intracranial vascular flow voids are preserved. Paranasal sinuses and mastoid air cells are mostly clear. Unremarkable marrow signal. Procedure Note Interface, Rad/Mammog In - 01/02/2019 9:43 AM REINFORCED IRONWORKER EXAM: MRI BRAIN WITHOUT CONTRAST DATE: 01/02/2019 8:48 AM INDICATION: numbness/decreased motor diffusely resolving. Weakness COMPARISON: CT head without contrast and CTA head and neck with contrast 01/02/2019. TECHNIQUE: Multiplanar, multisequence MRI of the brain without contrast. IV contrast: None. FINDINGS: Diffusion-weighted images fail to demonstrate any recent ischemic change. No hemorrhage. Scattered chronic microangiopathic changes. No mass effect, midline shift, or extra-axial collection. Mild prominence of ventricles due to volume loss. No hydrocephalus. The larger intracranial vascular flow voids are preserved. Paranasal sinuses and mastoid air cells are mostly clear. Unremarkable marrow signal. IMPRESSION IMPRESSION: 1. No evidence of acute ischemic change. 2. Scattered chronic microangiopathic ischemic changes. This [facility] radiology report is a preliminary resident dictation until finalized by an attending. Changes to this preliminary report may occur in an additional preliminary or finalized version. Dictated By: Tracy Douglas MD, 01/02/2019 8:59 AM I have reviewed the study and agree with the findings in this report. 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: :[id number] [id number] Requested By: NASH Minor Order Number: [id number] Lamont MD: Linwood Ocampo Measurements Intervals Corrigan Rate: 84 P:80 FL: 180 QRS: 37 QRSD: 84 T:162 QT: 368 QTc:436 Interpretive Statements SINUS RHYTHM NONSPECIFIC ST & T-WAVE ABNORMALITY Electronically Signed On 01-02-2019 13:56:44 REINFORCED IRONWORKER by Linwood Ocampo Specimen Performing Organization Address City/[facility] Mobile Phone Number SMS * CTA NECK W CONTRAST (01/02/2019 5:31 AM REINFORCED IRONWORKER) Specimen Impressions Performed At IMPRESSION: SMS 1.No large vessel occlusion seen within the head or neck. 2.Atherosclerotic disease causing multilevel high-grade stenosis of the right vertebral artery, specifically, at C4 and in the intradural segment. 3.Left greater than right calcific atherosclerotic disease of the carotid bifurcations, though without hemodynamically significant stenosis of the cervical per NASCET criteria. 4.Circumferential atherosclerotic calcifications at the supraclinoid ICAs without significant luminal narrowing. Findings discussed with Dr. Buckley at 01/02/2019 5:54 AM. (All qualitative and quantitative assessments of carotid bifurcation and proximal internal carotid artery stenosis are made referencing the distal internal carotid artery {NASCET criteria}.) This EPIC radiology report is a preliminary resident dictation until finalized by an attending.Changes to this preliminary report may occur in an additional preliminary or finalized version. Dictated By: Anthony Moffett MD, 01/02/2019 6:39 AM I have reviewed the study and agree with the findings in this report. Signed By: Mu Washington MD, 01/02/2019 7:03 AM Narrative Performed At EXAM: CTA BRAIN SMS EXAM: CTA NECK DATE: 01/02/2019 5:32 AM INDICATION: weakness, decreased sensation in all extremities. Weakness COMPARISON: None. TECHNIQUE: Volumetric CT images of the brain and neck are obtained between the aortic arch and the cranial vertex during intravenous infusion of iodinated contrast for the purposes of CT angiography. 3-D CT angiographic images are created using MIP technique at the acquisition workstation. The source images are also presented for interpretation. IV contrast: 100 cc Omnipaque 350 DLP: 2370 mGy-cm FINDINGS: NECK CTA: Aortic arch: The great vessels originate from the aortic arch in the standard configuration. No origin stenosis is identified. The vertebral artery origins are patent bilaterally. Carotid arteries: *The cervical common carotid arteries and demonstrate some nonflow limiting calcification. *There are areas of calcification at the carotid bifurcations, greater on the left with approximately 25% narrowing of the lumen. No hemodynamically significant stenosis of the carotid bifurcations or internal carotid arteries is present by NASCET criteria. *There is no evidence of vascular injury. Vertebral arteries: Atherosclerotic calcification causes high-grade stenosis of the right cervical vertebral artery at the level of C4. The soft tissues of the neck and other incidental structures are normal. BRAIN CTA: Atherosclerotic calcification causing high-grade stenoses of the intradural V4 segment of the vertebral artery. Circumferential atherosclerotic calcifications at the supraclinoid ICAs without significant luminal narrowing. No branch occlusion, vascular injury, arteritis, vascular malformation or aneurysm of the anterior or posterior circulations identified. The deep cerebral veins and major venous sinuses are normal. The brain parenchyma and other incidental structures are unremarkable. Procedure Note Interface, Rad/Mammog In - 01/02/2019 7:08 AM REINFORCED IRONWORKER EXAM: CTA BRAIN EXAM: CTA NECK DATE: 01/02/2019 5:32 AM INDICATION: weakness, decreased sensation in all extremities. Weakness COMPARISON: None. TECHNIQUE: Volumetric CT images of the brain and neck are obtained between the aortic arch and the cranial vertex during intravenous infusion of iodinated contrast for the purposes of CT angiography. 3-D CT angiographic images are created using MIP technique at the acquisition workstation. The source images are also presented for interpretation. IV contrast: 100 cc Omnipaque 350 DLP: 2370 mGy-cm FINDINGS: NECK CTA: Aortic arch: The great vessels originate from the aortic arch in the standard configuration. No origin stenosis is identified. The vertebral artery origins are patent bilaterally. Carotid arteries: * The cervical common carotid arteries and demonstrate some nonflow limiting calcification. * There are areas of calcification at the carotid bifurcations, greater on the left with approximately 25% narrowing of the lumen. No hemodynamically significant stenosis of the carotid bifurcations or internal carotid arteries is present by NASCET criteria. * There is no evidence of vascular injury. Vertebral arteries: Atherosclerotic calcification causes high-grade stenosis of the right cervical vertebral artery at the level of C4. The soft tissues of the neck and other incidental structures are normal. BRAIN CTA: Atherosclerotic calcification causing high-grade stenoses of the intradural V4 segment of the vertebral artery. Circumferential atherosclerotic calcifications at the supraclinoid ICAs without significant luminal narrowing. No branch occlusion, vascular injury, arteritis, vascular malformation or aneurysm of the anterior or posterior circulations identified. The deep cerebral veins and major venous sinuses are normal. The brain parenchyma and other incidental structures are unremarkable. IMPRESSION IMPRESSION: 1. No large vessel occlusion seen within the head or neck. 2. Atherosclerotic disease causing multilevel high-grade stenosis of the right vertebral artery, specifically, at C4 and in the intradural segment. 3. Left greater than right calcific atherosclerotic disease of the carotid bifurcations, though without hemodynamically significant stenosis of the cervical per NASCET criteria. 4. Circumferential atherosclerotic calcifications at the supraclinoid ICAs without significant luminal narrowing. Findings discussed with Dr. Buckley at 01/02/2019 5:54 AM. (All qualitative and quantitative assessments of carotid bifurcation and proximal internal carotid artery stenosis are made referencing the distal internal carotid artery {NASCET criteria}.) This [facility] radiology report is a preliminary resident dictation until finalized by an attending. Changes to this preliminary report may occur in an additional preliminary or finalized version. Dictated By: Anthony Moffett MD, 01/02/2019 6:39 AM I have reviewed the study and agree with the findings in this report. Signed By: Mu Washington MD, 01/02/2019 7:03 AM Performing Organization Address City/State/Zipcode Phone Number SMS * CTA HEAD W CONTRAST (01/02/2019 5:31 AM REINFORCED IRONWORKER) Specimen Impressions Performed At IMPRESSION: SMS 1.No large vessel occlusion seen within the head or neck. 2.Atherosclerotic disease causing multilevel high-grade stenosis of the right vertebral artery, specifically, at C4 and in the intradural segment. 3.Left greater than right calcific atherosclerotic disease of the carotid bifurcations, though without hemodynamically significant stenosis of the cervical per NASCET criteria. 4.Circumferential atherosclerotic calcifications at the supraclinoid ICAs without significant luminal narrowing. Findings discussed with Dr. Buckley at 01/02/2019 5:54 AM. (All qualitative and quantitative assessments of carotid bifurcation and proximal internal carotid artery stenosis are made referencing the distal internal carotid artery {NASCET criteria}.) This [facility] radiology report is a preliminary resident dictation until finalized by an attending.Changes to this preliminary report may occur in an additional preliminary or finalized version. Dictated By: Anthony Moffett MD, 01/02/2019 6:39 AM I have reviewed the study and agree with the findings in this report. Signed By: Mu Washington MD, 01/02/2019 7:03 AM Narrative Performed At EXAM: CTA BRAIN SMS EXAM: CTA NECK DATE: 01/02/2019 5:32 AM INDICATION: weakness, decreased sensation in all extremities. Weakness COMPARISON: None. TECHNIQUE: Volumetric CT images of the brain and neck are obtained between the aortic arch and the cranial vertex during intravenous infusion of iodinated contrast for the purposes of CT angiography. 3-D CT angiographic images are created using MIP technique at the acquisition workstation. The source images are also presented for interpretation. IV contrast: 100 cc Omnipaque 350 DLP: 2370 mGy-cm FINDINGS: NECK CTA: Aortic arch: The great vessels originate from the aortic arch in the standard configuration. No origin stenosis is identified. The vertebral artery origins are patent bilaterally. Carotid arteries: *The cervical common carotid arteries and demonstrate some nonflow limiting calcification. *There are areas of calcification at the carotid bifurcations, greater on the left with approximately 25% narrowing of the lumen. No hemodynamically significant stenosis of the carotid bifurcations or internal carotid arteries is present by NASCET criteria. *There is no evidence of vascular injury. Vertebral arteries: Atherosclerotic calcification causes high-grade stenosis of the right cervical vertebral artery at the level of C4. The soft tissues of the neck and other incidental structures are normal. BRAIN CTA: Atherosclerotic calcification causing high-grade stenoses of the intradural V4 segment of the vertebral artery. Circumferential atherosclerotic calcifications at the supraclinoid ICAs without significant luminal narrowing. No branch occlusion, vascular injury, arteritis, vascular malformation or aneurysm of the anterior or posterior circulations identified. The deep cerebral veins and major venous sinuses are normal. The brain parenchyma and other incidental structures are unremarkable. Procedure Note Interface, Rad/Mammog In - 01/02/2019 7:08 AM REINFORCED IRONWORKER EXAM: CTA BRAIN EXAM: CTA NECK DATE: 01/02/2019 5:32 AM INDICATION: weakness, decreased sensation in all extremities. Weakness COMPARISON: None. TECHNIQUE: Volumetric CT images of the brain and neck are obtained between the aortic arch and the cranial vertex during intravenous infusion of iodinated contrast for the purposes of CT angiography. 3-D CT angiographic images are created using MIP technique at the acquisition workstation. The source images are also presented for interpretation. IV contrast: 100 cc Omnipaque 350 DLP: 2370 mGy-cm FINDINGS: NECK CTA: Aortic arch: The great vessels originate from the aortic arch in the standard configuration. No origin stenosis is identified. The vertebral artery origins are patent bilaterally. Carotid arteries: * The cervical common carotid arteries and demonstrate some nonflow limiting calcification. * There are areas of calcification at the carotid bifurcations, greater on the left with approximately 25% narrowing of the lumen. No hemodynamically significant stenosis of the carotid bifurcations or internal carotid arteries is present by NASCET criteria. * There is no evidence of vascular injury. Vertebral arteries: Atherosclerotic calcification causes high-grade stenosis of the right cervical vertebral artery at the level of C4. The soft tissues of the neck and other incidental structures are normal. BRAIN CTA: Atherosclerotic calcification causing high-grade stenoses of the intradural V4 segment of the vertebral artery. Circumferential atherosclerotic calcifications at the supraclinoid ICAs without significant luminal narrowing. No branch occlusion, vascular injury, arteritis, vascular malformation or aneurysm of the anterior or posterior circulations identified. The deep cerebral veins and major venous sinuses are normal. The brain parenchyma and other incidental structures are unremarkable. IMPRESSION IMPRESSION: 1. No large vessel occlusion seen within the head or neck. 2. Atherosclerotic disease causing multilevel high-grade stenosis of the right vertebral artery, specifically, at C4 and in the intradural segment. 3. Left greater than right calcific atherosclerotic disease of the carotid bifurcations, though without hemodynamically significant stenosis of the cervical per NASCET criteria. 4. Circumferential atherosclerotic calcifications at the supraclinoid ICAs without significant luminal narrowing. Findings discussed with Dr. Buckley at 01/02/2019 5:54 AM. (All qualitative and quantitative assessments of carotid bifurcation and proximal internal carotid artery stenosis are made referencing the distal internal carotid artery {NASCET criteria}.) This EPIC radiology report is a preliminary resident dictation until finalized by an attending. Changes to this preliminary report may occur in an additional preliminary or finalized version. Dictated By: Anthony Moffett MD, 01/02/2019 6:39 AM I have reviewed the study and agree with the findings in this report. Signed By: Mu Washington MD, 01/02/2019 7:03 AM Performing Organization Address City/State/Zipcode Phone Number [facility] after 06/08/2018 Insurance Type Payer Benefit Subscriber ID Effective Phone Address Plan / Dates Group MEDICARE MEDICARE xxxxxxxxxxx 2012-P [phone] [id number] [place] [address] BC/BS BC/BS PPO xxxxxxxxxxxx 2016-P [phone] [place] [id number] Advance Directives Date Inactivated Comments Code Status Date Activated 01/17/2019 6:20 PM Full Code 01/02/2019 3:08 PM
[2019-06-09 17:47] LABS: BASOPHILS # (AUTO) 0.1 (0.0-0.1); BASOPHILS % 0.6 % (0.0-1.0); EOSINOPHILS # (AUTO) 0.5 (0.0-0.4); EOSINOPHILS % 5.9 % (0.0-6.0); LYMPHOCYTES # (AUTO) 0.9 (1.0-3.2); LYMPHOCYTES % 11.4 % (18.0-39.1); MEAN CORPUSCULAR HEMOGLOBIN 29.5 pg (28-32); MEAN CORPUSCULAR HGB CONC 32.9 g/dL (31-35); MEAN CORPUSCULAR VOLUME 89.7 fL (81-99); MONOCYTES # (AUTO) 0.5 (0.2-0.8); MONOCYTES % 6.4 % (4.4-11.3); NEUTROPHILS # (AUTO) 6.2 (2.1-6.9); NEUTROPHILS % 75.2 % (38.7-80.0); PLATELET COUNT 314 x10e3/uL (140-360); RED BLOOD COUNT 2.34 x10e6/uL (4.3-5.7); RED CELL DISTRIBUTION WIDTH 14.9 % (11.7-14.4)
[2019-06-09 17:50] LABS: HEMOGLOBIN 6.9 g/dL (14.0-18.0)
--- NOTE | 2019-06-09 17:52 | NUR ---
DR. LI INFORMED OF LOW HGB 6.9, AND HX OF PREVIOUS SEVERLY LOW HGB, RECENT BLOOD TRANSFUSION RECEIVED ORDER FOR TYPE AND SCREEN, NO FURTHER ORDERS AT THIS TIME
[2019-06-09] MEDS ORDERED: VANCOMYCIN 1GM/NS 250 ML 250 ML IV ONE (18:00)
[2019-06-09 18:07] LABS: ALBUMIN 2.1 g/dL (3.5-5.0); ALBUMIN/GLOBULIN RATIO 0.6 (0.8-2.0); ANION GAP 15.2 mmol/L (8-16); CALCIUM 9.4 mg/dL (8.4-10.2); CREATININE, SERUM 3.36 mg/dL (0.72-1.25); POTASSIUM 3.2 mmol/L (3.5-5.1)
[2019-06-09] MEDS: CEFEPIME 1GM/NS 0.9% 50 ML 50 ML IV SCH (18:52)
[2019-06-09] MEDS ORDERED: SODIUM CHLORIDE 0.9% 1000ML 1,000 ML IV SCH (19:32)
[2019-06-09] MEDS ORDERED: DEXTROSE 50% SYRINGE 50 ML IV PRN (19:45)
[2019-06-09] MEDS ORDERED: MORPHINE SULFATE 2 MG/ML SYR 1ML IV PRN (19:45)
--- OUTSIDE RECORDS SUMMARY | 2019-06-09 19:46 | XMS REPORT | Clinical Summary ---
Author Author [facility] Address Unknown Phone Unavailable Care Team Providers Care Chemical Compounder Helper Name Role Phone Evie Serrano MD [...] Overview: Added automatically from request for surgery [id number] Syncope 03/27/2016 Encounters Care Team Description Date [...] Lot Implanted Type Area Manufactur er 10/09/2019 [id number] / / [id number] Stent Bili E-Luminexx [id number] W/ Peripheral Left: Arm, BARD Cath 80cm - [id number] or Biliary Upper PERIPHERAL Implanted: 07/13/2017 (Quantity not Stents VASCULAR on file) [id number] / / [id number] Catheter 2Nd Grade Teacher 4x75cm 10mm Conquest - Surgical Left: Arm BARD [id number] Implants; PERIPHERAL Implanted: Qty: 1 on 07/13/2017 [...] more information, maribell dickey contact: Dennys Donaldson [address] [place] [address]
[2019-06-09] MEDS ORDERED: MORPHINE SULFATE INJ 4 MG/ML INJ 1ML IV PRN (20:00)
[2019-06-09] MEDS: INSULIN REGULAR, HUMAN 100 UNIT/1 ML 3ML VIAL SQ SCH (21:50)
[2019-06-10] VITALS (10 sets, daily range): BP systolic 124–210; BP diastolic 61–87
--- NOTE | 2019-06-10 00:36 | NUR ---
GLUCOSE 82 AT BEDSIDE, JUICE PROVIDED AND SNACK. PATIENT ALERT AND ORIENTATED
--- NOTE | 2019-06-10 00:48 | NUR ---
THIS WEBSPHERE CONSULTANT HAD DISCUSSION WITH JESSICA VINES NP REGARDING THIS ENDORSED PATIENT FROM PREVIOUS SHIFT. 1) HAD DISCUSSION WITH INTERPRETER REGARDING HGB OF 6.9-READ BACK RESULTS AND INFORMED INTERPRETER THERE WAS NO ORDERS FOR BLOOD TRANSFUSION, ALSO INFORMED INTERPRETER THAT THERE IS A 5AM BLOOD DRAW, INTERPRETER STATED WE WILL WAIT FOR 5AM BLOOD DRAW TO DECIDE FURTHER COURSE OF ACTION SINCE PATIENT IS ASYMPTOMATIC.2) PATIENT IS CURRENTLY GETTING 125CC NS DESPITE THE FACT HE DOES NOT URINATE AND HAS A GFR OF 18, this radio news writer expressed concern and recieved orders to d/c fluid. In addition, read to mechanical specialist current bp readings which are sbp 190-205 range. Discontinue fluids and monitor cbc at 0500 for further course of treatment. all phone orders read back Addendum: 06/10/19 at 0056 by ACANO late entry:during discussion mechanical specialist was notified patient is a dyalysis patient, he is unable to tell me at this moment who his english tutor is.
--- NOTE | 2019-06-10 02:55 | NUR ---
patient has several wounds on skin: sacral is unstageble, left and right lower thigh is skin tear, knee is deep tissue injury and also diabetic foot ulcer bilateral( covered from ER). Wound care consulted
--- NOTE | 2019-06-10 03:00 | NUR ---
hgb of 6.9 reported to Maury Nieves, ordered to repeat am and report back to team the results
[2019-06-10] MEDS: HYDRALAZINE HCL 20 MG/ML VIAL IV PRN ×2 (04:25→16:00)
--- NOTE | 2019-06-10 04:52 | NUR ---
Patient is not able to provide any information about his care, son at bed side, he also does not know patient's kidney doctor, he gave me Carlos's number, a staff at [facility]: [phone], called no response, called [facility] office also no response, will try again in the morning, to obtain orders from patient kidney doctor.
--- NOTE | 2019-06-10 06:27 | NUR ---
Patient hgb 6.9, blood drawn and waiting for the results.
--- NOTE | 2019-06-10 06:27 | NUR ---
Maury Nieves np aware and we are waiting for results.
[2019-06-10] MEDS ORDERED: SODIUM CHLORIDE 0.9% 250ML 250 ML ONE ×3 (06:41→21:04)
[2019-06-10] MEDS: CEFEPIME 1GM/NS 0.9% 50 ML 50 ML IV SCH ×2 (06:55→18:00)
[2019-06-10 07:17] LABS: ALBUMIN 2.1 g/dL (3.5-5.0); ALBUMIN/GLOBULIN RATIO 0.6 (0.8-2.0); CALCIUM 9.1 mg/dL (8.4-10.2); CREATININE, SERUM 3.97 mg/dL (0.72-1.25)
[2019-06-10 07:25] LABS: BASOPHILS # (AUTO) 0.1 (0.0-0.1); BASOPHILS % 0.6 % (0.0-1.0); EOSINOPHILS # (AUTO) 0.7 (0.0-0.4); EOSINOPHILS % 7.1 % (0.0-6.0); LYMPHOCYTES % 10.4 % (18.0-39.1); MEAN CORPUSCULAR HEMOGLOBIN 28.6 pg (28-32); MEAN CORPUSCULAR VOLUME 89.4 fL (81-99); MONOCYTES # (AUTO) 0.5 (0.2-0.8); MONOCYTES % 5.2 % (4.4-11.3); NEUTROPHILS # (AUTO) 7.2 (2.1-6.9); NEUTROPHILS % 75.8 % (38.7-80.0); PLATELET COUNT 339 x10e3/uL (140-360); RED BLOOD COUNT 2.45 x10e6/uL (4.3-5.7); RED CELL DISTRIBUTION WIDTH 14.8 % (11.7-14.4)
[2019-06-10] MEDS: INSULIN REGULAR, HUMAN 100 UNIT/1 ML 3ML VIAL SQ SCH ×4 (07:30→20:22)
[2019-06-10 07:33] LABS: HEMATOCRIT 21.9 % (38.2-49.6)
--- NOTE | 2019-06-10 07:33 | NUR ---
Patient endorsed to next shift for continuity of care.
--- NOTE | 2019-06-10 08:03 | Consultation ---
DATE OF CONSULTATION: 06/10/2019 HISTORY OF PRESENT ILLNESS: The patient is a 68-year-old male, well known to me. He has a history of end-stage renal disease, peripheral vascular disease, hypercholesterolemia, type 2 diabetes, who had amputation ryqbm-[id number]-fjem on the left leg almost one month ago. He had been at a long-term care facility, but apparently would not use the left leg at all and maintained it in a flexed position and now he was admitted with gangrene of the stump. PAST MEDICAL HISTORY: Significant for peripheral vascular disease, end-stage renal disease, type 2 diabetes, hyperlipidemia. PAST SURGICAL HISTORY: Previous surgery includes right transmetatarsal amputation, left below-knee amputation, dialysis access procedures. MEDICATIONS: At home are gabapentin, aspirin, atorvastatin, Plavix, hydralazine, isosorbide, Renvela. ALLERGIES: HE HAS ALLERGY TO IODINE. FAMILY HISTORY: Significant for diabetes and hypertension. SOCIAL HISTORY: The patient does not smoke cigarettes or drink alcohol. He is . REVIEW OF SYSTEMS: As stated above. He has not had any fever. PHYSICAL EXAMINATION: GENERAL: The patient is awake and alert. VITAL SIGNS: Labile hypertension and low-grade fever. Temperature 99.4. HEENT: There was no scleral icterus. NECK: Has no masses. LUNGS: Equal breath sounds are clear bilaterally. CARDIAC: Regular rate and rhythm with no murmur. ABDOMEN: Soft. There is no tenderness. No mass. EXTREMITIES: There is dialysis access to left arm. The right foot has a transmetatarsal amputation, which appears to be healing adequately. There is small amount of devitalized skin at the wound in the left leg. There is a contracture of the left knee. There is breakdown of the left below-knee amputation stump with gangrene. ASSESSMENT: A 68-year-old male with multiple medical problems, has gangrene of the left below-knee amputation stump, likely secondary to pressure from the stump going into the bed or to the right leg with a contracture such that the below-knee amputation stump is not salvageable. He will need above-knee amputation once he is medically stable. This was explained to the patient and his family. PLAN: To schedule for next week. Thank you for asking me to see Mr. Lee. MD ILANA Posey/KHANH /[phone]
[2019-06-10] MEDS ORDERED: LACTULOSE SYRUP 20 GM/30 ML UDC PO PRN (08:30)
[2019-06-10] MEDS: LACTOBACILLUS ACIDOPHILUS CAPSULE PO SCH ×2 (09:00→15:27)
[2019-06-10] MEDS ORDERED: METOPROLOL TARTRATE 25 MG TAB PO SCH (09:00)
[2019-06-10] MEDS: GABAPENTIN 300 MG CAP PO SCH ×3 (09:00→21:11)
[2019-06-10] MEDS ORDERED: NIFEDIPINE 10 MG CAP PO SCH (09:00)
[2019-06-10] MEDS: HYDRALAZINE HCL 25 MG TAB PO SCH ×3 (09:00→21:11)
[2019-06-10] MEDS ORDERED: TRAZODONE HCL 50 MG TAB PO SCH (09:00)
[2019-06-10] MEDS ORDERED: BISACODYL 5 MG TAB EC PO SCH (09:00)
--- NOTE | 2019-06-10 09:28 | NUR ---
Notified Lindsay that Dr Lal ordered HD for patient today and that patient needs to receive blood with dialysis
[2019-06-10] MEDS: PIPERACILLIN/TAZO 2.25 GM 50 ML IV SCH ×3 (09:30→21:30)
[2019-06-10] MEDS ORDERED: SODIUM CHLORIDE 0.9% 250ML 250 ML IV ONE (09:30)
[2019-06-10] MEDS ORDERED: HYDROMORPHONE HC2 MG PO (09:51)
[2019-06-10] MEDS ORDERED: QUETIAPINE FUMA25 MG PO (09:52)
[2019-06-10] MEDS ORDERED: DIOVAN160 MG PO (09:53)
[2019-06-10] MEDS ORDERED: DOCUSATE SODIUM 100 MG CAP PO PRN (10:00)
[2019-06-10] MEDS ORDERED: SODIUM CHLORIDE 0.9% 1000ML 2,000 ML ONE (10:39)
--- NOTE | 2019-06-10 11:34 | NUR ---
Dialysis nurse is giving first unit of blood with dialysis
[2019-06-10] MEDS ORDERED: HYDROCODONE/APAP 10MG-325MG TAB PO SCH (12:00)
[2019-06-10] MEDS: SEVELAMER CARBONATE 800 MG TAB PO SCH ×2 (12:00→16:53)
--- NOTE | 2019-06-10 13:16 | NUR ---
2nd unit of blood verified and dialysis nurse to infuse.
[2019-06-10] MEDS: ISOSORBIDE MONONITRATE 30 MG TAB CR PO SCH (15:11)
--- NOTE | 2019-06-10 16:09 | NUR ---
Dr. Lal is here making rounds. Notified of elevated BP during dialysis and most recent 200/83. New orders received.
[2019-06-10] MEDS ORDERED: HYDRALAZINE HCL 25 MG TAB PO ONE (16:30)
[2019-06-10] MEDS ORDERED: VALSARTAN 160 MG TAB PO SCH (17:00)
--- NOTE | 2019-06-10 19:00 | NUR ---
Pt visited in room during nursing rounds. Patient alert and oriented x2-3. Pt son and [id number] at bedside. Pt is bedbound and being turned Q2hr. Pt with unstageable wound to sacrum and covered with Allevyn dressing (C/D/I). Left BKA with stump covered with gauze and bipin bandage. Right TMA noted and on soft heel boot. Pt has hemodialysis MWF and access is at the left upper arm AV fistula. Call sheriff within reach. Will monitor pt closely.
[2019-06-10] MEDS: QUETIAPINE FUMARATE 25 MG TAB PO SCH (21:11)
[2019-06-10] MEDS: VALSARTAN 160 MG TAB PO SCH (21:11)
[2019-06-10] MEDS: HYDROCODONE/APAP 10MG-325MG TAB PO PRN (21:11)
[2019-06-10] MEDS: ATORVASTATIN 20 MG TAB PO SCH (21:11)
--- NOTE | 2019-06-11 00:21 | Consultation ---
DATE OF CONSULTATION: 06/10/2019 Nephrology Consultation Note REASON FOR CONSULTATION: Hemodialysis management. HISTORY OF PRESENT ILLNESS: A 68-year-old male with past medical history of ESRD on dialysis, severe PAD, hypercholesterolemia, type 2 diabetes who had a left vxkhy-tdv-lgju amputation about a month ago, was sent to [facility], did well and from there, discharged home, now presents back with worsening gangrene of the left stump. Nephrology was consulted for dialysis management. He was found to be anemic as well. The patient underwent hemodialysis as per schedule. He is on Wednesday, Wednesday, and Wednesday schedule. He missed dialysis yesterday. The patient had hemodialysis today and blood transfusion was given. The patient is seen and evaluated at bedside on the medical floor. He is currently doing well with no other complaints at this time. REVIEW OF SYSTEMS: Pertinent positives: Left stump gangrene. Pertinent negatives: Denies any chest pain, palpitation, nausea, vomiting, diarrhea, dysuria, hematuria, frequency, urgency, lightheadedness, dizziness, abdominal pain, headaches, shortness of breath, cough, congestion, fever, or any other complaints. The rest of 14-point review of systems has been reviewed with the patient and are negative. ALLERGIES: IODINE. HOME MEDICATIONS: Lipitor 20 mg daily, docusate 100 mg p.o. daily, gabapentin 300 mg p.o. t.i.d., which was changed, hydralazine 25 mg p.o. t.i.d., [place] 10 mg one tab isosorbide mononitrate ER 60 mg daily, Seroquel 75 mg at bedtime, Renvela 4800 mg p.o. t.i.d. with meals, valsartan 60 mg p.o. b.i.d., Plavix 75 mg daily, Aranesp, and oral hydromorphone 4 mg every 4 hours as needed for pain. PAST MEDICAL HISTORY: ESRD on dialysis, hypertension, severe PAD, hyperlipidemia, diabetes, and secondary hyperparathyroidism. PAST SURGICAL HISTORY: . PHYSICAL EXAMINATION: VITAL SIGNS: Temperature is 97.6 . GENERAL: Not in acute distress. Alert and oriented x3. Cooperative on examination. HEENT: Head is normocephalic and atraumatic. Eyes, pupils are equal, round, and reactive to light bilaterally. Extraocular movements are intact bilaterally. Throat, no evidence of erythema or exudates in the posterior pharynx. Has poor dentition. NECK: Supple. Good range of motion. PULMONARY: Clear to auscultation bilaterally. No wheezing, no rales, no rhonchi, no crackles appreciated. CARDIOVASCULAR: Positive S1 and S2. No murmurs, rubs, or gallops appreciated. ABDOMEN: Soft, nondistended, and nontender to palpation. Bowel sounds present. MUSCULOSKELETAL: Strength is 5/5 throughout. No evidence of any muscle deficits on examination. NEUROLOGIC: Cranial nerve II through XII grossly intact. No evidence of any neurological deficits on exam. SKIN: Intact. Warm to touch. Good cap refill. PSYCHIATRIC: Normal affect and mood. EXTREMITIES: No edema. Good range of motion throughout. LABORATORY DATA: platelets of 339. Chemistry; sodium 136, potassium 4, chloride . LFTs within normal range. Albumin 6.1. Blood cultures are pending. IMAGING STUDIES: None. IMPRESSION: 1. End-stage renal disease, on HD and then UF. 2. Secondary hyperparathyroidism. 3. Anemia of end-stage renal disease. 4. Left stump gangrene. 5. Hypertension. PLAN: At this time, he received hemodialysis today as per schedule ultrafiltration 3 L duration 3 hours. Type and screen and transfuse 2 units packed RBCs with dialysis. I adjusted antihypertensive medications of hydralazine to 100 mg p.o. t.i.d. I have given additional dose of hydralazine p.o. 100 mg x1 now. We will monitor his hemoglobin closely. He is on phosphorus binders and continue with renal diet. MD CITLALY Cervantes/MODL /[id number]
[2019-06-11] MEDS: PIPERACILLIN/TAZO 2.25 GM 50 ML IV SCH ×4 (03:37→21:30)
[2019-06-11 04:00] VITALS: BP 181/72
[2019-06-11] MEDS: HYDRALAZINE HCL 20 MG/ML VIAL IV PRN (05:04)
[2019-06-11] MEDS: CEFEPIME 1GM/NS 0.9% 50 ML 50 ML IV SCH ×2 (06:28→17:02)
[2019-06-11] MEDS: INSULIN REGULAR, HUMAN 100 UNIT/1 ML 3ML VIAL SQ SCH ×4 (07:30→20:02)
[2019-06-11 08:10] VITALS: BP 161/60
[2019-06-11] MEDS: SEVELAMER CARBONATE 800 MG TAB PO SCH ×4 (09:11→17:02)
[2019-06-11] MEDS: VALSARTAN 160 MG TAB PO SCH ×2 (09:12→20:49)
[2019-06-11] MEDS: HYDROCODONE/APAP 10MG-325MG TAB PO PRN (09:12)
[2019-06-11] MEDS: HYDRALAZINE HCL 25 MG TAB PO SCH ×3 (09:12→20:49)
[2019-06-11] MEDS: LACTOBACILLUS ACIDOPHILUS CAPSULE PO SCH ×2 (09:12→17:02)
[2019-06-11] MEDS: ISOSORBIDE MONONITRATE 30 MG TAB CR PO SCH (09:12)
[2019-06-11 09:15] VITALS: BP 161/60
[2019-06-11 09:52] LABS: BASOPHILS # (AUTO) 0.1 (0.0-0.1); BASOPHILS % 0.7 % (0.0-1.0); EOSINOPHILS # (AUTO) 0.5 (0.0-0.4); EOSINOPHILS % 6.2 % (0.0-6.0); HEMATOCRIT 27.5 % (38.2-49.6); HEMOGLOBIN 9.4 g/dL (14.0-18.0); LYMPHOCYTES # (AUTO) 0.8 (1.0-3.2); LYMPHOCYTES % 9.4 % (18.0-39.1); MEAN CORPUSCULAR HEMOGLOBIN 30.2 pg (28-32); MEAN CORPUSCULAR HGB CONC 34.2 g/dL (31-35); MEAN CORPUSCULAR VOLUME 88.4 fL (81-99); MONOCYTES # (AUTO) 0.6 (0.2-0.8); MONOCYTES % 7.3 % (4.4-11.3); NEUTROPHILS # (AUTO) 6.5 (2.1-6.9); NEUTROPHILS % 76.2 % (38.7-80.0); PLATELET COUNT 295 x10e3/uL (140-360); RED BLOOD COUNT 3.11 x10e6/uL (4.3-5.7); RED CELL DISTRIBUTION WIDTH 15.1 % (11.7-14.4)
[2019-06-11] MEDS: ACETAMINOPHEN 325 MG TAB PO PRN (12:03)
[2019-06-11 12:10] VITALS: BP 133/69
[2019-06-11 17:00] VITALS: BP 133/59
--- NOTE | 2019-06-11 19:00 | NUR ---
patient received awake, lying quietly in bed. bp 207/84 hr 84 rr 17 temp 99.8. no c/o pain noted at this time. pm assessment complete. family noted at the bedside. patient/family instructed to call for assistance when needed.
[2019-06-11] MEDS: MORPHINE SULFATE INJ 4 MG/ML INJ 1ML IV PRN (19:40)
[2019-06-11] MEDS: ONDANSETRON HCL INJ 2MG/ML 2ML 2 MG/ML VIAL IV PRN (19:40)
--- NOTE | 2019-06-11 19:40 | NUR ---
patient medicated with morphine 4mg and zofran 4mg ivp for c/o left leg pain 10/10 at this time.
[2019-06-11 20:00] VITALS: BP 207/84
[2019-06-11] MEDS: ATORVASTATIN 20 MG TAB PO SCH (20:49)
[2019-06-11] MEDS: GABAPENTIN 300 MG CAP PO SCH (20:49)
[2019-06-11] MEDS: QUETIAPINE FUMARATE 25 MG TAB PO SCH (20:49)
--- NOTE | 2019-06-11 21:45 | Progress Note ---
DATE: 06/11/2019 Nephrology Progress Note SUBJECTIVE: The patient is doing well today with no complaints. He is doing fine. He will get dialysis tomorrow. PHYSICAL EXAMINATION: VITAL SIGNS: Temperature is 100.5 recorded, pulse 81, respiratory rate is 16, blood pressure 132/59, pulse ox 98% on room air. GENERAL: Not in acute distress. Alert and oriented x3. Cooperative on examination. HEENT: Head; normocephalic and atraumatic. Eyes; pupils are equal, round, and reactive to light bilaterally. Extraocular movements intact bilaterally. Throat; no evidence of erythema or exudate in posterior pharynx. Has poor dentition. NECK: Supple. Good range of motion. PULMONARY: Clear to auscultation bilaterally. No wheezing, rales, or rhonchi. No crackles appreciated. CARDIOVASCULAR: Positive S1, S2. No murmurs, rubs, or gallops appreciated. ABDOMEN: Soft, nontender, and nontender to palpation. Bowel sounds present. MUSCULOSKELETAL: Strength is 5/5 throughout. No edema of any muscle deficits on examination. No weakness appreciated. NEUROLOGIC: Cranial nerve II through XII grossly intact. No evidence of any neurological deficits on exam. SKIN: Intact. Warm to touch. Good cap refill. PSYCHIATRIC: Normal affect and mood. EXTREMITIES: No edema. Good range of motion throughout. LABORATORY DATA: Lab findings show white count of 8.5, hemoglobin 9.4, hematocrit 27.5, and platelets 295. Chemistry, none. IMPRESSION: 1. End-stage renal disease, on dialysis, MWF. 2. Secondary hyperparathyroidism. 3. Anemia of end-stage renal disease. 4. Left stump gangrene. 5. Hypertension. PLAN: At this time, hemoglobin is stable. He is scheduled for dialysis tomorrow. He will likely need some surgical debridement on the left stump sometime this week. Blood pressure is better controlled with new regimen I started yesterday. We will continue to follow him very closely. We will continue with same antihypertensive medications as well. I told we will have the nurse call the dialysis nurse in the morning to begin dialysis tomorrow. Continue phosphate binders and renal diet. MD CITLALY Cervantes/MODL /[id number]
[2019-06-12] VITALS (8 sets, daily range): BP systolic 154–197; BP diastolic 53–86
[2019-06-12] MEDS: MORPHINE SULFATE INJ 4 MG/ML INJ 1ML IV PRN (01:05)
[2019-06-12] MEDS: HYDRALAZINE HCL 20 MG/ML VIAL IV PRN (01:05)
[2019-06-12] MEDS: ONDANSETRON HCL INJ 2MG/ML 2ML 2 MG/ML VIAL IV PRN (01:05)
--- NOTE | 2019-06-12 01:05 | NUR ---
patient medicated with morphine 4mg and zofran 4mg ivp for c/o left leg pain 06/17. bp 172/72 patient medicated with hydralazine 5mg ivp at this time. patient repositioned for comfort.
[2019-06-12] MEDS: PIPERACILLIN/TAZO 2.25 GM 50 ML IV SCH ×4 (02:48→22:51)
--- NOTE | 2019-06-12 05:00 | NUR ---
bp 197/81 hr 87 call placed to at this time re: elevated bp. awaiting return call.
[2019-06-12] MEDS: CEFEPIME 1GM/NS 0.9% 50 ML 50 ML IV SCH ×3 (05:30→23:50)
--- NOTE | 2019-06-12 05:40 | NUR ---
no return call received from re: patients elevated bp. another call made and message left at this time.
[2019-06-12] MEDS: INSULIN REGULAR, HUMAN 100 UNIT/1 ML 3ML VIAL SQ SCH ×4 (07:30→21:00)
[2019-06-12] MEDS: HYDRALAZINE HCL 25 MG TAB PO SCH ×3 (09:00→22:50)
[2019-06-12] MEDS: ISOSORBIDE MONONITRATE 30 MG TAB CR PO SCH (09:00)
[2019-06-12] MEDS: VALSARTAN 160 MG TAB PO SCH ×2 (09:00→22:50)
[2019-06-12] MEDS: LACTOBACILLUS ACIDOPHILUS CAPSULE PO SCH ×2 (09:23→17:00)
[2019-06-12] MEDS: SEVELAMER CARBONATE 800 MG TAB PO SCH ×3 (09:23→17:00)
--- NOTE | 2019-06-12 11:04 | NUR ---
IMM letter delivered and explained to pt's Patricia Lee at bedside. She verbalized understanding. Signed copy placed in chart. Copy to .
--- NOTE | 2019-06-12 16:15 | NUR ---
WOUND CARE NURSE INITIAL CONSULTATION. 68 YEAR OLD MALE ADMITTED TO [facility] CELLULITIS AND ABSCESS. HEAD TO TOE SKIN ASSESSMENT PERFORMED TODAY. WOUNDS AND DESCRIPTIONS ARE FOLLOWS: 1- SACRUM, UNSTAGEABLE. 100% SLOUGH 5.5X6X0.1CM 2-LEFT MEDIAL KNEE UNSTAGEABLE. 100% ESCHAR. 2X2X0.1CM 3-LEFT LATERAL KNEE UNSTAGEABLE. 100% ESCHAR. 2.8X1.8X0.1CM 4-RIGHT TMA, 100% ESCHAR, 0.8X7X0.1CM 5-RIGHT HEEL, UNSTAGEABLE. 100% ESCHAR, 4X4.5X0.1CM 6-RIGHT LATERAL ANKLE, UNSTAGEABLE. 100% ESCHAR, 1.5X1X0.5CM. 7-LEFT BKA 4.7W30D6CL. NECROTIC, DEHISCED ANNA. BONE EXPOSED. LABS: WBC: 8.59 GLUCOSE: 110 ALB: 2.1 BLOOD CX RESULTS ARE PENDING AT THIS TIME. PT IS NPO, SCHEDULED LEFT AKA WITH DR. FLORES TOMORROW. RECOMMENDATIONS: CLEAN SACRUM WITH NS, APPLY MESALT AND COVER WITH 4X4 GAUZE AND TAPE. CHANGE DRESSING DAILY. APPLY BETADINE WET TO DRY TO LEFT MEDIAL AND LATERAL KNEE; RIGHT TMA; RIGHT HEEL; RIGHT LATERAL ANKLE AND RIGHT BKA. CHANGE DRESSINGS DAILY. CONTINUE WITH ALTERNATING LOW AIR LOSS MATTRESS APPLY HEEL PROTECTOR AND PILLOW SUSPENSION TO RIGHT FOOT. TURN PT EVERY TWO HOURS AND PRN. THANKS FOR THIS CONSULTATION. Addendum: 06/12/19 at 1634 by Melania Shirley RN Amended: Links added.
[2019-06-12] MEDS ORDERED: SODIUM CHLORIDE 0.9% 1000ML 2,000 ML ONE (16:56)
--- NOTE | 2019-06-12 19:39 | NUR ---
patient continues on hemodialysis. family at bedside
--- NOTE | 2019-06-12 20:36 | Progress Note ---
DATE: 06/12/2019 Nephrology Progress Note SUBJECTIVE: The patient is doing well today with no complaints. He is scheduled for possibly debridement of his left stump tomorrow. I am managing his dialysis. Dialysis was scheduled today in which I evaluated during dialysis. He had no issues during hemodialysis today. PHYSICAL EXAMINATION: VITAL SIGNS: Temperature is 99, pulse 74, respiratory rate is 20, blood pressure 150/57, pulse ox 98% on room air. GENERAL: Not in acute distress. Alert and oriented x3. Cooperative on examination. HEENT: Head; normocephalic and atraumatic. Eyes; pupils are equal, round, and reactive to light bilaterally. Extraocular movements are intact bilaterally. Throat; no evidence of erythema or exudate in posterior pharynx. Has poor dentition. NECK: Supple. Good range of motion. PULMONARY: Clear to auscultation bilaterally. No wheezing, rales, or rhonchi. No crackles appreciated. CARDIOVASCULAR: Positive S1, S2. No murmurs, rubs, or gallops appreciated. ABDOMEN: Soft, nondistended and nontender to palpation. Bowel sounds present. MUSCULOSKELETAL: Strength is 5/5 throughout. No evidence of any muscle deficits on examination. No weakness appreciated. NEUROLOGIC: Cranial nerve II through XII grossly intact. No evidence of any neurological deficits on exam. SKIN: Intact. Warm to touch. Good cap refill. PSYCHIATRIC: Normal affect and mood. EXTREMITIES: No edema. Good range of motion throughout. LABORATORY DATA: CBC noted. Chemistry noted. IMPRESSION: 1. End-stage renal disease, on hemodialysis Wednesday, Wednesday and Wednesday. 2. Secondary hyperparathyroidism. 3. Anemia of end-stage renal disease. 4. Left stump gangrene. 5. Hypertension. PLAN: HD scheduled for today, which I evaluated during HD. flow rate 350, dialysis flow rate 700. Ultrafiltration 3 L, duration 3 hours. Continue with phosphorus binders, renal diet. Hemoglobin is stable. We will continue to monitor very closely. I will go ahead and add him on Epogen 10,000 units subcu three times per week. Otherwise, we will continue with same plan of care. MD CITLALY Cervantes/MODRico /[id number]
--- NOTE | 2019-06-12 21:45 | NUR ---
Patient tolerated dialysis. Pulled 3L of fluid for 3 hrs by dialysis nurse.
--- NOTE | 2019-06-12 22:34 | NUR ---
BP 147/68MMHG PR86B/MIN
[2019-06-12] MEDS: EPOETIN ALFA 10000 UNIT/ML VIAL SC SCH (22:50)
[2019-06-12] MEDS: QUETIAPINE FUMARATE 25 MG TAB PO SCH (22:51)
[2019-06-12] MEDS: ATORVASTATIN 20 MG TAB PO SCH (22:51)
[2019-06-12] MEDS: GABAPENTIN 300 MG CAP PO SCH (22:51)
[2019-06-12] MEDS: ACETAMINOPHEN 325 MG TAB PO PRN (23:45)
[2019-06-13] VITALS (7 sets, daily range): BP systolic 129–189; BP diastolic 50–78
[2019-06-13] MEDS: PIPERACILLIN/TAZO 2.25 GM 50 ML IV SCH ×4 (03:55→22:30)
--- NOTE | 2019-06-13 06:10 | NUR ---
temp rechecked and revealed 98.[address] Saravia to do stat Potassium before going to the OR. Lab notified.
--- NOTE | 2019-06-13 06:18 | NUR ---
Lab came for blood sample. OR staff notified that patient is ready.
--- NOTE | 2019-06-13 06:29 | NUR ---
Patient is off the Unit for Procedure.
--- NOTE | 2019-06-13 07:05 | NUR ---
pt off unit at this time.
[2019-06-13] MEDS: INSULIN REGULAR, HUMAN 100 UNIT/1 ML 3ML VIAL SQ SCH ×4 (07:30→20:54)
[2019-06-13] MEDS: SEVELAMER CARBONATE 800 MG TAB PO SCH ×3 (08:00→17:00)
[2019-06-13] MEDS: VALSARTAN 160 MG TAB PO SCH ×2 (09:00→21:34)
[2019-06-13] MEDS: LACTOBACILLUS ACIDOPHILUS CAPSULE PO SCH ×2 (09:00→17:00)
[2019-06-13] MEDS: ISOSORBIDE MONONITRATE 30 MG TAB CR PO SCH (09:00)
[2019-06-13] MEDS: HYDRALAZINE HCL 25 MG TAB PO SCH ×3 (09:00→21:00)
--- NOTE | 2019-06-13 11:00 | NUR ---
pt arrived to unit resp even and unlabored at this time no distress noted. family members at bedside.
--- NOTE | 2019-06-13 11:04 | Operative Report ---
DATE OF PROCEDURE: 06/13/2019 SURGEON: Faraz Saravia MD PREOPERATIVE DIAGNOSES: Gangrene and contracture, left below-knee amputation stump. POSTOPERATIVE DIAGNOSES: Gangrene and contracture, left below-knee amputation stump. PROCEDURE: Left above knee amputation. 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 ANESTHESIA: General. INDICATIONS AND FINDINGS: The patient is a 68-year-old male, who had a left below-knee amputation done recently, who developed breakdown of the stump with gangrene and contracture of the knee. Surgery, the tissues were all viable level amputation with adequate arterial inflow. TECHNIQUE: After adequate general anesthesia, the patient in supine position, the left leg was prepped and draped in a sterile fashion with ChloraPrep solution. A fishmouth incision made above the knee, carried down through subcutaneous tissue and muscles anteriorly and medially. Incision carried deeper, muscles were divided. The femoral neurovascular bundle was dissected free and divided between clamps. There was a stent in the femoral artery laterally. The muscles also divided. The femur was exposed, stripped of periosteum and divided as proximally as possible with a Gigli saw. The sciatic nerve was divided between clamps and the posterior muscles were divided and leg was removed. The clamped vessels were suture ligated with 2-0 silk with femoral neurovascular bundle doubly suture ligated with 2-0 silk. Smaller vessels were controlled with electrocautery. The wound was irrigated with saline, inspected for hemostasis which was seen to be adequate. The wound was then closed with superficial fascia, closed with interrupted sutures of 2-0 Vicryl. Skin was closed with kwesi. Sterile dressing was applied. The patient tolerated the procedure well. Estimated blood loss was 100 mL. There were no complications. All counts were correct. The patient was taken to the recovery room in satisfactory condition. Faraz Saravia MD DWG/MODL /[id number] cc: Oscar Soto
[2019-06-13] MEDS: CEFEPIME 1GM/NS 0.9% 50 ML 50 ML IV SCH ×2 (12:00→23:59)
[2019-06-13] MEDS: HYDROCODONE/APAP 10MG-325MG TAB PO PRN (12:43)
--- NOTE | 2019-06-13 13:30 | Progress Note ---
DATE: 06/13/2019 Nephrology Progress Note SUBJECTIVE: The patient is doing much better today. He did undergo a left AKA. He has minimal pain during my evaluation. He is scheduled for dialysis tomorrow. PHYSICAL EXAMINATION: VITAL SIGNS: Temperature is 97.7, pulse 67, respiratory rate 20, blood pressure 139/54, pulse ox 99% on room air. GENERAL: Not in acute distress. Alert and oriented x3. Cooperative on examination. HEENT: Head; normocephalic and atraumatic. Eyes; pupils are equal, round, and reactive to light bilaterally. Extraocular movements are intact bilaterally. Throat; no evidence of erythema or exudate in posterior pharynx. Has poor dentition. NECK: Supple. Good range of motion. PULMONARY: Clear to auscultation bilaterally. No wheezing, rales, or rhonchi. No crackles appreciated. CARDIOVASCULAR: Positive S1, S2. No murmurs, rubs, or gallops appreciated. ABDOMEN: Soft, nondistended and nontender to palpation. Bowel sounds present. MUSCULOSKELETAL: Strength is 5/5 throughout. No evidence of any muscle deficits on examination. No weakness appreciated. NEUROLOGIC: Cranial nerve II through XII grossly intact. No evidence of any neurological deficits on exam. SKIN: Intact. Warm to touch. Good cap refill. PSYCHIATRIC: Normal affect and mood. EXTREMITIES: No edema. Good range of motion throughout. LABORATORY DATA: Lab findings none today. We will get labs in the morning. IMPRESSION: 1. End-stage renal disease, on dialysis Wednesday, Wednesday, Wednesday. 2. Secondary hyperparathyroidism. 3. Anemia of end-stage renal disease. 4. Left stump gangrene, status post awgjj-pzb-mbar amputation performed on 06/13/2019. 5. Hypertension. PLAN: At this time HD scheduled for tomorrow. We will get a.m. labs. Continue with erythropoietin 10,000 units subcu three times per week, phosphorus binders, and renal diet. Monitor hemoglobin level as well. We will continue with same plan of care and monitor closely. MD CITLALY Cervantes/KHANH /[id number]
[2019-06-13] MEDS ORDERED: PROPOFOL IV EMULSION 10 MG/ML 20 ML VIAL ONE (14:57)
[2019-06-13] MEDS ORDERED: PHENYLEPHRINE HCL 1% 10 MG/ML VIAL ONE (14:57)
[2019-06-13] MEDS ORDERED: DEXAMETHASONE SOD PHOS INJ 4 MG/ML VIAL ONE (14:57)
[2019-06-13] MEDS ORDERED: ONDANSETRON HCL INJ 2MG/ML 2ML 2 MG/ML VIAL ONE (14:57)
[2019-06-13] MEDS ORDERED: LIDOCAINE HCL 2% LOCAL INJ 5 ML SDV VIAL INJ ONE (14:57)
[2019-06-13] MEDS ORDERED: SEVOFLURANE INHAL SOLN 250 ML PEN BTL ONE (14:57)
[2019-06-13] MEDS ORDERED: FENTANYL CITRATE/PF 100MCG/2 ML INJ ONE (15:17)
--- NOTE | 2019-06-13 15:31 | NUR ---
Nutrition Intervention Note RD Recommendation(s) for Physician: -Continue diet as ordered -Rec Nepro BID to promote wound healing -Rec MVi w/minerals and vitamin C to support wound healing Plan of Care: RD following, monitoring for tolerance and adequacy, ONS rec Nutrition reason for involvement: wound RD Assessment 06/13 68yo M, who was s/p jstvw-ucc-zsfj amputation performed on 06/13/2019. Visited pt in the room. Pt was sleeping. Per family, pt was eating well prior to hospital admission. Weight has been stable. No complains of nausea or vomiting noted. Pt was able to chew and swallow without any difficulty. Pt has been seeing a dietitian at [facility] for the last [address] Nepro to increase protein calorie intake as pt had new L AKA and sacral wound; family was agreeable. Will continue to monitor and follow. Principal Problems/Diagnoses: Left stump gangrene, status post xhhjx-ugx-pcbm amputation PMH: peripheral vascular disease, end-stage renal disease, type 2 diabetes, hyperlipidemia GI: abdomen soft, non-tender, round, flatus present Skin: unstageable sacral wound, L AKA Labs: (06/13) K 3.3 L Meds: (06/13) reviewed Ht: 67in Wt: 166.56lb BMI: n/a IBW: 124lbs (with L AKA) Malnutrition Evaluation (06/13/2019) The patient does not meet criteria for a specified degree of malnutrition at this time. Will re-evaluate at follow-up as appropriate. Nutrition Prescription (Diet Order): renal diet Estimated Nutritional Needs: Calories: 1680 1960kcal(30-35kcal/kg/d) Weight used: IBW Protein:84 112g (1.5-2g/kg/d) Weight used: IBW Diet Adequacy: Not meeting calorie needs, Not meeting protein needs Diet Education Needs Assessment: Diet education indicated, but patient not appropriate for education at this time. Nutrition Care Level: low Nutrition Diagnosis: Increased protein needs related to altered skin integrity as evidenced by unstageable sacral wound and new L AKA. Goal: Patient will meet 75-100% of estimated needs by follow up Progress: Progressing Interventions: Modified diet, Commercial beverage, Multivitamin/mineral supplement therapy Monitoring/Evaluation: Total energy intake, Total protein intake, Modified diet, Liquid supplement, Weight change Signed: Jackeline Tian MS, RD, LD
[2019-06-13] MEDS: ONDANSETRON HCL INJ 2MG/ML 2ML 2 MG/ML VIAL IV PRN (18:36)
[2019-06-13] MEDS: MORPHINE SULFATE INJ 4 MG/ML INJ 1ML IV PRN ×2 (18:36→22:45)
--- NOTE | 2019-06-13 19:42 | NUR ---
report given to oncoming nurse, pt stable.
[2019-06-13] MEDS: QUETIAPINE FUMARATE 25 MG TAB PO SCH (21:00)
[2019-06-13] MEDS: GABAPENTIN 300 MG CAP PO SCH (21:00)
[2019-06-13] MEDS: ATORVASTATIN 20 MG TAB PO SCH (21:00)
[2019-06-14] VITALS (8 sets, daily range): BP systolic 120–181; BP diastolic 51–79
[2019-06-14] MEDS: PIPERACILLIN/TAZO 2.25 GM 50 ML IV SCH ×4 (03:53→20:13)
[2019-06-14 05:04] LABS: BASOPHILS % 0.3 % (0.0-1.0); EOSINOPHILS % 0.1 % (0.0-6.0); HEMATOCRIT 27.6 % (38.2-49.6); HEMOGLOBIN 8.8 g/dL (14.0-18.0); LYMPHOCYTES # (AUTO) 0.8 (1.0-3.2); LYMPHOCYTES % 9.1 % (18.0-39.1); MEAN CORPUSCULAR HGB CONC 31.9 g/dL (31-35); MEAN CORPUSCULAR VOLUME 91.1 fL (81-99); MONOCYTES # (AUTO) 0.7 (0.2-0.8); MONOCYTES % 7.8 % (4.4-11.3); NEUTROPHILS # (AUTO) 7.3 (2.1-6.9); NEUTROPHILS % 82.1 % (38.7-80.0); PLATELET COUNT 293 x10e3/uL (140-360); RED BLOOD COUNT 3.03 x10e6/uL (4.3-5.7); RED CELL DISTRIBUTION WIDTH 14.8 % (11.7-14.4)
[2019-06-14 05:31] LABS: ANION GAP 17.4 mmol/L (8-16); CALCIUM 9.7 mg/dL (8.4-10.2); CREATININE, SERUM 3.56 mg/dL (0.72-1.25); POTASSIUM 3.4 mmol/L (3.5-5.1)
--- NOTE | 2019-06-14 06:29 | NUR ---
Patient's family refused wound dressing.
[2019-06-14] MEDS: INSULIN REGULAR, HUMAN 100 UNIT/1 ML 3ML VIAL SQ SCH ×4 (07:30→20:13)
[2019-06-14] MEDS: SEVELAMER CARBONATE 800 MG TAB PO SCH ×3 (08:00→17:00)
[2019-06-14] MEDS: HYDRALAZINE HCL 25 MG TAB PO SCH ×3 (09:00→20:13)
[2019-06-14] MEDS: LACTOBACILLUS ACIDOPHILUS CAPSULE PO SCH ×2 (09:00→17:00)
[2019-06-14] MEDS: ISOSORBIDE MONONITRATE 30 MG TAB CR PO SCH (09:00)
[2019-06-14] MEDS: VALSARTAN 160 MG TAB PO SCH ×2 (09:00→20:13)
[2019-06-14] MEDS: MORPHINE SULFATE INJ 4 MG/ML INJ 1ML IV PRN ×2 (09:50→13:07)
[2019-06-14] MEDS ORDERED: SODIUM CHLORIDE 0.9% 1000ML 1,000 ML ONE (10:24)
[2019-06-14] MEDS: CEFEPIME 1GM/NS 0.9% 50 ML 50 ML IV SCH (15:10)
--- NOTE | 2019-06-14 15:25 | Progress Note ---
DATE: 06/14/2019 Nephrology Progress Note SUBJECTIVE: The patient is doing well today with no complaints. Dialysis has been ordered. He was already evaluated during dialysis. PHYSICAL EXAMINATION: VITAL SIGNS: Temperature is 98, pulse 72, respiratory rate is 16, blood pressure 146/60, pulse ox 95% on room air. GENERAL: Not in acute distress. Alert and oriented x3. Cooperative on examination. HEENT: Head is normocephalic and atraumatic. Eyes; pupils are equal, round, and reactive to light bilaterally. Extraocular movements are intact bilaterally. Throat; no evidence of erythema or exudate in posterior pharynx. Has poor dentition. NECK: Supple. Good range of motion. PULMONARY: Clear to auscultation bilaterally. No wheezing, rales, or rhonchi. No crackles appreciated. CARDIOVASCULAR: Positive S1 and S2. No murmurs, rubs, or gallops appreciated. ABDOMEN: Soft, nondistended and nontender to palpation. Bowel sounds present. MUSCULOSKELETAL: Strength is 5/5 throughout. No evidence of any muscle deficits on examination. No weakness appreciated. NEUROLOGIC: Cranial nerve II through XII grossly intact. No evidence of any neurological deficits on exam. SKIN: Intact. Warm to touch. Good cap refill. PSYCHIATRIC: Normal affect and mood. EXTREMITIES: No edema. Good range of motion throughout. LABORATORY DATA: CBC reviewed and stable. Chemistry, reviewed. IMPRESSION: 1. End-stage renal disease, on hemodialysis Wednesday, Wednesday and Wednesday. 2. Secondary hyperparathyroidism. 3. Anemia of end-stage renal disease. 4. Left stump gangrene, status post ppfpd-hcl-wtsl amputation of the left stump. 5. Hypertension. PLAN: At this time HD today as per schedule. Ultrafiltration 3 L, duration 3 hours. We will continue with phosphorus binders, renal diet. He is tolerating treatment well. I evaluated him during dialysis. Continue with Epogen. Follow with the primary team . MD CITLALY Cervantes/KHANH /[id number]
--- NOTE | 2019-06-14 18:00 | Diagnostic Imaging Report ---
Examination: CT head without contrast Clinical Indication: Change in mental status. Technique: Transaxial noncontrast images from the skull base through the vertex were obtained. Sagittal and coronal reformatted images were done. Dose modulation, iterative reconstruction, and/or weight based adjustment of the mA/kV was utilized to reduce the radiation dose to as low as reasonably achievable. Comparison: None. Findings: Scalp: No abnormalities. Bones: Intact. No fractures. No blastic or lytic lesions. Brain sulci: Mild volume or patient's age. Ventricles: No hydrocephalus. Extra-axial space: No abnormalities. Parenchyma: There are patchy areas of low-attenuation within subcortical and periventricular white matter, nonspecific, but could represent microvascular ischemic disease. No masses, hemorrhage, or acute or chronic cortical based vascular insults. Suprasellar region: No abnormalities. Craniocervical junction: The foramen magnum is patent. No Chiari one malformation. Incidental findings: Atherosclerotic calcification of the cavernous and supraclinoid internal carotid and V4 segments of the bilateral vertebral arteries. Impression: 1. No acute intracranial finding. 2. Mild chronic microvascular ischemic change and volume loss. Signed by: Dr. Suzy Bonds M.D. on 06/14/2019 5:56 PM
--- NOTE | 2019-06-14 19:00 | NUR ---
Received patient from day nurse, patient is stable, assessed, safety and fall precautions maintained as per hospital protocol: bed in lowest position and locked, needed items beside bed and patient educated about the use of the call light. son at bed side, patient is not fully awake. vitals are with base line, hydralazine was administered for elevated bp.
[2019-06-14] MEDS: ATORVASTATIN 20 MG TAB PO SCH (20:13)
[2019-06-14] MEDS: EPOETIN ALFA 10000 UNIT/ML VIAL SC SCH (20:13)
[2019-06-14] MEDS: HYDRALAZINE HCL 20 MG/ML VIAL IV PRN (20:31)
--- NOTE | 2019-06-14 20:31 | NUR ---
patient sbp above 160, patient unable to swallow meds, patient lethargic, iv hydralazine was administered.
[2019-06-15] VITALS (7 sets, daily range): BP systolic 154–194; BP diastolic 68–93
[2019-06-15] MEDS: CEFEPIME 1GM/NS 0.9% 50 ML 50 ML IV SCH ×2 (02:24→12:30)
[2019-06-15] MEDS: PIPERACILLIN/TAZO 2.25 GM 50 ML IV SCH ×4 (03:50→21:30)
--- NOTE | 2019-06-15 07:14 | NUR ---
Endorsed to next shift for continuity of care.
[2019-06-15] MEDS: INSULIN REGULAR, HUMAN 100 UNIT/1 ML 3ML VIAL SQ SCH ×4 (07:30→22:18)
[2019-06-15] MEDS: SEVELAMER CARBONATE 800 MG TAB PO SCH ×4 (08:00→18:03)
[2019-06-15] MEDS: LACTOBACILLUS ACIDOPHILUS CAPSULE PO SCH ×2 (09:00→18:03)
[2019-06-15] MEDS: ISOSORBIDE MONONITRATE 30 MG TAB CR PO SCH (09:40)
[2019-06-15] MEDS: VALSARTAN 160 MG TAB PO SCH ×2 (09:40→21:00)
[2019-06-15] MEDS: HYDRALAZINE HCL 25 MG TAB PO SCH ×3 (09:40→21:00)
--- NOTE | 2019-06-15 10:20 | NUR ---
Spoke to Dr. Vidal regarding discharge plan. He states pt is POD2 and a little more arousable today. States to give him another day to see how pt does. Pt may be able to go home. If condition does not improve, will consider LTAC tomorrow. CM will follow up with MD tomorrow.
--- NOTE | 2019-06-15 13:55 | Progress Note ---
DATE: 06/15/2019 Nephrology Progress Note SUBJECTIVE: The patient is doing well. He is still very lethargic and confused, but he is eating at bedside. He is scheduled for dialysis tomorrow. PHYSICAL EXAMINATION: VITAL SIGNS: Temperature is 99.4, pulse 74, respiratory rate is 18, blood pressure 160/69, and pulse ox 98% on room air. GENERAL: Not in acute distress. He is alert, but he is not oriented. HEENT: Head; normocephalic, atraumatic. Eyes; pupils are equal, round, and reactive to light bilaterally. Extraocular movements intact bilaterally. Throat; no evidence of erythema or exudates in the posterior pharynx. Has poor dentition. NECK: Supple. Good range of motion. PULMONARY: Clear to auscultation bilaterally. No wheezing, no rales, no rhonchi, no crackles appreciated. CARDIOVASCULAR: Positive S1 and S2. No murmurs, rubs, or gallops appreciated. ABDOMEN: Soft, nondistended, and nontender to palpation. Bowel sounds present. MUSCULOSKELETAL: Unable to assess. NEUROLOGIC: Unable to assess due to lethargy and confusion. SKIN: Intact. Warm to touch. Good cap refill. PSYCHIATRIC: Refused. EXTREMITIES: No edema. Good range of motion throughout. He has a left AKA. LABORATORY FINDINGS: Show CBC none. Chemistry none. MICROBIOLOGY: Blood cultures were negative. IMPRESSION: 1. End-stage renal disease, on dialysis, Wednesday, Wednesday, and Wednesday. 2. Secondary hyperparathyroidism. 3. Anemia of end-stage renal disease. 4. Left stump gangrene, status post ijtqb-rmc-vboy amputation of the left stump. 5. Hypertension. PLAN: At this time, HD scheduled for tomorrow. Continue with phosphorus binders and renal diet. He is also on erythropoietin as well. We will continue to follow with the primary team. Get a.m. labs. MD CITLALY Cervantes/KHANH /[id number]
--- NOTE | 2019-06-15 19:00 | NUR ---
Pt visited in room during nursing rounds. Patient alert and oriented x1. Patient appear lethargic but able to open eyes on voice or touch stimuli. Son (Herman) at bedside. S/P left AKA and surgical site on stump covered with gauze, kerlix and bipin wrap (C/D/I). Pt being turned Q2hrs. Unstageable ulcer wound on sacrum and covered with dressing (C/D/I). Call sheriff within reach. Bed alarm active.
[2019-06-15] MEDS: ATORVASTATIN 20 MG TAB PO SCH (21:00)
--- NOTE | 2019-06-15 21:00 | NUR ---
Attempted to wake up patient to take crushed PM meds. Pt was still too lethargic to take even a spoonfull of apple sauce. Son aware and requested to hold off meds through mouth. Will medicate pt with IV Hydralazine 5mg since BP elevated (188/69) at this time.
[2019-06-15] MEDS ORDERED: SODIUM CHLORIDE 0.9% 250ML 250 ML ONE (21:01)
[2019-06-15] MEDS: HYDRALAZINE HCL 20 MG/ML VIAL IV PRN (21:19)
[2019-06-16] VITALS (11 sets, daily range): BP systolic 107–190; BP diastolic 51–92
[2019-06-16] MEDS: CEFEPIME 1GM/NS 0.9% 50 ML 50 ML IV SCH ×3 (00:08→23:16)
[2019-06-16] MEDS: MORPHINE SULFATE INJ 4 MG/ML INJ 1ML IV PRN ×2 (00:20→22:40)
[2019-06-16] MEDS: PIPERACILLIN/TAZO 2.25 GM 50 ML IV SCH ×4 (02:35→20:24)
[2019-06-16] MEDS: HYDRALAZINE HCL 20 MG/ML VIAL IV PRN (04:34)
[2019-06-16 05:02] LABS: BASOPHILS # (AUTO) 0.1 (0.0-0.1); BASOPHILS % 0.4 % (0.0-1.0); EOSINOPHILS # (AUTO) 0.5 (0.0-0.4); EOSINOPHILS % 2.3 % (0.0-6.0); LYMPHOCYTES # (AUTO) 1.3 (1.0-3.2); LYMPHOCYTES % 6.6 % (18.0-39.1); MEAN CORPUSCULAR HEMOGLOBIN 28.8 pg (28-32); MEAN CORPUSCULAR VOLUME 92.7 fL (81-99); MONOCYTES # (AUTO) 0.9 (0.2-0.8); MONOCYTES % 4.4 % (4.4-11.3); NEUTROPHILS # (AUTO) 17.3 (2.1-6.9); NEUTROPHILS % 85.5 % (38.7-80.0); PLATELET COUNT 361 x10e3/uL (140-360); RED BLOOD COUNT 3.13 x10e6/uL (4.3-5.7); RED CELL DISTRIBUTION WIDTH 15.1 % (11.7-14.4)
[2019-06-16 05:26] LABS: ANION GAP 16.5 mmol/L (8-16); CALCIUM 9.9 mg/dL (8.4-10.2); CREATININE, SERUM 3.51 mg/dL (0.72-1.25); POTASSIUM 3.5 mmol/L (3.5-5.1)
--- NOTE | 2019-06-16 07:00 | NUR ---
RCD PT AT BED PT IS ALERT AND ORIENTED PT RESTING ON BED FAMILY AT BED SIDE BED LOW AND LOCKED CALL LIGHT IN REACH
[2019-06-16] MEDS: INSULIN REGULAR, HUMAN 100 UNIT/1 ML 3ML VIAL SQ SCH ×4 (07:30→19:52)
[2019-06-16] MEDS: SEVELAMER CARBONATE 800 MG TAB PO SCH ×3 (08:00→17:00)
[2019-06-16] MEDS: HYDROCODONE/APAP 10MG-325MG TAB PO PRN (08:15)
[2019-06-16] MEDS: VALSARTAN 160 MG TAB PO SCH ×2 (09:00→20:24)
[2019-06-16] MEDS: HYDRALAZINE HCL 25 MG TAB PO SCH ×3 (09:00→20:24)
[2019-06-16] MEDS: ISOSORBIDE MONONITRATE 30 MG TAB CR PO SCH (09:00)
[2019-06-16] MEDS: LACTOBACILLUS ACIDOPHILUS CAPSULE PO SCH ×2 (09:00→17:00)
[2019-06-16] MEDS ORDERED: SODIUM CHLORIDE 0.9% 1000ML 2,000 ML ONE (09:16)
[2019-06-16] MEDS ORDERED: SODIUM CHLORIDE 0.9% 250ML 500 ML IV PRN (09:45)
[2019-06-16] MEDS ORDERED: SODIUM CHLORIDE 0.9% 1000ML 2,000 ML IV PRN (09:45)
--- NOTE | 2019-06-16 11:54 | NUR ---
CM left message for Dr. Vidal for discharge plan. Awaiting call back.
--- NOTE | 2019-06-16 13:00 | NUR ---
DIALYSIS DONE AND REMOVED 1.5 LTRS
--- NOTE | 2019-06-16 14:07 | NUR ---
Per nursing, Dr. Vidal states plan is to discharge pt home with hospice on Wednesday.
--- NOTE | 2019-06-16 15:02 | Progress Note ---
DATE: 06/16/2019 Nephrology Progress Note SUBJECTIVE: The patient is currently receiving dialysis. The patient was seen and evaluated during hemodialysis. He was a little bit hypotensive with a low 100 systolic to 107 during my evaluation. Ultrafiltration was stopped at that time. The patient looks clinically dry, which we will go ahead and just do 1.5 L of ultrafiltration. PHYSICAL EXAMINATION: VITAL SIGNS: He is afebrile, pulse 79, respiratory rate is 18. During my evaluation, systolic blood pressure was 107, his pulse ox 99% on room air. GENERAL: Not in acute distress. Alert and oriented x3. Cooperative on examination. HEENT: Head is atraumatic, atraumatic. Eyes, pupils are equal, round, and reactive to light bilaterally. Extraocular movements intact bilaterally. Throat, no evidence of erythema or exudates in the posterior pharynx. Has poor dentition. NECK: Supple. Good range of motion. PULMONARY: Clear to auscultation bilaterally. No wheezing, no rales, no rhonchi, no crackles appreciated. CARDIOVASCULAR: Positive S1 and S2. No murmurs, rubs, or gallops appreciated. ABDOMEN: Soft, nondistended, and nontender to palpation. Bowel sounds present. MUSCULOSKELETAL: Strength is 5/5 throughout. No evidence of any muscle deficits on examination. No weakness appreciated. NEUROLOGIC: Cranial nerves II through XII grossly intact. No evidence of any neurological deficits on exam. SKIN: Intact. Warm to touch. Good cap refill. PSYCHIATRIC: Normal affect and mood. EXTREMITIES: No edema. Good range of motion throughout. LABORATORY DATA: Labs show a white count of 20, hemoglobin of 9, hematocrit is 29, platelets of 361. Chemistry; sodium 142, potassium 3.5, chloride 102, bicarb 27, anion gap of 16, BUN 25, creatinine 3.5, glucose is 88. IMPRESSION: 1. End-stage renal disease, on hemodialysis, Wednesday, Wednesday, and Wednesday. 2. Secondary hyperparathyroidism. 3. Anemia of end-stage renal disease. 4. Left stump gangrene, status post emzbm-gyg-klph amputation. 5. Hypertension. 6. Leukocytosis. PLAN: At this time, HD scheduled for today, which I evaluated on dialysis. We did drop ultrafiltration to 1.5 L. He is on 3K bath 2.5 calcium, duration 3 hours. Continue with phosphorus binders and renal diet. He does have a leukocytosis now. As he is afebrile, we will defer this to ID and the primary team. MD CITLALY Cervantes/KHANH /[id number]
--- NOTE | 2019-06-16 18:51 | NUR ---
PT RESTING ON BED BED SIDE REPORT GIVEN TO ONCOMING NURSE
[2019-06-16] MEDS: EPOETIN ALFA 10000 UNIT/ML VIAL SC SCH (19:58)
[2019-06-16] MEDS: ATORVASTATIN 20 MG TAB PO SCH (20:24)
[2019-06-17] VITALS (8 sets, daily range): BP systolic 101–230; BP diastolic 56–95
[2019-06-17] MEDS: MORPHINE SULFATE INJ 4 MG/ML INJ 1ML IV PRN ×2 (00:48→04:43)
[2019-06-17] MEDS: PIPERACILLIN/TAZO 2.25 GM 50 ML IV SCH ×4 (03:58→21:26)
[2019-06-17] MEDS: HYDRALAZINE HCL 20 MG/ML VIAL IV PRN (04:43)
--- NOTE | 2019-06-17 07:00 | NUR ---
BEDSIDE SHIFT CHANGE REPORT FROM JIMMY BIGGS. PT DENIES NEEDS AT THIS TIME.
[2019-06-17] MEDS: INSULIN REGULAR, HUMAN 100 UNIT/1 ML 3ML VIAL SQ SCH ×4 (07:30→21:00)
[2019-06-17] MEDS: VALSARTAN 160 MG TAB PO SCH ×2 (09:33→21:26)
[2019-06-17] MEDS: HYDRALAZINE HCL 25 MG TAB PO SCH ×3 (09:33→21:26)
[2019-06-17] MEDS: ISOSORBIDE MONONITRATE 30 MG TAB CR PO SCH (09:33)
[2019-06-17] MEDS: SEVELAMER CARBONATE 800 MG TAB PO SCH ×3 (09:33→17:52)
[2019-06-17] MEDS: LACTOBACILLUS ACIDOPHILUS CAPSULE PO SCH ×2 (09:33→17:52)
[2019-06-17] MEDS: HYDROCODONE/APAP 10MG-325MG TAB PO PRN (10:20)
[2019-06-17] MEDS: CEFEPIME 1GM/NS 0.9% 50 ML 50 ML IV SCH (11:58)
[2019-06-17] MEDS ORDERED: HYDROMORPHONE HCL 2 MG TAB PO PRN (14:30)
[2019-06-17] MEDS: SENNOSIDES 8.6 MG TAB PO SCH ×2 (14:57→17:52)
[2019-06-17] MEDS: HYDROCODONE/APAP 5MG-325MG TAB PO SCH ×2 (14:57→17:52)
--- NOTE | 2019-06-17 15:48 | Progress Note ---
DATE: 06/17/2019 Nephrology Progress Note SUBJECTIVE: The patient is doing well today with no complaints. He received hemodialysis yesterday. . PHYSICAL EXAMINATION: VITAL SIGNS: Temperature is 99.4, pulse 82, respirations 18, blood pressure 185/81, and pulse ox 99% on room air. GENERAL: In no acute distress. Alert and oriented x3. Cooperative on examination. HEENT: Head is normocephalic and atraumatic. Eyes; pupils are reactive to light bilaterally. Extraocular muscles intact bilaterally. NECK: Supple. Good range of motion. Throat; no evidence of erythema or exudates in the posterior pharynx. Has poor dentition. PULMONARY: Clear to auscultation bilaterally. No wheezing, no rales, no rhonchi, no crackles appreciated. CARDIOVASCULAR: Positive S1 and S2. No murmurs, rubs, or gallops appreciated. ABDOMEN: Soft, nondistended, and nontender to palpation. Bowel sounds present. MUSCULOSKELETAL: Strength is 5/5 throughout. No evidence of any muscle deficits on examination. No weakness appreciated. NEUROLOGIC: Cranial nerves 2 through 12 are grossly intact. No evidence of any neurological deficit on exam. SKIN: Intact. Warm and touch. Good cap refill. PSYCHIATRIC: Normal affect and mood. EXTREMITIES: No edema. Good range of motion throughout. LABORATORY DATA: CBC none today. Chemistry none today. IMPRESSION: 1. End-stage renal disease, on hemodialysis, Wednesday, Wednesday, and Wednesday. 2. Secondary hyperparathyroidism. 3. Anemia of end-stage renal disease. 4. Left stump gangrene, status post htnfh-img-[id number] amputation. 5. Hypertension. 6. Leukocytosis. PLAN: He had HD on yesterday. Schedule for HD on Wednesday. Monitor very closely. Pain control accordingly. Renal diet, phosphorus binders. Hemoglobin is stable. We will monitor closely. MD CITLALY Cervantes/MODL /[id number]
[2019-06-17] MEDS: POLYETHYLENE GLYCOL 3350 17 GM PACK PO SCH (17:52)
[2019-06-17] MEDS ORDERED: SODIUM CHLORIDE 0.9% 250ML 250 ML ONE (21:22)
[2019-06-17] MEDS: ATORVASTATIN 20 MG TAB PO SCH (21:26)
[2019-06-18] VITALS (8 sets, daily range): BP systolic 122–213; BP diastolic 57–92
[2019-06-18] MEDS: PIPERACILLIN/TAZO 2.25 GM 50 ML IV SCH ×4 (03:24→21:25)
[2019-06-18] MEDS: HYDRALAZINE HCL 20 MG/ML VIAL IV PRN (03:24)
[2019-06-18] MEDS: HYDROCODONE/APAP 5MG-325MG TAB PO SCH ×4 (05:59→17:53)
--- NOTE | 2019-06-18 07:00 | NUR ---
RCD PT AT BED PT IS ALERT AND LETHARGIC RESTING ON BED NO SIGNS OF ANY DISTRESS NOTED IV PATENT BY SALINE FLUSH BED LOW AND LOCKED CALL LIGHT IN REACH
[2019-06-18] MEDS: INSULIN REGULAR, HUMAN 100 UNIT/1 ML 3ML VIAL SQ SCH ×4 (07:30→19:49)
[2019-06-18] MEDS: SEVELAMER CARBONATE 800 MG TAB PO SCH ×3 (08:00→17:00)
[2019-06-18] MEDS: HYDRALAZINE HCL 25 MG TAB PO SCH ×3 (09:00→21:25)
[2019-06-18] MEDS: CLOPIDOGREL BISULFATE 75 MG TAB PO SCH (09:00)
[2019-06-18] MEDS: VALSARTAN 160 MG TAB PO SCH ×2 (09:00→21:25)
[2019-06-18] MEDS: LACTOBACILLUS ACIDOPHILUS CAPSULE PO SCH ×2 (09:00→17:00)
[2019-06-18] MEDS: POLYETHYLENE GLYCOL 3350 17 GM PACK PO SCH ×2 (09:00→17:00)
[2019-06-18] MEDS: SENNOSIDES 8.6 MG TAB PO SCH ×2 (09:00→17:00)
[2019-06-18] MEDS: ISOSORBIDE MONONITRATE 30 MG TAB CR PO SCH (09:00)
--- NOTE | 2019-06-18 14:00 | NUR ---
DRESSING CHANGED ON THE LOWER SACRUM BED SORE WITH MESALT LEFT AKA IS OPENED NO DRESSING OVER THERE
--- NOTE | 2019-06-18 15:28 | Progress Note ---
DATE: 06/18/2019 Medicine Progress Note SUBJECTIVE: The patient is doing well today with no complaints. PHYSICAL EXAMINATION: VITAL SIGNS: Temperature is 97.7, pulse is 172/80, but he had received his medications and there is no subsequent blood pressure reading at this time. GENERAL: Not in acute distress. Alert and oriented x3. Cooperative on examination. HEENT: Head; normocephalic, atraumatic. Eyes, pupils are equal, round, and reactive to light bilaterally. Extraocular movements are intact bilaterally. Throat, no evidence of erythema or exudates in the posterior pharynx. Has poor dentition. NECK: Supple. Good range of motion. PULMONARY: Clear to auscultation bilaterally. No wheezing, no rales, no rhonchi, no crackles appreciated. CARDIOVASCULAR: Positive S1 and S2. No murmurs, rubs, or gallops appreciated. ABDOMEN: Soft, nondistended, and nontender to palpation. Bowel sounds present. MUSCULOSKELETAL: Strength is 5/5 throughout. No evidence of any muscle deficits on examination. No weakness appreciated. NEUROLOGIC: Cranial nerves II through XII grossly intact. No evidence of any neurological deficits on exam. SKIN: Intact. Warm to touch. Good cap refill. PSYCHIATRIC: Normal affect and mood. EXTREMITIES: No edema. Good range of motion throughout. LABORATORY DATA: There are no current labs. IMPRESSION: 1. End-stage renal disease, on dialysis Wednesday, Wednesday and Wednesday. 2. Secondary hyperparathyroidism. 3. Anemia of end-stage renal disease. 4. Left stump gangrene, status post hkovq-qhq-cxxr amputation. 5. Hypertension. 6. Leukocytosis. PLAN: HD scheduled for tomorrow. MWF schedule. Monitor closely. Get a.m. labs. Renal diet, phosphorus binders. Continue to follow. MD CITLALY Cervantes/EMERITAL /[id number]
--- NOTE | 2019-06-18 19:03 | NUR ---
PT RESTING ON BED BED SIDE REPORT GIVEN TO ONCOMING NURSE
[2019-06-18] MEDS: ATORVASTATIN 20 MG TAB PO SCH (21:25)
[2019-06-19] VITALS (7 sets, daily range): BP systolic 163–223; BP diastolic 64–99
[2019-06-19] MEDS: HYDRALAZINE HCL 20 MG/ML VIAL IV PRN ×3 (00:30→22:32)
[2019-06-19] MEDS: PIPERACILLIN/TAZO 2.25 GM 50 ML IV SCH ×4 (03:11→22:32)
[2019-06-19 05:30] LABS: BASOPHILS # (AUTO) 0.1 (0.0-0.1); BASOPHILS % 0.8 % (0.0-1.0); EOSINOPHILS # (AUTO) 0.6 (0.0-0.4); EOSINOPHILS % 5.1 % (0.0-6.0); HEMATOCRIT 27.2 % (38.2-49.6); HEMOGLOBIN 8.9 g/dL (14.0-18.0); LYMPHOCYTES % 8.1 % (18.0-39.1); MEAN CORPUSCULAR HEMOGLOBIN 29.5 pg (28-32); MEAN CORPUSCULAR HGB CONC 32.7 g/dL (31-35); MEAN CORPUSCULAR VOLUME 90.1 fL (81-99); MONOCYTES # (AUTO) 0.8 (0.2-0.8); MONOCYTES % 7.2 % (4.4-11.3); NEUTROPHILS # (AUTO) 9.1 (2.1-6.9); NEUTROPHILS % 77.8 % (38.7-80.0); PLATELET COUNT 337 x10e3/uL (140-360); RED BLOOD COUNT 3.02 x10e6/uL (4.3-5.7); RED CELL DISTRIBUTION WIDTH 14.8 % (11.7-14.4)
[2019-06-19] MEDS: HYDROCODONE/APAP 5MG-325MG TAB PO SCH ×5 (06:00→23:02)
[2019-06-19 06:11] LABS: ANION GAP 17.5 mmol/L (8-16); CALCIUM 9.8 mg/dL (8.4-10.2); CREATININE, SERUM 4.13 mg/dL (0.72-1.25); POTASSIUM 3.5 mmol/L (3.5-5.1)
[2019-06-19] MEDS: INSULIN REGULAR, HUMAN 100 UNIT/1 ML 3ML VIAL SQ SCH ×4 (07:30→21:00)
[2019-06-19] MEDS: SEVELAMER CARBONATE 800 MG TAB PO SCH ×3 (07:53→16:02)
[2019-06-19] MEDS: VALSARTAN 160 MG TAB PO SCH ×2 (08:11→21:00)
[2019-06-19] MEDS: ISOSORBIDE MONONITRATE 30 MG TAB CR PO SCH (08:11)
[2019-06-19] MEDS: HYDRALAZINE HCL 25 MG TAB PO SCH ×3 (08:11→21:00)
[2019-06-19] MEDS: CLOPIDOGREL BISULFATE 75 MG TAB PO SCH (08:12)
[2019-06-19] MEDS: LACTOBACILLUS ACIDOPHILUS CAPSULE PO SCH ×2 (08:12→16:02)
[2019-06-19] MEDS: SENNOSIDES 8.6 MG TAB PO SCH ×2 (08:12→16:10)
--- NOTE | 2019-06-19 09:25 | NUR ---
patient resting bed, on IV antibiotics now, not in any distress, awake and tolerated with morning medications and his nephro supplement. Dialysis nurse sat bed side, family at bed side,his son stated "patient looks little more active and alert today".
[2019-06-19] MEDS: POLYETHYLENE GLYCOL 3350 17 GM PACK PO SCH ×2 (09:32→16:05)
--- NOTE | 2019-06-19 12:14 | NUR ---
EDUCATED ABOUT IMM, SIGNED, FILED IN CHART, WITH COPY LEFT WITH FAMILY AT BEDSIDE.
--- NOTE | 2019-06-19 14:38 | Progress Note ---
DATE: 06/19/2019 Renal progress Note SUBJECTIVE: The patient is doing well today with no complaints. He received hemodialysis today. PHYSICAL EXAMINATION: VITAL SIGNS: afebrile, pulse 86, respirations 18, blood pressure GENERAL: Not in acute distress. Alert and oriented x3 . HEENT: Head; normocephalic, atraumatic. Eyes, pupils are equal, round, and reactive to light bilaterally. Extraocular movements are intact bilaterally PULMONARY: Clear to auscultation bilaterally. No wheezing, no rales, no rhonchi, no crackles appreciated. CARDIOVASCULAR: Positive S1 and S2. No murmurs, rubs, or gallops appreciated. ABDOMEN: Soft, nondistended, and nontender to palpation. Bowel sounds present. MUSCULOSKELETAL: Strength is 5/5 throughout. No evidence of any muscle deficits on examination. LABORATORY DATA: Labs show a white count of glucose is 103, calcium is 9.8. MICROBIOLOGY: MPRESSION: 1. End-stage renal disease, on dialysis Wednesday, Wednesday and Wednesday. 2. Secondary hyperparathyroidism. 3. Anemia of end-stage renal disease. 4. Left stump gangrene, status post brsml-blf-nurh amputation. 5. Hypertension. 6. Leukocytosis. PLAN: HD scheduled for tomorrow. MWF schedule. Monitor closely. Get a.m. labs. Renal diet, phosphorus binders. Continue to follow. MD CITLALY Cervantes/EMERITAL /[id number] MTDJeyson
--- NOTE | 2019-06-19 15:49 | NUR ---
CALLED AND SPOKE WITH DAUGHTER JULIO [phone] WHOM STATES HER CHOICE FOR HOSPICE IS ESSENTIAL FILED CHOICE IN CHART, FAXED CLINICALS TO [phone] AND CALLED AND CONFIRMED RECEIPT WITH CHRISTINE [phone]. PT FAMILY WILL SET UP FOR TRANSPORTATION REVERSE UNIT OPERATOR IN MORNING TO RETURN HOME WITH HOSPICE SERVICES, WILL CALL [facility] AND LET KNOW WHAT TIME REVERSE UNIT OPERATOR WILL BE.
--- NOTE | 2019-06-19 19:00 | NUR ---
RECEIVED REPORT FROM DAY NURSE. PATIENT IS RESTING COMFORTABLY IN BED. BED IS IN THE LOWEST POSITION AND CALL REARDON IS WITHIN REACH. WILL CONTINUE TO MONITOR PATIENT.
--- NOTE | 2019-06-19 19:01 | NUR ---
patient resting in bed, alert with no distress, iv is intact
[2019-06-19] MEDS: ATORVASTATIN 20 MG TAB PO SCH (21:00)
[2019-06-20] VITALS: BP 186/76
[2019-06-20] MEDS ORDERED: SODIUM CHLORIDE 0.9% 250ML 250 ML ONE (03:38)
[2019-06-20] MEDS: PIPERACILLIN/TAZO 2.25 GM 50 ML IV SCH ×2 (03:41→08:44)
[2019-06-20 04:00] VITALS: BP 201/84
[2019-06-20] MEDS: HYDRALAZINE HCL 20 MG/ML VIAL IV PRN (04:30)
[2019-06-20] MEDS: HYDROCODONE/APAP 5MG-325MG TAB PO SCH (04:31)
--- NOTE | 2019-06-20 06:40 | NUR ---
report given to day nurse. patient is resting comfortably in bed. bed is in lowest position and call sheriff is within reach.
[2019-06-20 07:40] VITALS: BP 178/74
[2019-06-20] MEDS: SEVELAMER CARBONATE 800 MG TAB PO SCH (08:15)
[2019-06-20] MEDS: HYDRALAZINE HCL 25 MG TAB PO SCH (08:15)
[2019-06-20] MEDS: ISOSORBIDE MONONITRATE 30 MG TAB CR PO SCH (08:15)
[2019-06-20] MEDS: VALSARTAN 160 MG TAB PO SCH (08:15)
[2019-06-20] MEDS: LACTOBACILLUS ACIDOPHILUS CAPSULE PO SCH (08:26)
[2019-06-20] MEDS: POLYETHYLENE GLYCOL 3350 17 GM PACK PO SCH (08:26)
[2019-06-20] MEDS: CLOPIDOGREL BISULFATE 75 MG TAB PO SCH (08:26)
[2019-06-20] MEDS: SENNOSIDES 8.6 MG TAB PO SCH (08:26)
--- NOTE | 2019-06-20 09:45 | NUR ---
patient discharged to Hospice, IV canula removed with tip intact, no ss of infiltration,not in any distress, EMS here to pick the patient, son at bed side , Discharge instruction given, all belongings with son
--- NOTE | 2019-06-20 15:06 | Discharge Summary ---
FINAL DIAGNOSES: 1. Status post left above-knee amputation on June 13, 2019. 2. Nonhealing left below-knee amputation previously associated with infection. 3. Anemia, status post blood transfusion. 4. End-stage renal disease, on dialysis. 5. Prior to left above-knee amputation, infected diabetic left below-knee amputation with wound adhesion with nonhealing wound secondary to severe peripheral vascular disease. SUMMARY: A 68-year-old male with extensive chronic medical problem, had a left BKA, did not heal. Matter of fact, it became necrotic and infected with wound adhesion. The patient came back to the hospital for the left AKA, subsequently that was done. The patient did receive antibiotics. After his surgery, the patient was very encephalopathic due to multiple factors including metabolic acidosis and also from most likely anesthetic and medication overall. The patient is doing much better now. He is almost back to his usual baseline. The patient did receive dialysis and did receive packed red blood cell transfusion. Hemoglobin is 8.9 and hematocrit is 27.2. The patient is stable, discharged back home. He will go back home and resume his hospice care for his atherosclerotic vascular disease, end-stage along with multiple other comorbidities. The patient will continue with his dialysis. MD SESAR Parker/KHANH /[id number]
== END 2019-06-20 09:37 | disposition hospice, home (50) | DRG 239 ==
LOC: ER 16:35 → ERHOLD 19:43 → MED/SURG2 06-10 02:10
PROVIDERS: ADMIT Internal Medicine; ATTEND Internal Medicine
PROC: 5A1D70Z Performance of Urinary Filtration, Intermittent, Less than 6 Hours Per Day (ICD-10-PCS; 2019-06-10)
PROC: 30243N1 Transfusion of Nonautologous Red Blood Cells into Central Vein, Percutaneous Approach (ICD-10-PCS; 2019-06-10)
PROC: 5A1D70Z Performance of Urinary Filtration, Intermittent, Less than 6 Hours Per Day (ICD-10-PCS; 2019-06-12)
PROC: 0Y6D0Z1 Detachment at Left Upper Leg, High, Open Approach (ICD-10-PCS; principal; 2019-06-13 07:03)
PROC: 5A1D70Z Performance of Urinary Filtration, Intermittent, Less than 6 Hours Per Day (ICD-10-PCS; 2019-06-14)
PROC: 5A1D70Z Performance of Urinary Filtration, Intermittent, Less than 6 Hours Per Day (ICD-10-PCS; 2019-06-16)
PROC: 5A1D70Z Performance of Urinary Filtration, Intermittent, Less than 6 Hours Per Day (ICD-10-PCS; 2019-06-19)
DX: E11.52 Type 2 diabetes mellitus with diabetic peripheral angiopathy with gangrene (principal); N18.6 End stage renal disease; T87.44 Infection of amputation stump, left lower extremity; L03.115 Cellulitis of right lower limb; I96 Gangrene, not elsewhere classified; N39.0 Urinary tract infection, site not specified; B37.81 Candidal esophagitis; I12.0 Hypertensive chronic kidney disease with stage 5 chronic kidney disease or end stage renal disease; E21.3 Hyperparathyroidism, unspecified; I10 Essential (primary) hypertension; K25.9 Gastric ulcer, unspecified as acute or chronic, without hemorrhage or perforation; E11.22 Type 2 diabetes mellitus with diabetic chronic kidney disease; Z99.2 Dependence on renal dialysis; Z79.4 Long term (current) use of insulin; T87.81 Dehiscence of amputation stump; E78.00 Pure hypercholesterolemia, unspecified; D63.1 Anemia in chronic kidney disease; I95.3 Hypotension of hemodialysis; F41.9 Anxiety disorder, unspecified
CPT/HCPCS: 36415; 70450; 80048; 80053; 82948; 83605; 84132; 85025; 86706; 86803; 86850; 86900; 86920; 87040; 87340; 88307; 90962; 99284; J0360; J0692; J1100; J1817; J2001; J2270; J2370; J2405; J2543; J3010; J3370; J7030; J7050; P9016; Q4081

== ENCOUNTER 2019-09-26 13:29 | Inpatient (IN) | payer MEDICARE, BC ==
[~2019-09-26] VITALS: Ht 170.2 cm; Wt 65.8 kg
[~2019-09-26 13:29] MED LIST changes: +HYDROMORPHONE HC2 MG PO; +QUETIAPINE FUMA25 MG PO
[2019-09-26] MEDS ORDERED: VANCOMYCIN 1GM/NS 250 ML 250 ML IV STA (14:36)
[2019-09-26] MEDS ORDERED: SODIUM CHLORIDE 0.9% 1000ML 1,000 ML IV STA ×2 (14:36)
[2019-09-26] MEDS ORDERED: SODIUM CHLORIDE 0.9% 1000ML 1,000 ML IV SCH (14:42)
[2019-09-26] MEDS ORDERED: ONDANSETRON HCL INJ 2MG/ML 2ML 2 MG/ML VIAL IV PRN (14:45)
[2019-09-26] MEDS ORDERED: ACETAMINOPHEN 325 MG TAB PO NR (14:45)
[2019-09-26] MEDS ORDERED: DEXTROSE 50% SYRINGE 50 ML IV PRN (14:45)
[2019-09-26] MEDS ORDERED: ONDANSETRON HCL INJ 2MG/ML 2ML 2 MG/ML VIAL IV NR (14:45)
[2019-09-26] MEDS ORDERED: PIPER-TAZ 3.375 GM 50 ML IV NR (14:45)
[2019-09-26] MEDS ORDERED: FAMOTIDINE 20 MG/2 ML VIAL IV NR (14:45)
[2019-09-26 14:47] LABS: BASOPHILS # (AUTO) 0.1 (0.0-0.1); BASOPHILS % 0.6 % (0.0-1.0); EOSINOPHILS # (AUTO) 0.1 (0.0-0.4); EOSINOPHILS % 0.9 % (0.0-6.0); HEMATOCRIT 37.5 % (38.2-49.6); HEMOGLOBIN 11.6 g/dL (14.0-18.0); LYMPHOCYTES # (AUTO) 0.9 (1.0-3.2); LYMPHOCYTES % 9.3 % (18.0-39.1); MEAN CORPUSCULAR HEMOGLOBIN 28.6 pg (28-32); MEAN CORPUSCULAR HGB CONC 30.9 g/dL (31-35); MEAN CORPUSCULAR VOLUME 92.4 fL (81-99); MONOCYTES # (AUTO) 0.9 (0.2-0.8); MONOCYTES % 9.5 % (4.4-11.3); NEUTROPHILS # (AUTO) 7.7 (2.1-6.9); NEUTROPHILS % 79.3 % (38.7-80.0); PLATELET COUNT 428 x10e3/uL (140-360); RED BLOOD COUNT 4.06 x10e6/uL (4.3-5.7); RED CELL DISTRIBUTION WIDTH 14.7 % (11.7-14.4)
[2019-09-26] MEDS ORDERED: MORPHINE SULFATE 2 MG/ML SYR 1ML IV PRN (14:50)
[2019-09-26 14:57] LABS: INR 1.07; PROTHROMBIN TIME 14.4 seconds (11.9-14.5)
[2019-09-26] MEDS ORDERED: MORPHINE SULFATE INJ 4 MG/ML INJ 1ML IV NR (15:00)
[2019-09-26 15:04] LABS: ALBUMIN 2.4 g/dL (3.5-5.0); ALBUMIN/GLOBULIN RATIO 0.5 (0.8-2.0); CALCIUM 10.1 mg/dL (8.4-10.2); CREATININE, SERUM 3.56 mg/dL (0.72-1.25)
[2019-09-26 15:24] LABS: MAGNESIUM 2.1 MG/DL (1.3-2.1)
--- NOTE | 2019-09-26 15:33 | Diagnostic Imaging Report ---
Chest, portable AP view History: Infection, weakness Comparison: No comparisons available for review IMPRESSION: The heart is within normal limits of size. The mediastinal and hilar contours are unremarkable. There is no focal consolidation, sizable pleural effusion, or pneumothorax. There is approximately 1.7 x 4.3 cm calcified lesion in the proximal right humerus without suspicious features. Signed by: Kang Carnes MD on 09/26/2019 3:30 PM
--- NOTE | 2019-09-26 15:37 | Diagnostic Imaging Report ---
Right ankle, 3 views Clinical indication: Infection Comparison: MRI of the right foot dated 04/21/2019, radiograph of the right foot dated 04/14/2019 Impression: 3 views of the right ankle were obtained. There is diffuse osteopenia. Soft tissue ulceration is noted at the lateral malleolus. The distal fibula demonstrates osseous erosion and bony resorption compatible with osteomyelitis. No acute fracture or dislocation is identified. Patient is status post right forefoot amputation. Excessive vascular calcifications are present. Signed by: Kang Carnes MD on 09/26/2019 3:33 PM
--- NOTE | 2019-09-26 16:48 | NUR ---
Received patient via stretcher from ER. Accompanied by son and daughter. AAOX1 to person. Respirations even and unlabored. Dressing to right ankle.Moderate drainage, foul smell noted. Dressing changed. Oriented patient and family to room. Instructed to use call light for assistance. Voiced understanding. Side rails upx2.
[2019-09-26 17:00] VITALS: BP 186/79
[2019-09-26] MEDS ORDERED: NORCO 5-325 TA1 EACH PO (17:22)
[2019-09-26] MEDS ORDERED: PNEUMOCOCCAL VACCINE POLYVALENT 23 MCG/0.5 ML VIAL IM SCH (17:24)
[2019-09-26 17:32] VITALS: BP 186/79
--- NOTE | 2019-09-26 17:55 | NUR ---
aware of T100.1 and BP 186/79. See orders
[2019-09-26] MEDS: INSULIN REGULAR, HUMAN 100 UNIT/1 ML 3ML VIAL SQ SCH ×2 (18:00→21:23)
[2019-09-26] MEDS ORDERED: ACETAMINOPHEN 650 MG SUPP PR PRN (18:00)
[2019-09-26] MEDS: VALSARTAN 160 MG TAB PO SCH (18:25)
[2019-09-26] MEDS: HYDROCODONE/APAP 5MG-325MG TAB PO PRN (18:25)
--- NOTE | 2019-09-26 18:37 | NUR ---
Spoke to Chinyere with [facility] HD center and notified of new HD patient.
--- NOTE | 2019-09-26 19:00 | NUR ---
received report from day nurse. patient is resting comfortably in bed. bed is in lowest position and call sheriff is within reach. will continue to monitor patient.
--- NOTE | 2019-09-26 19:10 | NUR ---
Report given to oncoming nurse of patient's status. Resting in bed, side rails upx2, call light within reach, son at bedside. No s/s of acute distress noted.
[2019-09-26 20:00] VITALS: BP 113/53
[2019-09-26 20:34] VITALS: BP 113/53
[2019-09-26] MEDS: HYDRALAZINE HCL 25 MG TAB PO SCH (21:21)
[2019-09-26] MEDS: PIPERACILLIN/TAZO 2.25 GM 50 ML IV SCH (21:21)
[2019-09-26] MEDS: QUETIAPINE FUMARATE 25 MG TAB PO SCH (21:21)
[2019-09-26] MEDS: GABAPENTIN 300 MG CAP PO SCH (21:21)
[2019-09-27] VITALS (8 sets, daily range): BP systolic 141–197; BP diastolic 67–80
[2019-09-27 05:12] LABS: BASOPHILS # (AUTO) 0.1 (0.0-0.1); BASOPHILS % 0.7 % (0.0-1.0); EOSINOPHILS # (AUTO) 0.2 (0.0-0.4); EOSINOPHILS % 3.2 % (0.0-6.0); HEMATOCRIT 28.1 % (38.2-49.6); HEMOGLOBIN 8.3 g/dL (14.0-18.0); LYMPHOCYTES % 13.6 % (18.0-39.1); MEAN CORPUSCULAR HEMOGLOBIN 28.8 pg (28-32); MEAN CORPUSCULAR HGB CONC 29.5 g/dL (31-35); MEAN CORPUSCULAR VOLUME 97.6 fL (81-99); MONOCYTES # (AUTO) 0.7 (0.2-0.8); MONOCYTES % 9.4 % (4.4-11.3); NEUTROPHILS # (AUTO) 5.3 (2.1-6.9); NEUTROPHILS % 72.7 % (38.7-80.0); PLATELET COUNT 253 x10e3/uL (140-360); RED BLOOD COUNT 2.88 x10e6/uL (4.3-5.7); RED CELL DISTRIBUTION WIDTH 14.8 % (11.7-14.4)
[2019-09-27 05:36] LABS: ALBUMIN 1.3 g/dL (3.5-5.0); ALBUMIN/GLOBULIN RATIO 0.5 (0.8-2.0); ALKALINE PHOSPHATASE 78 IU/L (40-150); BLOOD UREA NITROGEN 37 mg/dL (7-26); BUN/CREATININE RATIO 15 (6-25); CARBON DIOXIDE 17 mmol/L (22-29); CHLORIDE 112 mmol/L (98-107); EST GLOMERULAR FILTRATION RATE 26 ML/MIN (60-); GLUCOSE 69 mg/dL (74-118); MAGNESIUM 1.4 MG/DL (1.3-2.1); PHOSPHORUS 2.6 MG/DL (2.3-4.7); SODIUM 137 mmol/L (136-145)
[2019-09-27 05:37] LABS: ALANINE AMINOTRANSFERASE < 6 IU/L (0-55); CALCIUM 6.4 mg/dL (8.4-10.2)
[2019-09-27 06:06] LABS: CREATINE KINASE MB 0.5 ng/mL (0-5.0)
--- NOTE | 2019-09-27 06:11 | NUR ---
laboratory called with a critical calcium level. patient's calcium is 6.4. On-call MD notified. No new orders received. it trainee physician states MD will be in facility to assess patient later today.
[2019-09-27] MEDS: VALSARTAN 160 MG TAB PO SCH ×2 (06:29→17:05)
[2019-09-27] MEDS: HYDRALAZINE HCL 25 MG TAB PO SCH ×3 (06:29→20:43)
[2019-09-27] MEDS: PIPERACILLIN/TAZO 2.25 GM 50 ML IV SCH ×3 (06:29→22:10)
--- NOTE | 2019-09-27 07:10 | NUR ---
RCD PT AT BED PT IS ALERT AND ORIENTED PT RESTING ON BED NO SIGNS OF ANY DISTRESS NOTED IV PATENT BY SALINE FLUSH FAMILY AT BED SIDE BED LOW AND LOCKED CALL LIGHT IN REACH
--- NOTE | 2019-09-27 07:23 | NUR ---
report given to day nurse. patient is resting comfortably in bed. bed is in lowest position and call light is within reach.
[2019-09-27] MEDS: INSULIN REGULAR, HUMAN 100 UNIT/1 ML 3ML VIAL SQ SCH ×4 (07:30→20:37)
[2019-09-27] MEDS ORDERED: CLOPIDOGREL BISULFATE 75 MG TAB PO SCH (09:00)
[2019-09-27] MEDS: HYDROCODONE/APAP 5MG-325MG TAB PO PRN ×3 (09:11→20:44)
[2019-09-27] MEDS: DOCUSATE SODIUM 100 MG CAP PO SCH (09:45)
[2019-09-27] MEDS: SEVELAMER CARBONATE 800 MG TAB PO SCH ×3 (09:48→17:00)
[2019-09-27] MEDS: ISOSORBIDE MONONITRATE 30 MG TAB CR PO SCH (09:49)
[2019-09-27] MEDS: GABAPENTIN 300 MG CAP PO SCH ×3 (09:49→20:43)
[2019-09-27] MEDS ORDERED: POTASSIUM CHLORIDE 20 MEQ TAB CR PO ONE (11:30)
[2019-09-27] MEDS ORDERED: CALCIUM GLUCONATE 10% INJ 9.3 MEQ in SODIUM CHLORIDE 0.9% 100 ML 100 ML IV ONE (11:30)
--- NOTE | 2019-09-27 13:45 | NUR ---
WOUND CARE CONSULT FOR 69 YO MALE DIABETIC PATIENT JAYJAY 16 ON STRICT PUP ON ALTERNATING PRESSURE SURFACE LAB: WBC- 7.27, HGB- 8.3 , GLUCOSE -69 BLOOD CULTURE PENDING FULL SKIN ASSESSMENT COMPLETE PATIENT PRESENTS WITH SACRAL STAGE 2 ULCERATION 6LLD7BHT.3CM RIGHT ANKLE UPGRADEABLE DIABETIC ULCERATION 0GBV6HJ DARK ESCHAR AND SLOUGH COVERED RIGHT TMA STAGE 2 ULCERATION 6URS6VYU.1CM RECOMMENDATIONS:NURSING TO CONTINUE TO MAINTAIN STRICT PUP STATUS AND ALTERNATING PRESSURE SURFACE NURSING TO CONTINUE TO ASSIST PATIENT OUT OF BED FOR MEALS AND TOLERATED NURSING TO CONTINUE TO MAINTAIN PILLOW SUSPENSION OF RT HEEL AND HEEL PROTECTOR NURSING TO APPLY DAILY FIBRACOL TO SACRAL STAGE 2 ULCER WOUND BED COVER WITH ALLEVYN FOAM NURSING TO APPLY DAILY FIBRACOL TO RIGHT TMA STAGE 2 ULCER WOUND BED COVER WITH 4X4 AND KERLIX NURSING TO APPLY DAILY SILVASORB GEL AND 4X4 TO RIGHT ANKLE UNGRADEABLE DIABETIC ULCER NECROTIC TISSUE COVER WITH 4X4 AND WRAP WITH KERLIX SECURE WITH TAPE Addendum: 09/27/19 at 1401 by Laurent Cabral RN Amended: Links added.
--- NOTE | 2019-09-27 14:04 | History and Physical ---
PRIMARY CARE PHYSICIAN: Dr. Oscar Soto. CONSULTANTS: 1. Dr. Darwin Love. 2. Dr. Faraz Vasquze. CHIEF COMPLAINT: Right lateral malleolar pus discharge, cellulitis, osteomyelitis. HISTORY OF PRESENT ILLNESS: A 69-year-old male with extensive chronic medical problem. The patient has end-stage renal disease and he is on dialysis. He has also had severe peripheral vascular disease. The patient had left BKA and right TMA. He is on dialysis. He was on hospice outpatient. The patient has a small wound to the right lateral malleolar, which was injured when came off. There was pus discharge and significant foul odor. The patient's x-ray show osteomyelitis. The patient is baseline bedbound, require full ADL care and also on dialysis. PAST MEDICAL HISTORY: End-stage renal disease, dialysis, severe PAD, peripheral vascular disease both lower extremity, dyslipidemia, diabetes type 2, secondary hyperparathyroidism, chronic pain, and baseline vascular dementia. PAST SURGICAL HISTORY: Right TMA and left BKA, dialysis access. SOCIAL HISTORY: The patient lives at home with his family. He has very good family support. He is on dialysis. He is bedridden and full ADL care. PHYSICAL EXAMINATION: VITAL SIGNS: Temperature is 98, blood pressure 197/80, pulse rate is 64, and respirations 20. GENERAL: The patient is not in acute distress. He is awake. He is in pain. HEENT: Normocephalic and atraumatic. Anicteric. NECK: Supple grossly. PULMONARY: Diminished breath sounds. CARDIOVASCULAR: Regular rate and rhythm. ABDOMEN: Soft. EXTREMITIES: Left BKA and right TMA. Right lateral malleolar with pus discharge, osteomyelitis, very painful. NEUROLOGIC: Baseline dementia. LABORATORY DATA: Sodium 137, potassium 3, chloride 112, bicarb 17, BUN 37, creatinine 2.5, and glucose 69. WBC 7.3, hemoglobin 8.3, hematocrit , and platelets 253. IMPRESSION: 1. Right lateral malleolar abscess, pus discharge, cellulitis and osteomyelitis of the lateral malleolar on the right. 2. Severe peripheral vascular disease. 3. Multiple baseline problems, end-stage renal disease, on dialysis, left glmuo-vao-kmmi amputation, dyslipidemia, diabetes type 2, and hypertension. PLAN: The patient may benefit right BKA. We discussed with Dr. Faraz Vasquez, surgeon. Continue with dialysis. Continue following the patient. Antibiotics. MD SESAR Parker/MODL /[id number]
--- NOTE | 2019-09-27 15:30 | NUR ---
Dialysis started on pt at bedside
--- NOTE | 2019-09-27 16:16 | NUR ---
Nutrition Intervention Note RD Recommendation(s) for Physician: -Brennen BID for wound healing -Recommend renal diet Plan of Care: RD following, monitoring for tolerance and adequacy Nutrition reason for involvement: MST and pressure ulcer RD Assessment: (09/27/19). Pt is a 69 year old male admitted with cellulitis of right ankle, diabetic ulcer of ankle, ESRD on dialysis, and fever. Pt was sleeping at time of visit; therefore, spoke to family members at bedside. Per family members, pt has been consuming >50% of his meals. Family members were unsure of pts usual wt. On a previous admission in June 2019, pt had various weights in chart ranging from 159-177 lbs. Pt currently has a wt of 145 lbs in chart. Unable to accurately assess wt status at this time. No N/V/D/C reported and no chewing/swallowing issues noted. Principal Problems/Diagnoses: cellulitis of right ankle, diabetic ulcer of ankle, ESRD on dialysis, and fever PMH: End-stage renal disease, dialysis, severe PAD, peripheral vascular disease both lower extremity, dyslipidemia, diabetes type 2, secondary hyperparathyroidism, chronic pain, baseline vascular dementia, Right TMA and left BKA I/O:225/- GI: soft, nontender abdomen Skin: unstageable sacrum pressure ulcer Labs: (09/27/19) K 3.0, BUN 37, Creat 2.50, Glu 69 Meds: (09/27/19) colace, insulin regular, zofran, piperaccillin/tazobactam Ht: 67 inches Wt: 145 lbs BMI: 22.7 kg/m2 IBW: 148 lbs Malnutrition Evaluation (09/27/19) The patient does not meet criteria for a specified degree of malnutrition at this time. Will re-evaluate at follow-up as appropriate. Nutrition Prescription (Diet Order): Cardiac Diet Estimated Nutritional Needs: 0633-4271 calories/day (30-35 kcal/kg CBW) 79-99 g protein/day (1.2-1.5g pro/kg CBW) Diet Adequacy: Meeting calorie needs, Meeting protein needs per report by family members Tolerance: Tolerating PO Diet Education Needs Assessment: RD is available for diet education as needed Nutrition Care Level: low Nutrition Diagnosis: Increased nutrient needs related to increased demand for protein and kcal as evidenced by unstageable sacrum pressure ulcer. Goal: Patient will meet 75-100% of estimated needs by follow up Progress: N/A Interventions: -mineral modified diet, Commercial beverage, Recommended Modifications Monitoring/Evaluation: -Total energy intake, Total protein intake, Modified diet, Liquid supplement, Weight change Signed: Sheree Perla RD, LD
--- NOTE | 2019-09-27 17:11 | Consultation ---
DATE OF CONSULTATION: Renal Consultation HISTORY OF PRESENT ILLNESS: Thank you for the consultation. Mr. Lee is a pleasant 69-year-old male with past medical history significant for diabetes mellitus, hypertension, end-stage renal disease, on hemodialysis Wednesday, Wednesday, and Wednesday at [facility] under the care of Dr. Altamirano. 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 We have been consulted to provide his dialysis while he is here. The patient is admitted for right foot wound on the lateral aspect of the ankle. Also, he has a right foot amputation. The patient currently has no fever, no chills, no nausea, no vomiting, no diarrhea. No other symptoms. PAST MEDICAL HISTORY: As outlined above. ALLERGIES: TO IODINE. SOCIAL HISTORY: No tobacco or alcohol use. FAMILY HISTORY: Noncontributory. MEDICATIONS: Have all been reviewed per chart, particularly he takes hydralazine, sevelamer, valsartan, isosorbide mononitrate, Plavix, docusate sodium, and gabapentin. REVIEW OF SYSTEMS: See HPI, otherwise all systems negative. PHYSICAL EXAMINATION: VITAL SIGNS: Blood pressure 180s to 90s over 80s, 100% O2 saturations on room air, afebrile, and 20 respirations. HEENT: No cervical lymphadenopathy. NECK: Supple without masses. No obvious JVD. Moist appearing oral mucosa. SKIN: Moist with good skin turgor. CHEST WALL: Good expansion. No chest wall tenderness. LUNGS: Clear to auscultation bilaterally. CARDIOVASCULAR: S1 and S2. No rubs, gallop, or murmur. ABDOMEN: Soft. Positive bowel sounds. Nontender. No organomegaly. EXTREMITIES: No evidence of lower extremity edema. No clubbing. No cyanosis. Right forefoot amputation and right foot lateral aspect of the ankle, there is an ulcer. NEUROLOGIC: Awake, alert, and oriented x3. Grossly nonfocal exam. LABORATORY DATA: H and H 8.3 and 28.1. Chemistries; sodium 137, potassium 3, chloride 112, bicarb 17, BUN 37, and creatinine is 2.5, calcium 6.4, phosphorus 2.6, and magnesium 1.4. IMPRESSION AND PLAN: 1. End-stage renal disease. We will continue to provide dialysis today and then Wednesday, Wednesday, and Wednesday per his schedule. 2. Hypertension. Blood pressure is currently elevated. Recommend to resume his home blood pressure medications, titrated doses as needed. 3. Anemia of chronic disease, stable. We will continue to monitor. 4. Hypocalcemia. Replace 2 g calcium gluconate, also corrected with dialysis. 5. Hypokalemia. We will replace with 20 mEq of potassium chloride x1 and also corrected with dialysis. Thank you once again for the consult. We will follow the patient closely along with you and make further recommendations. Darwin Love MD /MODL /[id number] cc: Boom Vidal MD
--- NOTE | 2019-09-27 17:26 | Consultation ---
DATE OF CONSULTATION: 09/27/2019 CHIEF COMPLAINT: Infected wound in the right ankle. HISTORY OF PRESENT ILLNESS: This patient is a 69-year-old male with history of diabetes, end-stage renal disease, recently underwent left above-knee amputations for nonhealing wound in the left BKA stump. The patient developed 1-week history of ulceration in the right ankle with worsening infection on antibiotics. He admits to pain, but denies fever or chills. PAST MEDICAL HISTORY: Positive for end-stage renal disease, diabetes, hyperlipidemia, and peripheral vascular disease. PAST SURGICAL HISTORY: Positive for recent left above-knee amputations, dialysis access procedures, and previous right transmetatarsal amputation. ALLERGIES: THE PATIENT HAS ALLERGIC REACTION TO IODINE. SOCIAL HABITS: He does not smoke or drink. REVIEW OF SYSTEMS: Denies chest pain or shortness of breath. PHYSICAL EXAMINATION: VITAL SIGNS: Stable, afebrile. GENERAL: He is awake, alert, and in moderate discomfort. HEENT: Sclerae are anicteric. NECK: Supple. LUNGS: Clear. HEART: Regular rate and rhythm. ABDOMEN: Soft. EXTREMITIES: No edema or cyanosis. Left above-knee amputation noted. Right leg is warm down to the ankle. There is a right lateral malleolus ulceration with evidence of osteomyelitis in the distal fibula. ASSESSMENT: Right diabetic ischemic foot ulcer with osteomyelitis. PLAN: The patient has consented for right below-knee amputation with all attendant risks discussed. We will hold Plavix for 1 to 2 days prior to surgery. Faraz Vasquez MD DNRico/MODL /[id number]
--- NOTE | 2019-09-27 18:52 | NUR ---
Pt resting in bed, no distress. Report given to the oncoming nurse.
[2019-09-27] MEDS: QUETIAPINE FUMARATE 25 MG TAB PO SCH (20:43)
[2019-09-28] VITALS (9 sets, daily range): BP systolic 128–163; BP diastolic 48–81
[2019-09-28 05:18] LABS: BASOPHILS # (AUTO) 0.1 (0.0-0.1); BASOPHILS % 0.6 % (0.0-1.0); EOSINOPHILS # (AUTO) 0.3 (0.0-0.4); EOSINOPHILS % 3.7 % (0.0-6.0); HEMATOCRIT 36.2 % (38.2-49.6); HEMOGLOBIN 10.9 g/dL (14.0-18.0); LYMPHOCYTES # (AUTO) 0.8 (1.0-3.2); LYMPHOCYTES % 10.2 % (18.0-39.1); MEAN CORPUSCULAR HEMOGLOBIN 28.5 pg (28-32); MEAN CORPUSCULAR HGB CONC 30.1 g/dL (31-35); MEAN CORPUSCULAR VOLUME 94.8 fL (81-99); MONOCYTES # (AUTO) 0.7 (0.2-0.8); MONOCYTES % 8.3 % (4.4-11.3); NEUTROPHILS % 76.8 % (38.7-80.0); PLATELET COUNT 280 x10e3/uL (140-360); RED BLOOD COUNT 3.82 x10e6/uL (4.3-5.7); RED CELL DISTRIBUTION WIDTH 14.8 % (11.7-14.4)
[2019-09-28] MEDS ORDERED: SODIUM CHLORIDE 0.9% 250ML 250 ML ONE (05:32)
[2019-09-28 05:37] LABS: CALCIUM 9.6 mg/dL (8.4-10.2); CREATININE, SERUM 2.77 mg/dL (0.72-1.25); PHOSPHORUS 2.9 MG/DL (2.3-4.7)
[2019-09-28] MEDS: HYDRALAZINE HCL 25 MG TAB PO SCH ×3 (06:00→21:03)
[2019-09-28] MEDS: VALSARTAN 160 MG TAB PO SCH ×2 (06:00→17:02)
[2019-09-28] MEDS: PIPERACILLIN/TAZO 2.25 GM 50 ML IV SCH ×3 (06:17→21:04)
[2019-09-28] MEDS: INSULIN REGULAR, HUMAN 100 UNIT/1 ML 3ML VIAL SQ SCH ×4 (07:30→21:00)
[2019-09-28] MEDS: SEVELAMER CARBONATE 800 MG TAB PO SCH ×3 (08:00→17:00)
[2019-09-28] MEDS: GABAPENTIN 300 MG CAP PO SCH ×3 (09:00→21:04)
[2019-09-28] MEDS: ISOSORBIDE MONONITRATE 30 MG TAB CR PO SCH (09:00)
[2019-09-28] MEDS: SILVER ANTIMICROBIAL WOUND GEL 45ML TOP SCH (09:00)
[2019-09-28] MEDS: DOCUSATE SODIUM 100 MG CAP PO SCH (09:00)
--- NOTE | 2019-09-28 09:12 | NUR ---
DR CHRISTIANSON CAME TO SEE THE PT AND CANCELLED THE SURGERY ON TODAY HE IS SCHEDULED ON TOMORROW AFTER NOON
--- NOTE | 2019-09-28 09:34 | NUR ---
TALKED TO H[facility] AT [facility] TO SCHEDULE HD IN MORNING SINCE PT GOING TO SURGERY IN THE AFTERNOON
--- NOTE | 2019-09-28 10:30 | NUR ---
DRESSING CHANGED ON LEFT ANKLE ,RT TMA AND LOWER SACRUM
--- NOTE | 2019-09-28 11:46 | Progress Note ---
DATE: 09/28/2019 Renal Progress Note SUBJECTIVE: Followed for end-stage renal disease, dialysis Wednesday, Wednesday, Wednesday. Next dialysis tomorrow. He tolerated dialysis without problems yesterday. No nausea, no vomiting, no shortness of breath. OBJECTIVE: VITAL SIGNS: Have been noted. Blood pressure 128/56, afebrile, 68 heart rate. LUNGS: Clear to auscultation bilaterally. CARDIOVASCULAR: S1, S2. No rub ABDOMEN: Soft, nontender. EXTREMITIES: No edema. LABORATORY DATA: Phosphorus is 2.9, magnesium 2.0, calcium 9.6, potassium 4, BUN 27, creatinine 2.77. IMPRESSION AND PLAN: 1. End-stage renal disease, continue dialysis Wednesday, Wednesday, Wednesday. 2. Hypertension, stable. 3. Anemia of chronic disease, stable. MD ANDRES Dasilva/KHANH /[id number]
--- NOTE | 2019-09-28 16:07 | NUR ---
PAGEJeyson AND TALKED TO ESA REGARDING HD IN MORNING SHE COLLECTED THE INFORMATION SHE SAID SHE WILL TALK CECILY THE COORDINATOR SHE WILL CALL BACK
--- NOTE | 2019-09-28 18:57 | NUR ---
PT RESTING ON BED BED SIDE REPORT GIVEN TO ONCOMING NURSE
[2019-09-28] MEDS: QUETIAPINE FUMARATE 25 MG TAB PO SCH (21:04)
[2019-09-28] MEDS: ACETAMINOPHEN 325 MG TAB PO PRN (21:04)
[2019-09-29] VITALS (8 sets, daily range): BP systolic 127–187; BP diastolic 60–82
[2019-09-29 05:53] LABS: BASOPHILS # (AUTO) 0.1 (0.0-0.1); BASOPHILS % 0.7 % (0.0-1.0); EOSINOPHILS # (AUTO) 0.3 (0.0-0.4); EOSINOPHILS % 2.6 % (0.0-6.0); HEMATOCRIT 38.2 % (38.2-49.6); HEMOGLOBIN 11.6 g/dL (14.0-18.0); LYMPHOCYTES # (AUTO) 1.1 (1.0-3.2); LYMPHOCYTES % 9.7 % (18.0-39.1); MEAN CORPUSCULAR HEMOGLOBIN 28.6 pg (28-32); MEAN CORPUSCULAR HGB CONC 30.4 g/dL (31-35); MEAN CORPUSCULAR VOLUME 94.1 fL (81-99); MONOCYTES % 8.2 % (4.4-11.3); NEUTROPHILS # (AUTO) 9.1 (2.1-6.9); NEUTROPHILS % 78.5 % (38.7-80.0); PLATELET COUNT 368 x10e3/uL (140-360); RED BLOOD COUNT 4.06 x10e6/uL (4.3-5.7); RED CELL DISTRIBUTION WIDTH 15.1 % (11.7-14.4)
[2019-09-29] MEDS: VALSARTAN 160 MG TAB PO SCH ×2 (06:00→17:40)
[2019-09-29] MEDS: HYDRALAZINE HCL 25 MG TAB PO SCH ×3 (06:00→21:03)
[2019-09-29] MEDS: PIPERACILLIN/TAZO 2.25 GM 50 ML IV SCH ×3 (06:11→21:02)
[2019-09-29 06:17] LABS: ANION GAP 20.6 mmol/L (8-16); CALCIUM 9.9 mg/dL (8.4-10.2); CREATININE, SERUM 3.86 mg/dL (0.72-1.25); MAGNESIUM 2.1 MG/DL (1.3-2.1); PHOSPHORUS 3.7 MG/DL (2.3-4.7); POTASSIUM 4.6 mmol/L (3.5-5.1)
[2019-09-29] MEDS: INSULIN REGULAR, HUMAN 100 UNIT/1 ML 3ML VIAL SQ SCH ×4 (07:30→19:42)
[2019-09-29] MEDS: SEVELAMER CARBONATE 800 MG TAB PO SCH ×3 (08:00→17:40)
[2019-09-29] MEDS: GABAPENTIN 300 MG CAP PO SCH ×3 (09:00→21:01)
[2019-09-29] MEDS: SILVER ANTIMICROBIAL WOUND GEL 45ML TOP SCH (14:00)
[2019-09-29] MEDS: HYDROMORPHONE HCL 2 MG TAB PO PRN ×2 (15:05→21:27)
[2019-09-29] MEDS: DOCUSATE SODIUM 100 MG CAP PO SCH (15:06)
[2019-09-29] MEDS: ISOSORBIDE MONONITRATE 30 MG TAB CR PO SCH (15:16)
[2019-09-29] MEDS: QUETIAPINE FUMARATE 25 MG TAB PO SCH (21:02)
[2019-09-30] VITALS (10 sets, daily range): BP systolic 120–191; BP diastolic 53–82
[2019-09-30] MEDS: ACETAMINOPHEN 325 MG TAB PO PRN (00:02)
[2019-09-30] MEDS: HYDRALAZINE HCL 25 MG TAB PO SCH ×3 (05:51→20:10)
[2019-09-30] MEDS: PIPERACILLIN/TAZO 2.25 GM 50 ML IV SCH ×3 (05:51→20:10)
[2019-09-30] MEDS: VALSARTAN 160 MG TAB PO SCH ×3 (05:52→20:10)
--- NOTE | 2019-09-30 07:12 | NUR ---
pt alert resp even and indicated, pt resting comfortably, no distress noted, no so of breath indicated, family at bedside, pt able to make needs known, call light in reach.
[2019-09-30] MEDS: INSULIN REGULAR, HUMAN 100 UNIT/1 ML 3ML VIAL SQ SCH ×4 (07:30→19:41)
--- NOTE | 2019-09-30 07:50 | NUR ---
pt off unit for procedure.
[2019-09-30] MEDS ORDERED: SODIUM CHLORIDE 0.9% 500ML 500 ML ONE (07:58)
[2019-09-30] MEDS: SEVELAMER CARBONATE 800 MG TAB PO SCH ×3 (08:00→17:00)
[2019-09-30] MEDS: SILVER ANTIMICROBIAL WOUND GEL 45ML TOP SCH (09:00)
[2019-09-30] MEDS: GABAPENTIN 300 MG CAP PO SCH ×3 (09:00→20:10)
[2019-09-30] MEDS: ISOSORBIDE MONONITRATE 30 MG TAB CR PO SCH (09:00)
[2019-09-30] MEDS: DOCUSATE SODIUM 100 MG CAP PO SCH (09:00)
--- NOTE | 2019-09-30 09:00 | NUR ---
pt returned to unit resp even and unlabored pt has family member at bedside, pt dressing to leg clean and dry, call light in reach.
[2019-09-30] MEDS: HYDROMORPHONE HCL 2 MG TAB PO PRN ×2 (18:11→23:46)
--- NOTE | 2019-09-30 18:32 | Operative Report ---
DATE OF PROCEDURE: 09/30/2019 SURGEON: Faraz Vasquez MD PREOPERATIVE DIAGNOSIS: Right diabetic foot osteomyelitis. POSTOPERATIVE DIAGNOSIS: Right diabetic foot osteomyelitis. OPERATIVE PROCEDURE: Right above knee amputation. ANESTHESIA: General, Dr. Mcdaniel. INDICATION: The patient is a 69-year-old male with history of right diabetic foot infection. The patient is on dialysis. The patient has developed osteomyelitis in the ankle area and he has consented for right above knee amputation. Attendant risks discussed. DESCRIPTION OF PROCEDURE: The patient was brought to OR intubated. The right leg was prepped with Betadine and draped in a sterile fashion. A fishmouth incision was made one handbreadth above the right knee. The incision was then carried through full thickness of skin and subcu tissue. The anterior fascia was incised along with the underlying muscle down to the femur at the level of skin incisions. The femur was then circumferentially dissected out. The medial neural vasculature was individually isolated and ligated between the clamps and divided and ligated with suture ligature of 2-0 silk. The posterior flap was then created using sharp dissection and cautery to divide the fascia and muscle. The sciatic nerve is ligated with 2-0 Vicryl under traction to allow retraction after division. We then proceeded to score the perineum. The periosteum of the femur approximately 4 cm proximal to the skin incisions and a Gigli saw was used to transect the femur perpendicularly. The edge of femur is rasped to smoothen the edge. Operative field was then irrigated after the specimen delivered. We then closed the muscle flap covering the femur stump using interrupted 2-0 Vicryl. Anterior and posterior fascial approximation carried out with 2-0 Vicryl. Skin closed with kwesi. The patient tolerated the procedure well. He was extubated. Blood loss approximately 30 mL. Faraz Vasquez MD DNL/MODL /[id number]
[2019-09-30] MEDS ORDERED: ONDANSETRON HCL INJ 2MG/ML 2ML 2 MG/ML VIAL ONE (18:36)
[2019-09-30] MEDS ORDERED: SEVOFLURANE INHAL SOLN 250 ML PEN BTL ONE (18:36)
[2019-09-30] MEDS ORDERED: PROPOFOL IV EMULSION 10 MG/ML 20 ML VIAL ONE (18:36)
[2019-09-30] MEDS ORDERED: ACETAMINOPHEN 1000 MG/100 ML IV ONE (18:36)
[2019-09-30] MEDS ORDERED: LIDOCAINE HCL 2% LOCAL INJ 5 ML SDV VIAL INJ ONE (18:36)
[2019-09-30] MEDS ORDERED: DEXAMETHASONE SOD PHOS INJ 4 MG/ML VIAL ONE (18:36)
[2019-09-30] MEDS ORDERED: FENTANYL CITRATE/PF 100MCG/2 ML INJ ONE (19:21)
--- NOTE | 2019-09-30 19:25 | NUR ---
report given to oncoming nurse. pt stable at this time.
[2019-09-30] MEDS: QUETIAPINE FUMARATE 25 MG TAB PO SCH (20:10)
[2019-10-01 05:10] VITALS: BP 165/75
[2019-10-01] MEDS: PIPERACILLIN/TAZO 2.25 GM 50 ML IV SCH ×3 (05:39→21:54)
[2019-10-01] MEDS: HYDRALAZINE HCL 25 MG TAB PO SCH ×3 (05:39→21:55)
[2019-10-01] MEDS: VALSARTAN 160 MG TAB PO SCH ×2 (05:39→16:17)
[2019-10-01 07:14] VITALS: BP 188/81
--- NOTE | 2019-10-01 07:17 | NUR ---
pt alert resp even and no distress noted, no so of breath indicated, family at bedside, pt able to make needs known, will cont to monitor, call light in reach.
[2019-10-01] MEDS: INSULIN REGULAR, HUMAN 100 UNIT/1 ML 3ML VIAL SQ SCH ×4 (07:30→21:00)
[2019-10-01] MEDS: DOCUSATE SODIUM 100 MG CAP PO SCH (08:45)
[2019-10-01] MEDS: GABAPENTIN 300 MG CAP PO SCH ×3 (08:45→21:54)
[2019-10-01] MEDS: ISOSORBIDE MONONITRATE 30 MG TAB CR PO SCH (08:45)
[2019-10-01] MEDS: SEVELAMER CARBONATE 800 MG TAB PO SCH ×3 (08:50→17:00)
[2019-10-01 11:39] VITALS: BP 155/70
[2019-10-01 15:23] VITALS: BP 188/87
[2019-10-01] MEDS: SILVER ANTIMICROBIAL WOUND GEL 45ML TOP SCH (18:52)
--- NOTE | 2019-10-01 19:15 | NUR ---
report given to oncoming nurse. pt stable.
[2019-10-01 20:34] VITALS: BP 180/77
[2019-10-01 21:00] VITALS: BP 180/77
[2019-10-01] MEDS: HYDROMORPHONE HCL 2 MG TAB PO PRN (21:54)
[2019-10-01] MEDS: QUETIAPINE FUMARATE 25 MG TAB PO SCH (21:54)
[2019-10-02 00:13] VITALS: BP 180/71
[2019-10-02 05:35] VITALS: BP 154/67
[2019-10-02] MEDS: HYDRALAZINE HCL 25 MG TAB PO SCH ×2 (06:33→14:00)
[2019-10-02] MEDS: PIPERACILLIN/TAZO 2.25 GM 50 ML IV SCH (06:33)
[2019-10-02] MEDS: VALSARTAN 160 MG TAB PO SCH (06:33)
[2019-10-02] MEDS: INSULIN REGULAR, HUMAN 100 UNIT/1 ML 3ML VIAL SQ SCH ×2 (07:30→11:30)
[2019-10-02 08:00] VITALS: BP 198/78
--- NOTE | 2019-10-02 08:58 | NUR ---
CALLED AND SPOKE WITH DAUGHTER JULIO SHE STATES ITS OKAY TO SEND HOME WITH [facility], SHE STATES TO PLEASE SET UP TRANSPORT, STATES DOESN'T MATTER WHAT COMPANY, EDUCATED ABOUT IMM FILED IN CHART AND LEFT COPY IN ROOM. CALLED AND SPOKE WITH CHRISTINE AT [facility] Address: [address] [place] [address], [place] [address], FAX [phone]. SHE STATES TO CALL HER AND LET HER KNOW WHEN PT WILL BE READY AND SHE WILL SET UP TRANSPORT FOR PT TO RETURN HOME. WILL FAX INFORMATION TO FAX.
[2019-10-02] MEDS: SILVER ANTIMICROBIAL WOUND GEL 45ML TOP SCH (09:00)
[2019-10-02] MEDS ORDERED: SODIUM CHLORIDE 0.9% 1000ML 2,000 ML ONE (09:04)
[2019-10-02] MEDS: ACETAMINOPHEN 325 MG TAB PO PRN (10:15)
[2019-10-02] MEDS: SEVELAMER CARBONATE 800 MG TAB PO SCH ×2 (10:15→12:49)
[2019-10-02] MEDS: GABAPENTIN 300 MG CAP PO SCH (10:15)
[2019-10-02] MEDS: DOCUSATE SODIUM 100 MG CAP PO SCH (10:15)
--- NOTE | 2019-10-02 10:21 | NUR ---
Patient is receiving dialysis at this time. Spoke to Giovanna, high school social studies teacher, who is going to notify hospice to arrange transportation for 1400. Giovanna is going to notify family. Patient is being discharged home.
[2019-10-02 11:48] VITALS: BP 163/60
--- NOTE | 2019-10-02 12:45 | Progress Note ---
DATE: 10/02/2019 Renal Progress Note SUBJECTIVE: Followed for end-stage renal disease, tolerating dialysis Wednesday, Wednesday, and Wednesday. No nausea, no vomiting, no shortness of breath. OBJECTIVE: VITAL SIGNS: Vital signs have been noted and are stable. LUNGS: Clear to auscultation bilaterally. CARDIOVASCULAR: S1, S2. No rub. ABDOMEN: Soft, nontender. EXTREMITIES: No edema. LABORATORY DATA: Labs have been reviewed from 09/29. Hemoglobin 11.6. Chemistry; potassium is 4.6, BUN 37, and creatinine 3.86. IMPRESSION AND PLAN: 1. End-stage renal disease. We will continue dialysis Wednesday, Wednesday, and Wednesday. 2. Hypertension, stable. 3. Anemia of chronic disease, stable. 4. Right foot infection and ulcer. Plan per primary MD. MD ANDRES Dasilva/MODRico /[id number]
--- NOTE | 2019-10-02 13:09 | NUR ---
PT WILL BE DONE BY 12 SO CALLED AND SPOKE WITH CHRISTINE AND GAVE TIMES, SHE IS GOING TO SET UP HOSPICE TRANSPORT AT 2PM. 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
--- NOTE | 2019-10-02 13:22 | NUR ---
Spoke to Dr. Vasquez. he said OK for patient to dc home. Needs to f/u in office in 1-2 weeks
--- NOTE | 2019-10-02 14:06 | NUR ---
Dressing to right lower extremity changed. [place] are dry and intact.
--- NOTE | 2019-10-02 14:07 | NUR ---
Discharge instructions were given to the patient and his daughter. They verbalized understanding. IV's were removed from right upper arm with tips intact.
== END 2019-10-02 15:53 | disposition hospice, home (50) | DRG 617 ==
LOC: ER 13:29 → ERHOLD 14:42 → MED/SURG2 16:54
PROVIDERS: ADMIT Internal Medicine; ATTEND Internal Medicine
PROC: 3E0234Z Introduction of Serum, Toxoid and Vaccine into Muscle, Percutaneous Approach (ICD-10-PCS; 2019-09-26)
PROC: 5A1D70Z Performance of Urinary Filtration, Intermittent, Less than 6 Hours Per Day (ICD-10-PCS; 2019-09-27)
PROC: 0Y6C0Z3 Detachment at Right Upper Leg, Low, Open Approach (ICD-10-PCS; principal; 2019-09-30 08:00)
DX: E11.621 Type 2 diabetes mellitus with foot ulcer (principal); I12.0 Hypertensive chronic kidney disease with stage 5 chronic kidney disease or end stage renal disease; M86.261 Subacute osteomyelitis, right tibia and fibula; L03.115 Cellulitis of right lower limb; L97.319 Non-pressure chronic ulcer of right ankle with unspecified severity; N18.6 End stage renal disease; E87.6 Hypokalemia; L89.152 Pressure ulcer of sacral region, stage 2; E11.22 Type 2 diabetes mellitus with diabetic chronic kidney disease; Z99.2 Dependence on renal dialysis; D63.8 Anemia in other chronic diseases classified elsewhere; E11.69 Type 2 diabetes mellitus with other specified complication; E11.51 Type 2 diabetes mellitus with diabetic peripheral angiopathy without gangrene; Z89.512 Acquired absence of left leg below knee; E78.5 Hyperlipidemia, unspecified; N25.81 Secondary hyperparathyroidism of renal origin; G89.29 Other chronic pain; F01.50 Vascular dementia, unspecified severity, without behavioral disturbance, psychotic disturbance, mood disturbance, and anxiety; Z23 Encounter for immunization; Z79.02 Long term (current) use of antithrombotics/antiplatelets; Z91.041 Radiographic dye allergy status
CPT/HCPCS: 36415; 71045; 80048; 80053; 82550; 82553; 82948; 83605; 83735; 83880; 84100; 84484; 85025; 85610; 85730; 87040; 87340; 88307; 90732; 93005; 97139; 97602; 99284; J0610; J1100; J1817; J2001; J2270; J2405; J2543; J3010; J3370; J7030; J7040; J7050